=== PATIENT | male | born 1935 | race Caucasian/White ===

== ENCOUNTER 2018-12-02 11:38 | Inpatient (IN) | payer MEDICARE ==
--- NOTE | 2018-12-02 12:35 | ED ---
Lower Extremity - HPI Summary HPI Summary: The pt is a 83 yr old male presenting to [facility] c/o foot pain beginning several weeks [employer]. He states that his 2nd toe on right foot suddenly started hurting much more this week. Most of his pain is located in his toe and he rates its severity a 10/10. He reports some redness around the toe but denies hitting the toe, SOB, fever, chills, CP, or N/V/D. He has Hx of DM. - History of Current Complaint Chief Complaint: EDExtremityLower Stated Complaint: RIGHT FOOT PAIN PER PT Time Seen by Provider: 12/02/18 12:01 Hx Obtained From: Patient Mechanism Of Injury: Unknown Onset of Pain: Days, Prior to Arrival Onset/Duration: Still Present Severity Initially: Severe Severity Currently: Severe Pain Intensity: 10 Pain Scale Used: 0-10 Numeric Timing: Constant, Lasting Weeks Location: Is Discrete @ - 2nd toe on right foot Associated Signs And Symptoms: Positive: Redness. Negative: Fever - Allergies/Home Medications Allergies/Adverse Reactions: Allergies Allergy/AdvReac Type Severity Reaction Status Date / Time ciprofloxacin Allergy Swelling Verified 12/02/18 11:49 Of Face,Lips,& Throat Home Medications: Home Medications Levothyroxine TAB* [Synthroid TAB*] 50 mcg PO DAILY 12/02/18 [History Confirmed 12/02/18] Multivitamins/Minerals TAB* [Theragran/minerals TAB*] 1 tab PO DAILY 12/02/18 [ History Confirmed 12/02/18] PMH/Surg Hx/FS Hx/Imm Hx Endocrine/Hematology History: Reports: Hx Diabetes Denies: Hx Anticoagulant Therapy, Hx Thyroid Disease Cardiovascular History: Reports: Hx Hypertension Denies: Hx Pacemaker/ICD Respiratory History: Denies: Hx Asthma History: Reports: Hx Benign Prostatic Hyperplasia, Other Problems/ Disorders - hx of renal stones Denies: Hx Renal Disease Musculoskeletal History: Reports: Hx Gout Sensory History: Reports: Hx Contacts or Glasses Opthamlomology History: Reports: Hx Contacts or Glasses Neurological History: Denies: Hx Seizures Psychiatric History: Denies: Hx Substance Abuse - Surgical History Surgery Procedure, Year, and Place: prostate scraping x3 Infectious Disease History: No Infectious Disease History: Denies: Hx Hepatitis, Hx Human Immunodeficiency Virus (HIV), Traveled Outside the [place] in Last 30 Days - Family History Known Family History: Positive: Hypertension - Social History Alcohol Use: None Hx Substance Use: No Substance Use Type: Reports: None Hx Tobacco Use: Yes Smoking Status (MU): Former Smoker Review of Systems Negative: Fever, Chills Negative: Chest Pain Negative: Shortness Of Breath Negative: Vomiting, Diarrhea, Nausea Positive: Other - Positive - pain in right foot 2nd toe All Other Systems Reviewed And Are Negative: Yes Physical Exam - Summary Physical Exam Summary: Constitutional: Well-developed, Well-nourished, Alert. 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 Feet are warm HENT: Normocephalic; Atraumatic Eyes: Conjunctiva normal Neck: Musculoskeletal ROM normal neck. (-) JVD, (-) Stridor, (-) Tracheal deviation Cardio: Rhythm regular, rate normal, Heart sounds normal; Intact distal pulses; No pedal pulses bilaterally. Radial pulses are 2+ and symmetric. (-) Murmur Pulmonary/Chest wall: Effort normal. (-) Respiratory distress, (-) Wheezes, (-) Rales Abd: Soft, (-) tenderness, (-) Distension, (-) Guarding, (-) Rebound Musculoskeletal: (-) Edema, right foot distal portion of second toe is black and the proximal portion has erythema extending up into the leg. Lymph: (-) Cervical adenopathy Neuro: Alert, Oriented x3 Psych: Mood and affect Normal Triage Information Reviewed: Yes Vital Signs On Initial Exam: Initial Vitals Temp Pulse Resp BP Pulse Ox 97.8 F 75 16 153/81 96 12/02/18 11:43 12/02/18 11:43 12/02/18 11:43 12/02/18 11:43 12/02/18 11:43 Vital Signs Reviewed: Yes Diagnostics - Vital Signs Vital Signs Temp Pulse Resp BP Pulse Ox 12/02/18 11:43 97.8 F 75 16 153/81 96 - Laboratory Result Diagrams: 12/02/18 12:58 12/02/18 12:58 Lab Statement: Any lab studies that have been ordered have been reviewed, and results considered in the medical decision making process. - Radiology Foot XR Radiology Interpretation Completed By: Radiologist Summary of Radiographic Findings: NO APPRECIABLE EROSION OR PERIOSTEAL REACTION. PLAIN RADIOGRAPH FINDINGS OF OSTEOMYELITIS ARE RELATIVELY LATE FINDINGS. IF THERE IS PERSISTENT CLINICAL CONCERN FOR OSTEOMYELITIS, RECOMMEND CORRELATION WITH FOLLOWUP IMAGING, THREE-PHASE BONE SCANNING, WHITE BLOOD CELL SCAN, AND/OR MRI OF THE AFFECTED REGION. ED physician has reviewed this report. 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 Lower Extremity Course/Dx - Course Course Of Treatment: The pt is an 83 yr old male presenting to [facility] c/o foot pain beginning several weeks [employer]. He states that his 2nd toe on right foot suddenly started hurting much more this week. Most of his pain is located in his toe and he rates its severity a 10/10. He denies hitting the toe, SOB, fever , chills, CP, or N/V/D. He has Hx of DM. 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 Test results without significant abnormalities except for WBC @ 11.6, RBC @ 3.94, Hgb @ 12.5, Hct @ 36, MCH @ 32, Absolute Neuts @ 9.8, Absolute Lymphs @ 0.9, Sodium @ 131, Chloride @ 100, CO2 @ 21, BUN @ 33, Creatinine @ 1.30, BUN/Creatinine @ 25.4, Glucose @ 550, Lactic acid @ 2.7, AST @ 12, and CRP @ 82.8. 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 A foot xray reveals: NO APPRECIABLE EROSION OR PERIOSTEAL REACTION. PLAIN RADIOGRAPH FINDINGS OF OSTEOMYELITIS ARE RELATIVELY LATE FINDINGS. IF THERE IS PERSISTENT CLINICAL CONCERN FOR OSTEOMYELITIS, RECOMMEND CORRELATION WITH FOLLOWUP IMAGING, THREE-PHASE BONE SCANNING, WHITE BLOOD CELL SCAN, AND/OR MRI OF THE AFFECTED REGION. In the ED course, the pt was given normal saline, Vancomycin, and Zosyn. The pt was diagnosed with foot infection and admitted to [facility] - Diagnoses Provider Diagnoses: Foot infection - Physician Notifications Discussed Care Of Patient With: Raven Monet Time Discussed With Above Provider: 14:00 - Dr. Monet will admit the pt to [facility] Instructed by Provider To: Admit As Inpatient Discharge - Sign-Out/Discharge Documenting (check all that apply): Patient Departure - Admit - Discharge Plan Condition: Stable Disposition: ADMITTED TO [facility] - Billing Disposition and Condition Condition: STABLE Disposition: Admitted to [facility] - Attestation Statements Document Initiated by Scribe: Yes Documenting Scribe: Richard Ibanez Provider For Whom Akiraibe is Documenting (Include Credential): Sonya Keenan MD Scribe Attestation: Richard Chavez, scribed for Sonya Malin MD on 12/02/18 at 1854. Scribe Documentation Reviewed: Yes Provider Attestation: The documentation as recorded by the Richard gar accurately reflects the service I personally performed and the decisions made by Sonya jaimes MD Status of Scribe Document: Viewed
--- OUTSIDE RECORDS SUMMARY | 2018-12-02 13:05 | XMS REPORT | Continuity of Care Document ---
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 Onset: 03/21/2011 Benign essential hypertension Quincy Parker M.D. Onset: 03/21/2011 Gout Quincy Parker M.D. Onset: 06/09/2012 Pulmonary embolism Quincy Parker M.D. 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 Onset: 12/15/2012 Abdominal pain Quincy Parker M.D. Onset: 04/12/2014 Essential hypertension Quincy Parker M.D. Onset: 08/28/2017 Social History Type Date Description Comments Sex Unknown Marital Status Patient is Tobacco Use Start: Unknown End: Unknown Patient is a former smoker Smoking Status Reviewed: 04/22/17 Patient is a former smoker Allergies, Adverse Reactions, Alerts Active Allergies Reaction Severity Comments Date Cipro facial swelling 09/19/2012 Inactive Allergies NKDA 09/26/2011 Medications Active Medications SIG Qnty Indications Ordering Provider Date Glipizide ER Take 1 Tablet 180tabs Quincy Chakraborty 05/21/2018 10mg By Mouth Two Tara Parker Tablets ER 24HR Times Daily Levothyroxine Sodium Take 1 Tablet 90tabs Quincy Chakraborty 08/29/2017 By Mouth Every Tara Parker 50mcg Tablets Day Contour Blood Test as directed 1Boxes E11.9 Corinne Marion, 02/09/2010 Strips Afnp-C dx: niddm Lancets use as directed 100units E11.9 Corinne Marion, 02/09/2010 Misc Afnp-C dx. niddm Metformin HCL Take One Tablet 180tabs Quincy Chakraborty 10/19/2009 1000mg By Mouth Twice Tara Parker Tablets A Day Aspirin 1 PO qd Family [facility] 01/30/2008 81mg Che[facility] Allopurinol Take 1 Tablet 90tabs Quincy Chakraborty 01/30/2008 300mg By Mouth One Tara Parker Tablets Time Daily Fosinopril Sodium Take One Tablet 90tabs Quincy Chakraborty 01/30/2008 20mg By Mouth Every Tara Parker Tablets Day Metoprolol Succinate Take 1 Tablet 90tabs Lester Alicea, 01/30/2008 ER By Mouth Every Tara 50mg Tablets ER 24HR Day History Medications Azithromycin z lisa as 6tabs J20.9 Radha Colón 04/22/2017 - 250mg directed, 2 tabs 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, [employer]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 08/28/2017 Tablets day one, one tab day 2-5 Farxiga 1 by mouth once a 30tabs Quincy Chakraborty 04/24/2016 - 5mg Tablets day-Samples Tara Parker 08/28/2017 Tradjenta 1 tablet once a 30tabs Quincy Chakraborty 04/09/2016 - 5mg Tablets day orally 30 Tara Parker 04/24/2016 day(s) Januvia 1 by mouth every 90tabs Quincy Chakraborty 03/14/2016 - 100mg Tablets day Tara Parker 08/28/2017 Januvia 1 by mouth every 30tabs Quincy Chakraborty 03/07/2016 - 50mg Tablets day Tara Parker 03/14/2016 Tamiflu 1 by mouth Once A 10caps Quincy Chakraborty 06/16/2014 - 75mg Capsules Day Tara Parker 12/24/2014 Amoxicillin 1 po bid x 10 20tabs 466.0 Layla Patel NP 05/04/2013 - 875mg days 05/14/2013 Tablets Zyloprim Take One Tablet 90tabs Quincy Chakraborty 02/11/2013 - 300mg Tablets By Mouth Every Tara Parker 05/04/2013 Day Glucotrol XL 1 po qd Quincy Chakraborty 10/10/2012 - 2.5mg Tara Parker 04/27/2013 Tablets ER 24HR Warfarin Sodium Take One Tablet 90tabs Quincy Chakraborty 10/08/2012 - 5mg By Mouth Once Tara Parker 04/04/2015 Tablets Daily Or as Directed Levothyroxine Sodium Take One Tablet 90tabs Quincy Chakraborty 09/19/2012 - By Mouth Once Tara Parker 08/29/2017 25mcg Tablets Daily Metformin HCL 2 po qd Lizeth 10/05/2009 - 500mg Jun Pike 10/19/2009 Tablets ER 24HR Glucotrol XL Take 1 Tablet By 180tabs Quincy Chakraborty 10/05/2009 - 10mg Mouth Two Times Tara Parker 05/21/2018 Tablets ER 24HR Daily Glucotrol XL 2 po qd 30tabs Lizeth 09/15/2009 - 5mg Jun Pike 10/05/2009 Tablets ER 24HR Cipro 1 po bid 10tabs Quincy Cahkraborty 08/12/2009 - 250mg Tablets Tara Parker 09/15/2009 Glyburide 1qd - Take One 30tabs Quincy Chakraborty 07/13/2009 - 2.5mg Tabs Tablet By Mouth Tara Parker 08/12/2009 Every Day Glyburide 1 po qd 90tabs Quincy Chakraborty 01/30/2008 - 2.5mg Tablets Tara Parker 09/15/2009 Norvasc Take One Tablet 90tabs Quincy Chakraborty 01/30/2008 - 5mg Tablets By Mouth Every Tara Parker 09/19/2012 Day Cozaar Take One Tablet 90tabs Quincy Chakraborty 01/30/2008 - 25mg Tablets By Mouth Every Tara Parker 09/19/2012 Day Coumadin 1 qd or as Unknown - 7.5mg Tablets directed 12/24/2014 Immunizations CPT Code Status Date Vaccine Lot # [id number] Given 02/14/2018 High-Dose, Influenza Virus Vacccine-fluzone 65 and older [id number] Given 01/28/2017 High-Dose, Influenza Virus Vacccine-fluzone 65 and older [id number] Given 02/01/2015 Influenza Vac, Quadriv[place], [place] [id number] Given 01/30/2013 DO Not Use Split Influenza Virus Vaccine [id number] Given 06/09/2012 Pneumococcal Immunization [id number] Vital Signs Date Vital Result Comment 11/14/2018 11:04am BP Systolic 118 mmHg BP Diastolic 70 mmHg Heart Rate 72 /min Body Temperature 97.2 F Respiratory Rate 20 /min Height 55.25 inches 4'7.25" Weight 154.00 lb BMI (Body Mass Index) 35.5 kg/m2 08/28/2017 2:24pm BP Systolic 92 mmHg BP Diastolic 64 mmHg Heart Rate 68 /min Body Temperature 97.2 F Respiratory Rate 18 /min Height 55.25 inches 4'7.25" Weight 157.25 lb BMI (Body Mass Index) 36.2 kg/m2 04/22/2017 7:20pm BP Systolic 110 mmHg BP Diastolic 70 mmHg Heart Rate 72 /min Body Temperature 98.0 F Respiratory Rate 18 /min Height 55.25 inches 4'7.25" Weight 153.00 lb BMI (Body Mass Index) 35.2 kg/m2 03/19/2017 11:07am BP Systolic 120 mmHg BP Diastolic 68 mmHg Heart Rate 80 /min Body Temperature 97.3 F Height 55.25 inches 4'7.25" Weight 161.00 lb BMI (Body Mass Index) 37.1 kg/m2 02/04/2017 2:12pm BP Systolic 120 mmHg BP Diastolic 74 mmHg Heart Rate 63 /min Body Temperature 98.0 F Respiratory Rate 18 /min Height 55.25 inches 4'7.25" Weight 164.00 lb BMI (Body Mass Index) 37.8 kg/m2 10/03/2016 1:03pm BP Systolic 128 mmHg BP Diastolic 70 mmHg Heart Rate 60 /min Body Temperature 98.2 F Respiratory Rate 16 /min Height 55.25 inches 4'7.25" Weight 163.00 lb BMI (Body Mass Index) 37.5 kg/m2 07/06/2016 8:46am BP Systolic 120 mmHg BP Diastolic 70 mmHg Heart Rate 60 /min Respiratory Rate 18 /min Height 55.25 inches 4'7.25" Weight 157.00 lb BMI (Body Mass Index) 36.2 kg/m2 03/07/2016 2:07pm BP Systolic 130 mmHg BP Diastolic 70 mmHg Heart Rate 64 /min Body Temperature 97.2 F Respiratory Rate 20 /min Height 55.25 inches 4'7.25" Weight 170.50 lb BMI (Body Mass Index) 39.3 kg/m2 12/05/2015 2:14pm BP Systolic 118 mmHg BP Diastolic 74 mmHg Heart Rate 64 /min Body Temperature 98.2 F Respiratory Rate 20 /min Height 55.25 inches 4'7.25" Weight 161.00 lb BMI (Body Mass Index) 37.1 kg/m2 08/03/2015 1:53pm BP Systolic 136 mmHg BP Diastolic 80 mmHg Heart Rate 70 /min Body Temperature 97.4 F Respiratory Rate 20 /min Height 55.25 inches 4'7.25" Weight 166.00 lb BMI (Body Mass Index) 38.2 kg/m2 04/04/2015 1:57pm BP Systolic 136 mmHg BP Diastolic 70 mmHg Heart Rate 64 /min Body Temperature 97.5 F Respiratory Rate 20 /min Height 55.25 inches 4'7.25" Weight 167.00 lb BMI (Body Mass Index) 38.5 kg/m2 12/24/2014 10:25am BP Systolic 140 mmHg BP Diastolic 70 mmHg Heart Rate 60 /min Body Temperature 96.7 F Height 55.25 inches 4'7.25" Weight 158.00 lb BMI (Body Mass Index) 36.4 kg/m2 04/12/2014 11:01am BP Systolic 124 mmHg BP Diastolic 80 mmHg Heart Rate 74 /min Body Temperature 97.6 F Respiratory Rate 18 /min Height 55.25 inches 4'7.25" Weight 157.12 lb BMI (Body Mass Index) 36.2 kg/m2 03/26/2014 11:01am BP Systolic 118 mmHg BP Diastolic 72 mmHg Heart Rate 74 /min Body Temperature 98.5 F Respiratory Rate 18 /min Height 55.25 inches 4'7.25" Weight 157.00 lb BMI (Body Mass Index) 36.2 kg/m2 11/11/2013 1:09pm BP Systolic 138 mmHg BP Diastolic 72 mmHg Heart Rate 68 /min Body Temperature 97.3 F Respiratory Rate 18 /min Height 55.25 inches 4'7.25" Weight 163.00 lb BMI (Body Mass Index) 37.5 kg/m2 08/12/2013 3:19pm BP Systolic 140 mmHg BP Diastolic 70 mmHg Heart Rate 76 /min Body Temperature 97.6 F Respiratory Rate 18 /min Height 55.25 inches 4'7.25" Weight 168.00 lb BMI (Body Mass Index) 38.7 kg/m2 05/04/2013 3:15pm BP Systolic 120 mmHg BP Diastolic 60 mmHg Heart Rate 66 /min Body Temperature 97.6 F Respiratory Rate 16 /min O2 % BldC Oximetry 98 % Height 55.25 inches 4'7.25" Weight 167.12 lb BMI (Body Mass Index) 38.5 kg/m2 04/27/2013 1:00pm BP Systolic 122 mmHg BP Diastolic 72 mmHg Heart Rate 74 /min Body Temperature 98.1 F Respiratory Rate 16 /min Height 55.25 inches 4'7.25" Weight 165.00 lb BMI (Body Mass Index) 38.0 kg/m2 12/15/2012 2:22pm BP Systolic 120 mmHg BP Diastolic 70 mmHg Heart Rate 72 /min Body Temperature 97.9 F Respiratory Rate 20 /min Height 55.25 inches 4'7.25" Weight 163.00 lb BMI (Body Mass Index) 37.5 kg/m2 10/10/2012 1:52pm BP Systolic 130 mmHg BP Diastolic 70 mmHg Heart Rate 70 /min Body Temperature 97.2 F Respiratory Rate 20 /min Height 55.25 inches 4'7.25" Weight 164.00 lb BMI (Body Mass Index) 37.8 kg/m2 09/19/2012 1:49pm BP Systolic 120 mmHg BP Diastolic 80 mmHg Heart Rate 72 /min Body Temperature 97.7 F O2 % BldC Oximetry 98 % Height 55.25 inches 4'7.25" Weight 165.00 lb BMI (Body Mass Index) 38.0 kg/m2 06/09/2012 10:15am BP Systolic 100 mmHg BP Diastolic 70 mmHg Heart Rate 68 /min Body Temperature 98.2 F Height 55.25 inches 4'7.25" Weight 162.00 lb BMI (Body Mass Index) 37.3 kg/m2 02/25/2012 1:03pm BP Systolic 146 mmHg BP Diastolic 80 mmHg Heart Rate 68 /min Body Temperature 98.0 F Height 64.75 inches 5'4.75" Weight 160.00 lb BMI (Body Mass Index) 26.8 kg/m2 09/26/2011 3:08pm BP Systolic 120 mmHg BP Diastolic 70 mmHg Heart Rate 72 /min Body Temperature 97.9 F Height 64.75 inches 5'4.75" Weight 164.00 lb BMI (Body Mass Index) 27.5 kg/m2 06/22/2011 2:40pm BP Systolic 130 mmHg BP Diastolic 70 mmHg Heart Rate 64 /min Height 64.75 inches 5'4.75" Weight 168.50 lb BMI (Body Mass Index) 28.3 kg/m2 03/21/2011 2:42pm BP Systolic 130 mmHg BP Diastolic 70 mmHg Heart Rate 66 /min Body Temperature 97.6 F Respiratory Rate 20 /min Height 64.75 inches 5'4.75" Weight 166.00 lb BMI (Body Mass Index) 27.8 kg/m2 11/13/2010 9:54am BP Systolic 122 mmHg BP Diastolic 74 mmHg Heart Rate 74 /min Body Temperature 96.7 F Height 64.75 inches 5'4.75" Weight 159.00 lb BMI (Body Mass Index) 26.7 kg/m2 08/02/2010 6:15pm BP Systolic 114 mmHg BP Diastolic 74 mmHg Heart Rate 80 /min Height 64.75 inches 5'4.75" Weight 160.00 lb BMI (Body Mass Index) 26.8 kg/m2 05/01/2010 2:00pm BP Systolic 110 mmHg BP Diastolic 66 mmHg Heart Rate 80 /min Height 64.75 inches 5'4.75" Weight 160.00 lb BMI (Body Mass Index) 26.8 kg/m2 02/09/2010 1:34pm BP Systolic 94 mmHg BP Diastolic 60 mmHg Heart Rate 90 /min Body Temperature 97.4 F Height 64.75 inches 5'4.75" Weight 154.00 lb BMI (Body Mass Index) 25.8 kg/m2 02/01/2010 1:27pm BP Systolic 118 mmHg BP Diastolic 70 mmHg Heart Rate 76 /min Height 64.75 inches 5'4.75" Weight 156.00 lb BMI (Body Mass Index) 26.2 kg/m2 12/01/2009 3:16pm BP Systolic 106 mmHg BP Diastolic 70 mmHg Heart Rate 72 /min Height 64.75 inches 5'4.75" Weight 153.00 lb BMI (Body Mass Index) 25.7 kg/m2 11/02/2009 11:02am BP Systolic 120 mmHg BP Diastolic 72 mmHg Heart Rate 78 /min Height 64.75 inches 5'4.75" Weight 154.00 lb BMI (Body Mass Index) 25.8 kg/m2 10/19/2009 9:57am BP Systolic 120 mmHg BP Diastolic 70 mmHg Heart Rate 72 /min Height 64.75 inches 5'4.75" Weight 153.00 lb BMI (Body Mass Index) 25.7 kg/m2 10/05/2009 10:54am BP Systolic 104 mmHg BP Diastolic 70 mmHg Heart Rate 80 /min Body Temperature 96.6 F Weight 148.00 lb 09/15/2009 2:54pm BP Systolic 126 mmHg BP Diastolic 70 mmHg Heart Rate 80 /min Height 64.75 inches 5'4.75" Weight 153.00 lb BMI (Body Mass Index) 25.7 kg/m2 08/12/2009 12:52pm BP Systolic 108 mmHg BP Diastolic 72 mmHg Heart Rate 88 /min Height 64.75 inches 5'4.75" Weight 155.00 lb BMI (Body Mass Index) 26.0 kg/m2 05/19/2008 4:01pm BP Systolic 118 mmHg BP Diastolic 70 mmHg Heart Rate 64 /min Body Temperature 97.6 F Height 64.75 inches 5'4.75" Weight 169.00 lb BMI (Body Mass Index) 28.3 kg/m2 01/30/2008 3:05pm BP Systolic 128 mmHg BP Diastolic 74 mmHg Heart Rate 66 /min Body Temperature 98.2 F Height 64.75 inches 5'4.75" Weight 163.00 lb BMI (Body Mass Index) 27.3 kg/m2 Results Test Date Facility Test Result H/L Range Note Laboratory test 11/14/2018 [facility] Hemoglobin A1c 7.6 % % High 4.1-5.7 finding (607)- - (F[facility]) CBC Electronic 11/14/2018 Carlos Alejandra(fma) WBC 10.2 High 4.0-10.0 [facility] x10^3/UL RBC 4.44 x10^6/UL 3.93-6.00 HGB 14.3 g/dL 12.0-17.0 HCT 39 % 35-50 MCV 88.5 fL 80.0-95.0 MCH 32.2 pg 25.6-32.2 MCHC 36.4 g/dL High 32.2-36.0 RDW-CV 13.7 % 11.6-14.4 PLT 254 x10^3/UL 163-400 MPV 10.2 fL 9.4-12.4 Jennifer# 7.15 x10^3/UL High 1.56-6.13 Lymph# 2.12 x10^3/UL 1.18-3.74 [place]# 0.65 x10^3/UL 0.24-0.82 Eos # 0.2 x10^3/UL 0.0-0.5 Baso # 0.06 x10^3/UL 0.01-0.08 Jennifer% 70.1 % High 34.0-70.0 Lymph % 20.8 % 20.0-52.0 [place]% 6.4 % 5.0-12.0 Eos% 1.8 % 0.7-7.0 Baso% 0.6 % 0.1-1.2 Comprehensive Metabolic 11/14/2018 Carlos Alejandra(fma) Sodium 135 mEq/L 134-149 Prof Potassium 4.7 mEq/L 3.6-5.5 Chloride 103 mEq/L 94-112 Carbon Dioxide 21 mEq/L 21-32 Glucose 134 mg/dL High 70-105 BUN 33 mg/dL High 6-26 Creatinine 1.3 mg/dL 0.6-1.4 BUN/Creat Ratio 25.4 CALC 8.0-36.0 Calcium 9.5 mg/dL 8.6-10.2 Total Protein 6.8 g/dL 6.4-8.3 Albumin 4.6 g/dL 3.8-5.5 Globulin 2.2 g/dL 2.0-4.8 A/G Ratio 2.1 CALC 0.6-2.3 Alk. Phosphatase 55 U/L 22-95 Alt (SGPT) 19 U/L 7-35 Ast (Sgot) 14 U/L 5-34 Total Bilirubin 1.9 mg/dL High 0.2-1.3 GFR Non- 56 ml/min/1.73m^ Low >=60 GFR >60 ml/min/1.73m^ >=60 Lipid Profile 11/14/2018 Carlos Aljeandra([facility]) Cholesterol 138 mg/dL 120- 200 Triglycerides 128 mg/dL 30-200 HDL Cholesterol 32 mg/dL 30-70 LDL (Calculated) 80 CALC 0-129 VLDL Cholesterol 26 mg/dL 0-50 HDL Risk Factor 4.3 CALC 0.0-4.4 Laboratory test 11/14/2018 Carlos Alejandra([facility]) TSH 6.79 mIU/L High 0.50- 6.00 1 finding Free T4 1.03 ng/dL 0.75-1.54 Comprehensive Metabolic 08/28/2017 Terrance Alejandra([facility]) Sodium 135 mEq/L 134-149 Prof Potassium 4.0 mEq/L 3.6-5.5 Chloride 98 mEq/L 94-112 Carbon Dioxide 23 mEq/L 21-32 Glucose 289 mg/dL High 70-105 2 BUN 25 mg/dL 6-26 Creatinine 1.1 mg/dL 0.6-1.4 BUN/Creat Ratio 22.7 CALC 8.0-36.0 Calcium 9.6 mg/dL 8.6-10.2 Total Protein 7.3 g/dL 6.4-8.3 Albumin 4.8 g/dL 3.8-5.5 Globulin 2.5 g/dL 2.0-4.8 A/G Ratio 1.9 CALC 0.6-2.3 Alk. Phosphatase 55 U/L 22-95 Alt (SGPT) 22 U/L 7-35 Ast (Sgot) 18 U/L 5-34 Total Bilirubin 1.7 mg/dL High 0.2-1.3 3 GFR Non- >60 ml/min/1.73m^ >=60 GFR >60 ml/min/1.73m^ >=60 Laboratory test 08/28/2017 Carlos Alejandra([facility]) TSH 34.67 mIU/L High 0.50- 6.00 finding Free T4 0.74 ng/dL Low 0.75-1.54 Laboratory test 08/28/2017 [facility] Hemoglobin A1c 7.0 % % High 4.1-5.7 finding (607)- - (a) Laboratory test 04/22/2017 [facility] Quickstrep negative Negative finding (607)- - Laboratory test 02/04/2017 [facility] Hemoglobin A1c 8.1 % High 4.1- 5.7 finding (607)- - ([facility]ma) Laboratory test 10/03/2016 [facility] Hemoglobin A1c 8.3 % High 4.1- 5.7 finding (607)- - ([facility]ma) Complete Blood 07/06/2016 Terrance Roberts(a) WBC 8.3 x10^3/UL 3.6-9.6 Count RBC 5.25 x10^6/UL 3.90-5.70 HGB 17.0 g/dL 12.1-17.2 HCT 50 % 36-50 MCV 96.0 fL 82.2-97.4 MCH 32.4 pg 27.6-33.3 MCHC 33.8 g/dL 33.0-35.5 RDW 13.3 % 11.6-13.7 PLT 270 x10^3/UL 150-400 MPV 7.7 fL 7.4-10.4 Gran # 5.4 x10^3/UL 1.5-7.2 Lymph# 2.4 x10^3/UL 0.7-4.9 [place]# 0.5 x10^3/UL 0.1-0.9 Gran % 63.7 % 42.2-75.2 Lymph % 29.3 % 20.5-51.1 [place]% 7.0 % 1.7-9.3 Laboratory test 07/06/2016 Terrance Roberts(a) TSH 15.89 mIU/L High 0.50- 6.00 finding Free T4 0.97 ng/dL 0.75-1.54 Uric Acid 5.0 mg/dL 2.5-9.2 Lipid Profile 07/06/2016 Terrance Alejandra([facility]ma) Cholesterol 146 mg/dL 120- 200 Triglycerides 118 mg/dL 30-200 HDL Cholesterol 34 mg/dL 30-70 LDL (Calculated) 88 CALC 0-129 VLDL Cholesterol 24 mg/dL 0-50 HDL Risk Factor 4.3 CALC 0.0-4.4 Comprehensive Metabolic 07/06/2016 Terrance Alejandra(a) Sodium 137 mEq/L 134-149 Prof Potassium 4.9 mEq/L 3.6-5.5 Chloride 104 mEq/L 94-112 Carbon Dioxide 25 mEq/L 21-32 Glucose 183 mg/dL High 70-105 BUN 53 mg/dL High 6-26 4 Creatinine 1.5 mg/dL High 0.6-1.4 BUN/Creat Ratio 35.3 CALC 8.0-36.0 Calcium 10.0 mg/dL 8.6-10.2 Total Protein 7.5 g/dL 6.4-8.3 Albumin 4.6 g/dL 3.8-5.5 Globulin 2.9 g/dL 2.0-4.8 A/G Ratio 1.6 CALC 0.6-2.3 Alk. Phosphatase 66 U/L 22-95 Alt (SGPT) 25 U/L 7-35 Ast (Sgot) 19 U/L 5-34 Total Bilirubin 1.7 mg/dL High 0.2-1.3 GFR Non- 48 ml/min/1.73m^ Low >=60 GFR 58 ml/min/1.73m^ Low >=60 Laboratory test 07/06/2016 [facility] Hemoglobin A1c 8.3 % High 4.1- 5.7 finding (607)- - ([facility]) Laboratory test 03/07/2016 [facility] Hemoglobin A1c 9.6 % % High 4.1-5.7 finding (607)- - ([facility]) Laboratory test 12/05/2015 [facility] Hemoglobin A1c 8.8 % % High 4.1-5.7 finding (607)- - ([facility]) Laboratory test 08/03/2015 [facility] Hemoglobin A1c 8.7 % High 4.1- 5.7 finding (607)- - ([facility]) Laboratory test 04/04/2015 [facility] Hemoglobin A1c 7.8 % High 4.1- 5.7 finding (607)- - (a/CMC,CX) Comprehensive 12/24/2014 Carlos Alejandra(a) Sodium 137 mEq/L 134-149 Metabolic Prof Potassium 4.0 mEq/L 3.6-5.5 Chloride 103 mEq/L 94-112 Carbon Dioxide 23 mEq/L 21-32 Glucose 149 mg/dL High 70-105 5 BUN 28 mg/dL High 6-26 6 Creatinine 1.1 mg/dL 0.6-1.4 BUN/Creat Ratio 25.5 CALC 8.0-36.0 Calcium 9.1 mg/dL 8.6-10.2 Total Protein 6.9 g/dL 6.4-8.3 Albumin 4.2 g/dL 3.8-5.5 Globulin 2.7 g/dL 2.0-4.8 A/G Ratio 1.6 CALC 0.6-2.3 Alk. Phosphatase 53 U/L 22-95 Alt (SGPT) 25 U/L 7-35 Ast (Sgot) 22 U/L 5-34 Total Bilirubin 1.9 mg/dL High 0.2-1.3 7 GFR Non- >60 ml/min/1.73m^ >=60 GFR >60 ml/min/1.73m^ >=60 Lipid Profile 12/24/2014 Terrance Roberts([facility]) Cholesterol 149 mg/dL 120- 200 Triglycerides 75 mg/dL 30-200 HDL Cholesterol 45 mg/dL 30-70 LDL (Calculated) 89 CALC 0-129 VLDL Cholesterol 15 mg/dL 0-50 HDL Risk Factor 3.3 CALC 0.0-4.4 Laboratory test finding 12/24/2014 Terrance Roberts([facility]) TSH 5.58 mIU/L 0.50-6.00 Free T4 1.20 ng/dL 0.75-1.54 Complete Blood Count 12/24/2014 Terrance Roberts([facility]) WBC 7.3 x10^3/UL 3.6 -9.6 RBC 4.61 x10^6/UL 3.90-5.70 HGB 15.2 g/dL 12.1-17.2 HCT 44 % 36-50 MCV 96.0 fL 82.2-97.4 MCH 32.9 pg 27.6-33.3 MCHC 34.4 g/dL 33.0-35.5 RDW 12.3 % 11.6-13.7 PLT 255 x10^3/UL 150-400 MPV 7.2 fL Low 7.4-10.4 Gran # 4.7 x10^3/UL 1.5-7.2 Lymph# 2.2 x10^3/UL 0.7-4.9 [place]# 0.4 x10^3/UL 0.1-0.9 Gran % 63.0 % 42.2-75.2 Lymph % 30.7 % 20.5-51.1 [place]% 6.3 % 1.7-9.3 Laboratory test 12/24/2014 [facility] Hemoglobin A1c 6.6 % High 4.1- 5.7 finding (607)- - (a/CMC,CX) Laboratory test 04/12/2014 [facility] Hemoglobin A1c 7.9 % High 4.1- 5.7 finding (607)- - (a/CMC,CX) Sed Rate (a/[facility]) 61 mm ## Complete Blood Count 04/12/2014 Carlos Alejandra([facility]) WBC 10.9 x10^3/UL High 3.6-9.6 8 RBC 4.38 x10^6/UL 3.90-5.70 HGB 14.1 g/dL 12.1-17.2 HCT 41 % 36-50 MCV 93.0 fL 82.2-97.4 MCH 32.2 pg 27.6-33.3 MCHC 34.6 g/dL 33.0-35.5 RDW 11.8 % 11.6-13.7 PLT 277 x10^3/UL 150-400 MPV 8.0 fL 7.4-10.4 Gran # 8.9 x10^3/UL High 1.5-7.2 Lymph# 1.6 x10^3/UL 0.7-4.9 [place]# 0.4 x10^3/UL 0.1-0.9 Gran % 80.6 % High 42.2-75.2 9 Lymph % 14.9 % Low 20.5-51.1 10 [place]% 4.5 % 1.7-9.3 Complete Blood Count 03/26/2014 Terrance Alejandra([facility]) WBC 19.6 x10^3/UL High 3.6-9.6 11 RBC 4.99 x10^6/UL 3.90-5.70 HGB 16.2 g/dL 12.1-17.2 HCT 47 % 36-50 MCV 95.0 fL 82.2-97.4 MCH 32.5 pg 27.6-33.3 MCHC 34.2 g/dL 33.0-35.5 RDW 11.9 % 11.6-13.7 PLT 240 x10^3/UL 150-400 MPV 8.1 fL 7.4-10.4 Gran # 17.9 x10^3/UL High 1.5-7.2 Lymph# 1.3 x10^3/UL 0.7-4.9 [place]# 0.4 x10^3/UL 0.1-0.9 Gran % 90.6 % High 42.2-75.2 12 Lymph % 6.9 % Low 20.5-51.1 13 [place]% 2.5 % 1.7-9.3 Laboratory test finding 03/26/2014 Terrance Alejandra(fma) CK 170 U/L 38- 174 BUN 30 mg/dL High 6-26 14 Creatinine 1.3 mg/dL 0.6-1.4 Laboratory test 03/26/2014 [facility] LDH 162 U/L 20-190 15 finding 28 [place] [id number] [phone] Laboratory test 12/15/2013 [facility] Inr (a) 2.2 2.0-3.0 finding (607)- - Comprehensive 12/15/2013 Terrance Alejandra(fma) Sodium 135 mEq/L 134-149 Metabolic Prof Potassium 4.2 mEq/L 3.6-5.5 Chloride 102 mEq/L 94-112 Carbon Dioxide 23 mEq/L 21-32 Glucose 135 mg/dL High 70-105 BUN 34 mg/dL High 6-26 16 Creatinine 1.0 mg/dL 0.6-1.4 BUN/Creat Ratio 34.0 CALC 8.0-36.0 Calcium 9.4 mg/dL 8.6-10.2 Total Protein 7.2 g/dL 6.3-8.1 Albumin 4.5 g/dL 3.8-5.5 Globulin 2.7 g/dL 2.0-4.8 A/G Ratio 1.7 CALC 0.6-2.3 Alk. Phosphatase 54 U/L 22-95 Alt (SGPT) 30 U/L 7-35 Ast (Sgot) 27 U/L 5-34 Total Bilirubin 1.7 mg/dL High 0.2-1.3 17 Lipid Profile 12/15/2013 Terrance Alejandra(fma) Cholesterol 157 mg/dL 120- 200 Triglycerides 83 mg/dL 30-200 HDL Cholesterol 37 mg/dL 30-70 LDL (Calculated) 103 CALC 0-129 VLDL Cholesterol 17 mg/dL 0-50 HDL Risk Factor 4.2 CALC 0.0-4.4 Laboratory test 12/15/2013 Carlos Alejandra([facility]ma) TSH 7.80 mIU/L High 0.50- 6.00 18 finding Free T4 1.01 ng/dL 0.75-1.54 Uric Acid 5.8 mg/dL 2.5-9.2 Laboratory test 11/11/2013 [facility] Hemoglobin A1c 7.1% % High 4.1 -5.7 finding (607)- - (Fma/CMC,CX) Inr (Fma) 2.3 2-3 Laboratory test finding 09/15/2013 [facility] Inr (Fma) 2.4 2.0- 3.0 (607)- - Laboratory test finding 08/12/2013 [facility] Inr (Fma) 3.0 2-3 (607)- - Hemoglobin A1c (Fma/CMC,CX) 8.0 % High 4.1-5.7 Laboratory test 06/15/2013 [facility] Inr (Fma) 3.0 2.0-3.0 finding (607)- - Laboratory test 05/25/2013 [facility] Inr (Fma) 2.4 2-3 finding (607)- - Laboratory test 05/11/2013 [facility] Inr (Fma) 1.8 Low 2-3 finding (607)- - Laboratory test 04/27/2013 [facility] Hemoglobin A1c 7.7 % High 4.1- 5.7 finding (607)- - (Fma/CMC,CX) Inr (Fma) 3.2 High 2.0-3.0 Laboratory test 12/15/2012 Carlos Alejandra(fma) TSH 6.26 mIU/L High 0.50- 6.00 19 finding Free T4 1.07 ng/dL 0.75-1.54 Laboratory test 12/15/2012 [facility] Hemoglobin A1c 6.5 % High 4.1- 5.7 finding (607)- - (Fma/CMC,CX) Laboratory test 12/05/2012 [facility] Inr (Fma) 3.0 2.0-3.0 finding (607)- - Glucose, Serum (Fma/CMC/CTX) 256 mg/dL High 70-105 20 Laboratory test finding 11/14/2012 [facility] Inr (Fma) 2.3 2.0- 3.0 (607)- - Glucose, Serum (Fma/CMC/CTX) 196 mg/dL High 70-105 Laboratory test finding 10/31/2012 [facility] Inr (Fma) 1.7 Low 2.0- 3.0 (607)- - Glucose, Serum (Fma/CMC/CTX) 103 mg/dL 70-105 Laboratory test 10/10/2012 [facility] Glucose, Serum 107 mg/dL High 70-105 finding (607)- - (Fma/CMC/CTX) Inr (Fma) 2.2 2-3 Laboratory test finding 10/03/2012 [facility] Inr (Fma) 1.8 Low 2.0- 3.0 (607)- - Glucose, Serum (Fma/CMC/CTX) 133 mg/dL High 70-105 Laboratory test finding 09/26/2012 [facility] Inr (Fma) 3.6 High 2.0 -3.0 (607)- - Glucose, Serum (Fma/CMC/CTX) 111 mg/dL High 70-105 Laboratory test finding 09/19/2012 [facility] Inr (Fma) 2.3 2.0- 3.0 (607)- - Glucose, Serum (Fma/CMC/CTX) 260 mg/dL High 70-105 Laboratory test 09/15/2012 [facility] Inr (Fma) 1.9 Low 2-3 finding (607)- - CBC Auto Diff 09/04/2012 [facility] [place] White Blood 15.6 High 4.8-10.8 Count 10^3/uL Red Blood Count 5.22 10^6/uL 4.0-5.4 Hemoglobin 16.6 g/dL 14.0-18.0 Hematocrit 48 % 42-52 Mean Corpuscular Volume 93 fL 80-94 Mean Corpuscular Hemoglobin 32 pg High 27-31 Mean Corpuscular HGB Conc 34 g/dL 31-36 Red Cell Distribution Width 14 % 10.5-15 Platelet Count 202 10^3/uL 150-450 Mean Platelet Volume 9 um3 7.4-10.4 Abs Neutrophils 13.3 10^3/uL High 1.5-7.7 Abs Lymphocytes 1.3 10^3/uL 1.0-4.8 Abs Monocytes 0.9 10^3/uL High 0-0.8 Abs Eosinophils 0.1 10^3/uL 0-0.6 Abs Basophils 0.1 10^3/uL 0-0.2 Abs Nucleated RBC 0.01 10^3/uL Granulocyte % 85.4 % High 38-83 Lymphocyte % 8.3 % Low 25-47 Monocyte % 5.5 % 1-9 Eosinophil % 0.5 % 0-6 Basophil % 0.3 % 0-2 Nucleated Red Blood Cells % 0 Laboratory test finding 09/04/2012 [facility] Lactic Acid 4.6 mmol/L High 0.5- 1.6 Troponin I 0.12 ng/mL High 0-0.06 21 C Reactive Protein 1.5 mg/dL High Less than 0.5 Inr/Protime 09/04/2012 [facility] Inr 0.96 0.87-0.97 Laboratory test 09/04/2012 [facility] Activated Partial 21.6 seconds Low 22.18- 37.18 finding Thrombo Time D Dimer Quantitative > 1050 ng/mL High Less Than 230 22 B Type Natriuretic Peptide 175.0 pg/mL High 0-100 Arterial Blood Gas 09/04/2012 [facility] PH Arterial 7.37 7.35-7.45 Pco2 Arterial 26 mmHg Low 35-45 Po2 Arterial 104 mmHg High 80-100 O2 Saturation Arterial 99.1 % High 95-98 Base Excess Arterial -8.3 Low -2.0-2.0 23 Hco3 Arterial 18.4 mmol/L Low 19-31 Laboratory test finding 09/04/2012 [facility] Glucose 385 mg/dL High 70-100 Laboratory test finding 09/04/2012 [facility] Glucose 79 mg/dL 70-100 Comp Metabolic Panel 09/04/2012 [facility] Sodium 129 mmol/L Low 133-145 Potassium 6.0 mmol/L High 3.5-5.0 Chloride 97 mmol/L Low 101-111 Co2 Carbon Dioxide 18.0 mmol/L Low 22-32 Anion Gap 14.0 mmol/L High 2-11 Glucose 697 mg/dL High 70-100 24 Blood Urea Nitrogen 38 mg/dL High 6-24 Creatinine 1.60 mg/dL High 0.50-1.40 BUN/Creatinine Ratio 23.8 High 8-20 Calcium 9.8 mg/dL 8.1-9.9 Total Protein 7.0 g/dL 6.2-8.1 Albumin 4.4 g/dL 3.2-5.2 Globulin 2.6 g/dL 2-4 Albumin/Globulin Ratio 1.7 1-3 Total Bilirubin 2.4 mg/dL High 0.4-1.5 Alkaline Phosphatase 83 U/L 30-110 Alt 45 U/L 14-54 Ast 43 U/L High 12-42 Egfr Non- 42.0 >60 Egfr 54.0 >60 25 Lipid Profile 06/09/2012 Carlos Alejandra(a) Cholesterol 169 mg/dL 120- 200 HDL 42 mg/dL 30-70 Triglycerides 133 mg/dL 30-200 HDL Risk Factor 4.0 CALC 0.0-4.4 LDL (Calculated) 101 CALC 0-129 VLDL (Calculated) 27 mg/dL 0-50 Comprehensive Metabolic 06/09/2012 Carlos Alejandra(a) Albumin 4.9 g/dL 3.8-5.5 Prof Alk. Phos. 65 U/L 22-95 Alt (SGPT) 34 U/L 10-40 Ast (Sgot) 22 U/L 5-34 BUN 35 mg/dL High 6-26 26 Calcium 9.4 mg/dL 8.6-10.2 Chloride 100 mEq/L 94-112 Creatinine 1.4 mg/dL 0.6-1.4 Carbon Dioxide 26 mEq/L 21-32 Glucose 183 mg/dL High 70-105 Sodium 136 mEq/L 134-149 Total Bilirubin 2.0 mg/dL High 0.2-1.3 27 Total Protein 7.0 g/dL 6.3-8.1 Potassium 4.1 mEq/L 3.6-5.5 Globulin 2.1 g/dL 2.0-4.8 A/G Ratio 2.3 Calc 0.6-2.3 BUN/Creat Ratio 25.5 Calc 8.0-36.0 Total And Direct 06/09/2012 Carlos Alejandra(a) Direct Bilirubin 0.6 mg/dL 0.0-0.6 Bili Indirect Bilirubin 1.40 High 0.10-1.00 Laboratory test 06/09/2012 Carlos Alejandra(a) Uric Acid 5.8 mg/dL 2.5- 9.2 28 finding Laboratory test 06/09/2012 [facility] Hemoglobin A1c 7.1 % High 4.1- 5.7 finding (607)- - (Fma/CMC,CX) CBC Electronic 06/09/2012 [facility] WBC 8.7 3.6-9.6 ([facility]) (607)- - RBC 4.82 3.90-5.70 Hemoglobin (Fma/CMC/CTX) 15.2 g/dL 12.1 - 17.2 Hematocrit (Fma/CMC/CTX) 44.6 % 36.1 - 50.3 Platelets 197 10^3/ul 150-400 Lymph% 22.7 20.5-51.1 Mixed% 6.2 Neutrophils % 71.1 Mean Corpuscular Vol 93 82.2-97.4 Mean Corpuscular Hemoglobin 31.5 27.6-33.3 Mean Corpuscular Hemo Concen 34.0 32.0-36.0 RDW 11.1 Low 11.6-13.7 Mean Platelet Volume 7.7 6.5-11.0 Ua - Micro ([facility]) 06/09/2012 [facility] Appearance CLEAR (607)- - Color YELLOW Glucose NEG Bilirubin NEG Ketones NEG SP Grav 1.020 Blood SMALL # PH 5.0 Protein SSA:2+ # Urobil 0.2 Nitrite NEG Leukocytes (Fma/CMC/Centrex) NEG Hyaline 0-2 /Lpf # Granular 0-1 /Lpf # WBC (a,Centrex) 0-1 # RBC 1-3 # Mucus SMALL AMOUNT /Lpf # Epith RARE /Lpf # Bacteria - /Hpf Amorphous - /Lpf Crystals, Fluid (a/CMC/CTX) - Z#Comments - Laboratory test 02/25/2012 [facility] Hemoglobin A1c 6.4 % High 4.1- 5.7 finding (607)- - (Fma/CMC,CX) Laboratory test 09/26/2011 [facility] Hemoglobin A1c 6.1 % High 4.1- 5.7 finding (607)- - (Fma/CMC,CX) Laboratory test 06/22/2011 Carlos Alejandra([facility]) BUN 33 mg/dL High 6-26 29 finding Creatinine 1.4 mg/dL 0.6-1.4 Laboratory test 06/22/2011 [facility] Hemoglobin A1c 6.7 % High 4.1- 5.7 finding (607)- - (Fma/CMC,CX) Laboratory test 03/21/2011 [facility] Hemoglobin A1c 6.6 % High 4.1- 5.7 finding (607)- - ([facility],CX) Lipid Profile 11/13/2010 Terrance Roberts([facility]) Cholesterol 161 mg/dL 120- 200 HDL 39 mg/dL 30-70 Triglycerides 87 mg/dL 30-200 HDL Risk Factor 4.2 CALC High 0.0-4.0 LDL (Calculated) 105 CALC 0-129 VLDL (Calculated) 17 mg/dL 0-50 Comprehensive Metabolic 11/13/2010 Terrance Roberts([facility]) Albumin 4.6 g/dL 3.8-5.5 Prof Alk. Phos. 59 U/L 22-95 Alt (SGPT) 17 U/L 10-40 Ast (Sgot) 16 U/L 5-34 BUN 28 mg/dL High 6-26 30 Calcium 9.1 mg/dL 8.6-10.2 Chloride 104 mEq/L 94-112 Creatinine 1.3 mg/dL 0.6-1.4 Carbon Dioxide 23 mEq/L 21-32 Glucose 143 mg/dL High 70-105 31 Sodium 136 mEq/L 134-149 Total Bilirubin 1.4 mg/dL High 0.2-1.3 32 Total Protein 6.8 g/dL 6.3-8.1 Potassium 4.3 mEq/L 3.6-5.5 Globulin 2.2 g/dL 2.0-4.8 A/G Ratio 2.1 Calc 0.6-2.2 BUN/Creat Ratio 21.7 Calc 8.0-36.0 Laboratory test 11/13/2010 [facility] Hemoglobin A1c 6.3 % High 4.1- 5.7 finding (607)- - ([facility],CX) Laboratory test 08/02/2010 [facility] Hemoglobin A1c 6.3 % High 4.1- 5.7 finding (607)- - ([facility],CX) CBC With 05/30/2010 [facility] White Blood Count 10.1 CUMM 4.8-10.8 Electronic Diff Red Cell Count 4.46 CUMM Low 4.6-6.2 Hemoglobin 14.4 g/dL 14.0-18.0 Hematocrit 42 % 42-52 Mean Corpuscular Volume 93 um3 80-94 Mean Corpuscular Hemoglob 32 pg High 27-31 Mean Corpuscular HGB Cone 35 g/dL 32-36 Redcell Distribution WDTH 14 % 10.5-15 Platelet Count 326 CUMM 150-450 Mean Platelet Volume 7.0 um3 Low 7.4-10.4 Gran % 75.2 % 38-83 Lymph % 18.2 % Low 25-47 Mononuclear % 4.5 % 1-9 Eosinophil % 1.8 % 0-6 Basophil % 0.3 % 0-2 Abs Lymphs 1.8 1.0-4.8 Abs Mononuclear 0.5 0-0.8 Absolute Neutrophil Count 7.6 1.5-7.7 Abs Eosinophils 0.2 0-0.6 Abs Basophils 0 0-0.2 33 Basic Metabolic Panel 05/30/2010 [facility] Sodium 127 mmol/L Low 135-145 Potassium 5.4 mmol/L High 3.5-5.0 Chloride 97 mmol/L Low 101-111 Co2 (Carbon Dioxide) 21.0 mmol/L Low 22-32 Anion Gap 9.0 mmol/L 2-11 34 Glucose 324 mg/dL High 70-100 BUN 47 mg/dL High 6-24 Creatinine 1.60 mg/dL High 0.50-1.40 One Over Creatinine 0.60 BUN/Creatinine Ratio 29.4 High 8-20 Calcium 9.7 mg/dL 8.1-9.9 eGFR Non- 44.9 > 60 eGFR 54.3 > 60 35 Laboratory test 05/01/2010 [facility] Hemoglobin A1c 6.3 % High 4.1- 5.7 finding (607)- - (Fma/CMC,CX) Microalb, Random (Fma/CMC/CTX) 292.7 mg/L High 0.5-37 Laboratory test 04/13/2010 [facility] PSA,Diagnostic 2.14 NG/ML 0-4 36 finding Laboratory test 02/01/2010 [facility] Glucose, Serum 249 mg/dL High 70-105 finding (607)- - (Fma/CMC/CTX) Basic Metabolic 12/29/2009 [facility] Sodium 139 mmol/L 135-145 37 Panel Potassium 4.1 mmol/L 3.5-5.0 Chloride 104 mmol/L 101-111 Co2 (Carbon Dioxide) 27.0 mmol/L 22-32 Anion Gap 8.0 mmol/L 2-11 38 Glucose 166 mg/dL High 70-100 39 BUN 14 mg/dL 6-24 Creatinine 1.10 mg/dL 0.50-1.40 One Over Creatinine 0.90 BUN/Creatinine Ratio 12.7 8-20 Calcium 9.0 mg/dL 8.1-9.9 40 eGFR Non- 69.4 > 60 eGFR 83.9 > 60 41 Basic Metabolic Panel 12/28/2009 [facility] Sodium 138 mmol/L 135-145 Potassium 4.2 mmol/L 3.5-5.0 Chloride 109 mmol/L 101-111 Co2 (Carbon Dioxide) 23.0 mmol/L 22-32 Anion Gap 6.0 mmol/L 2-11 42 Glucose 122 mg/dL High 70-100 43 BUN 26 mg/dL High 6-24 Creatinine 1.10 mg/dL 0.50-1.40 One Over Creatinine 0.90 BUN/Creatinine Ratio 23.6 High 8-20 Calcium 9.7 mg/dL 8.1-9.9 44 eGFR Non- 69.4 > 60 eGFR 83.9 > 60 45 Laboratory test 12/01/2009 [facility] Glucose Whole 120 finding (607)- - Blood Laboratory test 11/02/2009 [facility] Glucose, Serum 150 mg/dL High 70-105 finding (607)- - (Fma/CMC/CTX) Laboratory test 10/19/2009 [facility] Glucose, Serum 226 mg/dL High 70-105 finding (607)- - (Fma/CMC/CTX) Laboratory test 10/05/2009 [facility] Glucose, Serum 340 mg/dL High 70-105 finding (607)- - (Fma/CMC/CTX) Laboratory test 09/20/2009 [facility] Glucose Whole 393 High 70-105 finding (607)- - Blood Laboratory test 09/15/2009 [facility] Hemoglobin A1c 13.5 % High 4.1 -5.7 finding (607)- - (Fma/CMC,CX) Basic Metabolic 09/14/2009 [facility] Sodium 130 mmol/L Low 135-145 46 Panel Potassium 4.5 mmol/L 3.5-5.0 Chloride 99 mmol/L Low 101-111 Co2 (Carbon Dioxide) 23.0 mmol/L 22-32 Anion Gap 8.0 mmol/L 2-11 47 Glucose 516 mg/dL High 70-100 48 BUN 31 mg/dL High 6-24 Creatinine 1.10 mg/dL 0.50-1.40 One Over Creatinine 0.90 BUN/Creatinine Ratio 28.2 High 8-20 Calcium 9.4 mg/dL 8.1-9.9 49 eGFR Non- 69.4 > 60 eGFR 83.9 > 60 50 CBC With Manual Diff 09/14/2009 [facility] White Blood Count 10.6 CUMM 4.8- 10.8 Red Cell Count 4.65 CUMM 4.6-6.2 Hemoglobin 14.6 g/dL 14.0-18.0 Hematocrit 41 % Low 42-52 Mean Corpuscular Volume 89 um3 80-94 Mean Corpuscular Hemoglob 32 pg High 27-31 Mean Corpuscular HGB Cone 36 g/dL 32-36 Redcell Distribution WDTH 14 % 10.5-15 Platelet Count 337 CUMM 150-450 Mean Platelet Volume 7.6 um3 7.4-10.4 Polysegmented Neutrophil 74 % 38-83 Band Neutrophil 1 % 0-8 Lymphocyte 14 % Low 25-47 Monocyte 10 % 0-13 Eosenophil 1 % 0-6 Absolute Neutrophil Count 7.9 RBC Morphology NORMAL Surgical Pathology 08/23/2009 [facility] Surgical 51 Pathology <SEE NOTE> Comprehensive 08/12/2009 Terrance Roberts(fma) Albumin 4.3 g/dL 3.8- Metabolic Prof 5.5 Alk. Phos. 111 U/L High 22-95 52 Alt (SGPT) 31 U/L 10-40 Ast (Sgot) 21 U/L 5-34 BUN 25 mg/dL 6-26 Calcium 9.7 mg/dL 8.6-10.2 Chloride 94 mEq/L 94-112 Creatinine 1.2 mg/dL 0.6-1.4 Carbon Dioxide 27 mEq/L 21-32 Glucose 444 mg/dL High 70-105 53 Sodium 134 mEq/L 134-149 Total Bilirubin 1.4 mg/dL High 0.2-1.3 54 Total Protein 7.5 g/dL 6.3-8.1 Potassium 4.3 mEq/L 3.6-5.5 Globulin 3.3 g/dL 2.0-4.8 A/G Ratio 1.3 Calc 0.6-2.2 BUN/Creat Ratio 20.2 Calc 8.0-36.0 Laboratory test 08/12/2009 Carlos Alejandra([facility]) PSA 7.00 ng/mL High 0.00- 4.00 55 finding CBC ([facility]) 08/12/2009 [facility] WBC 16.0 High 3.6-9.6 (607)- - RBC 5.77 High 3.90-5.70 Hemoglobin (Fma/CMC/CTX) 18.0 g/dL High 12.1 - 17.2 Hematocrit (Fma/CMC/CTX) 50.9 % High 36.1 - 50.3 Mean Corpuscular Vol 88.2 82.2-97.4 Mean Corpuscular Hemaglobin 31.2 27.6-33.3 Mean Corpuscular Hemo Concen 35.4 33.0-36.0 Platelets 274 10^3/ul 150-400 Lymph% 10.2 Low 20.5-51.1 Mixed% 5.9 Neutrophils % 83.9 RDW 12.5 11.6-13.7 Mean Platelet Volume 10.0 7.4-10.4 Ua - Micro ([facility]) 08/12/2009 [facility] Appearance CLOUDY (607)- - Color BROWN Glucose NEG Bilirubin NEG Ketones 40MG/DL # SP Grav 1.015 Blood LARGE # PH 5.5 Protein 1+ # Urobil 0.2 Nitrite POS # Leukocytes (a/CMC/Centrex) SMALL # Hyaline - /Lpf Granular - /Lpf WBC ([facility]) >100 RBC >100 Mucus - /Lpf Epith RARE /Lpf Bacteria 3+ /Hpf Amorphous SLT /Lpf Crystals, Fluid (a/CMC/CTX) - Z#Comments - Comprehensive Metabolic 05/22/2008 Carlos Alejandra([facility]) Albumin 4.4 g/dL 3.8-5.5 56 Prof Alk. Phos. 65 U/L 22-95 Alt (SGPT) 38 U/L 10-40 Ast (Sgot) 26 U/L 5-34 BUN 21 mg/dL 6-26 Calcium 10.1 mg/dL 8.6-10.2 Chloride 104 mEq/L 94-112 Creatinine 1.3 mg/dL 0.6-1.4 Carbon Dioxide 25 mEq/L 21-32 Glucose 170 mg/dL High 70-105 Sodium 143 mEq/L 134-149 Total Bilirubin 1.5 mg/dL High 0.2-1.3 57 Total Protein 7.2 g/dL 6.3-8.1 Potassium 4.4 mEq/L 3.6-5.5 Globulin 2.8 g/dL 2.0-4.8 A/G Ratio 1.6 Calc 0.6-2.2 BUN/Creat Ratio 16.7 Calc 8.0-36.0 Lipid Profile 05/22/2008 Carlos Alejandra([facility]) Cholesterol 175 mg/dL 120- 200 HDL 39 mg/dL 30-70 Triglycerides 107 mg/dL 30-200 HDL Risk Factor 4.5 CALC 4.2-7.0 LDL (Calculated) 115 CALC 0-129 VLDL (Calculated) 21 mg/dL 0-50 Laboratory test 05/22/2008 [facility] Microalb, Random >300 mg/L High 0.5-37 finding (607)- - (Fma/CMC/CTX) Hemoglobin A1c (a/CMC,CX) 6.6 % High 4.1-5.7 Ua - Non Micro ([facility]) 05/22/2008 [facility] Appearance clear (607)- - Color yellow Glucose, Urine (Fma/CMC/CTX) - Bilirubin - Ketones - SP Grav 1.025 Blood - PH 5.5 Protein ssa neg Urobil 0.2eu/dl Nitrite - Leukocytes (a/CMC/Centrex) - CBC ([facility]) 05/22/2008 [facility] WBC 7.2 3.6-9.6 (607)- - RBC 5.3 3.90-5.70 Hemoglobin (Fma/CMC/CTX) 17.5 g/dL High 12.1 - 17.2 Hematocrit (Fma/CMC/CTX) 45.9 % 36.1 - 50.3 Mean Corpuscular Vol 86.6 82.2-97.4 Mean Corpuscular Hemaglobin 33.0 27.6-33.3 Mean Corpuscular Hemo Concen 38.1 High 33.0-36.0 Platelets 202 10^3/ul 150-400 Lymph% 32.0 20.5-51.1 Mixed% 8.4 Neutrophils % 59.6 RDW 13.7 11.6-13.7 Mean Platelet Volume 10.2 7.4-10.4 1 RESULTS VERIFIED BY REPEAT ANALYSIS 2 consistent w/ previous results 3 consistent w/ previous results 4 RESULTS VERIFIED BY REPEAT ANALYSIS 5 consistent w/ previous results 6 consistent w/ previous results 7 RESULTS VERIFIED BY REPEAT ANALYSIS 8 RESULTS VERIFIED BY REPEAT ANALYSIS 9 RESULTS VERIFIED BY REPEAT ANALYSIS 10 RESULTS VERIFIED BY REPEAT ANALYSIS 11 RESULTS VERIFIED BY REPEAT ANALYSIS 12 RESULTS VERIFIED BY REPEAT ANALYSIS 13 RESULTS VERIFIED BY REPEAT ANALYSIS 14 consistent w/ previous results 15 FASTING; 1 SST 16 consistent w/ previous results 17 consistent w/ previous results 18 RESULTS VERIFIED BY REPEAT ANALYSIS 19 RESULT SANTO'D 20 3 hours pp 21 Reference Range and Interpretation: TnI (ng/ml) Interpretation Less Than 0.06 ng/mL Not supportive of diagnosis of NV 0.06 - 0.50 ng/ml Indeterminate: suggest serial studies if clinically indicated. Greater than 0.5 ng/mL Consistent with diagnosis of NV 22 Verbal to [id number] by [id number] at 1805 on 09/04/12. Results read back accurately. Please note: The following may produce a false positive D Dimer test: - Rheumatoid factor greater than 60 IU/ml - Plasma hemoglobin greater than 0.05 gm/dl - Bilirubin greater than 50 mg/dl - Lipids greater than 1000 mg/dl - FDP greater than 20 ug/ml 23 Reference ranges based on room air. 24 Verbal to [id number] by [id number] at 1801 on 09/04/12. Results read back accurately. 25 Because ethnic data is not always readily available, this report includes an eGFR for both -Americans and non- Americans. The National Kidney Disease Education Program (NKDEP) does not endorse the use of the MDRD equation for patients that are not between the ages of 18 and 70, are , have extremes of body size, muscle mass, or nutritional status, or are non- or non-. According to the National Kidney Foundation, irrespective of diagnosis, the stage of the disease is based on the level of kidney function: Stage Description GFR(mL/min/1.73 m(2)) 1 Kidney damage with normal or decreased GFR 90 2 Kidney damage with mild decrease in GFR 60-89 3 Moderate decrease in GFR 30-59 4 Severe decrease in GFR 15-29 5 Kidney failure <15 (or dialysis) 26 result santo'd 27 result santo'd 28 FASTING 29 RESULT SANTO'D 30 RESULT SANTO'D 31 RESULT SANTO'D 32 RESULT SANTO'D 33 Lymphopenia % 34 Anion gap measurement may be of limited value in the presence of any alkalosis, especially in a combined acid base disorder. . 35 Because ethnic data is not always readily available, this report includes an eGFR for both -Americans and non- Americans. The National Kidney Disease Education Program (NKDEP) does not endorse the use of the MDRD equation for patients that are not between the ages of 18 and 70, are , have extremes of body size, muscle mass, or nutritional status, or are non- or non-. According to the National Kidney Foundation, irrespective of diagnosis, the stage of the disease is based on the level of kidney function: Stage Description GFR(mL/min/1.73 m(2)) 1 Kidney damage with normal or decreased GFR 90 2 Kidney damage with mild decrease in GFR 60-89 3 Moderate decrease in GFR 30-59 4 Severe decrease in GFR 15-29 5 Kidney failure <15 (or dialysis) 36 * SERUM LEVELS OF PSA MEASURED USING THE [employer] ACCESS HYBRITECH IMMUNOASSAY SHOULD NOT BE INTERPRETED ABSOLUTE EVIDENCE OF THE PRESENCE OR ABSENCE OF DISEASE. THE PSA VALUE SHOULD BE USED IN CONJUNCTION WITH OTHER PERTINENT CLINICAL DIAGNOSTIC PROCEDURES. 37 COMMENTS: N 38 Anion gap measurement may be of limited value in the presence of any alkalosis, especially in a combined acid base disorder. . 39 Note change in reference range as of 12/25/07. The change was based on recommendations from the [place] [employer]. 40 Please note change in reference range effective 07 . 41 Because ethnic data is not always readily available, this report includes an eGFR for both -Americans and non- Americans. The National Kidney Disease Education Program (NKDEP) does not endorse the use of the MDRD equation for patients that are not between the ages of 18 and 70, are , have extremes of body size, muscle mass, or nutritional status, or are non- or non-. According to the National Kidney Foundation, irrespective of diagnosis, the stage of the disease is based on the level of kidney function: Stage Description GFR(mL/min/1.73 m(2)) 1 Kidney damage with normal or decreased GFR 90 2 Kidney damage with mild decrease in GFR 60-89 3 Moderate decrease in GFR 30-59 4 Severe decrease in GFR 15-29 5 Kidney failure <15 (or dialysis) 42 Anion gap measurement may be of limited value in the presence of any alkalosis, especially in a combined acid base disorder. . 43 Note change in reference range as of 12/25/07. The change was based on recommendations from the [place] [employer]. 44 Please note change in reference range effective 07 . 45 Because ethnic data is not always readily available, this report includes an eGFR for both -Americans and non- Americans. The National Kidney Disease Education Program (NKDEP) does not endorse the use of the MDRD equation for patients that are not between the ages of 18 and 70, are , have extremes of body size, muscle mass, or nutritional status, or are non- or non-. According to the National Kidney Foundation, irrespective of diagnosis, the stage of the disease is based on the level of kidney function: Stage Description GFR(mL/min/1.73 m(2)) 1 Kidney damage with normal or decreased GFR 90 2 Kidney damage with mild decrease in GFR 60-89 3 Moderate decrease in GFR 30-59 4 Severe decrease in GFR 15-29 5 Kidney failure <15 (or dialysis) 46 SDS 09/21 47 Anion gap measurement may be of limited value in the presence of any alkalosis, especially in a combined acid base disorder. . 48 RESULTS VERIFIED BY REPEAT ANALYSIS ON THE SAME SAMPLE. REPEATED RESULT IS:511 Note change in reference range as of 12/25/07. The change was based on recommendations from the [place] [employer]. 49 Please note change in reference range effective 07 . 50 Because ethnic data is not always readily available, this report includes an eGFR for both -Americans and non- Americans. The National Kidney Disease Education Program (NKDEP) does not endorse the use of the MDRD equation for patients that are not between the ages of 18 and 70, are , have extremes of body size, muscle mass, or nutritional status, or are non- or non-. According to the National Kidney Foundation, irrespective of diagnosis, the stage of the disease is based on the level of kidney function: Stage Description GFR(mL/min/1.73 m(2)) 1 Kidney damage with normal or decreased GFR 90 2 Kidney damage with mild decrease in GFR 60-89 3 Moderate decrease in GFR 30-59 4 Severe decrease in GFR 15-29 5 Kidney failure <15 (or dialysis) 51 ---- RUN DATE: 08/25/09 [facility] NMI LIVE PAGE 1 RUN TIME: 1312 Specimen Inquiry RUN USER: INTERFACE -- Name: JONATHAN PERDOMO Acclokesh#: [id number] Status: REG REF Re08/23/09 Age/Sex: 74/M Unit#: [id number] Location: [facility] : 34 -- Specimen: [id number] SOUT Spec Date: 08/23/[address]: Bradley beltran MD Spec Type: SURGICAL P Received: 08/24/09-804 Copies to: Quincy Parker MD SPECIMEN 1) LEFT LOBE PROSTATE BIOPSY APEX (APEX 2) 2) LEFT LOBE PROSTATE BIOPSY BASE (BASE 3) 3) RIGHT LOBE PROSTATE BIOPSY APEX (APEX 2) 4) RIGHT LOBE PROSTATE BIOPSY BASE (BASE 3) HISTORY PRE-OP DIAGNOSIS: Elevated PSA 7.0, markedly enlarged prostate, firm, nod ular GROSS DESCRIPTION 1) The specimen is received in formalin labelled Jonathan Perdomo, Left Prostate Lobe [place] and consists of three, linton, soft tissue cores measuring 0.7 cm., 1.6 cm., and 1.5 x 0.1 cm. Submitted entirely, one cassette. 2) The specimen is received in formalin labelled Jonathan Perdomo, Left Prostate Lobe Base and consists of four, linton, soft tissue cores measuring 1.7 cm., 0.6 cm., 1.7 and 1.5 x 0.1 cm. Submitted entirely, one cassette. 3) The specimen is received in formalin labelled Jonathan Perdomo, Right Prostate Lobe [place] and consists of three, linton, soft tissue cores measuring 1.9 cm., 1.9 cm., and 1.8 x 0.1 cm. Submitted entirely, one cassette. 4) The specimen is received in formalin labelled Jonathan Perdomo, Right Prostate Lobe Base and consists of three, l[place], soft tissue cores measuring 2.2 cm., 1.8 cm., and 1.9 x 0.1 cm. Submitted entirely, one cassette. DIAGNOSIS 1) Prostate, left apex, core biopsies: Prostate tissue with severe acute and chronic inflammation with marked reactive glandular and stromal changes. 2) Prostate, left base, core biopsies: Prostate tissue with severe acute and chronic inflammation with marked reactive glandular and stromal changes. 3) Prostate, right apex, core biopsies: -- DEPARTMENT OF PATHOLOGY, [address] [place] [address] [facility] Permit #[id number] Corbin Long M.D. Director Isabella Underwood M.D. Mailing Jogger Dir nedia -- -- RUN DATE: 08/25/09 [facility] NMI LIVE PAGE 2 RUN TIME: 1313 Specimen Inquiry RUN USER: INTERFACE -- Name: JONATHAN PERDOMO Status: REG REF Re08/23/09 Age/Sex: 74/M Unit#: [id number] Location: [facility] : 34 -- -- CONTINUED -- DIAGNOSIS (Continued) Benign prostate tissue with partial atrophy and acute and chronic inflammation. 4) Prostate, right base, core biopsies: Benign prostate tissue with partial atrophy and acute and chronic inflammation. COMMENT The biopsies in parts 1 and 2 (left side) demonstrate a severe diffuse mixed inflammatory infiltrate composed of acute and chronic inflammatory elements including numerous plasma cells. The involved glands and stromal areas demonstrate marked reactive cellular changes. There is no evidence of a neoplastic process. Signed Electronically by: CORBIN LONG MD 08/25/09 1313 -- -- DEPARTMENT OF PATHOLOGY, [address] [place] [address] [facility] Permit #[id number] Corbin Long M.D. Director Isabella Underwood M.D. Mailing Jogger Dir neida -- 52 RESULT SANTO'D 53 RESULT SANTO'D 54 RESULT SANTO'D 55 RESULT SANTO'D 56 FASTING 57 RESULT SANTO'D Procedures Date Code Description Status 02/04/2017 82874 Finger Or Heel Stick Completed 10/03/2016 48268 Finger Or Heel Stick Completed 07/04/2016 [id number] Colonoscopy Completed 03/07/2016 98025 Finger Or Heel Stick Completed 12/05/2015 02377 Finger Or Heel Stick Completed 08/03/2015 32122 Finger Or Heel Stick Completed 05/06/2015 [id number] Diabetic Retinal Eye Exam Completed 04/04/2015 91252 Finger Or Heel Stick Completed 11/11/2013 79757 Finger Or Heel Stick Completed 09/15/2013 73837 Finger Or Heel Stick Completed 08/12/2013 05880 Finger Or Heel Stick Completed 06/15/2013 35906 Finger Or Heel Stick Completed 05/25/2013 19069 Finger Or Heel Stick Completed 05/11/2013 90355 Finger Or Heel Stick Completed 05/04/2013 48793 Pulse Oximetry Completed 04/27/2013 80086 Finger Or Heel Stick Completed 04/27/2013 65723 Pure Tone Hearing Test, Air Completed 12/05/2012 07371 Finger Or Heel Stick Completed 11/14/2012 15604 Finger Or Heel Stick Completed 10/31/2012 08242 Finger Or Heel Stick Completed 10/10/2012 18267 Finger Or Heel Stick Completed 10/03/2012 87662 Finger Or Heel Stick Completed 09/26/2012 80935 Finger Or Heel Stick Completed 09/19/2012 12994 Pulse Oximetry Completed 09/19/2012 73222 Finger Or Heel Stick Completed 09/15/2012 47706 Finger Or Heel Stick Completed 02/25/2012 66542 Finger Or Heel Stick Completed 09/26/2011 82926 Finger Or Heel Stick Completed 03/21/2011 86820 Finger Or Heel Stick Completed 08/02/2010 87812 Finger Or Heel Stick Completed 05/19/2008 70382 Electrocardiogram Complete Completed Encounters Type Date Location Provider Dx Diagnosis Office Visit 11/14/2018 Main Office MARQUES Lindsey E03.9 Hypothyroidism, 11:00a unspecified E11.9 Type 2 diabetes mellitus without complications I10 Essential (primary) hypertension Office Visit 08/28/2017 2:10p Main Office Quincy Chakraborty E11.9 Type 2 diabetes Tara Parker mellitus without complications E03.9 Hypothyroidism, unspecified I10 Essential (primary) hypertension Office Visit 04/22/2017 7:30p Main Office Radha Kruse NP R05 Cough J02.9 Acute pharyngitis, unspecified J20.9 Acute bronchitis, unspecified Office Visit 03/19/2017 [facility] Quincy Chakraborty K80.80 Other cholelithiasis 11:00a Office Tara Parker without obstruction Office Visit 02/04/2017 Main Office Quincy Suazo.9 Type 2 diabetes 2:00p Tara Parker mellitus without complications E03.9 Hypothyroidism, unspecified Office Visit 10/03/2016 1:00p Main Office Quincy Suazo.9 Type 2 diabetes Tara Parker mellitus without complications E03.9 Hypothyroidism, unspecified M10.9 Gout, unspecified Office Visit 07/06/2016 9:00a Main Office Quincy Chakraborty E11.9 Type 2 diabetes Tara Parker mellitus without complications E03.9 Hypothyroidism, unspecified M10.9 Gout, unspecified Office Visit 03/07/2016 2:10p Main Office Quincy Suazo.9 Type 2 diabetes Tara Parker mellitus without complications Office Visit 12/05/2015 2:00p Main Office Quincy Haely9 Type 2 diabetes Tara Parker mellitus without complications Office Visit 08/03/2015 2:10p Main Office Quincy Suazo.9 Type 2 diabetes Tara Parker mellitus without complications Office Visit 04/04/2015 2:00p Main Office Quincy Suazo.9 Type 2 diabetes Tara Parker mellitus without complications Office Visit 12/24/2014 10:00a Main Office Quincy Chakraborty 250.00 Diabetes Candy Parker M.D. W/O Compl Type II Or Unspec Controlled 244.9 Hypothyroidism Other Unspec Office Visit 04/12/2014 11:00a Main Office Quincy Chakraborty 789.00 Pain Abdominal Tara Parker Unspec Site 250.00 Diabetes Mellitus W/O Compl Type II Or Unspec Controlled Office Visit 03/26/2014 11:00a Main Office Quincy Chakraborty 789.00 Pain Abdominal Unspec Tara Parker Site Office Visit 11/11/2013 1:20p Main Office Quincy Gracia8.61 Anticoagulants Angel Parker M.D. Term (Current) Use Encounter 250.00 Diabetes Mellitus W/O Compl Type II Or Unspec Controlled 453.40 DVT/Embolism Lower Extremity NOS 244.9 Hypothyroidism Other Unspec 274.9 Gout Unspec Office Visit 08/12/2013 3:00p Main Office Quincy Chakraborty V58.61 Anticoagulants Long Breiman, M.D. Term (Current) Use Encounter 415.19 Pulmonary Embolism And Infarction Other 250.00 Diabetes Mellitus W/O Compl Type II Or Unspec Controlled Office Visit 05/04/2013 3:00p Main Office Layla Patel NP 466.0 Bronchitis Acute Office Visit 04/27/2013 1:00p Main Office Quincy Parker, V41.2 Hearing Problem Tara 250.00 Diabetes Mellitus W/O Compl Type II Or Unspec Controlled V58.61 Anticoagulants Heat Treatment Technician (Current) Use Encounter v58.61 Anticoagulants Heat Treatment Technician (Current) Use Encounter 415.19 Pulmonary Embolism And Infarction Other 453.40 DVT/Embolism Lower Extremity NOS Office Visit 12/15/2012 2:00p Main Office Quincy Chakraborty 250.00 Diabetes Candy Parker M.D. W/O Compl Type II Or Unspec Controlled 244.9 Hypothyroidism Other Unspec Office Visit 10/10/2012 1:40p Main Office Quincy Chakraborty V58.61 Anticoagulants Angel Parker M.D. Term (Current) Use Encounter 415.19 Pulmonary Embolism And Infarction Other 250.00 Diabetes Mellitus W/O Compl Type II Or Unspec Controlled Office Visit 09/19/2012 1:30p Main Office Quincy Chakraborty 415.19 Pulmonary Embolism Tara Parker And Infarction Other 453.40 DVT/Embolism Lower Extremity NOS Office Visit 09/19/2012 1:40p Main Office Quincy Chakraborty 415.19 Pulmonary Embolism Tara Parker And Infarction Other 453.40 DVT/Embolism Lower Extremity NOS V58.61 Anticoagulants Fdc (Current) Use Encounter 250.00 Diabetes Mellitus W/O Compl Type II Or Unspec Controlled Office Visit 02/25/2012 1:00p Main Office Quincy Chakraborty 250.00 Patricio Parker M.D. W/O Compl Type II Or Unspec Controlled 401.1 Hypertension Benign Office Visit 09/26/2011 3:10p Main Office Quincy Chakraborty 250.00 Patricio Parker M.D. W/O Compl Type II Or Unspec Controlled 401.1 Hypertension Benign Office Visit 06/22/2011 2:40p Main Office Quincy Chakraborty 250.00 Patricio Parker M.D. 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 W/O Compl Type II Or Unspec Controlled 401.1 Hypertension Benign Office Visit 11/13/2010 9:40a Main Office Quincy Chakraborty 250.00 Diabetes Candy Parker M.D. W/O Compl Type II Or Unspec Controlled 401.1 Hypertension Benign Office Visit 08/02/2010 6:00p Main Office Quincy Chakraborty 250.00 Diabetes Mellitus Tara Parker W/O Compl Type II Or Unspec Controlled 401.1 Hypertension Benign Office Visit 05/01/2010 2:10p Main Office Quincy Mendoza.00 Diabetes Candy Parker M.D. W/O Compl Type II Or Unspec Controlled Office Visit 02/09/2010 1:30p Main Office Corinne Marion 250.00 Diabetes Mellitus Afnp-C W/O Compl Type II Or Unspec Controlled Office Visit 02/01/2010 1:10p Main Office Quincy Chakraborty 250.00 Diabetes Candy Parker M.D. W/O Compl Type II Or Unspec Controlled Office Visit 12/01/2009 3:10p Main Office Quincy Chakraborty 250.00 Diabetes Candy Parker M.D. W/O Compl Type II Or Unspec Controlled Office Visit 11/02/2009 11:00a Main Office Quincy Chakraborty 250.00 Diabetes Candy Parker M.D. W/O Compl Type II Or Unspec Controlled 401.1 Hypertension Benign Office Visit 10/19/2009 10:00a Main Office Quincy Chakraborty 250.00 Diabetes Candy Parker M.D. W/O Compl Type II Or Unspec Controlled Office Visit 09/15/2009 3:00p Main Office Quincy Chakraborty 250.00 Diabetes Candy Parker M.D. 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 at Main Cdyodq0402/19/2019 5:00 pm - MARQUES Lindsey at Main Fbhuou9111/14/2018 - Medina Varela, PAE03.9 Hypothyroidism, unspecifiedComments:Check your TSH [id number] Type 2 diabetes mellitus without complicationsComments:Check [id number] Essential (primary) hypertensionComments:Continue medications as directed.AllComments:PCMHMedication Management Patient Understands medications he's taking? Yes Are there Barriers to Adherence? No Has the patient been asked about herbal supplements and therapies, and OTC meds? Yes Care Plan1. Patient has been queried about patient's goals/preferences and functional/lifestyle goals at relevant visits. Yes If relevant, describe: N/A2. Treatment goals as explained to the patient: above3. Are there barriers to meeting treatment goals? No If Yes, please describe:4. Self-Management goals as described to the patient: Yes As always, we strongly encourage a healthy diet and making physical activity a part of your every day life. If you have questions about how or where to start, please contact the office.
[2018-12-02 13:11] LABS: ABS Basophils 0.1 10^3/ul (0-0.2); ABS Eosinophils 0.1 10^3/ul (0-0.6); ABS Lymphocytes 0.9 10^3/ul (1.0-4.8); ABS Monocytes 0.7 10^3/ul (0-0.8); ABS Neutrophils 9.8 10^3/ul (1.5-7.7); Eosinophil % 0.5 %; Hematocrit 36 % (42-52); Hemoglobin 12.5 g/dL (14.0-18.0); Lymphocyte % 7.5 %; Mean Corpuscular HGB Conc 35 g/dL (31-36); Mean Corpuscular Hemoglobin 32 pg (27-31); Mean Corpuscular Volume 91 fL (80-94); Mean Platelet Volume 8.5 fL (7.4-10.4); Platelet Count 217 10^3/uL (150-450); Red Blood Count 3.94 10^6 /uL (4.18-5.48); Red Cell Distribution Width 15 % (10-15); White Blood Count 11.6 10^3/uL (3.5-10.8)
[2018-12-02 13:37] LABS: Albumin 3.7 g/dL (3.2-5.2); Albumin/Globulin Ratio 1.3 (1-3); BUN/Creatinine Ratio 25.4 (8-20); EGFR African American 63.6 (>60); EGFR Non-African American 52.6 (>60); Globulin 2.8 g/dL (2-4); Potassium 4.2 mmol/L (3.5-5.0); Total Protein 6.5 g/dL (6.4-8.9)
[2018-12-02] MEDS ORDERED: NS 0.9% IV ONE (13:45)
[2018-12-02] MEDS ORDERED: ED Vancomycin 1 GM/250 ML 1 GM/250 ML PREMIX.SET IVPB ONE (13:58)
[2018-12-02] MEDS ORDERED: Piperacillin/Tazobac ADVAN(*) 3.375 GM in NS 0.9% 100 ML* 100 ML IVPB ONE (14:00)
[2018-12-02] MEDS ORDERED: Insulin LISPRO* 1 UNITS UNIT SUBCUT ONE (14:10)
[2018-12-02] MEDS ORDERED: Dextrose 50% VIAL 50 ml IV PUSH PRN ×2 (14:10→14:39)
[2018-12-02] MEDS ORDERED: Al Hydrox/Mg Hydrox/Simet LIQ* 30 ML UDC PO PRN (14:34)
[2018-12-02] MEDS ORDERED: Vancomycin(*) 1,000 MG in NS 0.9% 250 ML* 250 ML IVPB ONE (15:24)
[2018-12-02] MEDS: Insulin GLARGINE(*) 1 UNITS UNIT SUBCUT SCH (15:45)
[2018-12-02] MEDS ORDERED: Vancomycin(*) 1,000 MG in NS 0.9% 250 ML* 250 ML IVPB SCH (16:00)
--- NOTE | 2018-12-02 16:27 | ECHO ---
*[facility]* [place] [address] Fax #: [phone] Transthoracic Echocardiogram Patient: Macario Perdomo : 1935 Study Date: 12/02/2018 Age: 83 Gender: M HR: 83 bpm Height: 66 in /167.6 cm BSA: 1.84 m^2 Weight: 164.7 lb /74.8 kg BMI: 26.6 kg/m^2 *Transaction Processor: * Romy Rogel [facility] *Referring Physician: * Raven Monet *Reading Physician: * Mario Stephens MD Indications: Abnormal EKG. History: Risk factors: Former tobacco use. Hypertension. Diabetes mellitus. Conclusions Summary: - Left ventricle: Systolic function is normal. The estimated ejection fraction is 55-60%. Wall motion is normal; there are no regional wall motion abnormalities. - Right ventricle: Systolic function is normal. - Mitral valve: There is mild regurgitation. - Aortic valve: Thickening, consistent with sclerosis. There is no evidence of stenosis. There is mild regurgitation. - Tricuspid valve: There is mild-moderate regurgitation. - Ascending aorta: The ascending aorta is appears normal. - Pulmonary arteries: Systolic pressure is at the upper limits of normal. Pulmonary artery pressure may be underestimated - Compared to study of 09/05/12, the left ventricle function and valves are the same. The previously note pulm hypertension is not seen today. Study data: Transthoracic echocardiogram. Procedure: Transthoracic echocardiography was performed. Image quality was fair. Complete 2D, spectral Doppler, and color flow Doppler. Location: Emergency department. Patient status: Inpatient. Patient room number: ED-9. Rhythm: Normal sinus rhythm with PVC's. Findings Left ventricle: The cavity size is normal. There is mild concentric hypertrophy. Systolic function is normal. The estimated ejection fraction is 55-60%. Wall motion is normal; there are no regional wall motion abnormalities. Doppler parameters are consistent with abnormal left ventricular relaxation (grade 1 diastolic dysfunction). Right ventricle: The cavity size is at the upper limits of normal. Systolic function is normal. Left atrium: The atrium is mildly dilated. Right atrium: The atrium is mildly dilated. Mitral valve: Is mildly calcified. The leaflets are mildly thickened. There is no evidence of stenosis. There is mild regurgitation. Aortic valve: The valve is trileaflet. The leaflets are mildly thickened. Thickening, consistent with sclerosis. Cusp separation is reduced. There is no evidence of stenosis. There is mild regurgitation. Tricuspid valve: The leaflets are normal thickness. There is no evidence of stenosis. There is mild-moderate regurgitation. Pulmonic valve: The leaflets are normal thickness. There is no evidence of stenosis. There is trace regurgitation. Aorta: Ascending aorta: The ascending aorta is appears normal. The aortic root appears normal. The aortic arch appears normal. Pericardium: A prominent pericardial fat pad is present. There is no significant pericardial effusion. Pulmonary arteries: The main pulmonary artery is normal-sized. Systolic pressure is at the upper limits of normal. Pulmonary artery pressure may be underestimated Systemic veins: Poorly visualized. Inferior vena cava: The vessel is normal in size. There is (>= 50%) respiratory change in the IVC dimension. Measurements Left ventricle Value Ref Aortic valve Value Ref STEVE, LAX (L) 4.0 cm 4.2 - 5.8 Daniel diam, ED 2.2 cm ----- ESD, LAX (L) 2.4 cm 2.5 - 4.0 Peak v, S 1.58 m/sec ----- FS, LAX 40 % 25 - 43 VTI, S 33.7 cm ----- PW, ED, LAX (H) 1.1 cm 0.6 - 1.0 Mean grad, S 5.0 mm Hg ----- FS 40 % 25 - 43 Peak grad, S 10.0 mm Hg ----- PW, ED (H) 1.1 cm 0.6 - 1.0 LVOT/AV, VTI ratio 0.59 ----- E', lat daniel, TDI (L) 7.3 cm/sec >=10.0 VENKATA, VTI 1.86 cm^2 --- -- E/e', lat daniel, 10 VENKATA, Vmax 1.89 cm^2 ----- TDI E', med daniel, TDI 7.3 cm/sec >=7.0 Mitral valve Value Ref E/e', med daniel, 10 Peak E 0.74 m/sec ----- TDI Peak A 0.88 m/sec ----- E', avg, TDI 7.3 cm/sec Decel time 303 ms ----- E/e', avg, TDI 10 <=14 Peak grad, D 2.2 mm Hg --- -- Peak E/A ratio 0.8 ----- LVOT Value Ref Diam, S 2.00 cm Pulmonic valve Value Ref Area 3.1 cm^2 Peak v, S 1.07 m/sec ----- Peak kam, S 0.95 m/sec Peak grad, S 5.0 mm Hg ----- VTI, S 20.0 cm Mean grad, S 2 mm Hg Tricuspid valve Value Ref SV 63 ml TR peak v 2.8 m/sec <=2.8 SV/bsa 34 ml/m^2 Peak RV-RA grad, S 31 mm Hg ----- Ventricular septum Value Ref Aortic root Value Ref IVS, ED (H) 1.2 cm 0.6 - 1.0 Root diam 3.2 cm <4.0 Right ventricle Value Ref Ascending aorta Value Ref STEVE, LAX 3.2 cm AAo AP diam, S 3.3 cm ----- STEVE minor ax, A4C (H) 4.2 cm 1.9 - 3.5 mid Aortic arch Value Ref Pressure, S 34 mm Hg Arch diam 1.9 cm ----- Left atrium Value Ref Decending aorta Value Ref AP dim, ES 3.50 cm 3.00 - Cain peak kam 0.64 m/sec ----- 4.00 ML dim, A4C 4.4 cm Pulmonary artery Value Ref SI dim, A4C 5.8 cm Pressure, S 29.0 mm Hg ----- Vol/bsa, ES, 1-p 27 ml/m^2 12 - 37 A4C Inferior vena cava Value Ref Vol/bsa, ES, A/L (H) 37 ml/m^2 16 - 34 Diam 1.9 cm ----- Right atrium Value Ref SI dim, ES (H) 5.8 cm 3.4 - 5.3 ML dim, ES, A4C 4.2 cm 2.6 - 4.4 SI dim, ES, A4C (H) 5.8 cm 3.4 - 5.3 Estimated RAP 3 mm Hg Legend: (L) and (H) lety values outside specified reference range. Prepared and electronically signed by Mario Stephens MD 12/02/2018 16:27
--- NOTE | 2018-12-02 16:27 | HP ---
CC: Dr. Parker; Dr. Mitchell * HISTORY AND PHYSICAL: DATE OF ADMISSION: 12/02/18 PRIMARY CARE PROVIDER: Dr. Parker. CHIEF COMPLAINT: Right foot infection. HISTORY OF PRESENT ILLNESS: Macario Perdomo is an 83-year-old male with history of diabetes and PE that was diagnosed in 2012, who presented to the hospital complaining of right foot redness and infection that has been ongoing for approximately 1 week as per the patient. The patient's right second toe was necrotic. He is going to be admitted with a diagnosis of dry gangrene. Also, the patient's blood glucose levels are in the 500 range. The patient is a rather poor historian and not willing to elaborate when questioned. PAST MEDICAL HISTORY: 1. Diabetes type 2. 2. History of right-sided leg DVT/PE, status post IVC filter placement in 2012. 3. History of hypertension. 4. History of gout. PAST SURGICAL HISTORY: 1. Status post hernia repair. 2. 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 3. History of TURP in 2009. 4. 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 MEDICATIONS AT HOME: Include: 1. Glipizide 10 mg b.i.d. 2. Levothyroxine 50 mcg daily. 3. Toprol-XL 50 mg daily. 4. Fosinopril 20 mg daily. 5. Allopurinol 300 mg daily. 6. Multivitamin 1 tablet daily. ALLERGIES: CIPROFLOXACIN. FAMILY HISTORY: Reviewed and noncontributory. 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 He lives at home with his . He quit smoking over 25 years ago. He denies any alcohol or drug use. He is originally from [place], but he immigrated over 50 years ago. As his surrogates, he names his and his son, Brian, whose phone number is [phone]. REVIEW OF SYSTEMS: Please see history of present illness. All the remaining 12 systems were reviewed with the patient who is a rather poor historian and were otherwise negative. PHYSICAL EXAMINATION GENERAL: The patient is a pleasant 83-year-old male, who is in no acute distress. Alert, awake, and oriented x3. VITAL SIGNS: Blood pressure of 153/81, heart rate of 75 and regular, respiratory rate 16, oxygen saturation 96% on room air, temperature of 97.8. HEENT: Head: Atraumatic, normocephalic. Eyes: Pupils are equal, reactive to light and accommodation. Oropharynx is clear. Mucosa moist. NECK: Supple. No JVD. No bruits bilaterally. RESPIRATORY: Clear to auscultation bilaterally. CARDIOVASCULAR: Regular rate and rhythm. No murmur. ABDOMEN: Soft, nontender. Bowel sounds are present in all 4 quadrants. EXTREMITIES: There is no edema. Pulses are poorly palpable bilaterally with delayed capillary refill on the right and good capillary refill on the left. There is no clubbing, no cyanosis. On evaluation of the right lower extremity, the patient's toes #2 and #3, the tips of them were amputated remotely with stumps healed. The patient has dry gangrene with necrotic distal half of his right second toe. There is mild erythema streaking from the level of this toe to the mid metatarsal region of the right foot. The patient also is status post traumatic amputation of the left hand fingers #3 and #4 with stumps healed well. NEUROLOGIC: Speech is clear. Cranial nerves II through XII are grossly intact. Motor strength is 5/5 bilaterally. Please note that the patient's face is rather asymmetrical and appears to have maybe mild left-sided nasolabial flattening, but there is no weakness noted on cranial nerve evaluation. PSYCHIATRIC: The patient is a rather poor historian, but oriented x3 with no evidence of anxiety or depression. DIAGNOSTIC STUDIES/LAB DATA: White blood cell count 11.6, hemoglobin 12.5, hematocrit 36, and platelets 217. Sodium 133, potassium 4.2, chloride 100, carbon dioxide 21, BUN 33, creatinine 1.3. Liver function tests unremarkable. Glucose 150 and lactic acid 2.7. Foot x-ray shows no osteomyelitis noted. ASSESSMENT AND PLAN: 1. An 83-year-old male with history of pulmonary embolism, deep venous thrombosis, and diabetes, who presents with dry right second toe gangrene. The patient has poor pulses in bilateral lower extremities. His ABIs are going to be obtained. I will also ask Dr. Mitchell from orthopedic service to see the patient in evaluation. For the time being, the patient is going to be treated with broad-spectrum antibiotics including vancomycin and Zosyn. 2. For his uncontrolled diabetes, the patient is going to be placed on insulin sliding scale. His oral hypoglycemics are going to be held and he is going to be placed on insulin Lantus for the duration of his hospital stay. I will also obtain the patient's hemoglobin A1c. The patient appears also slightly prerenal and he is going to be treated with IV fluids. Of note, he already received intravenous fluid boluses in the ED. 3. The patient's elevation of lactic acid is likely due to treatment with metformin and prerenal state. The patient is not toxic appearing. I will not follow up on that since the patient has already been adequately hydrated in the ED with boluses. 4. For his gout, his allopurinol is going to be continued. 5. For hypertension, metoprolol is going to be continued. 6. For hypothyroidism, Synthroid is going to be continued. 7. For DVT prophylaxis, in this patient who has history of pulmonary embolism and deep venous thrombosis, the patient is going to be placed on heparin subcutaneously. 8. The patient's code status is full. His surrogates are his and his son , Brian. TIME SPENT: Approximately 65 minutes was spent on admission of this patient, more than half that time was spent [id number] with the patient during the interview and physical exam. [id number]/[facility] #: [id number] GARO
[2018-12-02 16:59] LABS: Activated Partial Thrombo Time 28.8 seconds (26.0-38.0); INR 1.09 (0.82-1.09)
[2018-12-02 17:13] LABS: C Reactive Protein 82.8 mg/L (<8.01)
--- NOTE | 2018-12-02 17:41 | CONS ---
CONSULTATION REPORT: DATE OF CONSULT: 12/02/18 ATTENDING ORTHOPEDIC PROVIDER: Dr. Santo Mitchell. CHIEF COMPLAINT: Black second toe on right foot. HISTORY OF PRESENT ILLNESS: The patient is an 83-year-old male with past medical history of diabetes who presented to the emergency room today on with a right foot infection. The patient is unsure for how long he has had this infection, though reports over the past week, he has had increasing pain in the right foot which has led to inability to walk without a cane. He reports that the black discoloration of his second toe could have been present for as long as a year and he would not know. Today, sharp pain is localized to right the second toe and forefoot, it is aggravated when touched and improves with rest. He denies any feeling of fever, chills, recent illness, nausea or vomiting. He has not sought any medical care for this toe infection prior to admission today. Distal tips of toes left 2, 3, 4 suffered traumatic amputation with lawnmower 35 years ago which required no surgical intervention at the time. His last meal was breakfast. He has been drinking water since. He does have a history of PE in the past, denies history of KS or stroke. He has no history of adverse effects with anesthesia. PAST SURGICAL HISTORY: Left orchiectomy, TURP. ALLERGIES: CIPRO. SOCIAL HISTORY: The patient lives with and [id number]. He is a nonsmoker. Rare alcohol consumption. No drug use. Baseline community ambulator without an assistive device aside from when walking long distances. Over the past week, he has had to use a cane for pain of his right foot. Cares for himself at home without in home help. FAMILY HISTORY: Noncontributory. REVIEW OF SYSTEMS: General: Denies any fever or chills. HEENT: No headache or head trauma. Cardio: No chest pain. No history of KS. Respiratory: No shortness of breath. Abdomen: No abdominal pain. No nausea, vomiting, or diarrhea. : No dysuria. Musculoskeletal: Positive for right foot and toe pain. Neuro: Denies any paresthesias or neuropathy of extremities. Hematology : Positive for history of PE. Skin: Positive for black tip of right second toe and redness of the forefoot. PHYSICAL EXAM: Vital Signs: Temperature 97.8, pulse rate 75, respiratory rate 16, oxygen saturation 96% on room air, blood pressure 153/81. General: No acute distress, nontoxic appearing. Carries on appropriate conversation, but does not always provide a fully accurate depiction of events. HEENT: Normocephalic, atraumatic. Extraocular movements intact. Cardio: S1, S2. Respiratory: Clear to auscultation bilaterally. Abdomen: Nondistended, nontender. Musculoskeletal: Bilateral upper extremities and left lower extremity, skin envelope intact. No obvious deformity. Nontender to palpation. Active flexion and extension of all joints without pain. Right lower extremity: Distal tips of toes 2, 3 and possibly most distal tip of 4th absent due to lawnmower injury years ago. Right second toe with black eschar distally. There is some white discoloration spanning down to the DIP but there is no discharge or fluctuance associated. There is erythema of the 2nd toe extending back to the midfoot without proximally streaking. Entire erythematous area is tender with mild edema. He is able to flex and extend the MTPs and ankle without pain. Knee and hip are nontender and able to move them well without pain. Neuro: Reports normal sensation throughout all of his toes. Sensation is intact to light touch throughout bilateral upper and lower extremities. Vascular: DP and PT pulses are nonpalpable. Psych: Appropriate affect. DIAGNOSTIC STUDIES/LAB DATA: X-ray of right foot, no appreciable erosion or periosteal reaction. ASSESSMENT: Gangrenous right second toe with cellulitis spanning back to the midfoot. PLAN: ABIs, MRI, CRP and sed rate ordered. IV abx per medicine and ID, on vanco and zosyn now. Anticipate the patient will need a right second toe amputation. He is aware and agreeable to this, stating the sooner the better. The patient's son, Anil, would like to discuss procedure with surgeon prior to proceeding. Discussed case with Dr Mitchell,she will see the patient tonight as well. MARQUES ROMANO [id number]/[facility] #: [id number] [facility]'S MEDICAL CENTERLeandro
[2018-12-02] MEDS: Cefepime 1 GM in Dextrose(*) 1 GM/50 ML BAG IV SCH (18:26)
[2018-12-02] MEDS: Acetaminophen TAB* 325 MG PO PRN (18:27)
[2018-12-02] MEDS: Insulin LISPRO* 1 UNITS UNIT SUBCUT SCH ×2 (18:28→22:49)
[2018-12-02] MEDS ORDERED: Vancomycin per Pharmacy* NOTE FOLLOW UP PRN (22:10)
[2018-12-02] MEDS: Heparin VIAL(*) 5000 UNITS/ML VIAL (FIVE THOUSAND) SUBCUT SCH (22:44)
[2018-12-02] MEDS: Senna TAB 8.6 mg* TAB PO SCH (22:49)
[2018-12-02] MEDS: Docusate CAP* 100 MG PO SCH (22:49)
[2018-12-03] MEDS ORDERED: NS 0.9% 500 ML* 500 ML IV ONE (00:30)
[2018-12-03] MEDS ORDERED: Dextrose 50% VIAL 50 ml ONE (00:34)
[2018-12-03] MEDS: NS 0.9% 1000 ML** 1,000 ML IV SCH ×2 (01:17→13:08)
[2018-12-03] MEDS: Vancomycin(*) 750 MG in NS 0.9% 250 ML* 250 ML IVPB SCH ×2 (02:02→15:15)
[2018-12-03] MEDS: Levothyroxine TAB* 50 MCG TAB PO SCH (05:55)
[2018-12-03] MEDS: Cefepime 1 GM in Dextrose(*) 1 GM/50 ML BAG IV SCH ×2 (05:58→18:52)
[2018-12-03] MEDS: Heparin VIAL(*) 5000 UNITS/ML VIAL (FIVE THOUSAND) SUBCUT SCH ×3 (06:31→22:08)
[2018-12-03 06:46] LABS: ABS Basophils 0.1 10^3/ul (0-0.2); ABS Eosinophils 0.2 10^3/ul (0-0.6); ABS Lymphocytes 1.2 10^3/ul (1.0-4.8); ABS Monocytes 0.7 10^3/ul (0-0.8); ABS Neutrophils 7.6 10^3/ul (1.5-7.7); Eosinophil % 2.1 %; Hematocrit 34 % (42-52); Hemoglobin 12.2 g/dL (14.0-18.0); Lymphocyte % 12.5 %; Mean Corpuscular HGB Conc 36 g/dL (31-36); Mean Corpuscular Hemoglobin 32 pg (27-31); Mean Corpuscular Volume 90 fL (80-94); Mean Platelet Volume 8.2 fL (7.4-10.4); Nucleated Red Blood Cells % 0.1; Platelet Count 210 10^3/uL (150-450); Red Blood Count 3.77 10^6 /uL (4.18-5.48); Red Cell Distribution Width 14 % (10-15); White Blood Count 9.8 10^3/uL (3.5-10.8)
--- NOTE | 2018-12-03 06:51 | PN ---
Progress Note - Progress Note Date of Service: 12/03/18 Note: Pt seen and examined. Right second toe dry gangrene. Pt wants toe off today. H/ o previous injury to toes with lawnmower accident. This swelling, pain and redness began within the last 1-1.5 weeks. Temp Pulse Resp BP Pulse Ox 98.2 F 57 22 134/64 98 12/03/18 03:48 12/03/18 03:48 12/03/18 03:48 12/03/18 03:48 12/03/18 03:48 NAD. AAOx3. irritated. right foot with second toe black distal phalanx with surrounding erythema extending proximally. pulses not palpable. dense neuropathy. able to DF/PF foot/ankle. flex/ext toes. Laboratory Results - last 24 hr 12/02/18 12/02/18 12/02/18 12:58 12:58 12:58 WBC 11.6 H RBC 3.94 L Hgb 12.5 L Hct 36 L MCV 91 MCH 32 H MCHC 35 RDW 15 Plt Count 217 MPV 8.5 Neut % (Auto) 84.7 Lymph % (Auto) 7.5 Creek % (Auto) 6.2 Eos % (Auto) 0.5 Baso % (Auto) 1.1 Absolute Neuts (auto) 9.8 H Absolute Lymphs (auto) 0.9 L Absolute Monos (auto) 0.7 Absolute Eos (auto) 0.1 Absolute Basos (auto) 0.1 Absolute Nucleated RBC 0.0 Nucleated RBC % 0.0 ESR INR (Anticoag Therapy) APTT Sodium 131 L Potassium 4.2 Chloride 100 L Carbon Dioxide 21 L Anion Gap 10 BUN 33 H Creatinine 1.30 H Est GFR ( Amer) 63.6 Est GFR (Non-Af Amer) 52.6 BUN/Creatinine Ratio 25.4 H Glucose 550 H* POC Glucose (mg/dL) Lactic Acid 2.7 H* Calcium 9.0 Total Bilirubin 1.00 AST 12 L ALT 14 Alkaline Phosphatase 62 C-Reactive Protein 82.80 H Total Protein 6.5 Albumin 3.7 Globulin 2.8 Albumin/Globulin Ratio 1.3 12/02/18 12/02/18 12/02/18 16:34 16:34 16:35 WBC RBC Hgb Hct MCV MCH MCHC RDW Plt Count MPV Neut % (Auto) Lymph % (Auto) [place] % (Auto) Eos % (Auto) Baso % (Auto) Absolute Neuts (auto) Absolute Lymphs (auto) Absolute Monos (auto) Absolute Eos (auto) Absolute Basos (auto) Absolute Nucleated RBC Nucleated RBC % ESR 50 H INR (Anticoag Therapy) 1.09 APTT 28.8 Sodium Potassium Chloride Carbon Dioxide Anion Gap BUN Creatinine Est GFR ( Amer) Est GFR (Non-Af Amer) BUN/Creatinine Ratio Glucose POC Glucose (mg/dL) Lactic Acid 2.3 H* Calcium Total Bilirubin AST ALT Alkaline Phosphatase C-Reactive Protein Total Protein Albumin Globulin Albumin/Globulin Ratio 12/02/18 12/02/18 12/03/18 17:11 22:13 01:50 WBC RBC Hgb Hct MCV MCH MCHC RDW Plt Count MPV Neut % (Auto) Lymph % (Auto) Creek % (Auto) Eos % (Auto) Baso % (Auto) Absolute Neuts (auto) Absolute Lymphs (auto) Absolute Monos (auto) Absolute Eos (auto) Absolute Basos (auto) Absolute Nucleated RBC Nucleated RBC % ESR INR (Anticoag Therapy) APTT Sodium Potassium Chloride Carbon Dioxide Anion Gap BUN Creatinine Est GFR ( Amer) Est GFR (Non-Af Amer) BUN/Creatinine Ratio Glucose POC Glucose (mg/dL) 213 H 67 L 108 H Lactic Acid Calcium Total Bilirubin AST ALT Alkaline Phosphatase C-Reactive Protein Total Protein Albumin Globulin Albumin/Globulin Ratio 12/03/18 06:27 WBC 9.8 RBC 3.77 L Hgb 12.2 L Hct 34 L MCV 90 MCH 32 H MCHC 36 RDW 14 Plt Count 210 MPV 8.2 Neut % (Auto) 77.0 Lymph % (Auto) 12.5 Creek % (Auto) 7.3 Eos % (Auto) 2.1 Baso % (Auto) 1.1 Absolute Neuts (auto) 7.6 Absolute Lymphs (auto) 1.2 Absolute Monos (auto) 0.7 Absolute Eos (auto) 0.2 Absolute Basos (auto) 0.1 Absolute Nucleated RBC 0.0 Nucleated RBC % 0.1 ESR INR (Anticoag Therapy) APTT Sodium Potassium Chloride Carbon Dioxide Anion Gap BUN Creatinine Est GFR ( Amer) Est GFR (Non-Af Amer) BUN/Creatinine Ratio Glucose POC Glucose (mg/dL) Lactic Acid Calcium Total Bilirubin AST ALT Alkaline Phosphatase C-Reactive Protein Total Protein Albumin Globulin Albumin/Globulin Ratio Xray without obvious bony changes. MRI done that demonstrates swelling and myositis. changes noted in the 3rd toe per report as well. DELROY 0.44 A/P 83 yo M with DM and vascular insufficiency with 2nd toe necrosis plan for right second toe amputation with Dr Dunbar . wbat through heel. cont iv abx. npo after midnight.
[2018-12-03 07:04] LABS: BUN/Creatinine Ratio 20.7 (8-20); Calcium 8.3 mg/dL (8.6-10.3); EGFR African American 76.4 (>60); EGFR Non-African American 63.1 (>60); Potassium 3.8 mmol/L (3.5-5.0)
[2018-12-03] MEDS: Insulin LISPRO* 1 UNITS UNIT SUBCUT SCH ×4 (08:33→22:05)
[2018-12-03] MEDS ORDERED: oxyCODONE/Acetamin 5/325 MG* TAB ONE (09:58)
[2018-12-03] MEDS: Multivitamins/Minerals TAB PO SCH (10:08)
[2018-12-03] MEDS: Docusate CAP* 100 MG PO SCH ×2 (10:08→22:00)
[2018-12-03] MEDS: Allopurinol TAB* 300 MG PO SCH (10:08)
[2018-12-03] MEDS: Metoprolol Succinate XL TAB* 50 MG PO SCH (10:08)
[2018-12-03] MEDS: oxyCODONE/Acetamin 5/325 MG* TAB PO PRN ×4 (10:10→23:45)
[2018-12-03] MEDS: Senna TAB 8.6 mg* TAB PO SCH ×2 (10:21→21:59)
--- NOTE | 2018-12-03 11:35 | PN ---
Subjective Date of Service: 12/03/18 Interval History: Patient resting in bed on assessment. Reports mild pain in right foot. Denies fever, chills, cp, palpitations, nausea, vomiting. Patient reports he is looking forward to surgery and states "the sooner the better". Objective Active Medications: Acetaminophen (Tylenol Tab*) 650 mg PO Q4H PRN PRN Reason: Fever-temp >100.9/Pain-mild Last Admin: 12/02/18 18:27 Dose: 650 mg Al Hydrox/Mg Hydrox/Simethicone (Maalox Plus*) 30 ml PO Q6H PRN PRN Reason: INDIGESTION Allopurinol (Zyloprim Tab*) 300 mg PO DAILY [facility] Last Admin: 12/03/18 10:08 Dose: 300 mg Dextrose (Dextrose 50% Vial 50 Ml*) 25 ml IV PUSH .FOR FS < 60 - SS PRN PRN Reason: FS < 60 Last Admin: 12/03/18 00:41 Dose: 25 ml Docusate Sodium (Colace Cap*) 100 mg PO BID [facility] Last Admin: 12/03/18 10:08 Dose: Not Given Heparin Sodium (Porcine) (Heparin Vial(*)) 5,000 units SUBCUT Q8HR [facility] Last Admin: 12/03/18 06:31 Dose: Not Given Sodium Chloride (Ns 0.9% 1000 Ml) 1,000 mls @ 125 mls/hr IV PER RATE [facility] Last Admin: 12/03/18 01:17 Dose: 125 mls/hr Cefepime HCl (Maxipime 1 Gm In Dextrose Duplex (*)) 1 gm in 50 mls @ 100 mls/ hr IV Q12H [facility] Last Admin: 12/03/18 05:58 Dose: 100 mls/hr Vancomycin HCl 750 mg/ Sodium (Chloride) 250 mls @ 166.667 mls/hr IVPB Q12H [facility] Last Admin: 12/03/18 02:02 Dose: 166.667 mls/hr Insulin Glargine (Lantus(*)) 10 units SUBCUT Q24H [facility] Last Admin: 12/02/18 15:45 Dose: 10 units Insulin Human Lispro (Humalog*) 0 units SUBCUT ACHS [facility]; Protocol Last Admin: 12/03/18 08:33 Dose: Not Given Levothyroxine Sodium (Synthroid Tab*) 50 mcg PO DAILY@0600 [facility] Last Admin: 12/03/18 05:55 Dose: 50 mcg Magnesium Hydroxide (Milk Of Magnesia Liq*) 30 ml PO Q4H PRN PRN Reason: CONSTIPATION Metoprolol Succinate (Toprol Xl Tab*) 50 mg PO DAILY [facility] Last Admin: 12/03/18 10:08 Dose: 50 mg Multivitamins/Minerals (Theragran/Minerals Tab*) 1 tab PO DAILY [facility] Last Admin: 12/03/18 10:08 Dose: 1 tab Oxycodone/Acetaminophen (Percocet 5/325 Tab*) 1 tab PO Q4H PRN PRN Reason: PAIN - MODERATE Last Admin: 12/03/18 10:10 Dose: 1 tab Oxycodone/Acetaminophen (Percocet 5/325 Tab*) 2 tab PO Q4H PRN PRN Reason: PAIN - SEVERE Pharmacy Consult (Vancomycin Per Pharmacy*) 1 note FOLLOW UP . PRN PRN Reason: PER PROTOCOL Pharmacy Profile Note (Vancomycin Trough Check) 1 note FOLLOW UP 1400 ONE Stop: 12/04/18 14:01 Senna (Senokot Tab*) 1 tab PO BID [facility] Last Admin: 12/03/18 10:21 Dose: Not Given Vital Signs - 8 hr 12/03/18 12/03/18 12/03/18 03:48 07:24 10:10 Temperature 98.2 F 98.2 F Pulse Rate 57 60 Respiratory 22 24 16 Rate Blood Pressure 134/64 133/60 (mmHg) O2 Sat by Pulse 98 94 Oximetry 12/03/18 11:26 Temperature 98.4 F Pulse Rate 52 Respiratory 18 Rate Blood Pressure 133/58 (mmHg) O2 Sat by Pulse 97 Oximetry Oxygen Devices in Use Now: None Appearance: Comfortable, NAD Eyes: No Scleral Icterus Ears/Nose/Mouth/Throat: Clear Oropharnyx, Mucous Membranes Moist Neck: NL Appearance and Movements; NL JVP Respiratory: Symmetrical Chest Expansion and Respiratory Effort, Clear to Auscultation Cardiovascular: NL Sounds; No Murmurs; No JVD, RRR, No Edema Abdominal: NL Sounds; No Tenderness; No Distention Lymphatic: No Cervical Adenopathy Extremities: No Edema, No Clubbing, Cyanosis Skin: - - Right second toe black at tip and discolored thoughout to base. Mild redness on top of right foot. Neurological: Alert and Oriented x 3, NL Muscle Strength and Tone Nutrition: Taking PO's, - - Will be NPO after midnight Result Diagrams: 12/03/18 06:27 12/03/18 06:27 Additional Lab and Data: Laboratory Results - last 24 hr 12/02/18 12/02/18 12/02/18 12:58 16:34 16:34 WBC RBC Hgb Hct MCV MCH MCHC RDW Plt Count MPV Neut % (Auto) Lymph % (Auto) [place] % (Auto) Eos % (Auto) Baso % (Auto) Absolute Neuts (auto) Absolute Lymphs (auto) Absolute Monos (auto) Absolute Eos (auto) Absolute Basos (auto) Absolute Nucleated RBC Nucleated RBC % ESR INR (Anticoag Therapy) 1.09 APTT 28.8 Sodium 131 L Potassium 4.2 Chloride 100 L Carbon Dioxide 21 L Anion Gap 10 BUN 33 H Creatinine 1.30 H Est GFR ( Amer) 63.6 Est GFR (Non-Af Amer) 52.6 BUN/Creatinine Ratio 25.4 H Glucose 550 H* POC Glucose (mg/dL) Hemoglobin A1c Lactic Acid 2.3 H* Calcium 9.0 Total Bilirubin 1.00 AST 12 L ALT 14 Alkaline Phosphatase 62 C-Reactive Protein 82.80 H Total Protein 6.5 Albumin 3.7 Globulin 2.8 Albumin/Globulin Ratio 1.3 Vancomycin Trough 12/02/18 12/02/18 12/02/18 16:35 17:11 22:13 WBC RBC Hgb Hct MCV MCH MCHC RDW Plt Count MPV Neut % (Auto) Lymph % (Auto) [place] % (Auto) Eos % (Auto) Baso % (Auto) Absolute Neuts (auto) Absolute Lymphs (auto) Absolute Monos (auto) Absolute Eos (auto) Absolute Basos (auto) Absolute Nucleated RBC Nucleated RBC % ESR 50 H INR (Anticoag Therapy) APTT Sodium Potassium Chloride Carbon Dioxide Anion Gap BUN Creatinine Est GFR ( Amer) Est GFR (Non-Af Amer) BUN/Creatinine Ratio Glucose POC Glucose (mg/dL) 213 H 67 L Hemoglobin A1c Lactic Acid Calcium Total Bilirubin AST ALT Alkaline Phosphatase C-Reactive Protein Total Protein Albumin Globulin Albumin/Globulin Ratio Vancomycin Trough 12/03/18 12/03/18 12/03/18 01:50 06:27 06:27 WBC 9.8 RBC 3.77 L Hgb 12.2 L Hct 34 L MCV 90 MCH 32 H MCHC 36 RDW 14 Plt Count 210 MPV 8.2 Neut % (Auto) 77.0 Lymph % (Auto) 12.5 [place] % (Auto) 7.3 Eos % (Auto) 2.1 Baso % (Auto) 1.1 Absolute Neuts (auto) 7.6 Absolute Lymphs (auto) 1.2 Absolute Monos (auto) 0.7 Absolute Eos (auto) 0.2 Absolute Basos (auto) 0.1 Absolute Nucleated RBC 0.0 Nucleated RBC % 0.1 ESR INR (Anticoag Therapy) APTT Sodium Potassium Chloride Carbon Dioxide Anion Gap BUN Creatinine Est GFR ( Amer) Est GFR (Non-Af Amer) BUN/Creatinine Ratio Glucose POC Glucose (mg/dL) 108 H Hemoglobin A1c 7.2 H Lactic Acid Calcium Total Bilirubin AST ALT Alkaline Phosphatase C-Reactive Protein Total Protein Albumin Globulin Albumin/Globulin Ratio Vancomycin Trough 12/03/18 12/03/18 12/03/18 06:27 07:59 11:47 WBC RBC Hgb Hct MCV MCH MCHC RDW Plt Count MPV Neut % (Auto) Lymph % (Auto) [place] % (Auto) Eos % (Auto) Baso % (Auto) Absolute Neuts (auto) Absolute Lymphs (auto) Absolute Monos (auto) Absolute Eos (auto) Absolute Basos (auto) Absolute Nucleated RBC Nucleated RBC % ESR INR (Anticoag Therapy) APTT Sodium 140 D Potassium 3.8 Chloride 112 H Carbon Dioxide 22 Anion Gap 6 BUN 23 Creatinine 1.11 Est GFR ( Amer) 76.4 Est GFR (Non-Af Amer) 63.1 BUN/Creatinine Ratio 20.7 H Glucose 106 H POC Glucose (mg/dL) 98 241 H Hemoglobin A1c Lactic Acid Calcium 8.3 L Total Bilirubin AST ALT Alkaline Phosphatase C-Reactive Protein Total Protein Albumin Globulin Albumin/Globulin Ratio Vancomycin Trough 12/03/18 13:34 WBC RBC Hgb Hct MCV MCH MCHC RDW Plt Count MPV Neut % (Auto) Lymph % (Auto) [place] % (Auto) Eos % (Auto) Baso % (Auto) Absolute Neuts (auto) Absolute Lymphs (auto) Absolute Monos (auto) Absolute Eos (auto) Absolute Basos (auto) Absolute Nucleated RBC Nucleated RBC % ESR INR (Anticoag Therapy) APTT Sodium Potassium Chloride Carbon Dioxide Anion Gap BUN Creatinine Est GFR ( Amer) Est GFR (Non-Af Amer) BUN/Creatinine Ratio Glucose POC Glucose (mg/dL) Hemoglobin A1c Lactic Acid Calcium Total Bilirubin AST ALT Alkaline Phosphatase C-Reactive Protein Total Protein Albumin Globulin Albumin/Globulin Ratio Vancomycin Trough 9.3 Microbiology and Other Data: Microbiology 12/02/18 12:58 Aerobic Blood Culture - Preliminary Blood Venous No Growth Day 1 Anaerobic Blood Culture - Preliminary No Growth Day 1 12/02/18 12:58 Aerobic Blood Culture - Preliminary Blood Venous No Growth Day 1 Anaerobic Blood Culture - Preliminary No Growth Day 1 Assess/Plan/Problems-Billing Assessment: 83 yr old male with pmh of right sided dvt/pe s/p IVC filter, htn, gout; who presented to the ED with right foot infection. - Patient Problems (1) Gangrene of toe of right foot Comment: - Ortho consulting - Plan for right second toe amputation with Dr Dunbar on - MRI reveals swelling and myositis - Cont Vanco and Cefepime per ID - ABIs concerning therefore Dr Giraldo contact by ortho PA (2) Pre-op evaluation Comment: - RCRI 1 point, therefore, 6.0% 30 day risk - Echo obtained and EF 55% to 60%. No other significant findings - Patient reports he can walk up a flight of stairs without difficulty. In addition he does yard work and lifts his elderly mother in law to and from wheelchair without difficulty or concerning symptoms. (3) Diabetes Comment: - Hold home oral medications - Continue lantus and ss insulin (4) HTN (hypertension) Comment: - Normotensive - Cont Metoprolol (5) Gout Comment: - Cont Allopurinol (6) History of DVT (deep vein thrombosis) Comment: - Has IVC filter - Cont sub Q heparin for DVT proph (7) DVT prophylaxis Comment: - Cont sub Q heparin for DVT proph Attending: Aleksandar Mcelroy
[2018-12-03] MEDS: Insulin GLARGINE(*) 1 UNITS UNIT SUBCUT SCH (15:14)
--- NOTE | 2018-12-03 20:36 | CONSULT ---
Consult Consult: Date of Service: Reason for consultation: Gangrenous right 2nd toe in the presence of vasculopathy. Consulting Provider: Sonya MOHAN Relevant Imaging: EXAM: US Bilateral Noninvasive Physiologic Study of the Upper or Lower Extremity Arteries, Limited EXAM DATE/TIME: 12/02/2018 9:51 PM CLINICAL HISTORY: 83 years old, male; Other: Weak pulses, necrotic toes; Additional info: Necrotic toe, weak pules on R TECHNIQUE: Imaging protocol: Bilateral Bilateral noninvasive physiologic studies of upper or lower extremity arteries. Ankle/brachial indices at distal posterior tibial and anterior tibial/dorsalis pedis arteries plus bidirectional, doppler waveform recording and analysis at 1-2 levels, or ankle/brachial indices at distal posterior tibial and anterior tibial/dorsalis pedis arteries plus volume plethysmography at 1-2 levels, or ankle/brachial indices at distal posterior tibial and anterior tibial/dorsalis pedis arteries with, transcutaneous oxygen tension measurement at 1-2 levels. Images were documented and archived. Limited. COMPARISON: [facility] R WO MRI LOWER EXTREMITY RIGHT W/O 12/02/2018 7:34 PM FINDINGS: Right DELROY is 0.44. This indicates moderate/borderline severe peripheral atherosclerotic vascular disease. Left DELROY is 1.17. IMPRESSION: Abnormal right ankle-brachial index, indicating moderate/borderline severe peripheral atherosclerotic vascular disease.
--- NOTE | 2018-12-03 20:44 | CONS ---
CONSULTATION REPORT: DATE OF CONSULT: 12/03/18 PRIMARY CARE PROVIDER: Dr. Quincy Parker. PROVIDER REQUESTING CONSULTATION: Kimberly Saldivar NP CONSULTING SERVICE: Infectious Disease. PROVIDER: Dionne Campoverde NP ATTENDING PROVIDER: Dr. Ascencion Diaz.* (DICTATED BY DIONNE CAMPOVERDE NP) REASON FOR CONSULT: Right second toe infection. IMPRESSION: 1. Right foot infection with right second toe gangrene. There are no signs of osteomyelitis on the MRI performed yesterday. He is noted to have some muscle edema suggestive of myositis or diabetic myopathy and mild tenosynovitis of the peroneus longus tendon. He underwent ABIs showing abnormal ABIs of the right lower extremity and he has a consult pending with Dr. Mookie Giraldo. Orthopedics is tentatively planning to take the patient to the operating room on , 12/04/18, for a right second toe amputation. 2. Diabetes mellitus type 2. Uncontrolled, and he has been placed on insulin while in the hospital. RECOMMENDATIONS/PLAN: Recommend continuing cefepime and vancomycin for now. Further recommendations will be based on the clinical course and findings in the operating room. We will continue to follow along. HISTORY OF PRESENT ILLNESS: Mr. Perdomo is an 83-year-old male with past medical history significant for diabetes mellitus type 2, history of right lower extremity DVT, PE, hypertension and gout who presented to the emergency room with complaints of right foot redness and right second toe redness. The patient states that the redness has been present on the right second toe for approximately 2 days. He is unsure if it has been present for longer. Due to his symptoms, he presented to the emergency room for further evaluation. While in the emergency room, he had labs remarkable for white blood cell count of 11.6, hemoglobin 12.5, hematocrit 36, platelet count 217,000. Liver function testing unremarkable. Creatinine 1.3, BUN 33. Right foot plain film x -ray with no signs of osteomyelitis. He was referred to the hospitalist service for admission. While in the hospital, he had an MRI of the right lower extremity showing mild right foot soft tissue swelling, mild edematous changes to the middle third phalanx as well as the proximal and middle second phalanges, early osteomyelitis could not be excluded, cystic changes identified within the bone marrow of the navicular bone and intermediate cuneiform bone suggestive of arthropathy or neuropathic changes, amputation of the distal second and third phalanges is visualized. There is bone loss or erosion of the distal fourth phalanx without significant acute edematous changes. Patchy muscular edema visualized suggestive of myositis or diabetic myopathy, mild tenosynovitis of the peroneus longus tendon, small effusion at the first MTP joint, minimal effusion at the remaining MTP joint. Additionally, he under-went a transthoracic echocardiogram showing mild mitral valve regurgitation, mild aortic regurgitation, [id number] tricuspid regurgitation. He was seen in consultation by MARQUES Pryor, with Orthopedics, who recommended ABIs and IV antibiotics in anticipation that the patient would require a right second toe amputation. The patient was also seen by Dr. Mitchell. Plans were made for right second toe amputation with Dr. Dunbar on . The patient underwent DELROY, showing an abnormal right DELROY of 0.44 and a left DELROY of 1.17. Dr. Mookie Giraldo with Vascular Surgery will be consulting on the patient regarding his vascular status. He has been afebrile during his stay. Initial leukocytosis has resolved. He has been on cefepime and vancomycin. He denies any fevers, chills, shortness of breath, nausea, vomiting, diarrhea. He denies pain in his right foot. No abdominal pain. No urinary symptoms. Denies any rash. Denies any recent travel. PAST MEDICAL HISTORY: 1. Diabetes mellitus type 2. 2. History of right lower extremity DVT. 3. Hypertension. 4. Gout. PAST SURGICAL HISTORY: 1. Status post IVC filter placement in 2012. 2. Status post hernia repair. 3. 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 4. Status post TURP in 2009. 5. 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 6. Status post traumatic amputations of the right second, third and fourth tips of his distal phalanges. MEDICATIONS: Home medications: 1. Glipizide 10 mg by mouth twice daily. 2. Levothyroxine 50 mcg by mouth daily. 3. Metformin 1000 mg by mouth daily. 4. Metoprolol succinate 50 mg by mouth daily. 5. Fosinopril 20 mg by mouth daily. 6. Allopurinol 300 mg by mouth daily. 7. Multivitamin 1 tablet by mouth daily. Hospital medications: 1. Acetaminophen 650 mg by mouth every 4 hours as needed for fever or pain. 2. Maalox Plus 30 mL by mouth every 6 hours as needed for indigestion. 3. Allopurinol 300 mg by mouth daily. 4. Cefepime 1 g IV every 12 hours. 5. Dextrose 25 mL IV push for fingerstick less than 60 as needed. 6. Colace 100 mg by mouth twice daily. 7. Heparin sodium 5000 units subcu every 8 hours. 8. Lantus insulin 10 units subcutaneous every 24 hours as needed. 9. Humalog insulin sliding scale subcutaneous with meals and at bedtime. 10. Levothyroxine 50 mcg by mouth daily. 11. Milk of magnesia 30 mL by mouth every 4 hours as needed for constipation. 12. Metoprolol succinate 50 mg by mouth daily. 13. Multivitamin 1 tablet by mouth daily. 14. Percocet 5/325 one to two tablets by mouth every 4 hours as needed for pain. 15. Senokot 1 tablet by mouth daily. 16. Sodium chloride 125 mL an hour. 17. Vancomycin 750 mg IV every 12 hours. ALLERGIES: CIPRO caused face, lip and throat swelling. FAMILY HISTORY: Denies any family history of coronary artery disease, diabetes , cancer, recurrent or resistant infections. SOCIAL HISTORY: The patient is a former smoker. He quit smoking 50 years ago. He denies alcohol or recreational drug use. REVIEW OF SYSTEMS: I performed a 10-point review of systems. All the pertinent positives and negatives are mentioned in the history of present illness. The remaining review of systems are negative. PHYSICAL EXAM: Vital Signs: Temperature 98.2, heart rate 60, respiratory rate 24, O2 sat 94% on room air, blood pressure 133/60. General Appearance: The patient is alert, appears to be in no acute distress, was sitting up in bed. Head: Normocephalic, atraumatic. EENT: Pupils are equal and reactive to light. Extraocular movements are intact. No subconjunctival hemorrhage. Mucous membranes are moist. Neck: Supple. No lymphadenopathy. Neurological: Cranial nerves II through XII are grossly intact. He moves all extremities. He is alert and oriented x3. Cardiovascular: Regular rate and rhythm. S1, S2 present. No murmurs, rubs, or gallops heard. Respiratory: No accessory muscle use. The lungs are clear to auscultation bilaterally. Abdomen: Bowel sounds present. Abdomen is soft, nontender, nondistended. Extremities: No lower extremity edema. Unable to palpate dorsalis pedis on the right foot. Musculoskeletal: No clubbing or cyanosis noted. Psychological: Calm and cooperative. Skin: The patient has erythema on the dorsal aspect of his right foot in the forefoot region. Additionally, his right second toe, the distal portion of the toe has dry gangrene present. He is noted to have posttraumatic healed amputation sites on his left hand of fingers 2, 3 and 4 with the stumps well healed in addition to healed remote amputation sites on toes 2, 3 and 4. DIAGNOSTIC STUDIES/LAB DATA: Sodium 140, potassium 3.8, chloride 112, CO2 of 22 , BUN 23, creatinine 1.11, glucose of 106. Hemoglobin A1c of 7.2. CRP at the time of admission was 82.80. White blood cell count 9.8, hemoglobin 12.2, hematocrit 34, platelet count 212,000, ESR 50. Thank you for asking us to see Mr. Perdomo in consultation. Recommendations have been discussed with Kimberly Saldivar NP and MARQUES Pryor. The case has been reviewed with my attending, Dr. Ascencion Diaz, who agrees with the plan of care. Reviewed by RICARDO YOUNG 12/07/18 1228 [id number]/[facility] #: [id number] GARO
[2018-12-04] MEDS: NS 0.9% 1000 ML** 1,000 ML IV SCH ×3 (00:23→21:48)
[2018-12-04] MEDS: Vancomycin(*) 750 MG in NS 0.9% 250 ML* 250 ML IVPB SCH ×2 (02:28→15:21)
[2018-12-04] MEDS: Levothyroxine TAB* 50 MCG TAB PO SCH (06:05)
[2018-12-04] MEDS: Cefepime 1 GM in Dextrose(*) 1 GM/50 ML BAG IV SCH ×2 (06:05→17:48)
[2018-12-04 06:08] LABS: ABS Eosinophils 0.1 10^3/ul (0-0.6); ABS Lymphocytes 1.2 10^3/ul (1.0-4.8); ABS Monocytes 0.8 10^3/ul (0-0.8); ABS Neutrophils 8.9 10^3/ul (1.5-7.7); Eosinophil % 1.2 %; Hematocrit 33 % (42-52); Hemoglobin 11.7 g/dL (14.0-18.0); Lymphocyte % 11.2 %; Mean Corpuscular HGB Conc 36 g/dL (31-36); Mean Corpuscular Hemoglobin 32 pg (27-31); Mean Corpuscular Volume 89 fL (80-94); Mean Platelet Volume 8.5 fL (7.4-10.4); Platelet Count 217 10^3/uL (150-450); Red Blood Count 3.63 10^6 /uL (4.18-5.48); Red Cell Distribution Width 14 % (10-15); White Blood Count 11.1 10^3/uL (3.5-10.8)
[2018-12-04 06:13] LABS: INR 1.27 (0.82-1.09)
[2018-12-04 06:27] LABS: BUN/Creatinine Ratio 15.4 (8-20); Calcium 7.7 mg/dL (8.6-10.3); EGFR African American 82.3 (>60); Potassium 3.7 mmol/L (3.5-5.0)
[2018-12-04] MEDS: Allopurinol TAB* 300 MG PO SCH ×2 (08:26→09:48)
[2018-12-04] MEDS: Docusate CAP* 100 MG PO SCH ×3 (08:27→21:34)
[2018-12-04] MEDS: Senna TAB 8.6 mg* TAB PO SCH ×3 (08:27→21:34)
[2018-12-04] MEDS: Multivitamins/Minerals TAB PO SCH ×2 (08:27→09:47)
[2018-12-04] MEDS: Insulin LISPRO* 1 UNITS UNIT SUBCUT SCH ×4 (08:35→21:49)
[2018-12-04] MEDS: Metoprolol Succinate XL TAB* 50 MG PO SCH (08:39)
--- NOTE | 2018-12-04 09:05 | CONSULT ---
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 Perdomo is an 83 YOM from [facility] that presented to ER with foot pain beginning several weeks earlier. He states that his 2nd toe on right foot suddenly started hurting much more this week. He denies trauma to the area. Most of his pain is located in his toe and he rates its severity a 10/10. Prior to the necrotic toe Macario denies any symptoms characteristic of claudication. He admits pain in his lower legs at night, but denies pacing relieves the pain. He takes PO pain meds for his night time leg pain. Allergies: Ciprofloxacin PMH: Endocrine/Hematology History: Diabetes Cardiovascular History: Hypertension Respiratory History: Neg History: Benign Prostatic Hyperplasia, hx of renal stones Musculoskeletal History: Gout Surgical History: Surgery Procedure, Year, and Place: prostate x3 Family History: Known Family History: Hypertension Social History: Alcohol Use: None Hx Substance Use: No Substance Use Type: Reports: None Hx Tobacco Use: Yes, quit smoking "50 years ago" Smoking Status (MU): Former Smoker Review of Systems Negative: Fever, Chills Negative: Chest Pain Negative: Shortness Of Breath Negative: Vomiting, Diarrhea, Nausea Positive: Other - Positive - pain in right foot 2nd toe All Other Systems Reviewed And Are Negative: Yes Physical Exam: Selected Entries 12/04/18 07:53 Temperature 99.0 F Pulse Rate 67 Respiratory 18 Rate Blood Pressure 151/67 (mmHg) Blood Pressure 95 Mean O2 Sat by Pulse 96 Oximetry Patient on Room Yes Air NAD, AAO x 3 RRR, S1/S2 CTAB Abd is soft, NT 2+ pulses palpated at B/L radial and brachial arteries 1+ pulses palpated at B/L DIRECT CARE SPECIALIST Cannot palpate popliteal or pedal pulses Right second toe is black and necrotic appearing Erythema at the right forefoot Relevant Labs: Laboratory Tests 12/02/18 12/03/18 12/03/18 16:34 11:47 17:36 WBC RBC Hgb Hct INR (Anticoag Therapy) APTT 28.8 BUN Creatinine Est GFR (Non-Af Amer) POC Glucose (mg/dL) 241 H 160 H 12/03/18 12/04/18 12/04/18 21:48 05:38 05:38 WBC 11.1 H RBC 3.63 L Hgb 11.7 L Hct 33 L INR (Anticoag Therapy) 1.27 H APTT BUN Creatinine Est GFR (Non-Af Amer) POC Glucose (mg/dL) 183 H 12/04/18 12/04/18 05:38 07:20 WBC RBC Hgb Hct INR (Anticoag Therapy) APTT BUN 16 Creatinine 1.04 Est GFR (Non-Af Amer) 68.0 POC Glucose (mg/dL) 173 H Relevant Imaging: EXAM: US Bilateral Noninvasive Physiologic Study of the Upper or Lower Extremity Arteries, Limited EXAM DATE/TIME: 12/02/2018 9:51 PM CLINICAL HISTORY: 83 years old, male; Other: Weak pulses, necrotic toes; Additional info: Necrotic toe, weak pules on R TECHNIQUE: Imaging protocol: Bilateral Bilateral noninvasive physiologic studies of upper or lower extremity arteries. Ankle/brachial indices at distal posterior tibial and anterior tibial/dorsalis pedis arteries plus bidirectional, doppler waveform recording and analysis at 1-2 levels, or ankle/brachial indices at distal posterior tibial and anterior tibial/dorsalis pedis arteries plus volume plethysmography at 1-2 levels, or ankle/brachial indices at distal posterior tibial and anterior tibial/dorsalis pedis arteries with, transcutaneous oxygen tension measurement at 1-2 levels. Images were documented and archived. Limited. COMPARISON: LOEX R WO MRI LOWER EXTREMITY RIGHT W/O 12/02/2018 7:34 PM FINDINGS: Right DELROY is 0.44. This indicates moderate/borderline severe peripheral atherosclerotic vascular disease. Left DELROY is 1.17. IMPRESSION: Abnormal right ankle-brachial index, indicating moderate/borderline severe peripheral atherosclerotic vascular disease. Summary: Mr. Perdomo is an 83 year old man with a necrotic left 2nd toe of unclear duration with evidence of right leg arterial occlusion, likely the femoropopliteal arteries. Recommendation: 1. CTA Aorta with runoff. 2. After CTA I can determine if endovascular revascularization if feasible.
[2018-12-04] MEDS ORDERED: Iodixanol 320 (CONTRAST) 500 ML MDV IV SCH (10:11)
[2018-12-04] MEDS: oxyCODONE/Acetamin 5/325 MG* TAB PO PRN ×2 (13:55→19:58)
--- NOTE | 2018-12-04 13:58 | PN ---
Progress Note - Progress Note Date of Service: 12/04/18 SOAP: Subjective: []Pt seen at bedside with Dr Dunbar. He feels well without fever or chills. R 2nd toe is painful to touch. Objective: []Gen: NAD, appears comfortable in bed RLE: Right 2nd toe black distally, rest of the toe erythematous with erythema involving the dorsum of the forefoot as well, no proximal streaking. No fluctuance and no discharge. No palpable pulses in the foot. Assessment: []A/P 83 yo M with DM and vascular insufficiency with right 2nd toe necrosis, cellulitis Plan: []Heel WB Appreciate vasc consult. Angio tomorrow with Dr Giraldo Cont IV abx - on vanc Amputation on hold (possibly saturday) until vasc workup/intervention complete as long as toe infection stable/ not systemically ill Vital Signs Temp 97.9 F 12/04/18 11:29 Pulse 69 12/04/18 11:29 Resp 18 12/04/18 13:55 BP 151/76 12/04/18 11:29 Pulse Ox 98 12/04/18 11:29 Intake & Output 12/03/18 12/04/18 12/04/18 18:59 06:59 18:59 Intake Total 7121 211 4607 Output Total 0 450 900 Balance 1395 -330 680 Weight 165 lb Intake: IV Fluids 980 980 NS (0.9%) 980 980 IVPB 55 ABX - CEFEPIME 55 Oral 360 120 600 Output: Urine 0 450 900 Other: Estimated Void Medium Medium Date of Last Bowel 12/03/18 Movement # Bowel Movements 1 0 Estimated Stool Amount Medium # Voids 1 1 Laboratory Last Values WBC 11.1 10^3/uL (3.5-10.8) H 12/04/18 05:38 RBC 3.63 10^6 /uL (4.18-5.48) L 12/04/18 05:38 Hgb 11.7 g/dL (14.0-18.0) L 12/04/18 05:38 Hct 33 % (42-52) L 12/04/18 05:38 MCV 89 fL (80-94) 12/04/18 05:38 MCH 32 pg (27-31) H 12/04/18 05:38 MCHC 36 g/dL (31-36) 12/04/18 05:38 RDW 14 % (10-15) 12/04/18 05:38 Plt Count 217 10^3/uL (150-450) 12/04/18 05:38 MPV 8.5 fL (7.4-10.4) 12/04/18 05:38 Neut % (Auto) 79.6 % 12/04/18 05:38 Lymph % (Auto) 11.2 % 12/04/18 05:38 [place] % (Auto) 7.6 % 12/04/18 05:38 Eos % (Auto) 1.2 % 12/04/18 05:38 Baso % (Auto) 0.4 % 12/04/18 05:38 Absolute Neuts (auto) 8.9 10^3/ul (1.5-7.7) H 12/04/18 05:38 Absolute Lymphs (auto) 1.2 10^3/ul (1.0-4.8) 12/04/18 05:38 Absolute Monos (auto) 0.8 10^3/ul (0-0.8) 12/04/18 05:38 Absolute Eos (auto) 0.1 10^3/ul (0-0.6) 12/04/18 05:38 Absolute Basos (auto) 0.0 10^3/ul (0-0.2) 12/04/18 05:38 Absolute Nucleated RBC 0.0 10^3/ul 12/04/18 05:38 Nucleated RBC % 0.0 12/04/18 05:38 ESR 50 mm/Hr (0-19) H 12/02/18 16:35 INR (Anticoag Therapy) 1.27 (0.82-1.09) H 12/04/18 05:38 APTT 28.8 seconds (26.0-38.0) 12/02/18 16:34 Sodium 138 mmol/L (135-145) 12/04/18 05:38 Potassium 3.7 mmol/L (3.5-5.0) 12/04/18 05:38 Chloride 111 mmol/L (101-111) 12/04/18 05:38 Carbon Dioxide 19 mmol/L (22-32) L 12/04/18 05:38 Anion Gap 8 mmol/L (2-11) 12/04/18 05:38 BUN 16 mg/dL (6-24) 12/04/18 05:38 Creatinine 1.04 mg/dL (0.67-1.17) 12/04/18 05:38 Est GFR ( Amer) 82.3 (>60) 12/04/18 05:38 Est GFR (Non-Af Amer) 68.0 (>60) 12/04/18 05:38 BUN/Creatinine Ratio 15.4 (8-20) 12/04/18 05:38 Glucose 168 mg/dL (70-100) H 12/04/18 05:38 POC Glucose (mg/dL) 173 mg/dL (70-100) H 12/04/18 07:20 Hemoglobin A1c 7.2 % (4.0-5.6) H 12/03/18 06:27 Lactic Acid 2.3 mmol/L (0.5-2.0) H* 12/02/18 16:34 Calcium 7.7 mg/dL (8.6-10.3) L 12/04/18 05:38 Total Bilirubin 1.00 mg/dL (0.2-1.0) 12/02/18 12:58 AST 12 U/L (13-39) L 12/02/18 12:58 ALT 14 U/L (7-52) 12/02/18 12:58 Alkaline Phosphatase 62 U/L (34-104) 12/02/18 12:58 C-Reactive Protein 82.80 mg/L (<8.01) H 12/02/18 12:58 Total Protein 6.5 g/dL (6.4-8.9) 12/02/18 12:58 Albumin 3.7 g/dL (3.2-5.2) 12/02/18 12:58 Globulin 2.8 g/dL (2-4) 12/02/18 12:58 Albumin/Globulin Ratio 1.3 (1-3) 12/02/18 12:58 Vancomycin Trough 9.3 mcg/mL 12/03/18 13:34
[2018-12-04] MEDS ORDERED: Vancomycin Trough Check NOTE FOLLOW UP ONE (14:00)
[2018-12-04] MEDS: Insulin GLARGINE(*) 1 UNITS UNIT SUBCUT SCH (15:14)
[2018-12-04 16:47] LABS: ABS Basophils 0.2 10^3/ul (0-0.2); ABS Eosinophils 0.2 10^3/ul (0-0.6); ABS Lymphocytes 1.4 10^3/ul (1.0-4.8); ABS Monocytes 0.8 10^3/ul (0-0.8); Eosinophil % 1.5 %; Hematocrit 30 % (42-52); Hemoglobin 10.8 g/dL (14.0-18.0); Lymphocyte % 12.4 %; Mean Corpuscular HGB Conc 36 g/dL (31-36); Mean Corpuscular Hemoglobin 32 pg (27-31); Mean Corpuscular Volume 90 fL (80-94); Mean Platelet Volume 8.2 fL (7.4-10.4); Platelet Count 212 10^3/uL (150-450); Red Blood Count 3.37 10^6 /uL (4.18-5.48); Red Cell Distribution Width 14 % (10-15); White Blood Count 11.6 10^3/uL (3.5-10.8)
[2018-12-04] MEDS: Heparin VIAL(*) 5000 UNITS/ML VIAL (FIVE THOUSAND) SUBCUT SCH ×2 (16:51→21:48)
[2018-12-04 16:53] LABS: Activated Partial Thrombo Time 26.9 seconds (26.0-38.0); INR 1.39 (0.82-1.09)
[2018-12-04 16:59] LABS: EGFR African American 94.8 (>60); EGFR Non-African American 78.4 (>60)
--- NOTE | 2018-12-04 18:34 | PN ---
Subjective Date of Service: 12/04/18 Interval History: Discussed case with Dr Giraldo and Sonya MOHAN. Plan for patient to have go to vascular lab with Kristal tomorrow and then to OR with Manjinder on Saturday. Patient is agreeable to plan. Patient reports pain in right foot is well controlled with current PO pain medications regime. Denies cp and sob. He reports "I have never had those problems". Denies fever, chills, nausea, vomiting, diarrhea. Objective Active Medications: Acetaminophen (Tylenol Tab*) 650 mg PO Q4H PRN PRN Reason: Fever-temp >100.9/Pain-mild Last Admin: 12/02/18 18:27 Dose: 650 mg Al Hydrox/Mg Hydrox/Simethicone (Maalox Plus*) 30 ml PO Q6H PRN PRN Reason: INDIGESTION Allopurinol (Zyloprim Tab*) 300 mg PO DAILY [facility] Last Admin: 12/04/18 09:48 Dose: 300 mg Dextrose (Dextrose 50% Vial 50 Ml*) 25 ml IV PUSH .FOR FS < 60 - SS PRN PRN Reason: FS < 60 Last Admin: 12/03/18 00:41 Dose: 25 ml Docusate Sodium (Colace Cap*) 100 mg PO BID [facility] Last Admin: 12/04/18 09:47 Dose: 100 mg Heparin Sodium (Porcine) (Heparin Vial(*)) 5,000 units SUBCUT Q8HR [facility] Stop: 12/04/18 23:59 Last Admin: 12/04/18 16:51 Dose: 5,000 units Sodium Chloride (Ns 0.9% 1000 Ml) 1,000 mls @ 125 mls/hr IV PER RATE [facility] Last Admin: 12/04/18 11:31 Dose: 125 mls/hr Cefepime HCl (Maxipime 1 Gm In Dextrose Duplex (*)) 1 gm in 50 mls @ 100 mls/ hr IV Q12H [facility] Last Admin: 12/04/18 17:48 Dose: 100 mls/hr Vancomycin HCl 1,000 mg/ (Sodium Chloride) 250 mls @ 166.667 mls/hr IVPB Q12H [facility] Insulin Glargine (Lantus(*)) 10 units SUBCUT Q24H [facility] Last Admin: 12/04/18 15:14 Dose: 10 units Insulin Human Lispro (Humalog*) 0 units SUBCUT ACHS [facility]; Protocol Last Admin: 12/04/18 17:47 Dose: 8 units Iodixanol (Visipaque 320 (Contrast)) 125 ml IV ONCE [facility] Stop: 12/06/18 10:10 Levothyroxine Sodium (Synthroid Tab*) 50 mcg PO DAILY@0600 [facility] Last Admin: 12/04/18 06:05 Dose: 50 mcg Magnesium Hydroxide (Milk Of Magnesia Liq*) 30 ml PO Q4H PRN PRN Reason: CONSTIPATION Metoprolol Succinate (Toprol Xl Tab*) 50 mg PO DAILY [facility] Last Admin: 12/04/18 08:39 Dose: 50 mg Multivitamins/Minerals (Theragran/Minerals Tab*) 1 tab PO DAILY [facility] Last Admin: 12/04/18 09:47 Dose: 1 tab Oxycodone/Acetaminophen (Percocet 5/325 Tab*) 1 tab PO Q4H PRN PRN Reason: PAIN - MODERATE Last Admin: 12/04/18 13:55 Dose: 1 tab Oxycodone/Acetaminophen (Percocet 5/325 Tab*) 2 tab PO Q4H PRN PRN Reason: PAIN - SEVERE Last Admin: 12/03/18 16:38 Dose: 2 tab Pharmacy Consult (Vancomycin Per Pharmacy*) 1 note FOLLOW UP . PRN PRN Reason: PER PROTOCOL Pharmacy Profile Note (Vancomycin Trough Check) 1 note FOLLOW UP ONCE ONE Stop: 12/06/18 13:31 Senna (Senokot Tab*) 1 tab PO BID [facility] Last Admin: 12/04/18 09:47 Dose: 1 tab Vital Signs - 8 hr 12/04/18 12/04/18 12/04/18 11:29 13:55 15:08 Temperature 97.9 F 98.5 F Pulse Rate 69 68 Respiratory 18 18 20 Rate Blood Pressure 151/76 145/67 (mmHg) O2 Sat by Pulse 98 93 Oximetry 12/04/18 15:26 Temperature Pulse Rate Respiratory 16 Rate Blood Pressure (mmHg) O2 Sat by Pulse Oximetry Oxygen Devices in Use Now: None Appearance: Comfortable, NAD Eyes: No Scleral Icterus Ears/Nose/Mouth/Throat: Clear Oropharnyx, Mucous Membranes Moist Neck: NL Appearance and Movements; NL JVP Respiratory: Symmetrical Chest Expansion and Respiratory Effort, Clear to Auscultation Cardiovascular: NL Sounds; No Murmurs; No JVD, RRR, No Edema Abdominal: NL Sounds; No Tenderness; No Distention Lymphatic: No Cervical Adenopathy Extremities: No Clubbing, Cyanosis Skin: - - Right second toe blackened at tip. Redness from mid right second toe to mid foot on dorsal Neurological: Alert and Oriented x 3, NL Muscle Strength and Tone Nutrition: Taking PO's Result Diagrams: 12/04/18 16:36 12/04/18 16:36 Additional Lab and Data: Laboratory Results - last 24 hr 12/03/18 12/04/18 12/04/18 21:48 05:38 05:38 WBC 11.1 H RBC 3.63 L Hgb 11.7 L Hct 33 L MCV 89 MCH 32 H MCHC 36 RDW 14 Plt Count 217 MPV 8.5 Neut % (Auto) 79.6 Lymph % (Auto) 11.2 [place] % (Auto) 7.6 Eos % (Auto) 1.2 Baso % (Auto) 0.4 Absolute Neuts (auto) 8.9 H Absolute Lymphs (auto) 1.2 Absolute Monos (auto) 0.8 Absolute Eos (auto) 0.1 Absolute Basos (auto) 0.0 Absolute Nucleated RBC 0.0 Nucleated RBC % 0.0 INR (Anticoag Therapy) 1.27 H APTT Sodium Potassium Chloride Carbon Dioxide Anion Gap BUN Creatinine Est GFR ( Amer) Est GFR (Non-Af Amer) BUN/Creatinine Ratio Glucose POC Glucose (mg/dL) 183 H Calcium Vancomycin Trough 12/04/18 12/04/18 12/04/18 05:38 07:20 09:35 WBC RBC Hgb Hct MCV MCH MCHC RDW Plt Count MPV Neut % (Auto) Lymph % (Auto) [place] % (Auto) Eos % (Auto) Baso % (Auto) Absolute Neuts (auto) Absolute Lymphs (auto) Absolute Monos (auto) Absolute Eos (auto) Absolute Basos (auto) Absolute Nucleated RBC Nucleated RBC % INR (Anticoag Therapy) APTT Sodium 138 Potassium 3.7 Chloride 111 Carbon Dioxide 19 L Anion Gap 8 BUN 16 Creatinine 1.04 Est GFR ( Amer) 82.3 Est GFR (Non-Af Amer) 68.0 BUN/Creatinine Ratio 15.4 Glucose 168 H POC Glucose (mg/dL) 173 H 173 H Calcium 7.7 L Vancomycin Trough 12/04/18 12/04/18 12/04/18 14:27 16:36 16:36 WBC 11.6 H RBC 3.37 L Hgb 10.8 L Hct 30 L MCV 90 MCH 32 H MCHC 36 RDW 14 Plt Count 212 MPV 8.2 Neut % (Auto) 78.0 Lymph % (Auto) 12.4 [place] % (Auto) 6.7 Eos % (Auto) 1.5 Baso % (Auto) 1.4 Absolute Neuts (auto) 9.0 H Absolute Lymphs (auto) 1.4 Absolute Monos (auto) 0.8 Absolute Eos (auto) 0.2 Absolute Basos (auto) 0.2 Absolute Nucleated RBC 0.0 Nucleated RBC % 0.0 INR (Anticoag Therapy) APTT Sodium Potassium Chloride Carbon Dioxide Anion Gap BUN 17 Creatinine 0.92 Est GFR ( Amer) 94.8 Est GFR (Non-Af Amer) 78.4 BUN/Creatinine Ratio Glucose POC Glucose (mg/dL) Calcium Vancomycin Trough 13.5 12/04/18 12/04/18 16:36 16:54 WBC RBC Hgb Hct MCV MCH MCHC RDW Plt Count MPV Neut % (Auto) Lymph % (Auto) [place] % (Auto) Eos % (Auto) Baso % (Auto) Absolute Neuts (auto) Absolute Lymphs (auto) Absolute Monos (auto) Absolute Eos (auto) Absolute Basos (auto) Absolute Nucleated RBC Nucleated RBC % INR (Anticoag Therapy) 1.39 H APTT 26.9 Sodium Potassium Chloride Carbon Dioxide Anion Gap BUN Creatinine Est GFR ( Amer) Est GFR (Non-Af Amer) BUN/Creatinine Ratio Glucose POC Glucose (mg/dL) 317 H Calcium Vancomycin Trough Microbiology and Other Data: Microbiology 12/02/18 12:58 Aerobic Blood Culture - Preliminary Blood Venous No Growth Day 1 Anaerobic Blood Culture - Preliminary No Growth Day 1 12/02/18 12:58 Aerobic Blood Culture - Preliminary Blood Venous No Growth Day 1 Anaerobic Blood Culture - Preliminary No Growth Day 1 Assess/Plan/Problems-Billing Assessment: 83 yr old male with pmh of right sided dvt/pe s/p IVC filter, htn, gout; who presented to the ED with right foot infection. - Patient Problems (1) Gangrene of toe of right foot Comment: - ABIs concerning therefore plan for vascular lab with Politi tomorrow than OR with Manjinder Saturday - Ortho consulting - MRI reveals swelling and myositis - Cont Vanco and Cefepime per ID (2) Pre-op evaluation Comment: - RCRI 1 point, therefore, 6.0% 30 day risk - Echo obtained and EF 55% to 60%. No other significant findings - Patient reports he can walk up a flight of stairs without difficulty. In addition he does yard work and lifts his elderly mother in law to and from wheelchair without difficulty or concerning symptoms. (3) Diabetes Comment: - Hold home oral medications - Continue lantus and ss insulin (4) HTN (hypertension) Comment: - Normotensive - Cont Metoprolol (5) Gout Comment: - Cont Allopurinol (6) History of DVT (deep vein thrombosis) Comment: - Has IVC filter - Cont sub Q heparin for DVT proph (7) DVT prophylaxis Comment: - Cont sub Q heparin for DVT proph Attending: Aleksandar Mcelroy
[2018-12-05] MEDS: Vancomycin(*) 1,000 MG in NS 0.9% 250 ML* 250 ML IVPB SCH ×2 (01:57→17:06)
[2018-12-05] MEDS: Cefepime 1 GM in Dextrose(*) 1 GM/50 ML BAG IV SCH ×2 (05:52→19:10)
[2018-12-05] MEDS: Levothyroxine TAB* 50 MCG TAB PO SCH (05:54)
[2018-12-05 07:51] LABS: ABS Basophils 0.1 10^3/ul (0-0.2); ABS Eosinophils 0.2 10^3/ul (0-0.6); ABS Lymphocytes 1.4 10^3/ul (1.0-4.8); ABS Monocytes 0.8 10^3/ul (0-0.8); ABS Neutrophils 9.8 10^3/ul (1.5-7.7); Eosinophil % 1.9 %; Hematocrit 31 % (42-52); Hemoglobin 11.1 g/dL (14.0-18.0); Lymphocyte % 11.5 %; Mean Corpuscular HGB Conc 36 g/dL (31-36); Mean Corpuscular Hemoglobin 32 pg (27-31); Mean Corpuscular Volume 89 fL (80-94); Mean Platelet Volume 7.8 fL (7.4-10.4); Platelet Count 229 10^3/uL (150-450); Red Blood Count 3.49 10^6 /uL (4.18-5.48); Red Cell Distribution Width 14 % (10-15); White Blood Count 12.4 10^3/uL (3.5-10.8)
[2018-12-05 07:55] LABS: INR 1.22 (0.82-1.09)
[2018-12-05] MEDS: NS 0.9% 1000 ML** 1,000 ML IV SCH (07:57)
[2018-12-05 08:06] LABS: BUN/Creatinine Ratio 15.2 (8-20); Calcium 7.6 mg/dL (8.6-10.3); EGFR African American 75.6 (>60); EGFR Non-African American 62.5 (>60); Potassium 3.6 mmol/L (3.5-5.0)
[2018-12-05] MEDS: Insulin LISPRO* 1 UNITS UNIT SUBCUT SCH ×4 (08:53→21:54)
[2018-12-05] MEDS: Allopurinol TAB* 300 MG PO SCH (08:53)
[2018-12-05] MEDS: Docusate CAP* 100 MG PO SCH ×2 (08:54→21:54)
[2018-12-05] MEDS: Multivitamins/Minerals TAB PO SCH (08:54)
[2018-12-05] MEDS: Senna TAB 8.6 mg* TAB PO SCH ×2 (08:54→21:54)
[2018-12-05] MEDS: Metoprolol Succinate XL TAB* 50 MG PO SCH (09:31)
[2018-12-05] MEDS ORDERED: Heparin 2 UNITS/ML IVPREMIX* 3,000 UNIT/1,500 ML BAG IV ONE (12:58)
[2018-12-05] MEDS ORDERED: Iohexol 350 (CONTRAST) 200 ML MDV IV ONE (12:58)
[2018-12-05] MEDS ORDERED: Iodixanol 320 (CONTRAST) 100 ML SDV ONE (12:58)
[2018-12-05] MEDS ORDERED: Lidocaine 1% INJ* 10 MG/ML 30 ML SDV ONE (12:58)
[2018-12-05] MEDS ORDERED: fentaNYL* 50 MCG/ML 2 ML VIAL (100 MCG VIAL) ONE (13:19)
[2018-12-05] MEDS ORDERED: Midazolam* 1 MG/ML 5 ML VIAL (5 MG) ONE (13:20)
[2018-12-05] MEDS ORDERED: Metoprolol Tartrate IV* 1 MG/ML 5 ML VIAL ONE (13:42)
[2018-12-05] MEDS ORDERED: hydrALAZINE IV* 20 MG/ML VIAL IV SLOW PU PRN (14:07)
[2018-12-05] MEDS ORDERED: Heparin(*) 1000 UNIT/ML 10 ML VIAL CATH LAB IV ONE ×2 (14:29→15:26)
[2018-12-05] MEDS ORDERED: nitroGLYCERIN DRIP* 25,000 MCG/250 ML BTL ONE (14:49)
--- NOTE | 2018-12-05 14:59 | PN ---
Subjective Date of Service: 12/05/18 Interval History: Returned from procedure with Dr Giraldo. Resting in bed. Reports pain is well controlled. Denies fever, chills, sob, cp, palpitations. Reports he is hungry. Objective Active Medications: Acetaminophen (Tylenol Tab*) 650 mg PO Q4H PRN PRN Reason: Fever-temp >100.9/Pain-mild Last Admin: 12/02/18 18:27 Dose: 650 mg Al Hydrox/Mg Hydrox/Simethicone (Maalox Plus*) 30 ml PO Q6H PRN PRN Reason: INDIGESTION Allopurinol (Zyloprim Tab*) 300 mg PO DAILY [facility] Last Admin: 12/05/18 08:53 Dose: Not Given Dextrose (Dextrose 50% Vial 50 Ml*) 25 ml IV PUSH .FOR FS < 60 - SS PRN PRN Reason: FS < 60 Last Admin: 12/03/18 00:41 Dose: 25 ml Docusate Sodium (Colace Cap*) 100 mg PO BID [facility] Last Admin: 12/05/18 08:54 Dose: Not Given Hydralazine HCl (Apresoline Iv*) 0 mg IV SLOW PU ONCALL PRN PRN Reason: . Sodium Chloride (Ns 0.9% 1000 Ml) 1,000 mls @ 125 mls/hr IV PER RATE [facility] Last Admin: 12/05/18 07:57 Dose: 125 mls/hr Cefepime HCl (Maxipime 1 Gm In Dextrose Duplex (*)) 1 gm in 50 mls @ 100 mls/ hr IV Q12H [facility] Last Admin: 12/05/18 05:52 Dose: 100 mls/hr Vancomycin HCl 1,000 mg/ (Sodium Chloride) 250 mls @ 166.667 mls/hr IVPB Q12H [facility] Last Admin: 12/05/18 01:57 Dose: 166.667 mls/hr Insulin Glargine (Lantus(*)) 10 units SUBCUT Q24H [facility] Last Admin: 12/04/18 15:14 Dose: 10 units Insulin Human Lispro (Humalog*) 0 units SUBCUT ACHS [facility]; Protocol Last Admin: 12/05/18 12:14 Dose: Not Given Iodixanol (Visipaque 320 (Contrast)) 125 ml IV ONCE [facility] Stop: 12/06/18 10:10 Levothyroxine Sodium (Synthroid Tab*) 50 mcg PO DAILY@0600 [facility] Last Admin: 12/05/18 05:54 Dose: Not Given Magnesium Hydroxide (Milk Of Magnesia Liq*) 30 ml PO Q4H PRN PRN Reason: CONSTIPATION Metoprolol Succinate (Toprol Xl Tab*) 50 mg PO DAILY [facility] Last Admin: 12/05/18 09:31 Dose: Not Given Multivitamins/Minerals (Theragran/Minerals Tab*) 1 tab PO DAILY [facility] Last Admin: 12/05/18 08:54 Dose: Not Given Oxycodone/Acetaminophen (Percocet 5/325 Tab*) 1 tab PO Q4H PRN PRN Reason: PAIN - MODERATE Last Admin: 12/04/18 13:55 Dose: 1 tab Oxycodone/Acetaminophen (Percocet 5/325 Tab*) 2 tab PO Q4H PRN PRN Reason: PAIN - SEVERE Last Admin: 12/04/18 19:58 Dose: 2 tab Pharmacy Consult (Vancomycin Per Pharmacy*) 1 note FOLLOW UP . PRN PRN Reason: PER PROTOCOL Pharmacy Profile Note (Vancomycin Trough Check) 1 note FOLLOW UP ONCE ONE Stop: 12/06/18 13:31 Senna (Senokot Tab*) 1 tab PO BID [facility] Last Admin: 12/05/18 08:54 Dose: Not Given Vital Signs - 8 hr 12/05/18 12/05/18 12/05/18 07:18 08:00 11:34 Temperature 98.9 F 98.3 F Pulse Rate 67 71 Respiratory 18 18 16 Rate Blood Pressure 161/72 166/71 (mmHg) O2 Sat by Pulse 95 96 Oximetry Oxygen Devices in Use Now: None Appearance: Comfortable, NAD Eyes: No Scleral Icterus Ears/Nose/Mouth/Throat: Clear Oropharnyx, Mucous Membranes Moist Neck: NL Appearance and Movements; NL JVP Respiratory: Symmetrical Chest Expansion and Respiratory Effort, Clear to Auscultation Cardiovascular: NL Sounds; No Murmurs; No JVD, RRR, No Edema Abdominal: NL Sounds; No Tenderness; No Distention Lymphatic: No Cervical Adenopathy Extremities: No Edema Skin: - - Blackened tip of right second toe. Redness from mid right second toe to mid dorsal aspect of foot. Neurological: Alert and Oriented x 3, NL Muscle Strength and Tone Nutrition: Taking PO's Result Diagrams: 12/05/18 07:37 12/05/18 07:37 Additional Lab and Data: Laboratory Results - last 24 hr 12/04/18 12/05/18 12/05/18 21:34 07:37 07:37 WBC 12.4 H RBC 3.49 L Hgb 11.1 L Hct 31 L MCV 89 MCH 32 H MCHC 36 RDW 14 Plt Count 229 MPV 7.8 Neut % (Auto) 79.5 Lymph % (Auto) 11.5 [place] % (Auto) 6.7 Eos % (Auto) 1.9 Baso % (Auto) 0.4 Absolute Neuts (auto) 9.8 H Absolute Lymphs (auto) 1.4 Absolute Monos (auto) 0.8 Absolute Eos (auto) 0.2 Absolute Basos (auto) 0.1 Absolute Nucleated RBC 0.0 Nucleated RBC % 0.0 INR (Anticoag Therapy) 1.22 H POC Activ Clotting Time Sodium Potassium Chloride Carbon Dioxide Anion Gap BUN Creatinine Est GFR ( Amer) Est GFR (Non-Af Amer) BUN/Creatinine Ratio Glucose POC Glucose (mg/dL) 276 H Calcium 12/05/18 12/05/18 12/05/18 07:37 07:44 14:55 WBC RBC Hgb Hct MCV MCH MCHC RDW Plt Count MPV Neut % (Auto) Lymph % (Auto) [place] % (Auto) Eos % (Auto) Baso % (Auto) Absolute Neuts (auto) Absolute Lymphs (auto) Absolute Monos (auto) Absolute Eos (auto) Absolute Basos (auto) Absolute Nucleated RBC Nucleated RBC % INR (Anticoag Therapy) POC Activ Clotting Time 159 Sodium 138 Potassium 3.6 Chloride 110 Carbon Dioxide 21 L Anion Gap 7 BUN 17 Creatinine 1.12 Est GFR ( Amer) 75.6 Est GFR (Non-Af Amer) 62.5 BUN/Creatinine Ratio 15.2 Glucose 138 H POC Glucose (mg/dL) 143 H Calcium 7.6 L 12/05/18 12/05/18 12/05/18 15:15 15:22 16:54 WBC RBC Hgb Hct MCV MCH MCHC RDW Plt Count MPV Neut % (Auto) Lymph % (Auto) [place] % (Auto) Eos % (Auto) Baso % (Auto) Absolute Neuts (auto) Absolute Lymphs (auto) Absolute Monos (auto) Absolute Eos (auto) Absolute Basos (auto) Absolute Nucleated RBC Nucleated RBC % INR (Anticoag Therapy) POC Activ Clotting Time 187 166 Sodium Potassium Chloride Carbon Dioxide Anion Gap BUN Creatinine Est GFR ( Amer) Est GFR (Non-Af Amer) BUN/Creatinine Ratio Glucose POC Glucose (mg/dL) 147 H Calcium Microbiology and Other Data: Microbiology 12/02/18 12:58 Aerobic Blood Culture - Preliminary Blood Venous No Growth Day 3 Anaerobic Blood Culture - Preliminary No Growth Day 3 12/02/18 12:58 Aerobic Blood Culture - Preliminary Blood Venous No Growth Day 3 Anaerobic Blood Culture - Preliminary No Growth Day 3 Assess/Plan/Problems-Billing Assessment: 83 yr old male with pmh of right sided dvt/pe s/p IVC filter, htn, gout; who presented to the ED with right foot infection. - Patient Problems (1) Gangrene of toe of right foot Comment: - S/P revascularization today with Dr Giraldo - OR with Manjinder Saturday - Ortho consulting - MRI reveals swelling and myositis - Cont Vanco and Cefepime per ID (2) Pre-op evaluation Comment: - RCRI 1 point, therefore, 6.0% 30 day risk - Echo obtained and EF 55% to 60%. No other significant findings - Patient reports he can walk up a flight of stairs without difficulty. In addition he does yard work and lifts his elderly mother in law to and from wheelchair without difficulty or concerning symptoms. (3) Diabetes Comment: - Hold home oral medications - Continue lantus and ss insulin (4) HTN (hypertension) Comment: - Mildly hypertensive. May need additional BP medications, but will hold on this given acute illness and upcoming surgery - Cont Metoprolol (5) Gout Comment: - Cont Allopurinol (6) History of DVT (deep vein thrombosis) Comment: - Has IVC filter - Cont sub Q heparin for DVT proph (7) DVT prophylaxis Comment: - Cont sub Q heparin for DVT proph - Hold Saturday evening for OR Saturday Attending: Aleksandar Mcelroy
[2018-12-05] MEDS ORDERED: Clopidogrel TAB* 300 MG PO ONE (17:14)
[2018-12-05] MEDS: oxyCODONE/Acetamin 5/325 MG* TAB PO PRN ×2 (18:35→23:10)
--- NOTE | 2018-12-05 19:24 | PN ---
Progress Note - Progress Note Date of Service: 12/05/18 SOAP: Date of Service: 12/05/18 Subjective: Persistent pain at gangrenous right 2nd toe, but patient denies pain elsewhere. Specifically denies pain at left groin and right thigh. No SOB. No CP. Objective: Selected Entries 12/05/18 17:38 Heart Rate 79 Respiratory 23 Rate Blood Pressure 140/75 (mmHg) Blood Pressure 101 Mean O2 Sat by Pulse 96 Oximetry NAD, AAO x 3 Left groin is soft, nontender Dressing is CDI Right foot is warm to touch + Doppler pulse at right DPA Assessment: 83 YOM status post right leg arteriography, revascularization and stenting of occluded RIGHT mid-SFA, balloon angioplasty of RIGHT SENIOR SOFTWARE QUALITY ENGINEER-SFA, TPT and peroneal arteries followed by percutaneous closure of left common femoral arteriotomy with AngioSeal closure device. Plan: 1. Loading dose of Plavix 300 mg PO now, followed by 75 mg PO daily x 6 months. 2. ASA 81 mg PO daily. 3. Conversation had with patient's sons, John and Pardeep, explaining what was done and the goals of revascularization. 4. If patient does not appear to be imminently septic hopefully amputation can be postponed to monitor for signs of healing. 5. Continue antibiotic therapy.
[2018-12-05] MEDS: Insulin GLARGINE(*) 1 UNITS UNIT SUBCUT SCH (19:31)
[2018-12-05] MEDS ORDERED: NS 0.9% 500 ML* 500 ML IV SCH (20:00)
[2018-12-06] MEDS: Vancomycin(*) 1,000 MG in NS 0.9% 250 ML* 250 ML IVPB SCH ×2 (02:08→14:23)
[2018-12-06] MEDS: oxyCODONE/Acetamin 5/325 MG* TAB PO PRN ×2 (06:15→21:59)
[2018-12-06] MEDS: Levothyroxine TAB* 50 MCG TAB PO SCH (06:15)
[2018-12-06] MEDS: Cefepime 1 GM in Dextrose(*) 1 GM/50 ML BAG IV SCH ×2 (06:18→18:25)
[2018-12-06] MEDS: Insulin LISPRO* 1 UNITS UNIT SUBCUT SCH ×4 (08:18→21:45)
[2018-12-06] MEDS: Allopurinol TAB* 300 MG PO SCH (09:05)
[2018-12-06] MEDS: Clopidogrel TAB* 75 MG PO SCH (09:05)
[2018-12-06] MEDS: Metoprolol Succinate XL TAB* 50 MG PO SCH (09:05)
[2018-12-06] MEDS: Senna TAB 8.6 mg* TAB PO SCH ×2 (09:05→21:44)
[2018-12-06] MEDS: Aspirin 81 mg CHEW TAB* 81 MG TAB.CHEW PO SCH (09:05)
[2018-12-06] MEDS: Multivitamins/Minerals TAB PO SCH (09:05)
[2018-12-06] MEDS: Docusate CAP* 100 MG PO SCH ×2 (09:05→21:44)
--- NOTE | 2018-12-06 10:19 | PN ---
Subjective Date of Service: 12/06/18 Interval History: Pt states he is doing well today. He c/o occasional pain in R foot with current pain at 3/10. He feels pain is well controlled with pain medication. He denies CP, SOB, abd pain, n/v/d. He is up with walker to bathroom. He had BM yesterday. Nursing report intermittent mild tachypnea. Pt denies cough; is in room, and states that patient has occasional cough for months. Pt denies fever, chills, SOB. Objective Active Medications: Acetaminophen (Tylenol Tab*) 650 mg PO Q4H PRN Al Hydrox/Mg Hydrox/Simethicone (Maalox Plus*) 30 ml PO Q6H PRN Allopurinol (Zyloprim Tab*) 300 mg PO DAILY [facility] Aspirin (Aspirin 81 Mg Chew Tab*) 81 mg PO DAILY [facility] Clopidogrel Bisulfate (Plavix Tab*) 75 mg PO DAILY [facility] Dextrose (Dextrose 50% Vial 50 Ml*) 25 ml IV PUSH .FOR FS < 60 - SS PRN Docusate Sodium (Colace Cap*) 100 mg PO BID [facility] Cefepime HCl (Maxipime 1 Gm In Dextrose Duplex (*)) 1 gm in 50 mls @ 100 mls/ hr IV Q12H [facility] Vancomycin HCl 1,000 mg/ (Sodium Chloride) 250 mls @ 166.667 mls/hr IVPB Q12H [facility] Insulin Glargine (Lantus(*)) 10 units SUBCUT Q24H [facility] Insulin Human Lispro (Humalog*) 0 units SUBCUT ACHS [facility]; Protocol Levothyroxine Sodium (Synthroid Tab*) 50 mcg PO DAILY@0600 [facility] Magnesium Hydroxide (Milk Of Magnesia Liq*) 30 ml PO Q4H PRN Metoprolol Succinate (Toprol Xl Tab*) 50 mg PO DAILY [facility] Multivitamins/Minerals (Theragran/Minerals Tab*) 1 tab PO DAILY [facility] Oxycodone/Acetaminophen (Percocet 5/325 Tab*) 1 tab PO Q4H PRN Oxycodone/Acetaminophen (Percocet 5/325 Tab*) 2 tab PO Q4H PRN Pharmacy Consult (Vancomycin Per Pharmacy*) 1 note FOLLOW UP . PRN Pharmacy Profile Note (Vancomycin Trough Check) 1 note FOLLOW UP ONCE ONE Senna (Senokot Tab*) 1 tab PO BID [facility] Vital Signs: Temp Pulse Resp BP Pulse Ox 98.6 F 64 16 144/53 95 12/06/18 07:44 12/06/18 07:44 12/06/18 08:18 12/06/18 07:44 12/06/18 07:44 Oxygen Devices in Use Now: None Appearance: Pt is sitting up in bed resting. He is pleasant, cooperative. He answers questions appropriately, although there appears to be a very mild language barrier at times. Eyes: No Scleral Icterus, PERRLA Ears/Nose/Mouth/Throat: NL Teeth, Lips, Gums, Mucous Membranes Moist Neck: NL Appearance and Movements; NL JVP, Trachea Midline Respiratory: Symmetrical Chest Expansion and Respiratory Effort, - - Fine bibasilar rales Cardiovascular: NL Sounds; No Murmurs; No JVD, RRR Abdominal: NL Sounds; No Tenderness; No Distention, No Hepatosplenomegaly Extremities: No Clubbing, Cyanosis, - - RLE with erythema to distal 1/2 of foot. R 2nd digit with black, necrotic tissue to distal 1/2 of digit. Decreased ROM to R 2-4 digits. Pt reports sensation intact. Pedal pulses not palpable. Neurological: Alert and Oriented x 3 Result Diagrams: 12/05/18 07:37 12/06/18 17:09 Additional Lab and Data: Laboratory Results - last 24 hr 12/04/18 12/05/18 12/05/18 21:34 07:37 07:37 WBC 12.4 H RBC 3.49 L Hgb 11.1 L Hct 31 L MCV 89 MCH 32 H MCHC 36 RDW 14 Plt Count 229 MPV 7.8 Neut % (Auto) 79.5 Lymph % (Auto) 11.5 [place] % (Auto) 6.7 Eos % (Auto) 1.9 Baso % (Auto) 0.4 Absolute Neuts (auto) 9.8 H Absolute Lymphs (auto) 1.4 Absolute Monos (auto) 0.8 Absolute Eos (auto) 0.2 Absolute Basos (auto) 0.1 Absolute Nucleated RBC 0.0 Nucleated RBC % 0.0 INR (Anticoag Therapy) 1.22 H POC Activ Clotting Time Sodium Potassium Chloride Carbon Dioxide Anion Gap BUN Creatinine Est GFR ( Amer) Est GFR (Non-Af Amer) BUN/Creatinine Ratio Glucose POC Glucose (mg/dL) 276 H Calcium 12/05/18 12/05/18 12/05/18 07:37 07:44 14:55 WBC RBC Hgb Hct MCV MCH MCHC RDW Plt Count MPV Neut % (Auto) Lymph % (Auto) [place] % (Auto) Eos % (Auto) Baso % (Auto) Absolute Neuts (auto) Absolute Lymphs (auto) Absolute Monos (auto) Absolute Eos (auto) Absolute Basos (auto) Absolute Nucleated RBC Nucleated RBC % INR (Anticoag Therapy) POC Activ Clotting Time 159 Sodium 138 Potassium 3.6 Chloride 110 Carbon Dioxide 21 L Anion Gap 7 BUN 17 Creatinine 1.12 Est GFR ( Amer) 75.6 Est GFR (Non-Af Amer) 62.5 BUN/Creatinine Ratio 15.2 Glucose 138 H POC Glucose (mg/dL) 143 H Calcium 7.6 L 12/05/18 12/05/18 12/05/18 15:15 15:22 16:54 WBC RBC Hgb Hct MCV MCH MCHC RDW Plt Count MPV Neut % (Auto) Lymph % (Auto) [place] % (Auto) Eos % (Auto) Baso % (Auto) Absolute Neuts (auto) Absolute Lymphs (auto) Absolute Monos (auto) Absolute Eos (auto) Absolute Basos (auto) Absolute Nucleated RBC Nucleated RBC % INR (Anticoag Therapy) POC Activ Clotting Time 187 166 Sodium Potassium Chloride Carbon Dioxide Anion Gap BUN Creatinine Est GFR ( Amer) Est GFR (Non-Af Amer) BUN/Creatinine Ratio Glucose POC Glucose (mg/dL) 147 H Calcium Microbiology and Other Data: Microbiology 12/02/18 12:58 Aerobic Blood Culture - Preliminary Blood Venous No Growth Day 3 Anaerobic Blood Culture - Preliminary No Growth Day 3 12/02/18 12:58 Aerobic Blood Culture - Preliminary Blood Venous No Growth Day 3 Anaerobic Blood Culture - Preliminary No Growth Day 3 Assess/Plan/Problems-Billing Assessment: 83 yr old male with pmh of right sided dvt/pe s/p IVC filter, htn, gout; who presented to the ED with right 2nd digit gangrene; s/p revascularization, stenting RLE 12/05. - Patient Problems (1) Gangrene of toe of right foot Comment: - S/P revascularization with Dr Giraldo 12/05 - Plavix 75 mg PO qd [id number], ASA 81 mg PO qd - OR with Manjinder Saturday - Ortho consulting - MRI reveals swelling and myositis - Cont Vanco and Cefepime per ID (2) Tachypnea Comment: -Tachypnea without SOB, O2 requirements, new cough, fever -DDx: PE, pna, pulm edema, atelectasis -IVC filter in place -CXR shows small R pleural effusion with subsegmental atelectasis -Suspect atelectasis; will continue incentive spirometry (3) Diabetes Comment: - BG <200 last 24h - Continue lantus and ss insulin - Oral home medications on hold (4) HTN (hypertension) Comment: - Mildly hypertensive with SBP 130's-140's. May need additional BP medications, but will hold on this given acute illness and upcoming surgery - Cont Metoprolol (5) Pre-op evaluation Comment: - RCRI 1 point, therefore, 6.0% 30 day risk - Echo obtained and EF 55% to 60%. No other significant findings - Patient reports he can walk up a flight of stairs without difficulty. In addition he does yard work and lifts his elderly mother in law to and from wheelchair without difficulty or concerning symptoms. (6) History of DVT (deep vein thrombosis) Comment: - Has IVC filter - Cont sub Q heparin for DVT proph (7) Gout Comment: - Cont Allopurinol (8) DVT prophylaxis Comment: - Cont sub Q heparin for DVT proph - Hold Saturday evening for OR Saturday Status and Disposition: Inpatient. Revascularization and stenting RLE 12/05 with plan for surgical amputation RLE 2nd digit 12/08. Discharge when stable.
[2018-12-06] MEDS ORDERED: Vancomycin Trough Check NOTE FOLLOW UP ONE (13:30)
--- NOTE | 2018-12-06 13:30 | PN ---
Progress Note - Progress Note Date of Service: 12/06/18 SOAP: Subjective: Pt seen at bedside. Resting comfortably in bed. No complaint of pain. States feels good. Denies CP, SOB, F/C. Vital Signs: Temp Pulse Resp BP Pulse Ox 97.5 F 71 18 153/80 100 12/06/18 11:17 12/06/18 11:17 12/06/18 11:17 12/06/18 11:17 12/06/18 11:17 Laboratory Last Values WBC 12.4 10^3/uL (3.5-10.8) H 12/05/18 07:37 RBC 3.49 10^6 /uL (4.18-5.48) L 12/05/18 07:37 Hgb 11.1 g/dL (14.0-18.0) L 12/05/18 07:37 Hct 31 % (42-52) L 12/05/18 07:37 MCV 89 fL (80-94) 12/05/18 07:37 MCH 32 pg (27-31) H 12/05/18 07:37 MCHC 36 g/dL (31-36) 12/05/18 07:37 RDW 14 % (10-15) 12/05/18 07:37 Plt Count 229 10^3/uL (150-450) 12/05/18 07:37 MPV 7.8 fL (7.4-10.4) 12/05/18 07:37 Neut % (Auto) 79.5 % 12/05/18 07:37 Lymph % (Auto) 11.5 % 12/05/18 07:37 [place] % (Auto) 6.7 % 12/05/18 07:37 Eos % (Auto) 1.9 % 12/05/18 07:37 Baso % (Auto) 0.4 % 12/05/18 07:37 Absolute Neuts (auto) 9.8 10^3/ul (1.5-7.7) H 12/05/18 07:37 Absolute Lymphs (auto) 1.4 10^3/ul (1.0-4.8) 12/05/18 07:37 Absolute Monos (auto) 0.8 10^3/ul (0-0.8) 12/05/18 07:37 Absolute Eos (auto) 0.2 10^3/ul (0-0.6) 12/05/18 07:37 Absolute Basos (auto) 0.1 10^3/ul (0-0.2) 12/05/18 07:37 Absolute Nucleated RBC 0.0 10^3/ul 12/05/18 07:37 Nucleated RBC % 0.0 12/05/18 07:37 ESR 50 mm/Hr (0-19) H 12/02/18 16:35 INR (Anticoag Therapy) 1.22 (0.82-1.09) H 12/05/18 07:37 APTT 26.9 seconds (26.0-38.0) 12/04/18 16:36 POC Activ Clotting Time 166 seconds 12/05/18 15:22 Sodium 138 mmol/L (135-145) 12/05/18 07:37 Potassium 3.6 mmol/L (3.5-5.0) 12/05/18 07:37 Chloride 110 mmol/L (101-111) 12/05/18 07:37 Carbon Dioxide 21 mmol/L (22-32) L 12/05/18 07:37 Anion Gap 7 mmol/L (2-11) 12/05/18 07:37 BUN 17 mg/dL (6-24) 12/05/18 07:37 Creatinine 1.12 mg/dL (0.67-1.17) 12/05/18 07:37 Est GFR ( Amer) 75.6 (>60) 12/05/18 07:37 Est GFR (Non-Af Amer) 62.5 (>60) 12/05/18 07:37 BUN/Creatinine Ratio 15.2 (8-20) 12/05/18 07:37 Glucose 138 mg/dL (70-100) H 12/05/18 07:37 POC Glucose (mg/dL) 215 mg/dL (70-100) H 12/06/18 12:24 Hemoglobin A1c 7.2 % (4.0-5.6) H 12/03/18 06:27 Lactic Acid 2.3 mmol/L (0.5-2.0) H* 12/02/18 16:34 Calcium 7.6 mg/dL (8.6-10.3) L 12/05/18 07:37 Total Bilirubin 1.00 mg/dL (0.2-1.0) 12/02/18 12:58 AST 12 U/L (13-39) L 12/02/18 12:58 ALT 14 U/L (7-52) 12/02/18 12:58 Alkaline Phosphatase 62 U/L (34-104) 12/02/18 12:58 C-Reactive Protein 82.80 mg/L (<8.01) H 12/02/18 12:58 Total Protein 6.5 g/dL (6.4-8.9) 12/02/18 12:58 Albumin 3.7 g/dL (3.2-5.2) 12/02/18 12:58 Globulin 2.8 g/dL (2-4) 12/02/18 12:58 Albumin/Globulin Ratio 1.3 (1-3) 12/02/18 12:58 Vancomycin Trough 13.5 mcg/mL 12/04/18 14:27 Objective: A&O x3, NAD, right 2nd toe necrotic, the remainder of the foot is erythematous to the dorsum of the midfoot, no fluctuence or drainage, no palpable pulses in the foot. Assessment: 83 yo male with DM and vascular insufficiency with right 2nd toe necrosis and cellulitis Plan: Heel WB s/p Revascularization Continue abx - on Vanco Possible toe amp on Saturday if not systemically ill
[2018-12-06] MEDS: Insulin GLARGINE(*) 1 UNITS UNIT SUBCUT SCH (14:23)
[2018-12-06] MEDS: Heparin VIAL(*) 5000 UNITS/ML VIAL (FIVE THOUSAND) SUBCUT SCH (22:03)
[2018-12-07] MEDS: Vancomycin(*) 1,000 MG in NS 0.9% 250 ML* 250 ML IVPB SCH ×2 (01:46→13:59)
[2018-12-07] MEDS: Heparin VIAL(*) 5000 UNITS/ML VIAL (FIVE THOUSAND) SUBCUT SCH ×3 (06:21→22:20)
[2018-12-07] MEDS: Levothyroxine TAB* 50 MCG TAB PO SCH (06:22)
[2018-12-07] MEDS: oxyCODONE/Acetamin 5/325 MG* TAB PO PRN ×4 (06:25→21:11)
[2018-12-07] MEDS: Cefepime 1 GM in Dextrose(*) 1 GM/50 ML BAG IV SCH ×2 (06:33→17:42)
[2018-12-07 07:02] LABS: ABS Basophils 0.1 10^3/ul (0-0.2); ABS Eosinophils 0.3 10^3/ul (0-0.6); ABS Lymphocytes 1.4 10^3/ul (1.0-4.8); ABS Monocytes 0.8 10^3/ul (0-0.8); ABS Neutrophils 9.2 10^3/ul (1.5-7.7); Eosinophil % 2.9 %; Hematocrit 32 % (42-52); Hemoglobin 11.8 g/dL (14.0-18.0); Lymphocyte % 11.9 %; Mean Corpuscular HGB Conc 37 g/dL (31-36); Mean Corpuscular Hemoglobin 32 pg (27-31); Mean Corpuscular Volume 87 fL (80-94); Mean Platelet Volume 7.9 fL (7.4-10.4); Nucleated Red Blood Cells % 0.1; Platelet Count 270 10^3/uL (150-450); Red Blood Count 3.67 10^6 /uL (4.18-5.48); Red Cell Distribution Width 14 % (10-15); White Blood Count 11.9 10^3/uL (3.5-10.8)
[2018-12-07 07:14] LABS: BUN/Creatinine Ratio 11.8 (8-20); Calcium 7.9 mg/dL (8.6-10.3); EGFR African American 77.2 (>60); EGFR Non-African American 63.8 (>60); Potassium 3.2 mmol/L (3.5-5.0)
[2018-12-07] MEDS: Insulin LISPRO* 1 UNITS UNIT SUBCUT SCH ×4 (09:22→22:20)
[2018-12-07] MEDS: Allopurinol TAB* 300 MG PO SCH (09:35)
[2018-12-07] MEDS: Senna TAB 8.6 mg* TAB PO SCH ×2 (09:35→22:20)
[2018-12-07] MEDS: Clopidogrel TAB* 75 MG PO SCH (09:35)
[2018-12-07] MEDS: Metoprolol Succinate XL TAB* 50 MG PO SCH (09:35)
[2018-12-07] MEDS: Multivitamins/Minerals TAB PO SCH (09:35)
[2018-12-07] MEDS: Aspirin 81 mg CHEW TAB* 81 MG TAB.CHEW PO SCH (09:35)
[2018-12-07] MEDS: Docusate CAP* 100 MG PO SCH ×2 (09:35→22:20)
[2018-12-07] MEDS: Potassium Chlor TAB* 20 MEQ TAB.ER PO SCH ×2 (10:46→12:09)
[2018-12-07] MEDS: Insulin GLARGINE(*) 1 UNITS UNIT SUBCUT SCH ×2 (16:01→17:42)
--- NOTE | 2018-12-07 16:17 | PN ---
Subjective Date of Service: 12/07/18 Interval History: Pt denies SOB, cough. He states that he has no pain in the foot currently. He states that he infrequently uses inc spirometry, despite encouragement, but will continue to try to use. He denies abd pain, n/v/d. Objective Active Medications: Acetaminophen (Tylenol Tab*) 650 mg PO Q4H PRN Al Hydrox/Mg Hydrox/Simethicone (Maalox Plus*) 30 ml PO Q6H PRN Allopurinol (Zyloprim Tab*) 300 mg PO DAILY [facility] Aspirin (Aspirin 81 Mg Chew Tab*) 81 mg PO DAILY [facility] Clopidogrel Bisulfate (Plavix Tab*) 75 mg PO DAILY [facility] Dextrose (Dextrose 50% Vial 50 Ml*) 25 ml IV PUSH .FOR FS < 60 - SS PRN Docusate Sodium (Colace Cap*) 100 mg PO BID [facility] Heparin Sodium (Porcine) (Heparin Vial(*)) 5,000 units SUBCUT Q8HR [facility] Cefepime HCl (Maxipime 1 Gm In Dextrose Duplex (*)) 1 gm in 50 mls @ 100 mls/ hr IV Q12H [facility] Vancomycin HCl 1,000 mg/ (Sodium Chloride) 250 mls @ 166.667 mls/hr IVPB Q12H [facility] Insulin Glargine (Lantus(*)) 10 units SUBCUT 1630 [facility] Insulin Human Lispro (Humalog*) 0 units SUBCUT ACHS [facility]; Protocol Levothyroxine Sodium (Synthroid Tab*) 50 mcg PO DAILY@0600 [facility] Magnesium Hydroxide (Milk Of Magnesia Liq*) 30 ml PO Q4H PRN Metoprolol Succinate (Toprol Xl Tab*) 50 mg PO DAILY [facility] Multivitamins/Minerals (Theragran/Minerals Tab*) 1 tab PO DAILY [facility] Oxycodone/Acetaminophen (Percocet 5/325 Tab*) 1 tab PO Q4H PRN Oxycodone/Acetaminophen (Percocet 5/325 Tab*) 2 tab PO Q4H PRN Pharmacy Consult (Vancomycin Per Pharmacy*) 1 note FOLLOW UP . PRN Senna (Senokot Tab*) 1 tab PO BID [facility] Vital Signs: Temp Pulse Resp BP Pulse Ox 98.2 F 57 20 154/56 96 12/07/18 15:35 12/07/18 15:35 12/07/18 15:35 12/07/18 15:35 12/07/18 15:35 Oxygen Devices in Use Now: None Appearance: Pt is in chair with LE elevated. He appears comfortable and in no acute distress. Eyes: PERRLA Ears/Nose/Mouth/Throat: NL Teeth, Lips, Gums, Clear Oropharnyx, Mucous Membranes Moist Neck: NL Appearance and Movements; NL JVP, Trachea Midline Respiratory: Symmetrical Chest Expansion and Respiratory Effort, Clear to Auscultation Cardiovascular: NL Sounds; No Murmurs; No JVD, RRR, No Edema Abdominal: NL Sounds; No Tenderness; No Distention, No Hepatosplenomegaly Extremities: No Edema, No Clubbing, Cyanosis, - - R 2nd digit blackened distal half; erythema dorsally from 2nd digit to mid foot. Pedal pulses not palpable. Neurological: Alert and Oriented x 3 Result Diagrams: 12/07/18 06:23 12/07/18 06:23 Additional Lab and Data: . Microbiology and Other Data: Microbiology 12/02/18 12:58 Aerobic Blood Culture - Preliminary Blood Venous No Growth Day 3 Anaerobic Blood Culture - Preliminary No Growth Day 3 12/02/18 12:58 Aerobic Blood Culture - Preliminary Blood Venous No Growth Day 3 Anaerobic Blood Culture - Preliminary No Growth Day 3 Assess/Plan/Problems-Billing Assessment: 83 yr old male with pmh of right sided dvt/pe s/p IVC filter, htn, gout; who presented to the ED with right 2nd digit gangrene; s/p revascularization, stenting RLE 12/05. - Patient Problems (1) Gangrene of toe of right foot Comment: - S/P revascularization with Dr Giraldo 12/05 - Plavix 75 mg PO qd [id number], ASA 81 mg PO qd - OR with Manjinder Saturday - Ortho consulting - MRI reveals swelling and myositis - NGTD - Cont Vanco and Cefepime per ID (2) Tachypnea Comment: -Tachypnea without SOB, O2 requirements, new cough, fever -DDx: PE, pna, pulm edema, atelectasis -IVC filter in place -CXR shows small R pleural effusion with subsegmental atelectasis -Suspect atelectasis; will continue incentive spirometry (3) Diabetes Comment: - BG elevated 200-270 last 24h; if this continues overnight, will evaluate need for increase in LA insulin - Continue lantus and ss insulin - Oral home medications on hold (4) HTN (hypertension) Comment: - Mildly hypertensive with SBP 140's-150's - May need additional BP medications, but will hold on this given acute illness , upcoming surgery - Cont Metoprolol (5) Pre-op evaluation Comment: - RCRI 1 point, therefore, 6.0% 30 day risk - Echo obtained and EF 55% to 60%. No other significant findings - Patient reports he can walk up a flight of stairs without difficulty. In addition he does yard work and lifts his elderly mother in law to and from wheelchair without difficulty or concerning symptoms. (6) History of DVT (deep vein thrombosis) Comment: - Has IVC filter - Cont sub Q heparin for DVT proph (7) Gout Comment: - Cont Allopurinol (8) DVT prophylaxis Comment: - Cont sub Q heparin for DVT proph - Hold Saturday evening for OR Saturday Status and Disposition: Inpatient. Revascularization and stenting RLE 12/05 with plan for surgical amputation RLE 2nd digit 12/08. Discharge when stable.
[2018-12-08] MEDS: Acetaminophen TAB* 325 MG PO PRN ×3 (00:17→17:37)
[2018-12-08] MEDS: Vancomycin(*) 1,000 MG in NS 0.9% 250 ML* 250 ML IVPB SCH ×2 (02:04→16:39)
[2018-12-08] MEDS: Cefepime 1 GM in Dextrose(*) 1 GM/50 ML BAG IV SCH ×2 (06:24→17:37)
[2018-12-08] MEDS: Levothyroxine TAB* 50 MCG TAB PO SCH (06:32)
[2018-12-08] MEDS: Metoprolol Succinate XL TAB* 50 MG PO SCH (08:20)
[2018-12-08] MEDS ORDERED: Lidocaine 2% PF* 10 ML AMP ONE (08:36)
[2018-12-08] MEDS ORDERED: fentaNYL* 50 MCG/ML 2 ML VIAL (100 MCG VIAL) ONE (08:58)
[2018-12-08] MEDS ORDERED: Midazolam* 1 MG/ML 2 ML VIAL (2 MG) ONE (09:02)
[2018-12-08] MEDS ORDERED: Bacitracin OINTMENT* 0.5% 0.5 oz TUBE ONE (09:22)
[2018-12-08] MEDS ORDERED: oxyCODONE TAB* 5 MG TAB PO PRN (09:24)
[2018-12-08] MEDS ORDERED: fentaNYL* 50 MCG/ML 2 ML VIAL (100 MCG VIAL) IV PRN (09:24)
[2018-12-08] MEDS ORDERED: Ondansetron INJ* 2 MG/ML VIAL IV PRN (09:24)
[2018-12-08] MEDS ORDERED: Naloxone* 0.4 MG/ML 1 ML VIAL IV PRN (09:24)
[2018-12-08] MEDS: Insulin LISPRO* 1 UNITS UNIT SUBCUT SCH ×4 (10:46→21:28)
[2018-12-08] MEDS: Aspirin 81 mg CHEW TAB* 81 MG TAB.CHEW PO SCH ×2 (11:40→11:50)
[2018-12-08] MEDS: Senna TAB 8.6 mg* TAB PO SCH ×2 (11:40→21:21)
[2018-12-08] MEDS: Allopurinol TAB* 300 MG PO SCH (11:41)
[2018-12-08] MEDS: Multivitamins/Minerals TAB PO SCH (11:41)
[2018-12-08] MEDS: Docusate CAP* 100 MG PO SCH ×2 (11:41→21:21)
[2018-12-08] MEDS: Clopidogrel TAB* 75 MG PO SCH (11:41)
[2018-12-08] MEDS: hydrALAZINE IV* 20 MG/ML VIAL IV SLOW PU PRN ×2 (11:42→19:54)
--- NOTE | 2018-12-08 12:22 | PN ---
Subjective Date of Service: 12/08/18 Interval History: Pt continues to have deny symptoms, stating he has no CP, SOB, abd pain, n/v/d. He appears to be tachypneic still, but notes that he is "always this way." He denies cough, fever, chills. He has been working with his incentive spirometry. He has been consistently hypertensive since arrival back to floor from surgery; denies headache, vision changes. Objective Active Medications: Acetaminophen (Tylenol Tab*) 650 mg PO Q4H PRN Al Hydrox/Mg Hydrox/Simethicone (Maalox Plus*) 30 ml PO Q6H PRN Allopurinol (Zyloprim Tab*) 300 mg PO DAILY [facility] Aspirin (Aspirin 81 Mg Chew Tab*) 81 mg PO DAILY [facility] Clopidogrel Bisulfate (Plavix Tab*) 75 mg PO DAILY [facility] Dextrose (Dextrose 50% Vial 50 Ml*) 25 ml IV PUSH .FOR FS < 60 - SS PRN Docusate Sodium (Colace Cap*) 100 mg PO BID [facility] Hydralazine HCl (Apresoline Iv*) 5 mg IV SLOW PU Q6H PRN Cefepime HCl (Maxipime 1 Gm In Dextrose Duplex (*)) 1 gm in 50 mls @ 100 mls/ hr IV Q12H [facility] Vancomycin HCl 1,000 mg/ (Sodium Chloride) 250 mls @ 166.667 mls/hr IVPB Q12H [facility] Insulin Glargine (Lantus(*)) 10 units SUBCUT 1630 [facility] Insulin Human Lispro (Humalog*) 0 units SUBCUT ACHS [facility]; Protocol Levothyroxine Sodium (Synthroid Tab*) 50 mcg PO DAILY@0600 [facility] Magnesium Hydroxide (Milk Of Magnesia Liq*) 30 ml PO Q4H PRN Metoprolol Succinate (Toprol Xl Tab*) 50 mg PO DAILY [facility] Multivitamins/Minerals (Theragran/Minerals Tab*) 1 tab PO DAILY [facility] Oxycodone HCl (Roxycodone Tab*) 5 mg PO Q4H PRN Oxycodone/Acetaminophen (Percocet 5/325 Tab*) 1 tab PO Q4H PRN Oxycodone/Acetaminophen (Percocet 5/325 Tab*) 2 tab PO Q4H PRN Pharmacy Consult (Vancomycin Per Pharmacy*) 1 note FOLLOW UP . PRN Pharmacy Profile Note (Vancomycin Trough Check) 1 note FOLLOW UP ONCE ONE Senna (Senokot Tab*) 1 tab PO BID [facility] Tramadol HCl (Ultram*) 50 mg PO Q6H PRN Vital Signs: Temp Pulse Resp BP Pulse Ox 100.3 F 77 24 180/90 93 12/08/18 16:44 12/08/18 16:44 12/08/18 16:44 12/08/18 17:00 12/08/18 16:44 Oxygen Devices in Use Now: None Appearance: Pt appears comfortable, laying in bed with HOB and b/l extremities elevated. He is mildly tachypneic, but breathing comfortable. He is in no acute distress. Eyes: No Scleral Icterus, PERRLA Ears/Nose/Mouth/Throat: NL Teeth, Lips, Gums, Clear Oropharnyx, Mucous Membranes Moist Neck: NL Appearance and Movements; NL JVP, Trachea Midline Respiratory: Symmetrical Chest Expansion and Respiratory Effort, Clear to Auscultation Cardiovascular: NL Sounds; No Murmurs; No JVD, RRR, No Edema Abdominal: NL Sounds; No Tenderness; No Distention, No Hepatosplenomegaly Extremities: No Edema, No Clubbing, Cyanosis, - - CDI dressing to RLE; cap refill < 2sec; sensation intact; SCDs in place Result Diagrams: 12/07/18 06:23 12/07/18 06:23 Additional Lab and Data: . Microbiology and Other Data: Microbiology 12/02/18 12:58 Aerobic Blood Culture - Preliminary Blood Venous No Growth Day 3 Anaerobic Blood Culture - Preliminary No Growth Day 3 12/02/18 12:58 Aerobic Blood Culture - Preliminary Blood Venous No Growth Day 3 Anaerobic Blood Culture - Preliminary No Growth Day 3 Assess/Plan/Problems-Billing Assessment: 83 yr old male with pmh of right sided dvt/pe s/p IVC filter, htn, gout; who presented to the ED with right 2nd digit gangrene; s/p revascularization, stenting RLE 12/05. - Patient Problems (1) Gangrene of toe of right foot Comment: - S/P revascularization with Dr Giraldo 12/05 - Plavix 75 mg PO qd [id number], ASA 81 mg PO qd - OR with Manjinder today; s/p L 2nd digit amputation - Ortho consulting - MRI reveals swelling and myositis - BC NGTD - Wound culture sent for micro - Cont Vanco and Cefepime per ID (2) Tachypnea Comment: -Tachypnea without SOB, O2 requirements, new cough, fever -DDx: PE, pna, pulm edema, atelectasis -IVC filter in place -CXR shows small R pleural effusion with subsegmental atelectasis -Suspect atelectasis; will continue incentive spirometry -CTA chest ordered today (3) Diabetes Comment: - BG elevated 103-143 last 24h; 309 BS noted this evening - Continue lantus and ss insulin - Oral home medications on hold (4) HTN (hypertension) Comment: - Hypertensive with SBP 170-180's; has been SBP 140's-150's throughout stay - Likely that this acute elevation is partially a pain response - Hydralazine IV q6h prn ordered - Add amlodipine 5mg PO daily, starting today (12/08) - Continue Metoprolol - Continue to monitor need for additional anti-hypertensives (5) Pre-op evaluation Comment: - RCRI 1 point, therefore, 6.0% 30 day risk - Echo obtained and EF 55% to 60%. No other significant findings - Patient reports he can walk up a flight of stairs without difficulty. In addition he does yard work and lifts his elderly mother in law to and from wheelchair without difficulty or concerning symptoms. (6) History of DVT (deep vein thrombosis) Comment: - Has IVC filter - Cont sub Q heparin for DVT proph (7) Gout Comment: - Cont Allopurinol (8) DVT prophylaxis Comment: - Cont sub Q heparin for DVT proph Status and Disposition: Inpatient. Revascularization and stenting RLE 12/05 with plan for surgical amputation RLE 2nd digit 12/08. Discharge when stable.
--- NOTE | 2018-12-08 12:23 | OP ---
DATE OF OPERATION: 12/08/18 - ROOM #[id number] DATE OF : 33 SURGEON: Frederick Dunbar MD. ORGAN GRINDER: Luciano Brar PA-C. PRE-OP DIAGNOSIS: Necrotic right second toe, status post revascularization. POSTOP DIAGNOSIS: Necrotic right second toe, status post revascularization. OPERATIVE PROCEDURE: Metatarsophalangeal joint disarticulation right second toe. DESCRIPTION OF PROCEDURE: The patient was taken to the operating room where we made a transverse elliptical incision over the base of the proximal phalanx right second toe. We were able to undermine and dislocate the MTP joint, just delivering the toe to Pathology. The edges were somewhat macerated and frankly a little bit ragged. We trimmed these up with a 15-blade and irrigated thoroughly. We dropped the tourniquet and there was no need for any discrete hemostasis. There was some oozing from the wound generally. We closed with loose 3-0 nylon sutures dorsal and plantar with a sterile dressing applied under compression. [id number]/[facility] #: [id number] [facility]
[2018-12-08] MEDS ORDERED: Vancomycin Trough Check NOTE FOLLOW UP ONE (13:30)
[2018-12-08] MEDS ORDERED: amLODIPine TAB* 5 MG PO SCH (15:00)
[2018-12-08] MEDS: amLODIPine TAB* 5 MG PO SCH (15:16)
[2018-12-08] MEDS: traMADol TAB* 50 MG PO PRN (15:58)
[2018-12-08] MEDS: Insulin GLARGINE(*) 1 UNITS UNIT SUBCUT SCH (17:41)
[2018-12-08] MEDS ORDERED: Iodixanol* (CONTRAST) 320 MG/ML 100 ML SDV IV ONE (18:29)
[2018-12-08] MEDS: oxyCODONE TAB* 5 MG TAB PO PRN (21:25)
[2018-12-08] MEDS: Vancomycin(*) 750 MG in NS 0.9% 250 ML* 250 ML IVPB SCH (21:48)
[2018-12-09] MEDS: Levothyroxine TAB* 50 MCG TAB PO SCH (06:03)
[2018-12-09] MEDS: Cefepime 1 GM in Dextrose(*) 1 GM/50 ML BAG IV SCH ×2 (06:08→18:25)
[2018-12-09 07:00] LABS: ABS Basophils 0.1 10^3/ul (0-0.2); ABS Eosinophils 0.2 10^3/ul (0-0.6); ABS Lymphocytes 1.4 10^3/ul (1.0-4.8); ABS Monocytes 1.2 10^3/ul (0-0.8); ABS Neutrophils 10.2 10^3/ul (1.5-7.7); Eosinophil % 1.6 %; Hematocrit 32 % (42-52); Hemoglobin 11.6 g/dL (14.0-18.0); Lymphocyte % 10.8 %; Mean Corpuscular HGB Conc 36 g/dL (31-36); Mean Corpuscular Hemoglobin 32 pg (27-31); Mean Corpuscular Volume 88 fL (80-94); Mean Platelet Volume 7.6 fL (7.4-10.4); Nucleated Red Blood Cells % 0.1; Platelet Count 312 10^3/uL (150-450); Red Blood Count 3.65 10^6 /uL (4.18-5.48); Red Cell Distribution Width 14 % (10-15); White Blood Count 13.1 10^3/uL (3.5-10.8)
[2018-12-09 07:20] LABS: BUN/Creatinine Ratio 9.8 (8-20); Calcium 8.2 mg/dL (8.6-10.3); EGFR African American 75.6 (>60); EGFR Non-African American 62.5 (>60); Potassium 3.4 mmol/L (3.5-5.0)
[2018-12-09] MEDS: Clopidogrel TAB* 75 MG PO SCH (08:06)
[2018-12-09] MEDS: amLODIPine TAB* 5 MG PO SCH (08:06)
[2018-12-09] MEDS: Metoprolol Succinate XL TAB* 50 MG PO SCH (08:06)
[2018-12-09] MEDS: Aspirin 81 mg CHEW TAB* 81 MG TAB.CHEW PO SCH (08:06)
[2018-12-09] MEDS: oxyCODONE TAB* 5 MG TAB PO PRN ×4 (08:07→22:25)
[2018-12-09] MEDS: Allopurinol TAB* 300 MG PO SCH (08:07)
[2018-12-09] MEDS: Docusate CAP* 100 MG PO SCH ×2 (08:09→21:14)
[2018-12-09] MEDS: Multivitamins/Minerals TAB PO SCH (08:09)
[2018-12-09] MEDS: Senna TAB 8.6 mg* TAB PO SCH ×2 (08:09→21:14)
--- NOTE | 2018-12-09 09:55 | PN ---
Progress Note - Progress Note Date of Service: 12/09/18 SOAP: Subjective: CC: Right foot infection with gangrene. HPI: Mr. Perdomo is a 83 yo male with PMH significant for DM2, hx right LE DVT HX VA, HTN, and gout who presented to the hospital with complaints of right foot redness. Denies fever, chills, shortness of breath, nausea, vomiting, or diarrhea. Reports that his appetite is good. Reports pain in the right foot and is requesting pain medication. Objective: Vital Signs - 8 hr 12/09/18 12/09/18 12/09/18 03:46 07:32 07:35 Temperature 98.8 F 97.7 F Pulse Rate 70 74 Respiratory 16 22 16 Rate Blood Pressure 148/65 161/77 (mmHg) O2 Sat by Pulse 93 96 Oximetry Physical Exam: General: NAD, sitting up in bed Neurological: Alert and Oriented x4 HEENT: Moist MM, no thrush Cardiovascular: Heart rate regular Respiratory: Lung sounds clear Abdominal: Bowel sounds present; ABD soft, non tender and non distended Skin: Dressing to the right foot. The distal aspect of the exposed right 3rd toe with blanchable erythema. Laboratory Results - last 24 hr 12/08/18 12/08/18 12/09/18 16:48 21:05 06:19 WBC 13.1 H RBC 3.65 L Hgb 11.6 L Hct 32 L MCV 88 MCH 32 H MCHC 36 RDW 14 Plt Count 312 MPV 7.6 Neut % (Auto) 77.9 Lymph % (Auto) 10.8 [place] % (Auto) 9.1 Eos % (Auto) 1.6 Baso % (Auto) 0.6 Absolute Neuts (auto) 10.2 H Absolute Lymphs (auto) 1.4 Absolute Monos (auto) 1.2 H Absolute Eos (auto) 0.2 Absolute Basos (auto) 0.1 Absolute Nucleated RBC 0.0 Nucleated RBC % 0.1 POC Glucose (mg/dL) 309 H 282 H 12/09/18 12/09/18 06:19 07:55 Sodium 137 Potassium 3.4 L Chloride 101 Carbon Dioxide 26 Anion Gap 10 BUN 11 Creatinine 1.12 Est GFR ( Amer) 75.6 Est GFR (Non-Af Amer) 62.5 BUN/Creatinine Ratio 9.8 Glucose 145 H POC Glucose (mg/dL) 164 H Calcium 8.2 L Microbiology 12/08/18 09:20 Gram Stain - Final Foot Right 12/02/18 12:58 Aerobic Blood Culture - Final Blood Venous No Growth Day 5 Anaerobic Blood Culture - Final No Growth Day 5 12/02/18 12:58 Aerobic Blood Culture - Final Blood Venous No Growth Day 5 Anaerobic Blood Culture - Final No Growth Day 5 Assessment: 1. Right 2nd toe gangrene with myositis. MRI with no signs of osteomyelitis. Abnormal ABIs, see in consult by Dr. Giraldo . S/P right 2nd toe amputation, POD #1. Blood cultures negative on day 5. No organisims seen in the preliminary wound cultures from the OR. Afebrile. Persistent mild leukocytosis. 2. DM2. 3. Occluded right mid SFA. 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 Plan: Continue Cefepime and Vanco for now while we await final culture results from the OR.
[2018-12-09] MEDS: Insulin LISPRO* 1 UNITS UNIT SUBCUT SCH ×4 (10:05→21:14)
[2018-12-09] MEDS: Vancomycin(*) 750 MG in NS 0.9% 250 ML* 250 ML IVPB SCH ×2 (10:05→22:23)
[2018-12-09] MEDS: traMADol TAB* 50 MG PO PRN (10:14)
[2018-12-09 10:33] LABS: C Reactive Protein 137.75 mg/L (<8.01)
--- NOTE | 2018-12-09 12:09 | PN ---
Progress Note - Progress Note Date of Service: 12/09/18 SOAP: Subjective: []Pt seen at bedside. He feels well without fever, chills, CP, SOB, dizziness or nausea. No foot pain. Objective: []Gen: NAD RLE: Right foot dressing CDI, exposed toes cap refill less than two seconds distally, able to wiggle toes. Calves supple and nontender Assessment: []Necrotic right second toe, status post revascularization. POD 1 sp Metatarsophalangeal joint disarticulation right second toe. Plan: []Heel WB Restarted heparin for DVT prophy, may continue antiplt agents as well Per ID Cefepime and Vanco while we await final culture results from the OR. Will eval wound in another 1-2 days IS encouraged Vital Signs Temp 98.8 F 12/09/18 11:36 Pulse 70 12/09/18 11:36 Resp 18 12/09/18 11:36 BP 145/67 12/09/18 11:36 Pulse Ox 92 12/09/18 11:36 Intake & Output 12/08/18 12/09/18 12/09/18 18:59 06:59 18:59 Intake Total 1200 300 660 Output Total 1645 1100 Balance -445 -800 660 Intake: IV Fluids 700 LR 700 Oral 500 300 660 Output: Urine 1645 900 Gold 200 Other: # Bowel Movements 0 # Voids 1 Laboratory Last Values WBC 13.1 10^3/uL (3.5-10.8) H 12/09/18 06:19 RBC 3.65 10^6 /uL (4.18-5.48) L 12/09/18 06:19 Hgb 11.6 g/dL (14.0-18.0) L 12/09/18 06:19 Hct 32 % (42-52) L 12/09/18 06:19 MCV 88 fL (80-94) 12/09/18 06:19 MCH 32 pg (27-31) H 12/09/18 06:19 MCHC 36 g/dL (31-36) 12/09/18 06:19 RDW 14 % (10-15) 12/09/18 06:19 Plt Count 312 10^3/uL (150-450) 12/09/18 06:19 MPV 7.6 fL (7.4-10.4) 12/09/18 06:19 Neut % (Auto) 77.9 % 12/09/18 06:19 Lymph % (Auto) 10.8 % 12/09/18 06:19 [place] % (Auto) 9.1 % 12/09/18 06:19 Eos % (Auto) 1.6 % 12/09/18 06:19 Baso % (Auto) 0.6 % 12/09/18 06:19 Absolute Neuts (auto) 10.2 10^3/ul (1.5-7.7) H 12/09/18 06:19 Absolute Lymphs (auto) 1.4 10^3/ul (1.0-4.8) 12/09/18 06:19 Absolute Monos (auto) 1.2 10^3/ul (0-0.8) H 12/09/18 06:19 Absolute Eos (auto) 0.2 10^3/ul (0-0.6) 12/09/18 06:19 Absolute Basos (auto) 0.1 10^3/ul (0-0.2) 12/09/18 06:19 Absolute Nucleated RBC 0.0 10^3/ul 12/09/18 06:19 Nucleated RBC % 0.1 12/09/18 06:19 ESR 50 mm/Hr (0-19) H 12/02/18 16:35 INR (Anticoag Therapy) 1.22 (0.82-1.09) H 12/05/18 07:37 APTT 26.9 seconds (26.0-38.0) 12/04/18 16:36 POC Activ Clotting Time 166 seconds 12/05/18 15:22 Sodium 137 mmol/L (135-145) 12/09/18 06:19 Potassium 3.4 mmol/L (3.5-5.0) L 12/09/18 06:19 Chloride 101 mmol/L (101-111) 12/09/18 06:19 Carbon Dioxide 26 mmol/L (22-32) 12/09/18 06:19 Anion Gap 10 mmol/L (2-11) 12/09/18 06:19 BUN 11 mg/dL (6-24) 12/09/18 06:19 Creatinine 1.12 mg/dL (0.67-1.17) 12/09/18 06:19 Est GFR ( Amer) 75.6 (>60) 12/09/18 06:19 Est GFR (Non-Af Amer) 62.5 (>60) 12/09/18 06:19 BUN/Creatinine Ratio 9.8 (8-20) 12/09/18 06:19 Glucose 145 mg/dL (70-100) H 12/09/18 06:19 POC Glucose (mg/dL) 164 mg/dL (70-100) H 12/09/18 07:55 Hemoglobin A1c 7.2 % (4.0-5.6) H 12/03/18 06:27 Lactic Acid 2.3 mmol/L (0.5-2.0) H* 12/02/18 16:34 Calcium 8.2 mg/dL (8.6-10.3) L 12/09/18 06:19 Total Bilirubin 1.00 mg/dL (0.2-1.0) 12/02/18 12:58 AST 12 U/L (13-39) L 12/02/18 12:58 ALT 14 U/L (7-52) 12/02/18 12:58 Alkaline Phosphatase 62 U/L (34-104) 12/02/18 12:58 C-Reactive Protein 137.75 mg/L (<8.01) H 12/09/18 06:19 Total Protein 6.5 g/dL (6.4-8.9) 12/02/18 12:58 Albumin 3.7 g/dL (3.2-5.2) 12/02/18 12:58 Globulin 2.8 g/dL (2-4) 12/02/18 12:58 Albumin/Globulin Ratio 1.3 (1-3) 12/02/18 12:58 Vancomycin Trough 23.1 mcg/mL 12/08/18 11:40
[2018-12-09 14:00] LABS: ABS Basophils 0.2 10^3/ul (0-0.2); ABS Eosinophils 0.3 10^3/ul (0-0.6); ABS Lymphocytes 1.6 10^3/ul (1.0-4.8); ABS Monocytes 1.1 10^3/ul (0-0.8); ABS Neutrophils 11.1 10^3/ul (1.5-7.7); Eosinophil % 2.1 %; Hematocrit 36 % (42-52); Hemoglobin 12.6 g/dL (14.0-18.0); Lymphocyte % 11.4 %; Mean Corpuscular HGB Conc 35 g/dL (31-36); Mean Corpuscular Hemoglobin 31 pg (27-31); Mean Corpuscular Volume 89 fL (80-94); Mean Platelet Volume 7.5 fL (7.4-10.4); Nucleated Red Blood Cells % 0.1; Platelet Count 342 10^3/uL (150-450); Red Blood Count 4.02 10^6 /uL (4.18-5.48); Red Cell Distribution Width 14 % (10-15); White Blood Count 14.3 10^3/uL (3.5-10.8)
[2018-12-09 14:10] LABS: EGFR African American 71.2 (>60); EGFR Non-African American 58.8 (>60)
[2018-12-09] MEDS: Heparin VIAL(*) 5000 UNITS/ML VIAL (FIVE THOUSAND) SUBCUT SCH ×2 (14:11→21:16)
[2018-12-09 14:28] LABS: Activated Partial Thrombo Time 30.6 seconds (26.0-38.0); INR 1.23 (0.82-1.09)
[2018-12-09] MEDS: Insulin GLARGINE(*) 1 UNITS UNIT SUBCUT SCH (18:33)
--- NOTE | 2018-12-09 19:20 | PN ---
Subjective Date of Service: 12/09/18 Interval History: Per nursing patient initially refused PT, but did participate after encouragement. In addition patient preferred crutches which is not safe for patient. Patient resting in bed on assessment. Son and at bedside. Reports pain in LLE is well controlled. Denies fever, chills, cp, sob, palpitations; reports "I never have problems with those things". Objective Active Medications: Acetaminophen (Tylenol Tab*) 650 mg PO Q4H PRN PRN Reason: Fever-temp >100.9/Pain-mild Last Admin: 12/08/18 17:37 Dose: 650 mg Al Hydrox/Mg Hydrox/Simethicone (Maalox Plus*) 30 ml PO Q6H PRN PRN Reason: INDIGESTION Allopurinol (Zyloprim Tab*) 300 mg PO DAILY [facility] Last Admin: 12/09/18 08:07 Dose: 300 mg Amlodipine Besylate (Norvasc Tab*) 5 mg PO DAILY [facility] Last Admin: 12/09/18 08:06 Dose: 5 mg Aspirin (Aspirin 81 Mg Chew Tab*) 81 mg PO DAILY [facility] Stop: 12/01/19 08:59 Last Admin: 12/09/18 08:06 Dose: 81 mg Clopidogrel Bisulfate (Plavix Tab*) 75 mg PO DAILY [facility] Stop: 06/04/19 08:59 Last Admin: 12/09/18 08:06 Dose: 75 mg Dextrose (Dextrose 50% Vial 50 Ml*) 25 ml IV PUSH .FOR FS < 60 - SS PRN PRN Reason: FS < 60 Last Admin: 12/03/18 00:41 Dose: 25 ml Docusate Sodium (Colace Cap*) 100 mg PO BID [facility] Last Admin: 12/09/18 08:09 Dose: Not Given Heparin Sodium (Porcine) (Heparin Vial(*)) 5,000 units SUBCUT Q8HR [facility] Last Admin: 12/09/18 14:11 Dose: 5,000 units Hydralazine HCl (Apresoline Iv*) 5 mg IV SLOW PU Q6H PRN PRN Reason: Systolic Bp Greater Than: 160 Last Admin: 12/08/18 19:54 Dose: 5 mg Cefepime HCl (Maxipime 1 Gm In Dextrose Duplex (*)) 1 gm in 50 mls @ 100 mls/ hr IV Q12H [facility] Last Admin: 12/09/18 18:25 Dose: 100 mls/hr Vancomycin HCl 750 mg/ Sodium (Chloride) 250 mls @ 166.667 mls/hr IVPB Q12H [facility] Last Admin: 12/09/18 10:05 Dose: 166.667 mls/hr Insulin Glargine (Lantus(*)) 10 units SUBCUT 1630 [facility] Last Admin: 12/09/18 18:33 Dose: 10 units Insulin Human Lispro (Humalog*) 0 units SUBCUT ACHS [facility]; Protocol Last Admin: 12/09/18 18:36 Dose: 6 units Levothyroxine Sodium (Synthroid Tab*) 50 mcg PO DAILY@0600 [facility] Last Admin: 12/09/18 06:03 Dose: 50 mcg Magnesium Hydroxide (Milk Of Magnesia Liq*) 30 ml PO Q4H PRN PRN Reason: CONSTIPATION Metoprolol Succinate (Toprol Xl Tab*) 50 mg PO DAILY [facility] Last Admin: 12/09/18 08:06 Dose: 50 mg Multivitamins/Minerals (Theragran/Minerals Tab*) 1 tab PO DAILY [facility] Last Admin: 12/09/18 08:09 Dose: 1 tab Oxycodone HCl (Roxycodone Tab*) 5 mg PO Q4H PRN PRN Reason: PAIN - SEVERE Last Admin: 12/09/18 18:25 Dose: 5 mg Oxycodone/Acetaminophen (Percocet 5/325 Tab*) 1 tab PO Q4H PRN PRN Reason: PAIN - MODERATE Last Admin: 12/07/18 18:36 Dose: 1 tab Oxycodone/Acetaminophen (Percocet 5/325 Tab*) 2 tab PO Q4H PRN PRN Reason: PAIN - SEVERE Last Admin: 12/07/18 21:11 Dose: 2 tab Pharmacy Consult (Vancomycin Per Pharmacy*) 1 note FOLLOW UP . PRN PRN Reason: PER PROTOCOL Pharmacy Profile Note (Vancomycin Trough Check) 1 note FOLLOW UP ONCE ONE Stop: 12/10/18 09:31 Senna (Senokot Tab*) 1 tab PO BID [facility] Last Admin: 12/09/18 08:09 Dose: Not Given Tramadol HCl (Ultram*) 50 mg PO Q6H PRN PRN Reason: PAIN - MODERATE Last Admin: 08/06/19 10:14 Dose: 50 mg Vital Signs - 8 hr 12/09/18 12/09/18 12/09/18 11:36 12:15 14:10 Temperature 98.8 F Pulse Rate 70 Respiratory 18 18 16 Rate Blood Pressure 145/67 (mmHg) O2 Sat by Pulse 92 Oximetry 12/09/18 12/09/18 15:33 18:25 Temperature 97.7 F Pulse Rate 54 Respiratory 22 16 Rate Blood Pressure 141/46 (mmHg) O2 Sat by Pulse 94 Oximetry Oxygen Devices in Use Now: None Appearance: Comfortable, NAD Eyes: No Scleral Icterus Ears/Nose/Mouth/Throat: Clear Oropharnyx, Mucous Membranes Moist Neck: NL Appearance and Movements; NL JVP Respiratory: Symmetrical Chest Expansion and Respiratory Effort, Clear to Auscultation Cardiovascular: NL Sounds; No Murmurs; No JVD, RRR, No Edema Abdominal: NL Sounds; No Tenderness; No Distention Lymphatic: No Cervical Adenopathy Extremities: No Edema, No Clubbing, Cyanosis Skin: No Rash or Ulcers, - - Dressing to LLE CDI Neurological: Alert and Oriented x 3 Nutrition: Taking PO's Result Diagrams: 12/09/18 13:45 12/09/18 13:45 Additional Lab and Data: Laboratory Results - last 24 hr 12/08/18 12/09/18 12/09/18 21:05 06:19 06:19 WBC 13.1 H RBC 3.65 L Hgb 11.6 L Hct 32 L MCV 88 MCH 32 H MCHC 36 RDW 14 Plt Count 312 MPV 7.6 Neut % (Auto) 77.9 Lymph % (Auto) 10.8 [place] % (Auto) 9.1 Eos % (Auto) 1.6 Baso % (Auto) 0.6 Absolute Neuts (auto) 10.2 H Absolute Lymphs (auto) 1.4 Absolute Monos (auto) 1.2 H Absolute Eos (auto) 0.2 Absolute Basos (auto) 0.1 Absolute Nucleated RBC 0.0 Nucleated RBC % 0.1 INR (Anticoag Therapy) APTT Sodium 137 Potassium 3.4 L Chloride 101 Carbon Dioxide 26 Anion Gap 10 BUN 11 Creatinine 1.12 Est GFR ( Amer) 75.6 Est GFR (Non-Af Amer) 62.5 BUN/Creatinine Ratio 9.8 Glucose 145 H POC Glucose (mg/dL) 282 H Calcium 8.2 L C-Reactive Protein 137.75 H 12/09/18 12/09/18 12/09/18 07:55 11:44 13:45 WBC RBC Hgb Hct MCV MCH MCHC RDW Plt Count MPV Neut % (Auto) Lymph % (Auto) [place] % (Auto) Eos % (Auto) Baso % (Auto) Absolute Neuts (auto) Absolute Lymphs (auto) Absolute Monos (auto) Absolute Eos (auto) Absolute Basos (auto) Absolute Nucleated RBC Nucleated RBC % INR (Anticoag Therapy) APTT Sodium Potassium Chloride Carbon Dioxide Anion Gap BUN 12 Creatinine 1.18 H Est GFR ( Amer) 71.2 Est GFR (Non-Af Amer) 58.8 BUN/Creatinine Ratio Glucose POC Glucose (mg/dL) 164 H 219 H Calcium C-Reactive Protein 12/09/18 12/09/18 12/09/18 13:45 13:45 17:08 WBC 14.3 H RBC 4.02 L Hgb 12.6 L Hct 36 L MCV 89 MCH 31 MCHC 35 RDW 14 Plt Count 342 MPV 7.5 Neut % (Auto) 77.4 Lymph % (Auto) 11.4 [place] % (Auto) 7.8 Eos % (Auto) 2.1 Baso % (Auto) 1.3 Absolute Neuts (auto) 11.1 H Absolute Lymphs (auto) 1.6 Absolute Monos (auto) 1.1 H Absolute Eos (auto) 0.3 Absolute Basos (auto) 0.2 Absolute Nucleated RBC 0.0 Nucleated RBC % 0.1 INR (Anticoag Therapy) 1.23 H APTT 30.6 Sodium Potassium Chloride Carbon Dioxide Anion Gap BUN Creatinine Est GFR ( Amer) Est GFR (Non-Af Amer) BUN/Creatinine Ratio Glucose POC Glucose (mg/dL) 254 H Calcium C-Reactive Protein Microbiology and Other Data: Microbiology 12/08/18 09:20 Gram Stain - Final Foot Right Wound Culture - Preliminary Staphylococcus Aureus 12/08/18 09:20 Anaerobic Culture - Preliminary Wound - Right 12/02/18 12:58 Aerobic Blood Culture - Final Blood Venous No Growth Day 5 Anaerobic Blood Culture - Final No Growth Day 5 12/02/18 12:58 Aerobic Blood Culture - Final Blood Venous No Growth Day 5 Anaerobic Blood Culture - Final No Growth Day 5 Assess/Plan/Problems-Billing Assessment: 83 yr old male with pmh of right sided dvt/pe s/p IVC filter, htn, gout; who presented to the ED with right 2nd digit gangrene; s/p revascularization, stenting RLE 12/05. - Patient Problems (1) Gangrene of toe of right foot Comment: - POD 1 L 2nd digit amputation - S/P revascularization with Dr Giraldo 12/05 - Plavix 75 mg PO qd [id number], ASA 81 mg PO qd per Kristal - BC NGTD - Wound culture prelim reveal Staphylococcus Aureus. Patient currently on Vanco and Cefepime. Will defer abx to ID consulting - Cont Vanco and Cefepime per ID (2) Diabetes Comment: - Continue lantus and ss insulin - Oral home medications on hold (3) HTN (hypertension) Comment: - Hypertensive throughout stay - Hydralazine IV q6h prn ordered - Amlodipine 5mg PO daily added on 12/08 - Continue Metoprolol - Continue to monitor (4) Gout Comment: - Cont Allopurinol (5) History of DVT (deep vein thrombosis) Comment: - Has IVC filter - Cont sub Q heparin for DVT proph (6) DVT prophylaxis Comment: - Cont sub Q heparin for DVT proph Status and Disposition: Inpatient. Revascularization and stenting RLE 12/05 and surgical amputation RLE 2nd digit 12/08. Discharge when stable. Attending: Yasmeen Mora
[2018-12-10] MEDS: traMADol TAB* 50 MG PO PRN ×2 (00:31→17:20)
[2018-12-10] MEDS: oxyCODONE TAB* 5 MG TAB PO PRN (03:36)
[2018-12-10] MEDS: Levothyroxine TAB* 50 MCG TAB PO SCH (05:41)
[2018-12-10] MEDS: Heparin VIAL(*) 5000 UNITS/ML VIAL (FIVE THOUSAND) SUBCUT SCH ×3 (05:42→21:31)
[2018-12-10] MEDS: Cefepime 1 GM in Dextrose(*) 1 GM/50 ML BAG IV SCH ×2 (05:42→17:50)
[2018-12-10 06:53] LABS: ABS Basophils 0.1 10^3/ul (0-0.2); ABS Eosinophils 0.3 10^3/ul (0-0.6); ABS Lymphocytes 1.5 10^3/ul (1.0-4.8); ABS Monocytes 1.1 10^3/ul (0-0.8); Eosinophil % 2.9 %; Hematocrit 32 % (42-52); Hemoglobin 11.5 g/dL (14.0-18.0); Lymphocyte % 12.9 %; Mean Corpuscular HGB Conc 36 g/dL (31-36); Mean Corpuscular Hemoglobin 32 pg (27-31); Mean Corpuscular Volume 88 fL (80-94); Mean Platelet Volume 7.5 fL (7.4-10.4); Nucleated Red Blood Cells % 0.2; Platelet Count 323 10^3/uL (150-450); Red Blood Count 3.65 10^6 /uL (4.18-5.48); Red Cell Distribution Width 15 % (10-15)
[2018-12-10 07:28] LABS: Calcium 8.3 mg/dL (8.6-10.3); Potassium 3.6 mmol/L (3.5-5.0)
[2018-12-10 07:34] LABS: BUN/Creatinine Ratio 11.7 (8-20); EGFR African American 69.8 (>60); EGFR Non-African American 57.7 (>60)
[2018-12-10] MEDS: Insulin LISPRO* 1 UNITS UNIT SUBCUT SCH ×4 (07:50→21:29)
[2018-12-10] MEDS: oxyCODONE/Acetamin 5/325 MG* TAB PO PRN (08:40)
[2018-12-10] MEDS: Clopidogrel TAB* 75 MG PO SCH (08:41)
[2018-12-10] MEDS: Allopurinol TAB* 300 MG PO SCH (08:41)
[2018-12-10] MEDS: Aspirin 81 mg CHEW TAB* 81 MG TAB.CHEW PO SCH (08:41)
[2018-12-10] MEDS: Multivitamins/Minerals TAB PO SCH (08:41)
[2018-12-10] MEDS: Docusate CAP* 100 MG PO SCH ×2 (08:41→21:30)
[2018-12-10] MEDS: Metoprolol Succinate XL TAB* 50 MG PO SCH (08:41)
[2018-12-10] MEDS: amLODIPine TAB* 5 MG PO SCH (08:44)
[2018-12-10] MEDS: hydrALAZINE IV* 20 MG/ML VIAL IV SLOW PU PRN (08:46)
[2018-12-10] MEDS: Senna TAB 8.6 mg* TAB PO SCH ×2 (08:50→21:29)
[2018-12-10] MEDS ORDERED: Vancomycin Trough Check NOTE FOLLOW UP ONE (09:30)
[2018-12-10 11:07] LABS: EGFR African American 64.2 (>60); EGFR Non-African American 53.1 (>60)
[2018-12-10 11:14] LABS: Vancomycin Trough 15.9 mcg/mL
[2018-12-10] MEDS: Vancomycin(*) 750 MG in NS 0.9% 250 ML* 250 ML IVPB SCH ×2 (11:38→21:31)
--- NOTE | 2018-12-10 14:02 | PN ---
Progress Note - Progress Note Date of Service: 12/10/18 SOAP: Subjective: []Pt seen at bedside. He is very sleepy today though awakes to spoken voice. Denies fever, chills or foot pain. Afebrile, WBC improving. Objective: []Gen: NAD RLE: Surgical incision CDI, erythema of the forefoot remains, it is less severe than previous. Toes are nonerythematous. Nontender to palpation. Foot is warm, capillary refill less than two seconds distally. DP nonpalpable, present by dopplar. Redressed with xeroform, 4x4s, kerlix Calves supple and nontender Assessment: []Necrotic right second toe, status post revascularization. POD 2 sp Metatarsophalangeal joint disarticulation right second toe. Plan: []Heel WB Cultures show MSSA. On vanco and cefepime, abx per ID Decrease narcotic use to help with sedation, around the clock tylenol Vital Signs Temp 98.4 F 12/10/18 11:19 Pulse 62 12/10/18 11:19 Resp 20 12/10/18 11:19 BP 139/70 12/10/18 11:19 Pulse Ox 92 12/10/18 11:19 Intake & Output 12/09/18 12/10/18 12/10/18 18:59 06:59 18:59 Intake Total 1020 1074 1363 Output Total 650 650 450 Balance 370 424 913 Intake: IV Fluids 339 ABX - CEFEPIME 54 ABX - VANCOMYCIN 270 NS (0.9%) 15 IVPB 55 263 ABX - CEFEPIME 55 ABX - VANCOMYCIN 263 Oral 0257 882 3647 Output: Urine 650 650 450 Laboratory Last Values WBC 12.0 10^3/uL (3.5-10.8) H 12/10/18 06:34 RBC 3.65 10^6 /uL (4.18-5.48) L 12/10/18 06:34 Hgb 11.5 g/dL (14.0-18.0) L 12/10/18 06:34 Hct 32 % (42-52) L 12/10/18 06:34 MCV 88 fL (80-94) 12/10/18 06:34 MCH 32 pg (27-31) H 12/10/18 06:34 MCHC 36 g/dL (31-36) 12/10/18 06:34 RDW 15 % (10-15) 12/10/18 06:34 Plt Count 323 10^3/uL (150-450) 12/10/18 06:34 MPV 7.5 fL (7.4-10.4) 12/10/18 06:34 Neut % (Auto) 74.5 % 12/10/18 06:34 Lymph % (Auto) 12.9 % 12/10/18 06:34 [place] % (Auto) 9.0 % 12/10/18 06:34 Eos % (Auto) 2.9 % 12/10/18 06:34 Baso % (Auto) 0.7 % 12/10/18 06:34 Absolute Neuts (auto) 9.0 10^3/ul (1.5-7.7) H 12/10/18 06:34 Absolute Lymphs (auto) 1.5 10^3/ul (1.0-4.8) 12/10/18 06:34 Absolute Monos (auto) 1.1 10^3/ul (0-0.8) H 12/10/18 06:34 Absolute Eos (auto) 0.3 10^3/ul (0-0.6) 12/10/18 06:34 Absolute Basos (auto) 0.1 10^3/ul (0-0.2) 12/10/18 06:34 Absolute Nucleated RBC 0.0 10^3/ul 12/10/18 06:34 Nucleated RBC % 0.2 12/10/18 06:34 ESR 50 mm/Hr (0-19) H 12/02/18 16:35 INR (Anticoag Therapy) 1.23 (0.82-1.09) H 12/09/18 13:45 APTT 30.6 seconds (26.0-38.0) 12/09/18 13:45 POC Activ Clotting Time 166 seconds 12/05/18 15:22 Sodium 136 mmol/L (135-145) 12/10/18 06:34 Potassium 3.6 mmol/L (3.5-5.0) 12/10/18 06:34 Chloride 100 mmol/L (101-111) L 12/10/18 06:34 Carbon Dioxide 26 mmol/L (22-32) 12/10/18 06:34 Anion Gap 10 mmol/L (2-11) 12/10/18 06:34 BUN 15 mg/dL (6-24) 12/10/18 10:27 Creatinine 1.29 mg/dL (0.67-1.17) H 12/10/18 10:27 Est GFR ( Amer) 64.2 (>60) 12/10/18 10:27 Est GFR (Non-Af Amer) 53.1 (>60) 12/10/18 10:27 BUN/Creatinine Ratio 11.7 (8-20) 12/10/18 06:34 Glucose 146 mg/dL (70-100) H 12/10/18 06:34 POC Glucose (mg/dL) 252 mg/dL (70-100) H 12/10/18 11:45 Hemoglobin A1c 7.2 % (4.0-5.6) H 12/03/18 06:27 Lactic Acid 2.3 mmol/L (0.5-2.0) H* 12/02/18 16:34 Calcium 8.3 mg/dL (8.6-10.3) L 12/10/18 06:34 Total Bilirubin 1.00 mg/dL (0.2-1.0) 12/02/18 12:58 AST 12 U/L (13-39) L 12/02/18 12:58 ALT 14 U/L (7-52) 12/02/18 12:58 Alkaline Phosphatase 62 U/L (34-104) 12/02/18 12:58 C-Reactive Protein 137.75 mg/L (<8.01) H 12/09/18 06:19 Total Protein 6.5 g/dL (6.4-8.9) 12/02/18 12:58 Albumin 3.7 g/dL (3.2-5.2) 12/02/18 12:58 Globulin 2.8 g/dL (2-4) 12/02/18 12:58 Albumin/Globulin Ratio 1.3 (1-3) 12/02/18 12:58 Vancomycin Trough 15.9 mcg/mL 12/10/18 10:27
[2018-12-10] MEDS: Insulin GLARGINE(*) 1 UNITS UNIT SUBCUT SCH (17:06)
--- NOTE | 2018-12-10 17:17 | PN ---
Subjective Date of Service: 12/10/18 Interval History: Resting in bed on assessment. Reports pain is well controlled. RN reports patient has only been up with PT today, but has not gotten oob with nursing. Discussed pain mediations plan with family yesterday and they would prefer less narcotics. Also discussed with Sonya MOHAN who is agreeable. Patient denies fever, chills, calf pain, numbness/tingling, cp, sob. Objective Active Medications: Al Hydrox/Mg Hydrox/Simethicone (Maalox Plus*) 30 ml PO Q6H PRN PRN Reason: INDIGESTION Allopurinol (Zyloprim Tab*) 300 mg PO DAILY [facility] Last Admin: 12/10/18 08:41 Dose: 300 mg Amlodipine Besylate (Norvasc Tab*) 5 mg PO DAILY [facility] Last Admin: 12/10/18 08:44 Dose: 5 mg Aspirin (Aspirin 81 Mg Chew Tab*) 81 mg PO DAILY [facility] Stop: 12/01/19 08:59 Last Admin: 12/10/18 08:41 Dose: 81 mg Clopidogrel Bisulfate (Plavix Tab*) 75 mg PO DAILY [facility] Stop: 06/04/19 08:59 Last Admin: 12/10/18 08:41 Dose: 75 mg Dextrose (Dextrose 50% Vial 50 Ml*) 25 ml IV PUSH .FOR FS < 60 - SS PRN PRN Reason: FS < 60 Last Admin: 12/03/18 00:41 Dose: 25 ml Docusate Sodium (Colace Cap*) 100 mg PO BID [facility] Last Admin: 12/10/18 08:41 Dose: 100 mg Heparin Sodium (Porcine) (Heparin Vial(*)) 5,000 units SUBCUT Q8HR [facility] Last Admin: 12/10/18 14:15 Dose: 5,000 units Hydralazine HCl (Apresoline Iv*) 5 mg IV SLOW PU Q6H PRN PRN Reason: Systolic Bp Greater Than: 160 Last Admin: 12/10/18 08:46 Dose: 5 mg Cefepime HCl (Maxipime 1 Gm In Dextrose Duplex (*)) 1 gm in 50 mls @ 100 mls/ hr IV Q12H [facility] Last Admin: 12/10/18 05:42 Dose: 100 mls/hr Vancomycin HCl 750 mg/ Sodium (Chloride) 250 mls @ 166.667 mls/hr IVPB Q12H [facility] Last Admin: 12/10/18 11:38 Dose: 166.667 mls/hr Insulin Glargine (Lantus(*)) 10 units SUBCUT 1630 [facility] Last Admin: 12/10/18 17:06 Dose: 10 units Insulin Human Lispro (Humalog*) 0 units SUBCUT ACHS [facility]; Protocol Last Admin: 12/10/18 17:04 Dose: 6 units Levothyroxine Sodium (Synthroid Tab*) 50 mcg PO DAILY@0600 [facility] Last Admin: 12/10/18 05:41 Dose: 50 mcg Magnesium Hydroxide (Milk Of Magnesia Liq*) 30 ml PO Q4H PRN PRN Reason: CONSTIPATION Metoprolol Succinate (Toprol Xl Tab*) 50 mg PO DAILY [facility] Last Admin: 12/10/18 08:41 Dose: 50 mg Multivitamins/Minerals (Theragran/Minerals Tab*) 1 tab PO DAILY [facility] Last Admin: 12/10/18 08:41 Dose: 1 tab Oxycodone HCl (Roxycodone Tab*) 5 mg PO Q4H PRN PRN Reason: PAIN - SEVERE Last Admin: 12/10/18 03:36 Dose: 5 mg Pharmacy Consult (Vancomycin Per Pharmacy*) 1 note FOLLOW UP . PRN PRN Reason: PER PROTOCOL Senna (Senokot Tab*) 1 tab PO BID [facility] Last Admin: 12/10/18 08:50 Dose: 1 tab Tramadol HCl (Ultram*) 50 mg PO Q6H PRN PRN Reason: PAIN - MODERATE Last Admin: 12/10/18 00:31 Dose: 50 mg Vital Signs - 8 hr 12/10/18 12/10/18 12/10/18 10:40 11:19 16:18 Temperature 98.4 F 99.1 F Pulse Rate 62 70 Respiratory 20 20 18 Rate Blood Pressure 139/70 136/64 (mmHg) O2 Sat by Pulse 92 92 Oximetry Oxygen Devices in Use Now: None Appearance: Comfortable, NAD Eyes: No Scleral Icterus Ears/Nose/Mouth/Throat: Clear Oropharnyx, Mucous Membranes Moist Neck: NL Appearance and Movements; NL JVP Respiratory: Symmetrical Chest Expansion and Respiratory Effort, Clear to Auscultation Cardiovascular: NL Sounds; No Murmurs; No JVD, RRR, No Edema Abdominal: NL Sounds; No Tenderness; No Distention Lymphatic: No Cervical Adenopathy Extremities: No Clubbing, Cyanosis Skin: No Rash or Ulcers, - - Dressing to RLE CDI Neurological: Alert and Oriented x 3, NL Muscle Strength and Tone Nutrition: Taking PO's Result Diagrams: 12/10/18 06:34 12/10/18 10:27 Additional Lab and Data: Laboratory Results - last 24 hr 12/09/18 12/09/18 12/10/18 17:08 20:55 06:34 WBC 12.0 H RBC 3.65 L Hgb 11.5 L Hct 32 L MCV 88 MCH 32 H MCHC 36 RDW 15 Plt Count 323 MPV 7.5 Neut % (Auto) 74.5 Lymph % (Auto) 12.9 [place] % (Auto) 9.0 Eos % (Auto) 2.9 Baso % (Auto) 0.7 Absolute Neuts (auto) 9.0 H Absolute Lymphs (auto) 1.5 Absolute Monos (auto) 1.1 H Absolute Eos (auto) 0.3 Absolute Basos (auto) 0.1 Absolute Nucleated RBC 0.0 Nucleated RBC % 0.2 Sodium Potassium Chloride Carbon Dioxide Anion Gap BUN Creatinine Est GFR ( Amer) Est GFR (Non-Af Amer) BUN/Creatinine Ratio Glucose POC Glucose (mg/dL) 254 H 296 H Calcium Vancomycin Trough 12/10/18 12/10/18 12/10/18 06:34 07:32 10:27 WBC RBC Hgb Hct MCV MCH MCHC RDW Plt Count MPV Neut % (Auto) Lymph % (Auto) [place] % (Auto) Eos % (Auto) Baso % (Auto) Absolute Neuts (auto) Absolute Lymphs (auto) Absolute Monos (auto) Absolute Eos (auto) Absolute Basos (auto) Absolute Nucleated RBC Nucleated RBC % Sodium 136 Potassium 3.6 Chloride 100 L Carbon Dioxide 26 Anion Gap 10 BUN 14 15 Creatinine 1.20 H 1.29 H Est GFR ( Amer) 69.8 64.2 Est GFR (Non-Af Amer) 57.7 53.1 BUN/Creatinine Ratio 11.7 Glucose 146 H POC Glucose (mg/dL) 87 Calcium 8.3 L Vancomycin Trough 15.9 12/10/18 12/10/18 11:45 16:45 WBC RBC Hgb Hct MCV MCH MCHC RDW Plt Count MPV Neut % (Auto) Lymph % (Auto) [place] % (Auto) Eos % (Auto) Baso % (Auto) Absolute Neuts (auto) Absolute Lymphs (auto) Absolute Monos (auto) Absolute Eos (auto) Absolute Basos (auto) Absolute Nucleated RBC Nucleated RBC % Sodium Potassium Chloride Carbon Dioxide Anion Gap BUN Creatinine Est GFR ( Amer) Est GFR (Non-Af Amer) BUN/Creatinine Ratio Glucose POC Glucose (mg/dL) 252 H 300 H Calcium Vancomycin Trough Microbiology and Other Data: Microbiology 12/08/18 09:20 Gram Stain - Final Foot Right Wound Culture - Preliminary Staphylococcus Aureus 12/08/18 09:20 Anaerobic Culture - Preliminary Wound - Right 12/02/18 12:58 Aerobic Blood Culture - Final Blood Venous No Growth Day 5 Anaerobic Blood Culture - Final No Growth Day 5 12/02/18 12:58 Aerobic Blood Culture - Final Blood Venous No Growth Day 5 Anaerobic Blood Culture - Final No Growth Day 5 Assess/Plan/Problems-Billing Assessment: 83 yr old male with pmh of right sided dvt/pe s/p IVC filter, htn, gout; who presented to the ED with right 2nd digit gangrene; s/p revascularization, stenting RLE 12/05. - Patient Problems (1) Pain Comment: - To reduce narcotic use and risks associated, I have ordered scheduled Tylenol. - Cont oxycodone PRN (2) Gangrene of toe of right foot Comment: - POD 2 L 2nd digit amputation - Dressing change by Sonya MOHAN today. - S/P revascularization with Dr Giraldo 12/05 - Plavix 75 mg PO qd [id number], ASA 81 mg PO qd per Kristal - BC NGTD - Wound culture prelim reveal Staphylococcus Aureus. Patient currently on Vanco and Cefepime. Will defer abx to ID consulting - Cont Vanco and Cefepime per ID (3) Diabetes Comment: - Continue lantus and ss insulin - Oral home medications on hold (4) HTN (hypertension) Comment: - More normotensive today than previously - Hypertensive throughout stay - Hydralazine IV q6h prn ordered - Amlodipine 5mg PO daily added on 12/08 - Continue Metoprolol - Continue to monitor (5) Gout Comment: - Cont Allopurinol (6) History of DVT (deep vein thrombosis) Comment: - Has IVC filter - Cont sub Q heparin for DVT proph (7) DVT prophylaxis Comment: - Cont sub Q heparin for DVT proph Status and Disposition: Inpatient. Revascularization and stenting RLE / and surgical amputation RLE 2nd digit 12/08. Discharge when stable. Attending: Yasmeen Mora
[2018-12-10] MEDS: Acetaminophen TAB* 325 MG PO SCH (21:30)
[2018-12-11] MEDS: Heparin VIAL(*) 5000 UNITS/ML VIAL (FIVE THOUSAND) SUBCUT SCH ×3 (05:49→21:14)
[2018-12-11] MEDS: Levothyroxine TAB* 50 MCG TAB PO SCH (05:49)
[2018-12-11] MEDS: Cefepime 1 GM in Dextrose(*) 1 GM/50 ML BAG IV SCH ×2 (05:49→18:01)
[2018-12-11] MEDS: traMADol TAB* 50 MG PO PRN ×2 (06:45→13:56)
[2018-12-11] MEDS: Insulin LISPRO* 1 UNITS UNIT SUBCUT SCH ×4 (07:28→21:14)
[2018-12-11 08:25] LABS: ABS Basophils 0.2 10^3/ul (0-0.2); ABS Eosinophils 0.4 10^3/ul (0-0.6); ABS Lymphocytes 1.2 10^3/ul (1.0-4.8); ABS Monocytes 0.9 10^3/ul (0-0.8); ABS Neutrophils 7.6 10^3/ul (1.5-7.7); Eosinophil % 3.5 %; Hematocrit 37 % (42-52); Hemoglobin 12.7 g/dL (14.0-18.0); Lymphocyte % 11.6 %; Mean Corpuscular HGB Conc 35 g/dL (31-36); Mean Corpuscular Hemoglobin 31 pg (27-31); Mean Corpuscular Volume 90 fL (80-94); Mean Platelet Volume 8.3 fL (7.4-10.4); Nucleated Red Blood Cells % 0.1; Platelet Count 346 10^3/uL (150-450); Red Blood Count 4.06 10^6 /uL (4.18-5.48); Red Cell Distribution Width 14 % (10-15); White Blood Count 10.1 10^3/uL (3.5-10.8)
[2018-12-11 08:52] LABS: BUN/Creatinine Ratio 12.9 (8-20); Blood Urea Nitrogen 15 mg/dL (6-24); CO2 Carbon Dioxide 26 mmol/L (22-32); Calcium 8.6 mg/dL (8.6-10.3); Chloride 98 mmol/L (101-111); EGFR African American 72.6 (>60); Glucose 189 mg/dL (70-100); Sodium 131 mmol/L (135-145)
[2018-12-11] MEDS: Acetaminophen TAB* 325 MG PO SCH ×3 (08:57→21:15)
[2018-12-11] MEDS: Multivitamins/Minerals TAB PO SCH (08:57)
[2018-12-11] MEDS: Senna TAB 8.6 mg* TAB PO SCH ×2 (08:57→21:14)
[2018-12-11] MEDS: Magnesium Hydroxide LIQ* 30 ML UDC PO PRN ×2 (08:58→13:55)
[2018-12-11] MEDS: Metoprolol Succinate XL TAB* 50 MG PO SCH (08:58)
[2018-12-11] MEDS: Allopurinol TAB* 300 MG PO SCH (08:58)
[2018-12-11] MEDS: Docusate CAP* 100 MG PO SCH ×2 (08:58→21:15)
[2018-12-11] MEDS: Aspirin 81 mg CHEW TAB* 81 MG TAB.CHEW PO SCH (08:58)
[2018-12-11] MEDS: Clopidogrel TAB* 75 MG PO SCH (08:58)
[2018-12-11] MEDS: amLODIPine TAB* 5 MG PO SCH (08:58)
[2018-12-11] MEDS: hydrALAZINE IV* 20 MG/ML VIAL IV SLOW PU PRN (08:58)
[2018-12-11 09:10] LABS: Anion Gap 7 mmol/L (2-11)
--- NOTE | 2018-12-11 12:19 | PN ---
Progress Note - Progress Note Date of Service: 12/11/18 SOAP: Subjective: []Pt is doing well. Pain controlled. Denies N/T, F/C or CP/SOB. Objective: PE- 83 y/o WDWN M NAD RLE- dressing changed, well healing surgical incision, minimal surrounding erythema, calf soft N/T, +DF/PF ankle, NVI Vital Signs Temp Pulse Resp BP Pulse Ox 98.1 F 66 18 146/59 95 12/11/18 12:17 12/11/18 12:17 12/11/18 12:17 12/11/18 12:17 12/11/18 12:17 Laboratory Results - last 24 hr 12/10/18 12/10/18 12/11/18 16:45 21:20 07:21 WBC RBC Hgb Hct MCV MCH MCHC RDW Plt Count MPV Neut % (Auto) Lymph % (Auto) [place] % (Auto) Eos % (Auto) Baso % (Auto) Absolute Neuts (auto) Absolute Lymphs (auto) Absolute Monos (auto) Absolute Eos (auto) Absolute Basos (auto) Absolute Nucleated RBC Nucleated RBC % Sodium Potassium Chloride Carbon Dioxide Anion Gap BUN Creatinine Est GFR ( Amer) Est GFR (Non-Af Amer) BUN/Creatinine Ratio Glucose POC Glucose (mg/dL) 300 H 250 H 99 Calcium 12/11/18 12/11/18 12/11/18 08:00 08:00 09:35 WBC 10.1 RBC 4.06 L Hgb 12.7 L Hct 37 L MCV 90 MCH 31 MCHC 35 RDW 14 Plt Count 346 MPV 8.3 Neut % (Auto) 74.8 Lymph % (Auto) 11.6 [place] % (Auto) 8.5 Eos % (Auto) 3.5 Baso % (Auto) 1.6 Absolute Neuts (auto) 7.6 Absolute Lymphs (auto) 1.2 Absolute Monos (auto) 0.9 H Absolute Eos (auto) 0.4 Absolute Basos (auto) 0.2 Absolute Nucleated RBC 0.0 Nucleated RBC % 0.1 Sodium 131 L Potassium TNP 3.7 Chloride 98 L Carbon Dioxide 26 Anion Gap 7 BUN 15 Creatinine 1.16 Est GFR ( Amer) 72.6 Est GFR (Non-Af Amer) 60.0 BUN/Creatinine Ratio 12.9 Glucose 189 H POC Glucose (mg/dL) Calcium 8.6 12/11/18 11:40 WBC RBC Hgb Hct MCV MCH MCHC RDW Plt Count MPV Neut % (Auto) Lymph % (Auto) [place] % (Auto) Eos % (Auto) Baso % (Auto) Absolute Neuts (auto) Absolute Lymphs (auto) Absolute Monos (auto) Absolute Eos (auto) Absolute Basos (auto) Absolute Nucleated RBC Nucleated RBC % Sodium Potassium Chloride Carbon Dioxide Anion Gap BUN Creatinine Est GFR ( Amer) Est GFR (Non-Af Amer) BUN/Creatinine Ratio Glucose POC Glucose (mg/dL) 135 H Calcium Assessment: []Necrotic right second toe, status post revascularization. POD 3 sp Metatarsophalangeal joint disarticulation right second toe. Plan: []Heel WB Cultures show MSSA. On vanco and cefepime, cont abx per ID Tylenol for pain Orthopedically stable for DC Dry sterile dressing changes
[2018-12-11] MEDS: Vancomycin(*) 750 MG in NS 0.9% 250 ML* 250 ML IVPB SCH ×2 (12:24→21:13)
[2018-12-11] MEDS: Insulin GLARGINE(*) 1 UNITS UNIT SUBCUT SCH (17:59)
--- NOTE | 2018-12-11 18:51 | PN ---
Subjective Date of Service: 12/11/18 Interval History: Resting in bed. Reports pain in RLE is well controlled. Reports he participated in PT today and felt he did well. Son at bedside and we discussed plan of care and status. Patient denies fever, chill, sob, cp, nausea, vomiting. Objective Active Medications: Acetaminophen (Tylenol Tab*) 975 mg PO TID [facility] Last Admin: 12/11/18 13:55 Dose: 975 mg Al Hydrox/Mg Hydrox/Simethicone (Maalox Plus*) 30 ml PO Q6H PRN PRN Reason: INDIGESTION Allopurinol (Zyloprim Tab*) 300 mg PO DAILY [facility] Last Admin: 12/11/18 08:58 Dose: 300 mg Amlodipine Besylate (Norvasc Tab*) 5 mg PO DAILY [facility] Last Admin: 12/11/18 08:58 Dose: 5 mg Aspirin (Aspirin 81 Mg Chew Tab*) 81 mg PO DAILY [facility] Stop: 12/01/19 08:59 Last Admin: 12/11/18 08:58 Dose: 81 mg Clopidogrel Bisulfate (Plavix Tab*) 75 mg PO DAILY [facility] Stop: 06/04/19 08:59 Last Admin: 12/11/18 08:58 Dose: 75 mg Dextrose (Dextrose 50% Vial 50 Ml*) 25 ml IV PUSH .FOR FS < 60 - SS PRN PRN Reason: FS < 60 Last Admin: 12/03/18 00:41 Dose: 25 ml Docusate Sodium (Colace Cap*) 100 mg PO BID [facility] Last Admin: 12/11/18 08:58 Dose: 100 mg Heparin Sodium (Porcine) (Heparin Vial(*)) 5,000 units SUBCUT Q8HR [facility] Last Admin: 12/11/18 13:56 Dose: 5,000 units Hydralazine HCl (Apresoline Iv*) 5 mg IV SLOW PU Q6H PRN PRN Reason: Systolic Bp Greater Than: 160 Last Admin: 12/11/18 08:58 Dose: 5 mg Cefepime HCl (Maxipime 1 Gm In Dextrose Duplex (*)) 1 gm in 50 mls @ 100 mls/ hr IV Q12H [facility] Last Admin: 12/11/18 18:01 Dose: 100 mls/hr Vancomycin HCl 750 mg/ Sodium (Chloride) 250 mls @ 166.667 mls/hr IVPB Q12H [facility] Last Admin: 12/11/18 12:24 Dose: 166.667 mls/hr Insulin Glargine (Lantus(*)) 10 units SUBCUT 1630 [facility] Last Admin: 12/11/18 17:59 Dose: 10 units Insulin Human Lispro (Humalog*) 0 units SUBCUT ACHS [facility]; Protocol Last Admin: 12/11/18 17:59 Dose: 1 units Levothyroxine Sodium (Synthroid Tab*) 50 mcg PO DAILY@0600 [facility] Last Admin: 12/11/18 05:49 Dose: 50 mcg Magnesium Hydroxide (Milk Of Magnesia Liq*) 30 ml PO Q4H PRN PRN Reason: CONSTIPATION Last Admin: 12/11/18 08:58 Dose: 30 ml Metoprolol Succinate (Toprol Xl Tab*) 50 mg PO DAILY [facility] Last Admin: 12/11/18 08:58 Dose: 50 mg Multivitamins/Minerals (Theragran/Minerals Tab*) 1 tab PO DAILY [facility] Last Admin: 12/11/18 08:57 Dose: 1 tab Oxycodone HCl (Roxycodone Tab*) 5 mg PO Q4H PRN PRN Reason: PAIN - SEVERE Last Admin: 12/10/18 03:36 Dose: 5 mg Pharmacy Consult (Vancomycin Per Pharmacy*) 1 note FOLLOW UP . PRN PRN Reason: PER PROTOCOL Senna (Senokot Tab*) 1 tab PO BID [facility] Last Admin: 12/11/18 08:57 Dose: 1 tab Tramadol HCl (Ultram*) 50 mg PO Q6H PRN PRN Reason: PAIN - MODERATE Last Admin: 12/11/18 13:56 Dose: 50 mg Vital Signs - 8 hr 12/11/18 12/11/18 12/11/18 12:17 13:56 15:47 Temperature 98.1 F 98.5 F Pulse Rate 66 70 Respiratory 18 20 16 Rate Blood Pressure 146/59 131/65 (mmHg) O2 Sat by Pulse 95 93 Oximetry 12/11/18 16:25 Temperature Pulse Rate Respiratory 14 Rate Blood Pressure (mmHg) O2 Sat by Pulse Oximetry Oxygen Devices in Use Now: None Appearance: Comfortable, NAD Eyes: No Scleral Icterus Ears/Nose/Mouth/Throat: Clear Oropharnyx, Mucous Membranes Moist Neck: NL Appearance and Movements; NL JVP Respiratory: Symmetrical Chest Expansion and Respiratory Effort, Clear to Auscultation Cardiovascular: NL Sounds; No Murmurs; No JVD, RRR, No Edema Abdominal: NL Sounds; No Tenderness; No Distention Lymphatic: No Cervical Adenopathy Extremities: No Edema, No Clubbing, Cyanosis Skin: No Rash or Ulcers, - - Dressing to RLE CDI Neurological: Alert and Oriented x 3, NL Muscle Strength and Tone Nutrition: Taking PO's Result Diagrams: 12/11/18 08:00 12/11/18 09:35 Additional Lab and Data: Laboratory Results - last 24 hr 12/10/18 12/11/18 12/11/18 21:20 07:21 08:00 WBC 10.1 RBC 4.06 L Hgb 12.7 L Hct 37 L MCV 90 MCH 31 MCHC 35 RDW 14 Plt Count 346 MPV 8.3 Neut % (Auto) 74.8 Lymph % (Auto) 11.6 [place] % (Auto) 8.5 Eos % (Auto) 3.5 Baso % (Auto) 1.6 Absolute Neuts (auto) 7.6 Absolute Lymphs (auto) 1.2 Absolute Monos (auto) 0.9 H Absolute Eos (auto) 0.4 Absolute Basos (auto) 0.2 Absolute Nucleated RBC 0.0 Nucleated RBC % 0.1 Sodium Potassium Chloride Carbon Dioxide Anion Gap BUN Creatinine Est GFR ( Amer) Est GFR (Non-Af Amer) BUN/Creatinine Ratio Glucose POC Glucose (mg/dL) 250 H 99 Calcium 12/11/18 12/11/18 12/11/18 08:00 09:35 11:40 WBC RBC Hgb Hct MCV MCH MCHC RDW Plt Count MPV Neut % (Auto) Lymph % (Auto) [place] % (Auto) Eos % (Auto) Baso % (Auto) Absolute Neuts (auto) Absolute Lymphs (auto) Absolute Monos (auto) Absolute Eos (auto) Absolute Basos (auto) Absolute Nucleated RBC Nucleated RBC % Sodium 131 L Potassium TNP 3.7 Chloride 98 L Carbon Dioxide 26 Anion Gap 7 BUN 15 Creatinine 1.16 Est GFR ( Amer) 72.6 Est GFR (Non-Af Amer) 60.0 BUN/Creatinine Ratio 12.9 Glucose 189 H POC Glucose (mg/dL) 135 H Calcium 8.6 12/11/18 16:43 WBC RBC Hgb Hct MCV MCH MCHC RDW Plt Count MPV Neut % (Auto) Lymph % (Auto) [place] % (Auto) Eos % (Auto) Baso % (Auto) Absolute Neuts (auto) Absolute Lymphs (auto) Absolute Monos (auto) Absolute Eos (auto) Absolute Basos (auto) Absolute Nucleated RBC Nucleated RBC % Sodium Potassium Chloride Carbon Dioxide Anion Gap BUN Creatinine Est GFR ( Amer) Est GFR (Non-Af Amer) BUN/Creatinine Ratio Glucose POC Glucose (mg/dL) 134 H Calcium Microbiology and Other Data: Microbiology 12/08/18 09:20 Anaerobic Culture - Preliminary Wound - Right 12/08/18 09:20 Gram Stain - Final Foot Right Wound Culture - Preliminary Staphylococcus Aureus 12/02/18 12:58 Aerobic Blood Culture - Final Blood Venous No Growth Day 5 Anaerobic Blood Culture - Final No Growth Day 5 12/02/18 12:58 Aerobic Blood Culture - Final Blood Venous No Growth Day 5 Anaerobic Blood Culture - Final No Growth Day 5 Assess/Plan/Problems-Billing Assessment: 83 yr old male with pmh of right sided dvt/pe s/p IVC filter, htn, gout; who presented to the ED with right 2nd digit gangrene; s/p revascularization, stenting RLE 12/05. - Patient Problems (1) Pain Comment: - Pain well controlled per patient. Decrease use of PRN pain medications with scheduled Tylenol - To reduce narcotic use and risks associated, I have ordered scheduled Tylenol. - Cont oxycodone PRN (2) Gangrene of toe of right foot Comment: - POD 3 L 2nd digit amputation - S/P revascularization with Dr Giraldo 12/05 - Plavix 75 mg PO qd [id number], ASA 81 mg PO qd per Kristal - BC NGTD - Wound culture revealed Staphylococcus Aureus. Patient currently on Vanco and Cefepime. Will defer abx to ID consulting - Cont Vanco and Cefepime per ID (3) Diabetes Comment: - Continue lantus and ss insulin - Oral home medications on hold (4) HTN (hypertension) Comment: - Closer to BP goal - Cont Hydralazine IV q6h prn. Last dose this morning. Continue to monitor. May need increase in scheduled HTN med - Amlodipine 5mg PO daily added on 12/08 - Continue Metoprolol (5) Gout Comment: - Cont Allopurinol (6) History of DVT (deep vein thrombosis) Comment: - Has IVC filter - Cont sub Q heparin for DVT proph (7) DVT prophylaxis Comment: - Cont sub Q heparin for DVT proph Status and Disposition: Inpatient. Revascularization and stenting RLE 12/05 and surgical amputation RLE 2nd digit 12/08. Discharge when stable. PT recommending YOSELIN Attending: Raven Monet
[2018-12-12] MEDS: Levothyroxine TAB* 50 MCG TAB PO SCH (05:57)
[2018-12-12] MEDS: Heparin VIAL(*) 5000 UNITS/ML VIAL (FIVE THOUSAND) SUBCUT SCH ×3 (05:58→21:23)
[2018-12-12] MEDS: Cefepime 1 GM in Dextrose(*) 1 GM/50 ML BAG IV SCH (05:58)
[2018-12-12 07:15] LABS: ABS Basophils 0.1 10^3/ul (0-0.2); ABS Eosinophils 0.4 10^3/ul (0-0.6); ABS Lymphocytes 1.3 10^3/ul (1.0-4.8); ABS Monocytes 0.9 10^3/ul (0-0.8); ABS Neutrophils 7.3 10^3/ul (1.5-7.7); Eosinophil % 3.8 %; Hematocrit 35 % (42-52); Hemoglobin 12.5 g/dL (14.0-18.0); Lymphocyte % 13.1 %; Mean Corpuscular HGB Conc 36 g/dL (31-36); Mean Corpuscular Hemoglobin 32 pg (27-31); Mean Corpuscular Volume 89 fL (80-94); Mean Platelet Volume 7.2 fL (7.4-10.4); Nucleated Red Blood Cells % 0.4; Platelet Count 431 10^3/uL (150-450); Red Blood Count 3.95 10^6 /uL (4.18-5.48); Red Cell Distribution Width 14 % (10-15); White Blood Count 10.1 10^3/uL (3.5-10.8)
[2018-12-12 07:31] LABS: EGFR African American 74.8 (>60); EGFR Non-African American 61.8 (>60); Potassium 3.7 mmol/L (3.5-5.0)
[2018-12-12] MEDS: Multivitamins/Minerals TAB PO SCH (08:35)
[2018-12-12] MEDS: Acetaminophen TAB* 325 MG PO SCH ×3 (08:35→21:22)
[2018-12-12] MEDS: Aspirin 81 mg CHEW TAB* 81 MG TAB.CHEW PO SCH (08:35)
[2018-12-12] MEDS: Clopidogrel TAB* 75 MG PO SCH (08:35)
[2018-12-12] MEDS: Allopurinol TAB* 300 MG PO SCH (08:35)
[2018-12-12] MEDS: Insulin LISPRO* 1 UNITS UNIT SUBCUT SCH ×4 (08:35→21:23)
[2018-12-12] MEDS: Metoprolol Succinate XL TAB* 50 MG PO SCH (08:35)
[2018-12-12] MEDS: Docusate CAP* 100 MG PO SCH ×2 (08:35→21:22)
[2018-12-12] MEDS: amLODIPine TAB* 5 MG PO SCH (08:35)
[2018-12-12] MEDS: Senna TAB 8.6 mg* TAB PO SCH ×2 (08:35→21:22)
[2018-12-12] MEDS: Vancomycin(*) 750 MG in NS 0.9% 250 ML* 250 ML IVPB SCH (10:17)
--- NOTE | 2018-12-12 13:33 | PN ---
Subjective Date of Service: 12/12/18 Interval History: Sitting in chair on assessment. Reports he has no pain today in RLE. Denies numbness/tingling, calf pain, fever, chills, sob, cp. Reports he is voiding well and had a BM yesterday. Discussed [facility] with patient and benefits of a short stay there and he is agreeable. At the end of my assessment patient attempted to get up out of the chair with no assistance to transfer himself to bed. In PT notes it is documented that his is unsteady, therefore, called for RN and personal alarm to be placed. Objective Active Medications: Acetaminophen (Tylenol Tab*) 975 mg PO TID [facility] Last Admin: 12/12/18 08:35 Dose: 975 mg Al Hydrox/Mg Hydrox/Simethicone (Maalox Plus*) 30 ml PO Q6H PRN PRN Reason: INDIGESTION Allopurinol (Zyloprim Tab*) 300 mg PO DAILY [facility] Last Admin: 12/12/18 08:35 Dose: 300 mg Amlodipine Besylate (Norvasc Tab*) 5 mg PO DAILY [facility] Last Admin: 12/12/18 08:35 Dose: 5 mg Aspirin (Aspirin 81 Mg Chew Tab*) 81 mg PO DAILY [facility] Stop: 12/01/19 08:59 Last Admin: 12/12/18 08:35 Dose: 81 mg Clopidogrel Bisulfate (Plavix Tab*) 75 mg PO DAILY [facility] Stop: 06/04/19 08:59 Last Admin: 12/12/18 08:35 Dose: 75 mg Dextrose (Dextrose 50% Vial 50 Ml*) 25 ml IV PUSH .FOR FS < 60 - SS PRN PRN Reason: FS < 60 Last Admin: 12/03/18 00:41 Dose: 25 ml Docusate Sodium (Colace Cap*) 100 mg PO BID [facility] Last Admin: 12/12/18 08:35 Dose: Not Given Heparin Sodium (Porcine) (Heparin Vial(*)) 5,000 units SUBCUT Q8HR [facility] Last Admin: 12/12/18 05:58 Dose: 5,000 units Hydralazine HCl (Apresoline Iv*) 5 mg IV SLOW PU Q6H PRN PRN Reason: Systolic Bp Greater Than: 160 Last Admin: 12/11/18 08:58 Dose: 5 mg Cefepime HCl (Maxipime 1 Gm In Dextrose Duplex (*)) 1 gm in 50 mls @ 100 mls/ hr IV Q12H [facility] Last Admin: 12/12/18 05:58 Dose: 100 mls/hr Vancomycin HCl 750 mg/ Sodium (Chloride) 250 mls @ 166.667 mls/hr IVPB Q12H [facility] Last Admin: 12/12/18 10:17 Dose: 166.667 mls/hr Insulin Glargine (Lantus(*)) 10 units SUBCUT 1630 [facility] Last Admin: 12/11/18 17:59 Dose: 10 units Insulin Human Lispro (Humalog*) 0 units SUBCUT ACHS [facility]; Protocol Last Admin: 12/12/18 08:35 Dose: 2 units Levothyroxine Sodium (Synthroid Tab*) 50 mcg PO DAILY@0600 [facility] Last Admin: 12/12/18 05:57 Dose: 50 mcg Magnesium Hydroxide (Milk Of Magnesia Liq*) 30 ml PO Q4H PRN PRN Reason: CONSTIPATION Last Admin: 12/11/18 08:58 Dose: 30 ml Metoprolol Succinate (Toprol Xl Tab*) 50 mg PO DAILY [facility] Last Admin: 12/12/18 08:35 Dose: 50 mg Multivitamins/Minerals (Theragran/Minerals Tab*) 1 tab PO DAILY [facility] Last Admin: 12/12/18 08:35 Dose: 1 tab Oxycodone HCl (Roxycodone Tab*) 5 mg PO Q4H PRN PRN Reason: PAIN - SEVERE Last Admin: 12/10/18 03:36 Dose: 5 mg Pharmacy Consult (Vancomycin Per Pharmacy*) 1 note FOLLOW UP . PRN PRN Reason: PER PROTOCOL Senna (Senokot Tab*) 1 tab PO BID [facility] Last Admin: 12/12/18 08:35 Dose: Not Given Tramadol HCl (Ultram*) 50 mg PO Q6H PRN PRN Reason: PAIN - MODERATE Last Admin: 12/11/18 13:56 Dose: 50 mg Vital Signs - 8 hr 12/12/18 12/12/18 07:42 12:04 Temperature 98.6 F 98.3 F Pulse Rate 76 62 Respiratory 19 17 Rate Blood Pressure 163/78 168/68 (mmHg) O2 Sat by Pulse 96 92 Oximetry Oxygen Devices in Use Now: None Appearance: Comfortable, NAD Eyes: No Scleral Icterus Ears/Nose/Mouth/Throat: Clear Oropharnyx, Mucous Membranes Moist Neck: NL Appearance and Movements; NL JVP, Trachea Midline Respiratory: Symmetrical Chest Expansion and Respiratory Effort, Clear to Auscultation Cardiovascular: NL Sounds; No Murmurs; No JVD, RRR, No Edema Abdominal: NL Sounds; No Tenderness; No Distention Lymphatic: No Cervical Adenopathy Extremities: No Edema, No Clubbing, Cyanosis Skin: - - Dressing to RLE CDI Neurological: Alert and Oriented x 3, NL Muscle Strength and Tone Nutrition: Taking PO's Result Diagrams: 12/12/18 06:55 12/12/18 06:55 Additional Lab and Data: Laboratory Results - last 24 hr 12/11/18 12/11/18 12/12/18 16:43 20:58 06:55 WBC 10.1 RBC 3.95 L Hgb 12.5 L Hct 35 L MCV 89 MCH 32 H MCHC 36 RDW 14 Plt Count 431 MPV 7.2 L Neut % (Auto) 72.7 Lymph % (Auto) 13.1 [place] % (Auto) 9.3 Eos % (Auto) 3.8 Baso % (Auto) 1.1 Absolute Neuts (auto) 7.3 Absolute Lymphs (auto) 1.3 Absolute Monos (auto) 0.9 H Absolute Eos (auto) 0.4 Absolute Basos (auto) 0.1 Absolute Nucleated RBC 0.0 Nucleated RBC % 0.4 Sodium Potassium Chloride Carbon Dioxide Anion Gap BUN Creatinine Est GFR ( Amer) Est GFR (Non-Af Amer) BUN/Creatinine Ratio Glucose POC Glucose (mg/dL) 134 H 386 H Calcium 12/12/18 12/12/18 12/12/18 06:55 08:20 12:04 WBC RBC Hgb Hct MCV MCH MCHC RDW Plt Count MPV Neut % (Auto) Lymph % (Auto) [place] % (Auto) Eos % (Auto) Baso % (Auto) Absolute Neuts (auto) Absolute Lymphs (auto) Absolute Monos (auto) Absolute Eos (auto) Absolute Basos (auto) Absolute Nucleated RBC Nucleated RBC % Sodium 136 Potassium 3.7 Chloride 99 L Carbon Dioxide 25 Anion Gap 12 H BUN 17 Creatinine 1.13 Est GFR ( Amer) 74.8 Est GFR (Non-Af Amer) 61.8 BUN/Creatinine Ratio 15.0 Glucose 142 H POC Glucose (mg/dL) 165 H 283 H Calcium 9.0 Microbiology and Other Data: Microbiology 12/08/18 09:20 Anaerobic Culture - Preliminary Wound - Right 12/08/18 09:20 Gram Stain - Final Foot Right Wound Culture - Preliminary Staphylococcus Aureus 12/02/18 12:58 Aerobic Blood Culture - Final Blood Venous No Growth Day 5 Anaerobic Blood Culture - Final No Growth Day 5 12/02/18 12:58 Aerobic Blood Culture - Final Blood Venous No Growth Day 5 Anaerobic Blood Culture - Final No Growth Day 5 Assess/Plan/Problems-Billing Assessment: 83 yr old male with pmh of right sided dvt/pe s/p IVC filter, htn, gout; who presented to the ED with right 2nd digit gangrene; s/p revascularization, stenting RLE 12/05. - Patient Problems (1) Pain Comment: - Denies pain currently. - Pain well controlled per patient. Decreased use of PRN pain medications noted with scheduled Tylenol - Cont oxycodone PRN and scheduled Tylenol (2) Gangrene of toe of right foot Comment: - Per ortho patient is stable from their standpoint for discharge. Will need dry sterile dressing changes. Heel WB - POD 4 L 2nd digit amputation - S/P revascularization with Dr Giraldo 12/05 - Plavix 75 mg PO qd [id number], ASA 81 mg PO qd per Kristal - BC NGTD - Wound culture revealed Staphylococcus Aureus. Patient currently on Vanco and Cefepime. Will defer abx to ID consulting - Cont Vanco and Cefepime per ID (3) Diabetes Comment: - Continue lantus and ss insulin - Oral home medications on hold (4) HTN (hypertension) Comment: - Increasing Norvasc to 7.5 - Closer to BP goal, but still hypertensive - Cont Hydralazine IV q6h prn. - Amlodipine 5mg PO daily added on 12/08 - Continue Metoprolol (5) Gout Comment: - Cont Allopurinol (6) History of DVT (deep vein thrombosis) Comment: - Has IVC filter - Cont sub Q heparin for DVT proph (7) DVT prophylaxis Comment: - Cont sub Q heparin for DVT proph Status and Disposition: Inpatient. Revascularization and stenting RLE 12/05 and surgical amputation RLE 2nd digit 12/08. Discharge when stable. PT recommending [facility] Attending: Raven Monet
--- NOTE | 2018-12-12 16:38 | PN ---
Progress Note - Progress Note Date of Service: 12/12/18 SOAP: Subjective: []Patient seen at bedside. Eating lunch. Comfortable, offers no complaints of pain. Denies SOB, CP. Objective: [] Vital Signs Temp 98.6 F 12/12/18 15:21 Pulse 72 12/12/18 15:21 Resp 20 12/12/18 15:21 BP 146/64 12/12/18 15:21 Pulse Ox 92 12/12/18 15:21 Intake & Output 12/11/18 12/12/18 12/12/18 18:59 06:59 18:59 Intake Total 1194 700 720 Output Total 650 1350 725 Balance 544 -650 -5 Intake: IVPB 354 ABX - CEFEPIME 55 ABX - VANCOMYCIN 299 Oral 840 700 720 Output: Urine 650 1350 725 Other: Estimated Void Large # Bowel Movements 1 0 Estimated Stool Amount Large Large # Voids 1 Laboratory Results - last 24 hr 12/11/18 12/11/18 12/12/18 16:43 20:58 06:55 WBC 10.1 RBC 3.95 L Hgb 12.5 L Hct 35 L MCV 89 MCH 32 H MCHC 36 RDW 14 Plt Count 431 MPV 7.2 L Neut % (Auto) 72.7 Lymph % (Auto) 13.1 [place] % (Auto) 9.3 Eos % (Auto) 3.8 Baso % (Auto) 1.1 Absolute Neuts (auto) 7.3 Absolute Lymphs (auto) 1.3 Absolute Monos (auto) 0.9 H Absolute Eos (auto) 0.4 Absolute Basos (auto) 0.1 Absolute Nucleated RBC 0.0 Nucleated RBC % 0.4 Sodium Potassium Chloride Carbon Dioxide Anion Gap BUN Creatinine Est GFR ( Amer) Est GFR (Non-Af Amer) BUN/Creatinine Ratio Glucose POC Glucose (mg/dL) 134 H 386 H Calcium 12/12/18 12/12/18 12/12/18 06:55 08:20 12:04 WBC RBC Hgb Hct MCV MCH MCHC RDW Plt Count MPV Neut % (Auto) Lymph % (Auto) [place] % (Auto) Eos % (Auto) Baso % (Auto) Absolute Neuts (auto) Absolute Lymphs (auto) Absolute Monos (auto) Absolute Eos (auto) Absolute Basos (auto) Absolute Nucleated RBC Nucleated RBC % Sodium 136 Potassium 3.7 Chloride 99 L Carbon Dioxide 25 Anion Gap 12 H BUN 17 Creatinine 1.13 Est GFR ( Amer) 74.8 Est GFR (Non-Af Amer) 61.8 BUN/Creatinine Ratio 15.0 Glucose 142 H POC Glucose (mg/dL) 165 H 283 H Calcium 9.0 Right foot kerlex dry and intact, remainder of foot without erythema Assessment: [] Per ortho patient is stable from standpoint for discharge. Will need dry sterile dressing changes. Heel WB - POD 4 L 2nd digit amputation - S/P revascularization with Dr Giraldo 12/05 - Plavix 75 mg PO qd [id number], ASA 81 mg PO qd per Kristal - BC NGTD - Wound culture revealed Staphylococcus Aureus. Patient currently on Vanco and Cefepime. Will defer abx to ID consulting - Cont Vanco and Cefepime per ID Plan: []As above
[2018-12-12] MEDS: Insulin GLARGINE(*) 1 UNITS UNIT SUBCUT SCH (17:13)
[2018-12-12] MEDS: ceFAZolin 1 GM ADVAN(*) 1 GM in NS 0.9% 50 ML* 50 ML IVPB SCH (17:13)
[2018-12-13] MEDS: ceFAZolin 1 GM ADVAN(*) 1 GM in NS 0.9% 50 ML* 50 ML IVPB SCH ×4 (00:19→23:32)
[2018-12-13] MEDS: hydrALAZINE IV* 20 MG/ML VIAL IV SLOW PU PRN (03:41)
[2018-12-13] MEDS: Levothyroxine TAB* 50 MCG TAB PO SCH (05:19)
[2018-12-13] MEDS: traMADol TAB* 50 MG PO PRN (05:19)
[2018-12-13] MEDS: Heparin VIAL(*) 5000 UNITS/ML VIAL (FIVE THOUSAND) SUBCUT SCH ×3 (05:20→21:12)
[2018-12-13] MEDS: Acetaminophen TAB* 325 MG PO SCH ×3 (07:39→21:14)
[2018-12-13] MEDS: Metoprolol Succinate XL TAB* 50 MG PO SCH (07:40)
[2018-12-13] MEDS: Docusate CAP* 100 MG PO SCH ×2 (07:40→21:13)
[2018-12-13] MEDS: Clopidogrel TAB* 75 MG PO SCH (07:40)
[2018-12-13] MEDS: Aspirin 81 mg CHEW TAB* 81 MG TAB.CHEW PO SCH (07:41)
[2018-12-13] MEDS: Senna TAB 8.6 mg* TAB PO SCH ×2 (07:41→21:13)
[2018-12-13] MEDS: Multivitamins/Minerals TAB PO SCH (07:42)
[2018-12-13] MEDS: Allopurinol TAB* 300 MG PO SCH (07:42)
[2018-12-13] MEDS ORDERED: amLODIPine TAB* 5 MG PO SCH (09:00)
--- NOTE | 2018-12-13 09:05 | PN ---
Subjective Date of Service: 12/13/18 Interval History: Mr. Perdomo is feeling well this morning. He offers no complaints. Denies pain. His breakfast tray had just arrived and he was more interested in eating than speaking with me. Denies CP, SOB, N/V. He is hungry. No concerns from nursing. Family History: Unchanged from Admission Social History: Unchanged from Admission Past Medical History: Unchanged from Admission Objective Active Medications: Acetaminophen (Tylenol Tab*) 975 mg PO TID [facility] Al Hydrox/Mg Hydrox/Simethicone (Maalox Plus*) 30 ml PO Q6H PRN INDIGESTION Allopurinol (Zyloprim Tab*) 300 mg PO DAILY [facility] Amlodipine Besylate (Norvasc Tab*) 7.5 mg PO DAILY [facility] Aspirin (Aspirin 81 Mg Chew Tab*) 81 mg PO DAILY [facility] Clopidogrel Bisulfate (Plavix Tab*) 75 mg PO DAILY [facility] Dextrose (Dextrose 50% Vial 50 Ml*) 25 ml IV PUSH .FOR FS < 60 - SS PRN FS < 60 Docusate Sodium (Colace Cap*) 100 mg PO BID [facility] Heparin Sodium (Porcine) (Heparin Vial(*)) 5,000 units SUBCUT Q8HR [facility] Hydralazine HCl (Apresoline Iv*) 5 mg IV SLOW PU Q6H PRN Systolic Bp Greater Than: 160 Cefazolin Sodium 1 gm/ Sodium (Chloride) 50 mls @ 200 mls/hr IVPB Q8H [facility] Insulin Glargine (Lantus(*)) 10 units SUBCUT 1630 [facility] Insulin Human Lispro (Humalog*) 0 units SUBCUT ACHS [facility]; Protocol Levothyroxine Sodium (Synthroid Tab*) 50 mcg PO DAILY@0600 [facility] Magnesium Hydroxide (Milk Of Magnesia Liq*) 30 ml PO Q4H PRN CONSTIPATION Metoprolol Succinate (Toprol Xl Tab*) 50 mg PO DAILY [facility] Multivitamins/Minerals (Theragran/Minerals Tab*) 1 tab PO DAILY [facility] Oxycodone HCl (Roxycodone Tab*) 5 mg PO Q4H PRN PAIN - SEVERE Senna (Senokot Tab*) 1 tab PO BID [facility] Tramadol HCl (Ultram*) 50 mg PO Q6H PRN PAIN - MODERATE Vital Signs - 8 hr 12/13/18 12/13/18 12/13/18 03:32 05:19 07:34 Temperature 98.1 F 98 F Pulse Rate 72 77 Respiratory 18 16 18 Rate Blood Pressure 165/83 169/77 (mmHg) O2 Sat by Pulse 93 94 Oximetry Oxygen Devices in Use Now: None Appearance: Elderly male sitting in bed in NAD Eyes: No Scleral Icterus Ears/Nose/Mouth/Throat: Mucous Membranes Moist Neck: NL Appearance and Movements; NL JVP, Trachea Midline Respiratory: Symmetrical Chest Expansion and Respiratory Effort, Clear to Auscultation Cardiovascular: NL Sounds; No Murmurs; No JVD, RRR Extremities: No Edema Skin: - - Dressing intact to right foot Neurological: - - Oriented to self and place Lines/Tubes/Other Access: Clean, Dry and Intact Peripheral IV Nutrition: Taking PO's Result Diagrams: 12/12/18 06:55 12/13/18 08:42 Assess/Plan/Problems-Billing Assessment: Mr. Perdomo is an 83 yo M with PMH of right sided DVT/PE s/p IVC filter, HTN, and gout; who presented to the ED with right 2nd digit gangrene, s/p revascularization/stenting RLE and R second toe amputation. - Patient Problems (1) Gangrene of toe of right foot Code(s): I96 - GANGRENE, NOT ELSEWHERE CLASSIFIED Comment: - S/p revascularization with Dr. Giraldo 12/05 - S/p right 2nd digit amputation with Dr. Dunbar on 12/08 - Wound culture growing Staph aureus - Appreciate ID consult - Per Ortho patient is stable for discharge; heel WB and will need dry sterile dressing changes - Cont cefazolin, Plavix (x6 months), aspirin (2) Diabetes Code(s): E11.9 - TYPE 2 DIABETES MELLITUS WITHOUT COMPLICATIONS Comment: - A1c 7.2% - Continue Lispro SS; resume metformin, glipizide; decrease Lantus (3) HTN (hypertension) Code(s): I10 - ESSENTIAL (PRIMARY) HYPERTENSION Comment: - Hypertensive, SBP 140-160s - Continue metoprolol, hydralazine PRN; increase amlodipine (4) History of DVT (deep vein thrombosis) Code(s): Z86.718 - PERSONAL HISTORY OF OTHER VENOUS THROMBOSIS AND EMBOLISM Comment: - IVC filter in place (5) History of gout Code(s): Z87.39 - PERSONAL HISTORY OF DISEASES OF THE MS SYS AND CONN TISS Comment: - Continue allopurinol (6) DVT prophylaxis Code(s): Z29.9 - ENCOUNTER FOR PROPHYLACTIC MEASURES, UNSPECIFIED Comment: - Heparin SQ (7) Full code status Code(s): Z78.9 - OTHER SPECIFIED HEALTH STATUS Comment: Status and Disposition: Inpatient. Discharge when cleared by ID. PT recommending [facility]. Attending: Raven Monet
[2018-12-13 09:42] LABS: EGFR African American 69.8 (>60); EGFR Non-African American 57.7 (>60); Vancomycin Trough 13.2 mcg/mL
[2018-12-13] MEDS: Insulin LISPRO* 1 UNITS UNIT SUBCUT SCH ×4 (09:48→21:12)
--- NOTE | 2018-12-13 11:03 | PN ---
Progress Note - Progress Note Date of Service: 12/13/18 SOAP: Subjective: ]Patient seen in bed. Was sleeping. Comfortable, offers no complaints of pain. Denies SOB, CP. Objective: Vital Signs Temp 98 F 12/13/18 07:34 Pulse 77 12/13/18 07:34 Resp 18 12/13/18 08:00 BP 169/77 12/13/18 07:34 Pulse Ox 94 12/13/18 07:34 Intake & Output 12/12/18 12/13/18 12/13/18 18:59 06:59 18:59 Intake Total 1030 1575 Output Total 725 2225 350 Balance 305 -650 -350 Intake: IV Fluids 25 NS (0.9%) 25 IVPB 50 ABX - CEFAZOLIN 50 Oral 1030 1500 Output: Urine 725 2225 350 Other: Estimated Void Large # Bowel Movements 1 Estimated Stool Amount Large # Voids 1 Right foot kerlex dry and intact, remainder of foot without erythema. Dressing was changed today. No drainage or purulence. Assessment: POD 5 L 2nd digit amputation PLAN: Per ortho patient is stable from standpoint for discharge. Will need dry sterile dressing changes. Heel WB - - S/P revascularization with Dr Giraldo 12/05 - Plavix 75 mg PO qd [id number], ASA 81 mg PO qd per Kristal - BC NGTD - Wound culture revealed Staphylococcus Aureus. Patient currently on Vanco and Cefepime. Will defer abx to ID consulting - Cont Vanco and Cefepime per ID
[2018-12-13] MEDS: Insulin GLARGINE(*) 1 UNITS UNIT SUBCUT SCH (18:10)
[2018-12-13] MEDS: glipiZIDE TAB.XL* 5 MG PO SCH (21:13)
[2018-12-13] MEDS: metFORMIN* 500 MG TAB PO SCH (21:14)
[2018-12-14] MEDS: Heparin VIAL(*) 5000 UNITS/ML VIAL (FIVE THOUSAND) SUBCUT SCH ×3 (05:27→21:21)
[2018-12-14] MEDS: Levothyroxine TAB* 50 MCG TAB PO SCH (05:30)
[2018-12-14] MEDS: oxyCODONE TAB* 5 MG TAB PO PRN ×2 (05:30→19:05)
[2018-12-14 06:15] LABS: BUN/Creatinine Ratio 15.1 (8-20); Calcium 9.5 mg/dL (8.6-10.3); EGFR African American 70.5 (>60); EGFR Non-African American 58.2 (>60); Potassium 3.8 mmol/L (3.5-5.0)
[2018-12-14] MEDS: ceFAZolin 1 GM ADVAN(*) 1 GM in NS 0.9% 50 ML* 50 ML IVPB SCH ×4 (07:45→23:35)
[2018-12-14] MEDS: Acetaminophen TAB* 325 MG PO SCH ×3 (07:50→21:17)
[2018-12-14] MEDS: Docusate CAP* 100 MG PO SCH ×2 (07:51→21:18)
[2018-12-14] MEDS: glipiZIDE TAB.XL* 5 MG PO SCH ×2 (07:51→21:17)
[2018-12-14] MEDS: metFORMIN* 500 MG TAB PO SCH ×2 (07:51→21:18)
[2018-12-14] MEDS: Senna TAB 8.6 mg* TAB PO SCH ×2 (07:52→21:18)
[2018-12-14] MEDS: Allopurinol TAB* 300 MG PO SCH (07:52)
[2018-12-14] MEDS: Aspirin 81 mg CHEW TAB* 81 MG TAB.CHEW PO SCH (07:52)
[2018-12-14] MEDS: Multivitamins/Minerals TAB PO SCH (07:52)
[2018-12-14] MEDS: Metoprolol Succinate XL TAB* 50 MG PO SCH (07:52)
[2018-12-14] MEDS: amLODIPine TAB* 5 MG PO SCH (07:53)
[2018-12-14] MEDS: Insulin LISPRO* 1 UNITS UNIT SUBCUT SCH ×4 (07:53→21:20)
[2018-12-14] MEDS: Clopidogrel TAB* 75 MG PO SCH (07:53)
--- NOTE | 2018-12-14 09:16 | PN ---
Subjective Date of Service: 12/14/18 Interval History: Mr. Perdomo is feeling fine this morning. He offers no complaints. Denies pain. He is eating breakfast and not particularly interested in speaking with me. Denies CP, SOB, N/V. No concerns from nursing. Family History: Unchanged from Admission Social History: Unchanged from Admission Past Medical History: Unchanged from Admission Objective Active Medications: Acetaminophen (Tylenol Tab*) 975 mg PO TID [facility] Al Hydrox/Mg Hydrox/Simethicone (Maalox Plus*) 30 ml PO Q6H PRN INDIGESTION Allopurinol (Zyloprim Tab*) 300 mg PO DAILY [facility] Amlodipine Besylate (Norvasc Tab*) 10 mg PO DAILY [facility] Aspirin (Aspirin 81 Mg Chew Tab*) 81 mg PO DAILY [facility] Clopidogrel Bisulfate (Plavix Tab*) 75 mg PO DAILY [facility] Dextrose (Dextrose 50% Vial 50 Ml*) 25 ml IV PUSH .FOR FS < 60 - SS PRN FS < 60 Docusate Sodium (Colace Cap*) 100 mg PO BID [facility] Glipizide (Glucotrol Xl*) 10 mg PO BID [facility] Heparin Sodium (Porcine) (Heparin Vial(*)) 5,000 units SUBCUT Q8HR [facility] Hydralazine HCl (Apresoline Iv*) 5 mg IV SLOW PU Q6H PRN Systolic Bp Greater Than: 160 Cefazolin Sodium 1 gm/ Sodium (Chloride) 50 mls @ 200 mls/hr IVPB Q8H [facility] Insulin Glargine (Lantus(*)) 5 units SUBCUT 1630 [facility] Insulin Human Lispro (Humalog*) 0 units SUBCUT ACHS [facility]; Protocol Levothyroxine Sodium (Synthroid Tab*) 50 mcg PO DAILY@0600 [facility] Magnesium Hydroxide (Milk Of Magnesia Liq*) 30 ml PO Q4H PRN CONSTIPATION Metformin HCl (Glucophage*) 1,000 mg PO BID [facility] Metoprolol Succinate (Toprol Xl Tab*) 50 mg PO DAILY [facility] Multivitamins/Minerals (Theragran/Minerals Tab*) 1 tab PO DAILY [facility] Oxycodone HCl (Roxycodone Tab*) 5 mg PO Q4H PRN PAIN - SEVERE Senna (Senokot Tab*) 1 tab PO BID [facility] Tramadol HCl (Ultram*) 50 mg PO Q6H PRN PAIN - MODERATE Vital Signs - 8 hr 12/14/18 12/14/18 12/14/18 03:05 05:30 08:19 Temperature 98.4 F 99 F Pulse Rate 71 70 Respiratory 20 17 11 Rate Blood Pressure 166/82 145/81 (mmHg) O2 Sat by Pulse 94 96 Oximetry Oxygen Devices in Use Now: None Appearance: Elderly male sitting in bed in NAD Eyes: No Scleral Icterus Ears/Nose/Mouth/Throat: Mucous Membranes Moist Neck: NL Appearance and Movements; NL JVP, Trachea Midline Respiratory: Symmetrical Chest Expansion and Respiratory Effort, Clear to Auscultation Cardiovascular: NL Sounds; No Murmurs; No JVD, RRR Abdominal: NL Sounds; No Tenderness; No Distention Extremities: No Edema Neurological: - - Oriented to self and place Lines/Tubes/Other Access: Clean, Dry and Intact Peripheral IV Nutrition: Taking PO's Result Diagrams: 12/12/18 06:55 12/14/18 05:22 Assess/Plan/Problems-Billing Assessment: Mr. Perdomo is an 83 yo M with PMH of right sided DVT/PE s/p IVC filter, HTN, and gout; who presented to the ED with right 2nd digit gangrene, s/p revascularization/stenting RLE and R second toe amputation. - Patient Problems (1) Gangrene of toe of right foot Code(s): I96 - GANGRENE, NOT ELSEWHERE CLASSIFIED Comment: - S/p revascularization with Dr. Giraldo 12/05 - S/p right 2nd digit amputation with Dr. Dunbar on 12/08 - Wound culture growing Staph aureus - Appreciate ID consult - Per Ortho patient is stable for discharge; heel WB and will need dry sterile dressing changes - Continue cefazolin, Plavix (x6 months), aspirin (2) Diabetes Code(s): E11.9 - TYPE 2 DIABETES MELLITUS WITHOUT COMPLICATIONS Comment: - A1c 7.2% - Continue Lispro SS, metformin, glipizide, Lantus (3) HTN (hypertension) Code(s): I10 - ESSENTIAL (PRIMARY) HYPERTENSION Comment: - Hypertensive, SBP 140-170s - Continue metoprolol, hydralazine PRN, amlodipine (4) History of DVT (deep vein thrombosis) Code(s): Z86.718 - PERSONAL HISTORY OF OTHER VENOUS THROMBOSIS AND EMBOLISM Comment: - IVC filter in place (5) History of gout Code(s): Z87.39 - PERSONAL HISTORY OF DISEASES OF THE MS SYS AND CONN TISS Comment: - Continue allopurinol (6) DVT prophylaxis Code(s): Z29.9 - ENCOUNTER FOR PROPHYLACTIC MEASURES, UNSPECIFIED Comment: - Heparin SQ (7) Full code status Code(s): Z78.9 - OTHER SPECIFIED HEALTH STATUS Comment: Status and Disposition: Inpatient. Discharge when cleared by ID. PT recommending [facility]. Attending: Raven Monet
--- NOTE | 2018-12-14 10:05 | PN ---
Progress Note - Progress Note Date of Service: 12/14/18 SOAP: Subjective: Patient seen in bed. Was sleeping. Comfortable, offers no complaints of pain. Denies SOB, CP. Objective: Vital Signs Temp 99 F 12/14/18 08:19 Pulse 70 12/14/18 08:19 Resp 11 12/14/18 08:19 BP 145/81 12/14/18 08:19 Pulse Ox 96 12/14/18 08:19 Intake & Output 12/13/18 12/14/18 12/14/18 18:59 06:59 18:59 Intake Total 720 352 Output Total 900 750 175 Balance -180 -398 -175 Intake: IVPB 52 ABX - CEFAZOLIN 52 Oral 720 300 Output: Urine 900 750 175 Other: # Bowel Movements 0 Right foot kerlex dry and intact, remainder of foot without erythema. Assessment: POD 6 L 2nd digit amputation PLAN: Per ortho patient is stable from standpoint for discharge. Will need dry sterile dressing changes. Heel WB - S/P revascularization with Dr Giraldo 12/05 - Plavix 75 mg PO qd [id number], ASA 81 mg PO qd per Kristal - BC NGTD - Wound culture revealed Staphylococcus Aureus. Patient currently on Vanco and Cefepime. Will defer abx to ID consulting - Cont Vanco and Cefepime per ID
[2018-12-14] MEDS: Insulin GLARGINE(*) 1 UNITS UNIT SUBCUT SCH (18:16)
[2018-12-15] MEDS: Heparin VIAL(*) 5000 UNITS/ML VIAL (FIVE THOUSAND) SUBCUT SCH ×3 (05:54→21:35)
[2018-12-15] MEDS: Levothyroxine TAB* 50 MCG TAB PO SCH (05:55)
[2018-12-15] MEDS: oxyCODONE TAB* 5 MG TAB PO PRN ×2 (05:57→10:28)
[2018-12-15 06:26] LABS: BUN/Creatinine Ratio 16.4 (8-20); Calcium 9.8 mg/dL (8.6-10.3); EGFR African American 68.5 (>60); EGFR Non-African American 56.6 (>60)
[2018-12-15] MEDS: ceFAZolin 1 GM ADVAN(*) 1 GM in NS 0.9% 50 ML* 50 ML IVPB SCH ×3 (07:33→23:39)
[2018-12-15] MEDS: traMADol TAB* 50 MG PO PRN (07:46)
[2018-12-15] MEDS: Insulin LISPRO* 1 UNITS UNIT SUBCUT SCH ×4 (07:49→21:34)
[2018-12-15] MEDS: Aspirin 81 mg CHEW TAB* 81 MG TAB.CHEW PO SCH (08:54)
[2018-12-15] MEDS: Docusate CAP* 100 MG PO SCH ×2 (08:55→21:32)
[2018-12-15] MEDS: Acetaminophen TAB* 325 MG PO SCH ×3 (08:55→21:32)
[2018-12-15] MEDS: amLODIPine TAB* 5 MG PO SCH (08:55)
[2018-12-15] MEDS: metFORMIN* 500 MG TAB PO SCH ×2 (08:55→21:33)
[2018-12-15] MEDS: glipiZIDE TAB.XL* 5 MG PO SCH ×2 (08:55→21:33)
[2018-12-15] MEDS: Allopurinol TAB* 300 MG PO SCH (08:56)
[2018-12-15] MEDS: Senna TAB 8.6 mg* TAB PO SCH ×2 (08:56→21:32)
[2018-12-15] MEDS: Metoprolol Succinate XL TAB* 50 MG PO SCH (08:56)
[2018-12-15] MEDS: Multivitamins/Minerals TAB PO SCH (08:56)
[2018-12-15] MEDS: Clopidogrel TAB* 75 MG PO SCH (08:56)
--- NOTE | 2018-12-15 10:04 | PN ---
Progress Note - Progress Note Date of Service: 12/15/18 SOAP: Subjective: CC: Right foot infection with gangrene. HPI: Mr. Perdomo is a 83 yo male with PMH significant for DM2, hx right LE DVT HX MN, HTN, and gout who presented to the hospital with complaints of right foot redness. Denies fever, chills, shortness of breath, nausea, vomiting, constipation, or diarrhea. Reports that his appetite is good. Denies pain in the right foot at this time. Objective: Vital Signs - 8 hr 12/15/18 12/15/18 12/15/18 03:44 05:57 07:41 Temperature 97.6 F 98.0 F Pulse Rate 73 66 Respiratory 18 17 16 Rate Blood Pressure 165/75 167/69 (mmHg) O2 Sat by Pulse 93 95 Oximetry Physical Exam: General: NAD, sitting up in bed Neurological: Alert and Oriented to person and place HEENT: Moist MM, no thrush Cardiovascular: Heart rate regular, no murmur Respiratory: Lung sounds clear bilateral Abdominal: Bowel sounds present; ABD soft, non tender and non distended Skin: Dressing to right foot clean and intact Laboratory Results - last 24 hr 12/14/18 12/15/18 20:53 05:54 Sodium 138 Potassium 4.0 Chloride 103 Carbon Dioxide 25 Anion Gap 10 BUN 20 Creatinine 1.22 H Est GFR ( Amer) 68.5 Est GFR (Non-Af Amer) 56.6 BUN/Creatinine Ratio 16.4 Glucose 89 POC Glucose (mg/dL) 292 H Calcium 9.8 Microbiology 12/08/18 09:20 Anaerobic Culture - Final Wound - Right 12/08/18 09:20 Gram Stain - Final Foot Right Wound Culture - Final Staphylococcus Aureus 12/02/18 12:58 Aerobic Blood Culture - Final Blood Venous No Growth Day 5 Anaerobic Blood Culture - Final No Growth Day 5 12/02/18 12:58 Aerobic Blood Culture - Final Blood Venous No Growth Day 5 Anaerobic Blood Culture - Final No Growth Day 5 Assessment: 1. Right 2nd toe gangrene with myositis. MRI with no signs of osteomyelitis. Abnormal ABIs, see in consult by Dr. Giraldo . S/P right 2nd toe amputation, POD #7. Blood cultures negative on day 5. No organisms seen in the preliminary wound cultures from the OR. Afebrile and no leukocytosis. 2. DM2. 3. Occluded right mid SFA. S/Pright LE arteriography, revascularization and stenting of occluded right mid SFA, ballon angioplasty of the right [employer]-SFA, and TPT. Plan: Continue Ancef, day 12/24. Will need to have weekly labs while on IV ABX: CBC, CMP, and CRP. Followup with ID in 2 weeks outpatient.
--- NOTE | 2018-12-15 10:43 | PN ---
Progress Note - Progress Note Date of Service: 12/15/18 SOAP: Subjective: []Pt seen at bedside. Denies fever or chills. Right foot pain is tolerable. Objective: []Gen: Appears well, NAD RLE: Dressing changed, Incision healing well CDI without erythema surrounding. No discharge. Cap refill less than two seconds distally. Calves supple and nontender Assessment: []Sp R 2nd toe amp Plan: [] Patient is stable from ortho standpoint for discharge. Will need dry sterile dressing changes every other day. - Heel WB - S/P revascularization with Dr Giraldo 12/05 Plavix 75 mg PO qd [id number], ASA 81 mg PO qd per Kristal - Continue Ancef, day 12/24. Will need to have weekly labs while on IV ABX: CBC, CMP, and CRP. Followup with ID in 2 weeks outpatient. ' Vital Signs Temp 97.4 F 12/15/18 11:23 Pulse 62 12/15/18 11:23 Resp 16 12/15/18 12:10 BP 146/69 12/15/18 11:23 Pulse Ox 96 12/15/18 11:23 Intake & Output 12/14/18 12/15/18 12/15/18 18:59 06:59 18:59 Intake Total 660 532 75 Output Total 995 1000 225 Balance -335 -468 -150 Intake: IV Fluids 20 NS (0.9%) 20 IVPB 52 55 ABX - CEFAZOLIN 52 55 Oral 660 480 Output: Urine 995 1000 225 Other: # Bowel Movements 1 Estimated Stool Amount Large Laboratory Last Values WBC 10.1 10^3/uL (3.5-10.8) 12/12/18 06:55 RBC 3.95 10^6 /uL (4.18-5.48) L 12/12/18 06:55 Hgb 12.5 g/dL (14.0-18.0) L 12/12/18 06:55 Hct 35 % (42-52) L 12/12/18 06:55 MCV 89 fL (80-94) 12/12/18 06:55 MCH 32 pg (27-31) H 12/12/18 06:55 MCHC 36 g/dL (31-36) 12/12/18 06:55 RDW 14 % (10-15) 12/12/18 06:55 Plt Count 431 10^3/uL (150-450) 12/12/18 06:55 MPV 7.2 fL (7.4-10.4) L 12/12/18 06:55 Neut % (Auto) 72.7 % 12/12/18 06:55 Lymph % (Auto) 13.1 % 12/12/18 06:55 [place] % (Auto) 9.3 % 12/12/18 06:55 Eos % (Auto) 3.8 % 12/12/18 06:55 Baso % (Auto) 1.1 % 12/12/18 06:55 Absolute Neuts (auto) 7.3 10^3/ul (1.5-7.7) 12/12/18 06:55 Absolute Lymphs (auto) 1.3 10^3/ul (1.0-4.8) 12/12/18 06:55 Absolute Monos (auto) 0.9 10^3/ul (0-0.8) H 12/12/18 06:55 Absolute Eos (auto) 0.4 10^3/ul (0-0.6) 12/12/18 06:55 Absolute Basos (auto) 0.1 10^3/ul (0-0.2) 12/12/18 06:55 Absolute Nucleated RBC 0.0 10^3/ul 12/12/18 06:55 Nucleated RBC % 0.4 12/12/18 06:55 ESR 50 mm/Hr (0-19) H 12/02/18 16:35 INR (Anticoag Therapy) 1.23 (0.82-1.09) H 12/09/18 13:45 APTT 30.6 seconds (26.0-38.0) 12/09/18 13:45 POC Activ Clotting Time 166 seconds 12/05/18 15:22 Sodium 138 mmol/L (135-145) 12/15/18 05:54 Potassium 4.0 mmol/L (3.5-5.0) 12/15/18 05:54 Chloride 103 mmol/L (101-111) 12/15/18 05:54 Carbon Dioxide 25 mmol/L (22-32) 12/15/18 05:54 Anion Gap 10 mmol/L (2-11) 12/15/18 05:54 BUN 20 mg/dL (6-24) 12/15/18 05:54 Creatinine 1.22 mg/dL (0.67-1.17) H 12/15/18 05:54 Est GFR ( Amer) 68.5 (>60) 12/15/18 05:54 Est GFR (Non-Af Amer) 56.6 (>60) 12/15/18 05:54 BUN/Creatinine Ratio 16.4 (8-20) 12/15/18 05:54 Glucose 89 mg/dL (70-100) 12/15/18 05:54 POC Glucose (mg/dL) 314 mg/dL (70-100) H 12/15/18 12:07 Hemoglobin A1c 7.2 % (4.0-5.6) H 12/03/18 06:27 Lactic Acid 1.8 mmol/L (0.5-2.0) 12/15/18 12:01 Calcium 9.8 mg/dL (8.6-10.3) 12/15/18 05:54 Total Bilirubin 1.00 mg/dL (0.2-1.0) 12/02/18 12:58 AST 12 U/L (13-39) L 12/02/18 12:58 ALT 14 U/L (7-52) 12/02/18 12:58 Alkaline Phosphatase 62 U/L (34-104) 12/02/18 12:58 C-Reactive Protein 137.75 mg/L (<8.01) H 12/09/18 06:19 Total Protein 6.5 g/dL (6.4-8.9) 12/02/18 12:58 Albumin 3.7 g/dL (3.2-5.2) 12/02/18 12:58 Globulin 2.8 g/dL (2-4) 12/02/18 12:58 Albumin/Globulin Ratio 1.3 (1-3) 12/02/18 12:58 Vancomycin Trough 13.2 mcg/mL 12/13/18 08:42
--- NOTE | 2018-12-15 11:50 | PN ---
Subjective Date of Service: 12/15/18 Interval History: Mr. Perdomo is feeling fine this morning. He had an uneventful night. Initially denied pain, but then admitted to 12/13 right foot pain for which he was requesting pain medication (which he just had according to RN). Denies CP, SOB, N/V. No concerns from nursing. Family History: Unchanged from Admission Social History: Unchanged from Admission Past Medical History: Unchanged from Admission Objective Active Medications: Acetaminophen (Tylenol Tab*) 975 mg PO TID KENNETH Al Hydrox/Mg Hydrox/Simethicone (Maalox Plus*) 30 ml PO Q6H PRN INDIGESTION Allopurinol (Zyloprim Tab*) 300 mg PO DAILY KENNETH Amlodipine Besylate (Norvasc Tab*) 10 mg PO DAILY KENNETH Aspirin (Aspirin 81 Mg Chew Tab*) 81 mg PO DAILY KENNETH Clopidogrel Bisulfate (Plavix Tab*) 75 mg PO DAILY [facility] Dextrose (Dextrose 50% Vial 50 Ml*) 25 ml IV PUSH .FOR FS < 60 - SS PRN FS < 60 Docusate Sodium (Colace Cap*) 100 mg PO BID KENNETH Glipizide (Glucotrol Xl*) 10 mg PO BID [facility] Heparin Sodium (Porcine) (Heparin Vial(*)) 5,000 units SUBCUT Q8HR KENNETH Hydralazine HCl (Apresoline Iv*) 5 mg IV SLOW PU Q6H PRN Systolic Bp Greater Than: 160 Cefazolin Sodium 1 gm/ Sodium (Chloride) 50 mls @ 200 mls/hr IVPB Q8H [facility] Insulin Glargine (Lantus(*)) 5 units SUBCUT 1630 [facility] Insulin Human Lispro (Humalog*) 0 units SUBCUT ACHS KENNETH; Protocol Levothyroxine Sodium (Synthroid Tab*) 50 mcg PO DAILY@0600 KENNETH Magnesium Hydroxide (Milk Of Magnesia Liq*) 30 ml PO Q4H PRN CONSTIPATION Metformin HCl (Glucophage*) 1,000 mg PO BID [facility] Metoprolol Succinate (Toprol Xl Tab*) 50 mg PO DAILY [facility] Multivitamins/Minerals (Theragran/Minerals Tab*) 1 tab PO DAILY [facility] Senna (Senokot Tab*) 1 tab PO BID [facility] Vital Signs - 8 hr 12/15/18 12/15/18 12/15/18 05:57 07:41 07:46 Temperature 98.0 F Pulse Rate 66 Respiratory 17 16 18 Rate Blood Pressure 167/69 (mmHg) O2 Sat by Pulse 95 Oximetry 12/15/18 12/15/18 10:28 11:23 Temperature 97.4 F Pulse Rate 62 Respiratory 16 16 Rate Blood Pressure 146/69 (mmHg) O2 Sat by Pulse 96 Oximetry Oxygen Devices in Use Now: None Appearance: Elderly male sitting in bed in NAD Eyes: No Scleral Icterus Ears/Nose/Mouth/Throat: Mucous Membranes Moist Neck: NL Appearance and Movements; NL JVP, Trachea Midline Respiratory: Symmetrical Chest Expansion and Respiratory Effort, Clear to Auscultation Cardiovascular: NL Sounds; No Murmurs; No JVD Abdominal: NL Sounds; No Tenderness; No Distention Extremities: No Edema Skin: - - Surgical dressing to right foot Neurological: Alert and Oriented x 3 Lines/Tubes/Other Access: Clean, Dry and Intact Peripheral IV Nutrition: Taking PO's Result Diagrams: 12/12/18 06:55 12/15/18 05:54 Assess/Plan/Problems-Billing Assessment: Mr. Perdomo is an 83 yo M with PMH of right sided DVT/PE s/p IVC filter, HTN, and gout; who presented to the ED with right 2nd digit gangrene, s/p revascularization/stenting RLE and R second toe amputation. - Patient Problems (1) Gangrene of toe of right foot Code(s): I96 - GANGRENE, NOT ELSEWHERE CLASSIFIED Comment: - S/p revascularization with Dr. Giraldo 12/05 - S/p right 2nd digit amputation with Dr. Dunbar on 12/08 - Wound culture growing Staph aureus - Appreciate ID consult - Per Ortho patient is stable for discharge; heel WB and will need dry sterile dressing changes - PICC placement today - Continue cefazolin (day 12/24), Plavix (x6 months), aspirin (2) Severe sepsis Code(s): A41.9 - SEPSIS, UNSPECIFIED ORGANISM; R65.20 - SEVERE SEPSIS WITHOUT SEPTIC SHOCK Comment: - Resolved - Met criteria with leukocytosis, tachycardia, elevated lactic - Source is right foot infection (3) Diabetes Code(s): E11.9 - TYPE 2 DIABETES MELLITUS WITHOUT COMPLICATIONS Comment: - A1c 7.2% - Continue Lispro SS, metformin, glipizide, Lantus (4) HTN (hypertension) Code(s): I10 - ESSENTIAL (PRIMARY) HYPERTENSION Comment: - Hypertensive, SBP 140-160s - Continue metoprolol, hydralazine PRN, amlodipine; start lisinopril (5) History of DVT (deep vein thrombosis) Code(s): Z86.718 - PERSONAL HISTORY OF OTHER VENOUS THROMBOSIS AND EMBOLISM Comment: - IVC filter in place (6) History of gout Code(s): Z87.39 - PERSONAL HISTORY OF DISEASES OF THE MS SYS AND CONN TISS Comment: - Continue allopurinol (7) DVT prophylaxis Code(s): Z29.9 - ENCOUNTER FOR PROPHYLACTIC MEASURES, UNSPECIFIED Comment: - Heparin SQ (8) Full code status Code(s): Z78.9 - OTHER SPECIFIED HEALTH STATUS Comment: Status and Disposition: Inpatient. Anticipate d/c to [facility] when bed available and PICC line placed, hopefully tomorrow. Attending: Raven Monet
[2018-12-15] MEDS: Lisinopril TAB* 5 MG PO SCH (12:09)
[2018-12-15] MEDS: Insulin GLARGINE(*) 1 UNITS UNIT SUBCUT SCH (18:05)
[2018-12-16] MEDS: Heparin VIAL(*) 5000 UNITS/ML VIAL (FIVE THOUSAND) SUBCUT SCH (05:26)
[2018-12-16] MEDS: Levothyroxine TAB* 50 MCG TAB PO SCH (05:26)
[2018-12-16] MEDS: Insulin LISPRO* 1 UNITS UNIT SUBCUT SCH ×2 (07:28→13:41)
[2018-12-16] MEDS: ceFAZolin 1 GM ADVAN(*) 1 GM in NS 0.9% 50 ML* 50 ML IVPB SCH (08:12)
[2018-12-16] MEDS: Docusate CAP* 100 MG PO SCH (08:12)
[2018-12-16] MEDS: Metoprolol Succinate XL TAB* 50 MG PO SCH (08:13)
[2018-12-16] MEDS: Acetaminophen TAB* 325 MG PO SCH (08:14)
[2018-12-16] MEDS: Aspirin 81 mg CHEW TAB* 81 MG TAB.CHEW PO SCH (08:14)
[2018-12-16] MEDS: Multivitamins/Minerals TAB PO SCH (08:15)
[2018-12-16] MEDS: glipiZIDE TAB.XL* 5 MG PO SCH (08:15)
[2018-12-16] MEDS: Lisinopril TAB* 5 MG PO SCH (08:16)
[2018-12-16] MEDS: metFORMIN* 500 MG TAB PO SCH (08:16)
[2018-12-16] MEDS: amLODIPine TAB* 5 MG PO SCH (08:16)
[2018-12-16] MEDS: Clopidogrel TAB* 75 MG PO SCH (08:17)
[2018-12-16] MEDS: Senna TAB 8.6 mg* TAB PO SCH (08:17)
[2018-12-16] MEDS: Allopurinol TAB* 300 MG PO SCH (08:17)
[2018-12-16 10:00] LABS: ABS Basophils 0.1 10^3/ul (0-0.2); ABS Eosinophils 0.3 10^3/ul (0-0.6); ABS Lymphocytes 1.7 10^3/ul (1.0-4.8); ABS Monocytes 0.6 10^3/ul (0-0.8); Eosinophil % 3.1 %; Hematocrit 38 % (42-52); Hemoglobin 12.9 g/dL (14.0-18.0); Lymphocyte % 19.4 %; Mean Corpuscular HGB Conc 34 g/dL (31-36); Mean Corpuscular Hemoglobin 31 pg (27-31); Mean Corpuscular Volume 90 fL (80-94); Mean Platelet Volume 6.9 fL (7.4-10.4); Nucleated Red Blood Cells % 0.1; Platelet Count 525 10^3/uL (150-450); Red Blood Count 4.22 10^6 /uL (4.18-5.48); Red Cell Distribution Width 14 % (10-15); White Blood Count 8.7 10^3/uL (3.5-10.8)
[2018-12-16 10:23] LABS: Albumin 3.8 g/dL (3.2-5.2); Albumin/Globulin Ratio 1.2 (1-3); BUN/Creatinine Ratio 17.8 (8-20); C Reactive Protein 20.54 mg/L (<8.01); Calcium 9.5 mg/dL (8.6-10.3); EGFR African American 64.2 (>60); EGFR Non-African American 53.1 (>60); Globulin 3.3 g/dL (2-4); Potassium 4.4 mmol/L (3.5-5.0); Total Bilirubin 0.7 mg/dL (0.2-1.0); Total Protein 7.1 g/dL (6.4-8.9)
--- NOTE | 2018-12-16 11:51 | DS ---
CC: Dr. Quincy Parker; Dr. Frederick Dunbar; Dr. Ascencion Diaz; Romy Fuller NP; Dr. Mookie Giraldo; [facility] * DISCHARGE SUMMARY: DATE OF ADMISSION: 12/02/18 DATE OF DISCHARGE: 12/16/18 PRIMARY CARE PROVIDER: Dr. Quincy Parker. ORTHOPEDIC SURGEON: Dr. Frederick Dunbar. INFECTIOUS DISEASE: Dr. Ascencion Diaz. INTERVENTIONAL RADIOLOGIST: Dr. Mookie Giraldo. ATTENDING PHYSICIAN: Dr. Raven Monet * (dictated by Aleida Mckeon NP). PRIMARY DIAGNOSES: 1. Right second toe gangrene and myositis. 2. Severe sepsis. SECONDARY DIAGNOSES: 1. Diabetes mellitus, type 2. 2. Hypertension. 3. History of DVT. 4. History of gout. STUDIES WHILE IN THE HOSPITAL: 1. Right foot x-ray on 12/02/18 reads as no appreciable erosion or periosteal reaction. Plain radiographic findings of osteomyelitis are relatively late findings. There is persistent clinical concern for osteomyelitis. Recommend correlation with followup imaging, 3-phase bone scanning, white blood cell, and/ or MRI of the affected region. 2. Ankle brachial indices on 12/02/18 reads as abnormal right ankle brachial index indicating a moderate/borderline severe peripheral atherosclerotic vascular disease. 3. EKG on 12/02/18 shows normal sinus rhythm with a rate of 75, first-degree AV block, QTc 457, right bundle branch block. No ST changes. 4. Transthoracic echocardiogram on 12/02/18 reads as the left ventricular systolic function is normal. Estimated ejection fraction is 55% to 60%. Wall motion is normal and there were no regional wall motion abnormalities. Right ventricular systolic function is normal. There is mild mitral regurgitation. The aortic valve has thickening consistent with sclerosis. There is no evidence of stenosis. There is mild aortic regurgitation. There is mild-to- moderate tricuspid regurgitation. The ascending aorta appears normal. Pulmonary artery systolic pressure is at the upper limits of normal. Pulmonary artery pressure may under estimated. Compared study on 09/05/12, the left ventricular function and valves are the same. The previously noted pulmonary hypertension is not seen today. 5. Right lower extremity MRI on 12/02/18 reads as mild soft tissue swelling of the visualized foot. Mild edematous change is identified within the middle third phalanx as well as the proximal and middle second phalanges. Early osteomyelitis cannot be excluded. Cystic changes identified within the bone marrow of the navicular bone and intermediate cuneiform bone. This is suggestive of arthropathy or neuropathic changes. Amputation of the distal second and third phalanges is visualized. There is bone loss or erosion of the distal fourth phalanx without significant acute edematous change. Patchy muscle edema is visualized suggestive of myositis or diabetic myopathy. Mild tenosynovitis of the peroneus longus tendon. Small effusion at the first MTP joint. Normal effusions at the remaining MTP joints. Additional findings described in the body of the report. CTA order was run off reads as widespread mixed attenuation atherosclerosis as described in more detail in the body of the report. The more severe and/or clinically relevant arterial findings are as follows: There appears to be high-grade stenosis at the proximal right renal artery due to mixed attenuation atherosclerosis. There are mild stenosis of the proximal bilateral superficial femoral arteries measuring approximately 50%. At the right SFA as the artery courses through [place]'s canal, there are several foci of high-grade stenosis and/or focal occlusion. Evaluation of the infrapopliteal arteries is limited due to calcified atherosclerosis causing beam attenuation. There is expected proximal occlusion of the bilateral ETA and ELECTRICIAN SHOP with the peroneal artery providing dominant blood flow to the foot via collaterals. Arteriography is necessary to best determine infrapopliteal arterial patency as well as evaluating the pedal arteries and pedal loop. There is suspected focus of high-grade stenosis versus out right occlusion at the mid level left popliteal artery in the left SFA as it passes through [place]' s canal. An IVC filter is noted in place. Please correlate to persistent indication for this device. As indicated in the literature below, IVC filter no longer as an indication should be considered for removal. There are additional chronic and degenerative changes described in the body of the report. 6. Chest x-ray on 12/06/18 reads as no definite acute cardiopulmonary process by radiograph. A small right pleural effusion with adjacent subsegmental atelectasis is possible. 7. Chest thorax CTA on 12/08/18 reads as no pulmonary emboli, fusiform aneurysm , thoracic aorta. No dissection or rupture. Small pleural effusions and associated lung volume loss. Right lower lobe pulmonary nodule unchanged from prior. Based on current Fleischner guidelines, no followup is recommended. Bosniak type 1 renal cyst. No followup indicated. CONSULTATIONS WHILE IN THE HOSPITAL: 1. Sonya Wili, PA from Orthopedics on 12/02/18. 2. Dr. Diaz from Infectious Disease on 12/03/18. 3. Dr. Giraldo from Interventional Radiology on 12/03/18. PROCEDURES WHILE IN THE HOSPITAL: 1. Right lower extremity revascularization with Dr. Giraldo on 12/05/18. Procedures performed: Pelvic and right lower extremity arteriography. Intravascular ultrasound imaging of the right superficial femoral artery. Catheter and wire revascularization of the occluded mid level right superficial femoral artery. Stenting of the right superficial femoral artery. Balloon angioplasty of the right posterior tibial artery. Percutaneous closure of the left common femoral artery utilizing an AngioSeal closure device. 2. Metatarsal phalangeal joint disarticulation, right second toe with Dr. Dunbar on 12/08/18. HISTORY OF PRESENT ILLNESS AND HOSPITAL COURSE: Mr. Perdomo is an 83-year-old male with past medical history of diabetes, DVT and PE, status post IVC filter, hypertension, and gout, who presented to the emergency room on 12/02/18 with a right foot infection. Please see the history and physical by Dr. Monet for complete summary of the events leading up to this hospitalization. In short, the patient complained of right foot erythema and infection that had been going on for approximately 1 week. The patient's right second toe was noted to be necrotic. In the emergency room, he was noted to meet criteria for severe sepsis with leukocytosis, tachycardia and a lactic acid greater than 2. This was secondary to the right foot infection. The patient was otherwise stable and blood pressure remained normal to hypertensive. The patient had imaging as noted above and because of the concern for gangrene was admitted by the hospitalist service. The patient was placed on vanco and Zosyn for broad spectrum coverage. Additional imaging was completed and orthopedics was consulted. The patient was seen by Orthopedics initially on 12/02/18 and at that point, they anticipated the patient would need a right second toe amputation. Dr. Diaz was consulted and at that point he indicated that there were no signs of osteomyelitis and recommended continuing the patient on cefepime and vancomycin. Dr. Giraldo was consulted as well on 12/03/18. At that point, he recommended a CTA of the aorta with runoff and indicated that after that CTA he will determine if the patient was a candidate for revascularization. The patient did have CTA with results noted above. Dr. Giraldo did agree to proceed with revascularization, which was done on 12/05/18 as noted above. Post- procedure, Dr. Giraldo loaded the patient on Plavix and noted that the patient should be on daily Plavix for 6 months and baby aspirin daily indefinitely. After revascularization, the plan was made to go ahead with surgery on the right foot and the patient did go to the OR with Dr. Dunbar on 12/08/18 as noted above. The patient tolerated the procedure well and there was minimal blood loss. Surgical specimen revealed findings consistent with acute cellulitis and some bone fragment with focal acute osteomyelitis. The patient was followed by Infectious Disease, who determined that the patient would need to be on cefazolin for a total of 21 days. At this point, Orthopedics has cleared the patient for discharge with appropriate dressing changes and followup. Infectious Disease has also cleared the patient for discharge with a total of 21 days of oral antibiotics. It was determined that the patient would need to go to subacute rehab and would receive antibiotic therapy there. At this point, the patient was stable for discharge from a medical standpoint. Again, he has recovered well from all procedures. Sepsis resolved after initiation of antibiotics. Chronic medical conditions remained stable. A1c was noted to be 7.2% showing moderately good control. At this point, today is day 9 of 21 of cefazolin, the patient did receive a PICC line yesterday for anticipation of outpatient antibiotics. As of this morning, the patient reports feeling well. He reports that he has some pain this morning, though did receive pain medication and is now resting comfortably in bed. He offers no other complaints. PHYSICAL EXAMINATION: On exam, he has no focal neurological deficits. His heart has a regular rate and rhythm. His lungs are clear to auscultation without rhonchi, wheezes, or rubs. Abdomen is soft, nontender with palpation. There is no edema. There is a dry dressing in place to the right lower extremity. Physical assessment is otherwise benign. Mr. Perdomo was stable for discharge today. Vital signs are as follows: Temp 98.6, heart rate 68, respiratory rate 16, oxygen saturation 94% on room air, blood pressure 177/67. DISCHARGE MEDICATIONS: New Medications: 1. Cefazolin 1 g IV q.8 hours x12 days. 2. Acetaminophen 975 mg p.o. t.i.d. 3. Amlodipine 10 mg p.o. daily. 4. Aspirin 81 mg p.o. daily. 5. Plavix 75 mg p.o. daily for a total of 6 months. 6. Docusate 100 mg p.o. b.i.d. 7. Heparin flush via PICC per protocol. 8. Lisinopril 5 mg p.o. daily. 9. Milk of mag 30 mL p.o. q.4 hours p.r.n. constipation. Continued medications: 1. Allopurinol 300 mg p.o. daily. 2. Glipizide 10 mg p.o. b.i.d. 3. Levothyroxine 50 mcg p.o. daily. 4. Metformin 1000 mg p.o. b.i.d. 5. Metoprolol succinate 50 mg p.o. daily. 6. Multivitamin 1 tab p.o. daily. Discontinued medications: 1. Fosinopril. DISCHARGE PLAN: Mr. Perdomo will be discharged to Rehab at [facility]. Per Orthopedics, the patient will be heel weightbearing on the right lower extremity. Diet will be consistent carb/diabetic. Medications are noted above. Again, the patient needs to complete a total of 21 days of cefazolin, today is day 9 of 21. Additionally, the patient has been placed on aspirin and Plavix post revascularization of the right lower extremity. He will need to remain on aspirin indefinitely and will need to remain on Plavix for a total of 6 months after revascularization. The Plavix was started on 12/05/18. We have made adjustments in antihypertensive agents while here in the hospital and have added amlodipine and changed the patient from fosinopril to lisinopril though antihypertensives may need further adjustments going forward. The patient can continue his other usual medications as noted above. Again A1c shows good control and I do not think there is any need to adjust metformin or glipizide dosing at this point. Per Orthopedics, the patient will need dry sterile dressings with Xeroform, 4x4's, and Kerlix daily. The incision will need to be kept clean and dry. The patient will need appropriate PICC care per usual protocol. The patient will need weekly CBC, CMP, and CRPs while on antibiotics and we will check those labs here prior to the patient departure. The patient additionally will need a close outpatient followup. He will need to be seen by Infectious Disease in 2 weeks and needs to follow up with Orthopedics next week. After discharge from rehab, the patient should follow up with his primary care provider, though for the time being should follow up with a provider at [facility]. The patient should return to the hospital or nearest emergency room for any worsening of symptoms, shortness of breath, lightheadedness, dizziness, chest discomfort, high fevers, chills, night sweats, loss of consciousness, or any other worrisome signs or symptoms. DISCHARGE CONDITION: Stable. DISCHARGE DISPOSITION: [facility]. This is a summarized report of a complex medical history and hospital stay. For further details, please see the entire medical record. TIME SPENT: Approximately 60 minutes were spent on this discharge. ALEIDA MCKEON NP [id number]/CPS #: [id number] GARO
[2018-12-16 11:53] VITALS: BP 102/84
== END 2018-12-16 14:40 | DRG 854 ==
LOC: ED 11:38 → SSU 14:34
PROVIDERS: ADMIT Internal Medicine; ATTEND Internal Medicine
PROC: 047K3DZ Dilation of Right Femoral Artery with Intraluminal Device, Percutaneous Approach (ICD-10-PCS; 2018-12-05)
PROC: B41F1ZZ Fluoroscopy of Right Lower Extremity Arteries using Low Osmolar Contrast (ICD-10-PCS; 2018-12-05)
PROC: B41C1ZZ Fluoroscopy of Pelvic Arteries using Low Osmolar Contrast (ICD-10-PCS; 2018-12-05)
PROC: 0Y6M0ZB Detachment at Right Foot, Partial 2nd Ray, Open Approach (ICD-10-PCS; principal; 2018-12-08 10:45)
DX: A41.9 Sepsis, unspecified organism (principal); E11.52 Type 2 diabetes mellitus with diabetic peripheral angiopathy with gangrene; I96 Gangrene, not elsewhere classified; M60.073 Infective myositis, right foot; R65.20 Severe sepsis without septic shock; E11.621 Type 2 diabetes mellitus with foot ulcer; L97.519 Non-pressure chronic ulcer of other part of right foot with unspecified severity; Z88.1 Allergy status to other antibiotic agents; I10 Essential (primary) hypertension; N40.0 Benign prostatic hyperplasia without lower urinary tract symptoms; Z87.442 Personal history of urinary calculi; M10.9 Gout, unspecified; Z82.49 Family history of ischemic heart disease and other diseases of the circulatory system; Z87.891 Personal history of nicotine dependence; I45.10 Unspecified right bundle-branch block; I44.0 Atrioventricular block, first degree; Z90.79 Acquired absence of other genital organ(s); Z86.718 Personal history of other venous thrombosis and embolism; Z86.711 Personal history of pulmonary embolism; E03.9 Hypothyroidism, unspecified; E11.65 Type 2 diabetes mellitus with hyperglycemia; I70.291 Other atherosclerosis of native arteries of extremities, right leg
CPT/HCPCS: 36415; 37252; 37253; 71045; 71275; 75635; 76937; 80048; 80053; 80202; 82565; 83036; 83605; 84520; 85025; 85347; 85610; 85652; 85730; 86140; 87040; 87070; 87073; 87077; 87186; 87205; 88305; 88311; 93005; 93306; 93922; 99156; 99157; 99285; A9270-GY; C1751; C1753; C1760; C1769; C1876; C1887; C1894; G8978-GP-CJ; G8979-GP-CI; G8987-GO-CK; G8988-GO-CI; J0360; J0690; J0692; J1644; J2001; J2250; J2543; J3010; J3370; J3490; Q9967

== ENCOUNTER 2019-03-30 12:51 | Inpatient (IN) | payer MEDICARE ==
--- OUTSIDE RECORDS SUMMARY | 2019-03-30 13:04 | XMS REPORT | Continuity of Care Document ---
:1935 External Reference #:[id number] Author Name Quincy Bergman M.D. Address [address] [place] [address] Care Team Providers Name Role Phone Quincy Parker M.D. 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 Onset: 01/06/2015 Nuclear senile cataract Quincy Bergman M.D. 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 Onset: 08/10/2016 Combined form of senile cataract Quincy Bergman M.D. Onset: 08/10/2016 Social History Type Date Description Comments Sex Unknown ETOH Use Rarely consumes alcohol Tobacco Use Start: Unknown End: Unknown Patient is a former smoker Recreational Drug Use Denies Drug Use Smoking Status Reviewed: 02/10/19 Patient is a former smoker Allergies, Adverse Reactions, Alerts Active Allergies Reaction Severity Comments Date Cipro 01/04/2015 Medications Active Medications SIG Qnty Indications Ordering Provider Date Lisinopril Unknown 2.5mg Tablets Metformin HCL Unknown 500mg Tablets Aspirin Unknown 81mg Tablets Glipizide XL Unknown 10mg Tablets ER 24HR Metoprolol Succinate ER Unknown 25mg Tablets ER 24HR Allopurinol Unknown 300mg Tablets Multi Vitamin Daily Unknown Tablets Levothyroxine Sodium Take One Tablet Unknown 25mcg By Mouth Once Tablets Daily Fosinopril Sodium Take One Tablet Unknown 20mg By Mouth Every Tablets Day Immunizations Description No Information Available Vital Signs Description No Information Available Results Description No Information Available Procedures Description No Information Available Medical Devices Description No Information Available Encounters Description No Information Available Assessments Date Code Description Provider 02/10/2019 E11.3293 Type 2 diabetes mellitus with mild Quincy Bergman M.D. nonproliferative diabetic 02/10/2019 H25.813 Combined forms of age-related cataract, Quincy Bergman M.D. bilateral Plan of Treatment 02/10/2019 - Quincy Bergman M.D.E11.3293 Type 2 diabetes mellitus with mild nonproliferative diabeticComments:I can detect diabetic changes in your eyes. Proper control of your diabetes is important for the health of your eyes. It is important that you keep all of your follow up appointments. Dr. Bergman has sent a report to your primary care doctor, letting them know the current status of your retina.Follow up:6 Month Follow Up Diagnostic Refraction OCT MAC You can expect to have your eyes dilated at your next visit. If Dr. Bergman orders any additional testing, it may require extra time. We recommend that you bring sunglasses, as dilation drops often make you light sensitive until they wear off. We always recommend you bring someone to drive you home if you are uncomfortable driving with your eyes dilated.If you have any questions before your next visit, feel free to call our office at .H25.813 Combined forms of age-related cataract, bilateralComments:Smoking can increase the risk of developing or worsening any eye related disease, as well as affect your overall health. If you are a smoker, we strongly recommend that you quit.If you are not a smoker, we strongly recommend that you do not start. You have been diagnosed with cataracts. If you are happy with your vision as it is now, then we will see you at your next scheduled appointment. If you feel like your vision is getting worse before your scheduled appointment, please call Brandy at [phone]. Functional Status Description No Information Available Mental Status Description No Information Available Referrals Description No Information Available
--- OUTSIDE RECORDS SUMMARY | 2019-03-30 13:04 | XMS REPORT | Continuity of Care Document ---
:1935 External Reference #:[id number] Author Name Frederick Dunbar M.D. (transmitted by agent of provider Shannan Mazariegos) Address [address] [place] [address] Care Team Providers Name Role Phone Quincy Parker MD - Family Medicine Care Team Information Research Geneticist Problems Active Problems Provider Date Atherosclerosis of arteries of the Mookie Giraldo M.D. Onset: 01/21/2019 extremities Social History Type Date Description Comments Sex Unknown ETOH Use Denies alcohol use Tobacco Use Start: Unknown Patient has never smoked Recreational Drug Use Never Used Drugs Tobacco Use Start: Unknown End: Patient is a former smoker 45 years ago Unknown Smoking Status Reviewed: 03/03/19 Patient is a former smoker 45 years ago Exercise Type/Frequency Exercises sporadically Allergies, Adverse Reactions, Alerts Active Allergies Reaction Severity Comments Date Cipro 12/23/2018 Medications Active Medications SIG Qnty Indications Ordering Date Provider Clopidogrel Bisulfate 1 by mouth every 90tabs I70.261 Mookie Link 01/21/2019 chantelle Giraldo M.D. 75mg Tablets Metoprolol Succinate 1 by mouth every Unknown ER day 50mg Tablets ER 24HR Metformin HCL take one tablet by Unknown 1000mg mouth twice a day Tablets Allopurinol 1 by mouth every Unknown 300mg day Tablets Daily Multiple Unknown Vitamins/Minerals Tablets Amlodipine Besylate 5 mg Unknown Aspirin 81 Low Dose 1 by mouth every Unknown day 81mg Chewtabs Docusate Sodium 1 tab every 12 Unknown 100mg hours as needed for Capsules constipation Lisinopril 1 by mouth every Unknown 5mg Tablets day Acetaminophen 2 every 4 hours as Unknown 325mg needed for pain Tablets Levothyroxine Sodium 1 by mouth every Unknown day 50mcg Tablets Glipizide ER 10 mg Unknown Immunizations Description No Information Available Vital Signs Date Vital Result Comment 03/03/2019 10:56am Height 65 inches 5'5" Weight 152.00 lb BP Systolic 128 mmHg BP Diastolic 90 mmHg Respiratory Rate 18 /min Body Temperature 97.6 F Pain Level 0 BMI (Body Mass Index) 25.3 kg/m2 02/10/2019 11:02am Height 65 inches 5'5" Weight 153.00 lb Heart Rate 64 /min BP Systolic Sitting 118 mmHg BP Diastolic Sitting 60 mmHg Respiratory Rate 16 /min Pain Level 0 O2 % BldC Oximetry 96 % BMI (Body Mass Index) 25.5 kg/m2 Results Description No Information Available Procedures Date Code Description Status 12/08/2018 87745 Amputation Toe MP JT Completed 12/08/2018 59030 Amputation Toe MP JT Completed 12/05/2018 58197 Moderate Sedation Services; Same Phys Each Additional 15 Completed Mins 12/05/2018 78392 Moderate Sedation Services; Same Phys Intl 15 Mins; PT >= Completed 5 Years 12/05/2018 41988 Ultrasound Guidance For Vascular Access Completed 12/05/2018 30461 Intravascular Ultra Noncoronar Completed 12/05/2018 49106 Revascularization,Endovascular W/Transluminal Angioplasty Completed 12/05/2018 93215 Revascularization,Endovascular W/Transluminal Stent Completed Placement 12/02/2018 91788 ECHO Transthorasic Realtime 2D W Doppler & Color Flow Hosp Completed Medical Devices Description No Information Available Encounters Type Date Location Provider Dx Diagnosis Office Visit 01/22/2019 [facility] Merly Sears86.171 Other acute 2:00p Infectious Tara Perry osteomyelitis, Diseases right ankle and foot 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 arteries of extremities w gangrene, right leg Office Visit 01/01/2019 2:00p [facility] Merly Fitzpatrick M86.171 Other acute Infectious [place], osteomyelitis, Diseases M.D. 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 Z79.2 detention (current) use of antibiotics E10.69 Type 1 diabetes mellitus with other specified complication Office Visit 12/16/2018 10:45a [facility] Aleida Linda, E11.52 Type 2 diabetes Assoc,pc GEOMAGNETIST w diabetic Hospitalists peripheral angiopathy w gangrene I10 Essential (primary) hypertension Office Visit 12/15/2018 [facility] E11.52 Type 2 diabetes 9:00a For Infectious Nirali, GEOMAGNETIST w diabetic Diseases peripheral angiopathy w gangrene R94.39 Abnormal result of other cardiovascular function study Office Visit 12/15/2018 10:44a [facility] Aleida Linda, E11.52 Type 2 diabetes Assoc,pc GEOMAGNETIST w diabetic Hospitalists peripheral angiopathy w gangrene I10 Essential (primary) hypertension Office Visit 12/14/2018 10:44a [facility] Aleida Linda, E11.52 Type 2 diabetes Assoc,pc GEOMAGNETIST w diabetic Hospitalists peripheral angiopathy w gangrene I10 Essential (primary) hypertension Office Visit 12/13/2018 10:44a [facility] Aleida Linda, E11.52 Type 2 diabetes Assoc,pc GEOMAGNETIST w diabetic Hospitalists peripheral angiopathy w gangrene I10 Essential (primary) hypertension Office Visit 12/12/2018 10:43a [facility] E11.52 Type 2 diabetes Assoc,pc JUAN Saldivar w diabetic Hospitalists peripheral angiopathy w gangrene I10 Essential (primary) hypertension Office Visit 12/11/2018 10:43a [facility] E11.52 Type 2 diabetes Assoc,pc JUAN Saldivar w diabetic Hospitalists peripheral angiopathy w gangrene I10 Essential (primary) hypertension Office Visit 12/10/2018 10:42a [facility] E11.52 Type 2 diabetes Assoc,pc Janna, GEOMAGNETIST w diabetic Hospitalists peripheral angiopathy w gangrene I10 Essential (primary) hypertension Office Visit 12/09/2018 [facility] E11.52 Type 2 diabetes 10:50a For Infectious Nirali GEOMAGNETIST w diabetic Diseases peripheral angiopathy w gangrene R94.39 Abnormal result of other cardiovascular function study Office Visit 12/09/2018 10:42a [facility] E11.52 Type 2 diabetes ,tina Saldivar NP w diabetic Hospitalists peripheral angiopathy w gangrene I10 Essential (primary) hypertension Office Visit 12/08/2018 [facility] E11.52 Type 2 diabetes 10:42a Assget,tina Douglas, PA w diabetic Hospitalists peripheral angiopathy w gangrene I10 Essential (primary) hypertension J90 Pleural effusion, not elsewhere classified Office Visit 12/07/2018 [facility] E11.52 Type 2 diabetes 10:37a Assoc,tina Douglas, PA w diabetic Hospitalists peripheral angiopathy w gangrene 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 I10 Essential (primary) hypertension J90 Pleural effusion, not elsewhere classified Office Visit 12/06/2018 [facility] E11.52 Type 2 diabetes 10:36a Assget,tina Douglas, PA w diabetic Hospitalists peripheral angiopathy w gangrene 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 I10 Essential (primary) hypertension R06.82 Tachypnea, not elsewhere classified Office Visit 12/06/2018 2:25p [facility] Tashi Barnes, 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) L03.115 Cellulitis of right lower limb Office Visit 12/05/2018 2:36p [facility] E11.52 Type 2 diabetes tina Nguyen NP w diabetic Hospitalists peripheral angiopathy w gangrene 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 ankle and foot 01/22/2019 Z79.2 parts counterman (current) use of Ascencion Perry M.D. antibiotics 01/22/2019 M86.171 Other acute osteomyelitis, right Frederick Dunbar M.D. ankle and foot 01/22/2019 E10.69 Type 1 diabetes mellitus with other Ascencion Perry M.D. specified complication 01/21/2019 I70.261 Atherosclerosis of [place] arteries Mookie Giraldo M.D. of extremities with gangrene, right leg 01/15/2019 M86.171 Other acute osteomyelitis, right Frederick Dunbar M.D. ankle and foot 01/06/2019 M86.171 Other acute osteomyelitis, right Frederick Dunbar M.D. ankle and foot 01/01/2019 M86.171 Other acute osteomyelitis, right Ascencion Perry M.D. ankle and foot 01/01/2019 E10.51 Type 1 diabetes mellitus with Ascencion Perry M.D. diabetic peripheral angiopathy without gangrene 01/01/2019 Z79.2 parts counterman (current) use of Ascencion Perry M.D. antibiotics 01/01/2019 E10.69 Type 1 diabetes mellitus with other Ascencion Perry M.D. 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, RPA-C toe(s) 12/16/2018 E11.52 Type 2 diabetes mellitus with Aleidapauline Mckeon NP diabetic peripheral angiopathy with gangrene 12/16/2018 I10 Essential (primary) hypertension Aleidadevin Mckeon GEOMAGNETIST 12/15/2018 Z47.81 Encounter for orthopedic aftercare MARQUES Pryor following surgical amputation 12/15/2018 E11.52 Type 2 diabetes mellitus with Romy Campoverde NP diabetic peripheral angiopathy with gangrene 12/15/2018 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 MARQUES Pryor toe(s) 12/15/2018 R94.39 Abnormal result of other Romy Campoverde, JUAN cardiovascular function study 12/15/2018 E11.52 Type 2 diabetes mellitus with Aleida Linda, GEOMAGNETIST diabetic peripheral angiopathy with gangrene 12/15/2018 I10 Essential (primary) hypertension Aleida Linda, GEOMAGNETIST 12/14/2018 E11.52 Type 2 diabetes mellitus with Aleida Linda, GEOMAGNETIST diabetic peripheral angiopathy with gangrene 12/14/2018 Z98.890 Other specified postprocedural Avery Jeronimo PA-C states 12/14/2018 I10 Essential (primary) hypertension Aleida Linda, GEOMAGNETIST 12/13/2018 E11.52 Type 2 diabetes mellitus with Aleida Linda, GEOMAGNETIST diabetic peripheral angiopathy with gangrene 12/13/2018 Z98.890 Other specified postprocedural Avery Jeronimo PA-C states 12/13/2018 I10 Essential (primary) hypertension Aleida Linda, GEOMAGNETIST 12/12/2018 E11.52 Type 2 diabetes mellitus with Kimberly Shortle, GEOMAGNETIST diabetic peripheral angiopathy with gangrene 12/12/2018 Z98.890 Other specified postprocedural BERNARDINO Choi states 12/12/2018 I10 Essential (primary) hypertension Kimberly Shortle, GEOMAGNETIST 12/11/2018 E11.52 Type 2 diabetes mellitus with Kimberly Shortle, GEOMAGNETIST diabetic peripheral angiopathy with gangrene 12/11/2018 Z98.890 Other specified postprocedural Lina Swanson PA-C states 12/11/2018 I10 Essential (primary) hypertension Kimberly Shortle, GEOMAGNETIST 12/10/2018 E11.52 Type 2 diabetes mellitus with Kimberly Shortle, GEOMAGNETIST diabetic peripheral angiopathy with gangrene 12/10/2018 Z98.890 Other specified postprocedural MARQUES Pryor states 12/10/2018 I10 Essential (primary) hypertension Kimberly Shortle, GEOMAGNETIST 12/09/2018 E11.52 Type 2 diabetes mellitus with Romy Campoverde, GEOMAGNETIST diabetic peripheral angiopathy with gangrene 12/09/2018 E11.52 Type 2 diabetes mellitus with Kimberly Shortle, GEOMAGNETIST diabetic peripheral angiopathy with gangrene 12/09/2018 Z98.890 Other specified postprocedural MARQUES Pryor states 12/09/2018 R94.39 Abnormal result of other Romybrigid Campoverde NP cardiovascular function study 12/09/2018 I10 Essential (primary) hypertension Kimberly Saldivar NP 12/08/2018 E11.52 Type 2 diabetes mellitus with MARQUES Branahm diabetic peripheral angiopathy with gangrene 12/08/2018 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 of extremities with gangrene, right leg 12/05/2018 E11.52 Type 2 diabetes mellitus with Kimberly Shortle, GEOMAGNETIST diabetic peripheral angiopathy with gangrene 12/05/2018 L97.518 Non-pressure chronic ulcer of other [facility] Shortle, GEOMAGNETIST part of right foot with other specified severity 12/05/2018 I10 Essential (primary) hypertension [facility] Janna, GEOMAGNETIST 12/04/2018 I96 Gangrene, not elsewhere classified Mookie Giraldo M.D. 12/04/2018 I77.1 Stricture of artery Mookie Giraldo M.D. 12/04/2018 E11.52 Type 2 diabetes mellitus with Kimberly Saldivar, GEOMAGNETIST diabetic peripheral angiopathy with gangrene 12/04/2018 E11.52 Type 2 diabetes mellitus with Mookie Giraldo M.D. 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 Short, GEOMAGNETIST part of right foot with other specified severity 12/04/2018 L03.115 Cellulitis of right lower limb MARQUES Pryor 12/03/2018 E11.52 Type 2 diabetes mellitus with Kimberly Saldivar, GEOMAGNETIST diabetic peripheral angiopathy with gangrene 12/03/2018 E11.52 Type 2 diabetes mellitus with Romy Campoverde NP diabetic peripheral angiopathy with gangrene 12/03/2018 L97.518 Non-pressure chronic ulcer of other 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 diabetic peripheral angiopathy with gangrene 12/02/2018 L97.518 Non-pressure chronic ulcer of other Raven Monet M.D. part of right foot with other specified severity 12/02/2018 E11.65 Type 2 diabetes mellitus with Raven Monet M.D. hyperglycemia 12/02/2018 E87.2 Acidosis Raven Monet M.D. 12/02/2018 E11.52 Type 2 diabetes mellitus with MARQUES Pryor diabetic peripheral angiopathy with gangrene 12/02/2018 R94.31 Abnormal electrocardiogram [ECG] Mario Stephens M.D. [EKG] 12/02/2018 L03.115 Cellulitis of right lower limb MARQUSE Pryor Plan of Treatment Future Appointment(s):03/26/2019 11:30 am - Frederick Dunbar M.D. at [facility] at [id number]/22/2019 10:15 am - Mookie Giraldo M.D. at [facility]03/03/2019 - Frederick Dunbar M.D.M86.171 Other acute osteomyelitis, right ankle and footFollow up:2 [id number] Acquired absence of other right toe(s) Functional Status Description No Information Available Mental Status Description No Information Available Referrals Description No Information Available
--- OUTSIDE RECORDS SUMMARY | 2019-03-30 13:04 | XMS REPORT | Continuity of Care Document ---
:1935 External Reference #:[id number] Author Name Frederick Dunbar M.D. 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/21/2019 extremities Social History Type Date Description Comments Sex Unknown ETOH Use Denies alcohol use Tobacco Use Start: Unknown Patient has never smoked Recreational Drug Use Never Used Drugs Tobacco Use Start: Unknown End: Patient is a former smoker 45 years ago Unknown Smoking Status Reviewed: 02/10/19 Patient is a former smoker 45 years ago Exercise Type/Frequency Exercises sporadically Allergies, Adverse Reactions, Alerts Active Allergies Reaction Severity Comments Date Cipro 12/23/2018 Medications Active Medications SIG Qnty Indications Ordering Date Provider Clopidogrel Bisulfate 1 by mouth every 90tabs I70.261 Mookie Link 01/21/2019 day Tara Giraldo 75mg Tablets Metoprolol Succinate 1 by mouth [...] Available Vital Signs Date Vital Result Comment 02/10/2019 11:02am Height 65 inches 5'5" Weight 153.00 lb Heart Rate 64 /min BP Systolic Sitting 118 mmHg BP Diastolic Sitting 60 mmHg Respiratory Rate 16 /min Pain Level 0 O2 % BldC Oximetry 96 % BMI (Body Mass Index) 25.5 kg/m2 01/22/2019 2:15pm Height 65 inches 5'5" Weight 153.12 lb Heart Rate 72 /min BP Systolic Sitting 126 mmHg BP Diastolic Sitting 64 mmHg Respiratory Rate 14 /min Body Temperature 98.6 F BMI (Body Mass Index) 25.5 kg/m2 Results Description No Information Available Procedures Date Code Description Status 12/08/2018 36069 Amputation Toe MP JT Completed 12/08/2018 16234 Amputation Toe MP JT Completed 12/05/2018 40004 Moderate Sedation Services; Same Phys Each Additional 15 Completed Mins 12/05/2018 36360 Moderate Sedation Services; Same Phys Intl 15 Mins; PT >= Completed 5 Years 12/05/2018 38260 Ultrasound Guidance For Vascular Access Completed 12/05/2018 01393 Intravascular Ultra Noncoronar Completed 12/05/2018 11174 Revascularization,Endovascular W/Transluminal Angioplasty Completed 12/05/2018 36003 Revascularization,Endovascular W/Transluminal Stent Completed Placement 12/02/2018 69839 ECHO Transthorasic Realtime 2D W Doppler & Color Flow Hosp Completed Medical Devices Description No Information Available Encounters Type Date Location Provider Dx Diagnosis Office Visit 01/22/2019 [facility] Merly Sears86.171 Other acute 2:00p Infectious Tara Perry osteomyelitis, Diseases right ankle and foot Z79.2 [facility] (current) use of antibiotics E10.69 Type 1 diabetes mellitus with other specified complication Office Visit 01/21/2019 10:00a [facility] I70.261 [facility] Giraldo M.D. arteries of extremities w gangrene, right leg Office Visit 01/01/2019 2:00p [facility] Merly Fitzpatrick M86.171 Other acute Infectious [place], osteomyelitis, Diseases [place]. 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 Z79.2 intermediate card tender (current) use of antibiotics E10.69 Type 1 diabetes mellitus with other specified complication Office Visit 12/16/2018 10:45a [facility] Aleida Linda, E11.52 Type 2 diabetes Assoc,pc [employer] DRAW[employer] CURATOR w diabetic Hospitalists peripheral angiopathy w gangrene I10 Essential (primary) hypertension Office Visit 12/15/2018 [facility] E11.52 Type 2 diabetes 9:00a For Infectious Nirali, [employer]INTS AND DRAWINGS CURATOR w diabetic Diseases peripheral angiopathy w gangrene R94.39 Abnormal result of other cardiovascular function study Office Visit 12/15/2018 10:44a [facility] Aleida Linda, E11.52 Type 2 diabetes Assoc,pc [employer] DRAW[employer] CURATOR w diabetic Hospitalists peripheral angiopathy w gangrene I10 Essential (primary) hypertension Office Visit 12/14/2018 10:44a [facility] Aleida Linda, E11.52 Type 2 diabetes Assoc,pc [employer]RAW[employer] CURATOR w diabetic Hospitalists peripheral angiopathy w gangrene I10 Essential (primary) hypertension Office Visit 12/13/2018 10:44a [facility] Aleida Linda, E11.52 Type 2 diabetes Assoc,pc [employer] DRAW[employer] CURATOR w diabetic Hospitalists peripheral angiopathy w gangrene I10 Essential (primary) hypertension Office Visit 12/12/2018 10:43a [facility] E11.52 Type 2 diabetes Assoc,tina Saldivar NP w diabetic Hospitalists peripheral angiopathy w gangrene I10 Essential (primary) hypertension Office Visit 12/11/2018 10:43a [facility] E11.52 Type 2 diabetes Assoc,pc JUAN Saldivar w diabetic Hospitalists peripheral angiopathy w gangrene I10 Essential (primary) hypertension Office Visit 12/10/2018 10:42a [facility] E11.52 Type 2 diabetes Assoc,pc JUAN Saldivar w diabetic Hospitalists peripheral angiopathy w gangrene I10 Essential (primary) hypertension Office Visit 12/09/2018 [facility] E11.52 Type 2 diabetes 10:50a For Infectious Nirali [employer]IN[employer] DRAWINGS CURATOR w diabetic Diseases peripheral angiopathy w gangrene R94.39 Abnormal result of other cardiovascular function study Office Visit 12/09/2018 10:42a [facility] E11.52 Type 2 diabetes ,tina Saldivar NP w diabetic Hospitalists peripheral angiopathy w gangrene I10 Essential (primary) hypertension Office Visit 12/08/2018 [facility] E11.52 Type 2 diabetes 10:42a Assoc,tina Douglas, [place] w diabetic Hospitalists peripheral angiopathy w gangrene I10 Essential (primary) hypertension J90 Pleural effusion, not elsewhere classified Office Visit 12/07/2018 [facility] E11.52 Type 2 diabetes 10:37a Assoc,tina Douglas, [place] w diabetic Hospitalists peripheral angiopathy w gangrene 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 I10 Essential (primary) hypertension J90 Pleural effusion, not elsewhere classified Office Visit 12/06/2018 [facility] E11.52 Type 2 diabetes 10:36a Assget,tina [place], [place] w diabetic Hospitalists peripheral angiopathy w gangrene 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 I10 Essential (primary) hypertension R06.82 Tachypnea, not elsewhere classified Office Visit 12/06/2018 2:25p [facility] Tashi Barnes, 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) L03.115 Cellulitis of right lower limb Office Visit 12/05/2018 2:36p [facility] E11.52 Type 2 diabetes ,tina Saldivar NP w diabetic Hospitalists peripheral angiopathy w gangrene 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 ankle and foot 01/22/2019 M86.171 Other acute osteomyelitis, right Ascencion Perry M.D. ankle and foot 01/22/2019 Z79.2 intermediate card tender (current) use of Ascencion Perry M.D. antibiotics 01/22/2019 M86.171 Other acute osteomyelitis, right Frederick Dunbar M.D. ankle and foot 01/22/2019 E10.69 Type 1 diabetes mellitus with other Ascencion Perry M.D. specified complication 01/21/2019 I70.261 Atherosclerosis of [place] arteries Mookie Giraldo M.D. of extremities with gangrene, right leg 01/15/2019 M86.171 Other acute osteomyelitis, right Frederick Dunbar M.D. ankle and foot 01/06/2019 M86.171 Other acute osteomyelitis, right Frederick Dunbar M.D. ankle and foot 01/01/2019 M86.171 Other acute osteomyelitis, right Ascencion Perry M.D. ankle and foot 01/01/2019 E10.51 Type 1 diabetes mellitus with Ascencion Perry M.D. diabetic peripheral angiopathy without gangrene 01/01/2019 Z79.2 [facility] (current) use of Ascencion Perry M.D. antibiotics 01/01/2019 E10.69 Type 1 diabetes mellitus with other Ascencion Perry M.D. 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, RPA-C toe(s) 12/16/2018 E11.52 Type 2 diabetes mellitus with Aleida LindaJUAN diabetic peripheral angiopathy with gangrene 12/16/2018 I10 Essential (primary) hypertension Aleida Mckeon PRINTS AND DRAWINGS CURATOR 12/15/2018 Z47.81 Encounter for orthopedic aftercare MARQUES Pryor following surgical amputation 12/15/2018 E11.52 Type 2 diabetes mellitus with Romy Campoverde NP diabetic peripheral angiopathy with gangrene 12/15/2018 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 MARQUES Pryor toe(s) 12/15/2018 R94.39 Abnormal result of other Romy Campoverde NP cardiovascular function study 12/15/2018 E11.52 Type 2 diabetes mellitus with Aleida Linda [employer] DRAWINGS CURATOR diabetic peripheral angiopathy with gangrene 12/15/2018 I10 Essential (primary) hypertension Aleida Linda, [employer]IN[employer] DRAWINGS CURATOR 12/14/2018 E11.52 Type 2 diabetes mellitus with Aleida Linda, [employer] DRAWINGS CURATOR diabetic peripheral angiopathy with gangrene 12/14/2018 Z98.890 Other specified postprocedural Avery Jeronimo PA-C states 12/14/2018 I10 Essential (primary) hypertension Aleida Linda, [employer]IN[employer] DRAWINGS CURATOR 12/13/2018 E11.52 Type 2 diabetes mellitus with Aleida Linda, [employer]IN[employer] DRAWINGS CURATOR diabetic peripheral angiopathy with gangrene 12/13/2018 Z98.890 Other specified postprocedural Avery Jeronimo PA-C states 12/13/2018 I10 Essential (primary) hypertension Aleida Linda, [employer]IN[employer] DRAWINGS CURATOR 12/12/2018 E11.52 Type 2 diabetes mellitus with Kimberly Shortle, [employer]INTS AND DRAWINGS CURATOR diabetic peripheral angiopathy with gangrene 12/12/2018 Z98.890 Other specified postprocedural BERNARDINO Choi states 12/12/2018 I10 Essential (primary) hypertension Kimberly Shortle, [employer]INTS AND DRAWINGS CURATOR 12/11/2018 E11.52 Type 2 diabetes mellitus with Kimberly Shortle, [employer] DRAWINGS CURATOR diabetic peripheral angiopathy with gangrene 12/11/2018 Z98.890 Other specified postprocedural Lina Swanson PA-C states 12/11/2018 I10 Essential (primary) hypertension Kimberly Shortle, [employer]IN[employer] DRAWINGS CURATOR 12/10/2018 E11.52 Type 2 diabetes mellitus with Kimberly Shortle, [employer]IN[employer] DRAWINGS CURATOR diabetic peripheral angiopathy with gangrene 12/10/2018 Z98.890 Other specified postprocedural MARQUES Pryor states 12/10/2018 I10 Essential (primary) hypertension Kimberly Shortle, [employer]INTS AND DRAWINGS CURATOR 12/09/2018 E11.52 Type 2 diabetes mellitus with Romy Campoverde, [employer]INTS [employer] DRAWINGS CURATOR diabetic peripheral angiopathy with gangrene 12/09/2018 E11.52 Type 2 diabetes mellitus with Kimberly Shortle, [employer] DRAWINGS CURATOR diabetic peripheral angiopathy with gangrene 12/09/2018 Z98.890 Other specified postprocedural MARQUES Pryor states 12/09/2018 R94.39 Abnormal result of other Romy Campoverde NP cardiovascular function study 12/09/2018 I10 Essential (primary) hypertension Kimberly Shortle, [employer]IN[employer] DRAWINGS CURATOR 12/08/2018 E11.52 Type 2 diabetes mellitus with MARQUES Branham diabetic peripheral angiopathy with gangrene 12/08/2018 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 of extremities with gangrene, right leg 12/05/2018 E11.52 Type 2 diabetes mellitus with Kimberly Saldivar [employer]INTS [employer] DRAWINGS CURATOR diabetic peripheral angiopathy with gangrene 12/05/2018 L97.518 Non-pressure chronic ulcer of other Kimberly Janna [employer]IN[employer] DRAWINGS CURATOR part of right foot with other specified severity 12/05/2018 I10 Essential (primary) hypertension Kimberly Saldivar, [employer]INTS AND DRAWINGS CURATOR 12/04/2018 I96 Gangrene, not elsewhere classified Mookie Giraldo M.D. 12/04/2018 I77.1 Stricture of artery Mookie Giraldo M.D. 12/04/2018 E11.52 Type 2 diabetes mellitus with Kimberly Shortle, [employer] DRAWINGS CURATOR diabetic peripheral angiopathy with gangrene 12/04/2018 E11.52 Type 2 diabetes mellitus with Mookie Giraldo M.D. 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 MARQUES Pryor toe(s) 12/04/2018 L97.518 Non-pressure chronic ulcer of other [facility] Shortle, [employer]INTS AND DRAWINGS CURATOR part of right foot with other specified severity 12/04/2018 L03.115 Cellulitis of right lower limb MARQUES Pryor 12/03/2018 E11.52 Type 2 diabetes mellitus with Kimberly Shortle, [employer] DRAWINGS CURATOR diabetic peripheral angiopathy with gangrene 12/03/2018 E11.52 Type 2 diabetes mellitus with Romy Campoverde NP diabetic peripheral angiopathy with gangrene 12/03/2018 L97.518 Non-pressure chronic ulcer of other [facility] Shortle, [employer]IN[employer] DRAWINGS CURATOR part of right foot with other specified [...] 12/02/2018 L03.115 Cellulitis of right lower limb MARQUES Pryor Plan of Treatment Future Appointment(s):03/03/2019 10:30 am - Frederick Dunbar M.D. at [facility]02/10/2019 - Frederick Dunbar M.D.M86.171 Other acute osteomyelitis, right ankle and footFollow up:3 weeks Functional Status Description No Information Available Mental Status Description No Information Available Referrals Description No Information Available
--- OUTSIDE RECORDS SUMMARY | 2019-03-30 13:05 | XMS REPORT | Continuity of Care Document ---
:1935 External Reference #:[id number] Author Name Mookie Giraldo M.D. 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 Onset: 01/21/2019 extremities Social History Type Date Description Comments Sex Unknown ETOH Use Denies alcohol use Tobacco Use Start: Unknown Patient has never smoked Recreational Drug Use Never Used Drugs Tobacco Use Start: Unknown End: Patient is a former smoker 45 years ago Unknown Smoking Status Reviewed: 01/22/19 Patient is a former smoker 45 years [...] Available Vital Signs Date Vital Result Comment 01/22/2019 2:15pm Height 65 inches 5'5" Weight 153.12 lb Heart Rate 72 /min BP Systolic Sitting 126 mmHg BP Diastolic Sitting 64 mmHg Respiratory Rate 14 /min Body Temperature 98.6 F BMI (Body Mass Index) 25.5 kg/m2 01/22/2019 11:14am Height 65 inches 5'5" Weight 153.00 lb Heart Rate 70 /min BP Systolic Sitting 118 mmHg BP Diastolic Sitting 64 mmHg Respiratory Rate 14 /min Pain Level 0 BMI (Body Mass Index) 25.5 kg/m2 Results Description No Information Available Procedures Date Code Description Status 12/08/2018 79020 Amputation Toe MP JT Completed 12/08/2018 99458 Amputation Toe MP JT Completed 12/05/2018 76374 Moderate Sedation Services; Same Phys Each Additional 15 Completed Mins 12/05/2018 80205 Moderate Sedation Services; Same Phys Intl 15 Mins; PT >= Completed 5 Years 12/05/2018 39320 Ultrasound Guidance For Vascular Access Completed 12/05/2018 14723 Intravascular Ultra Noncoronar Completed 12/05/2018 36146 Revascularization,Endovascular W/Transluminal Angioplasty Completed 12/05/2018 26916 Revascularization,Endovascular W/Transluminal Stent Completed Placement 12/02/2018 41436 ECHO Transthorasic Realtime 2D W Doppler & Color Flow Hosp Completed Medical Devices Description No Information Available Encounters Type Date Location Provider Dx Diagnosis Office Visit 01/22/2019 [facility] Sears86.171 Other acute 2:00p Infectious Tara Perry osteomyelitis, Diseases right ankle and foot Z79.2 clinical biochemical geneticist (current) use of antibiotics E10.69 Type 1 diabetes mellitus with other specified complication Office Visit 01/21/2019 10:00a [facility] I70.261 [facility] [place] [facility]von Giraldo M.D. 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 Z79.2 clinical biochemical geneticist (current) use of antibiotics E10.69 Type 1 diabetes mellitus with other specified complication Office Visit 12/16/2018 10:45a [facility] Aleida Linda, E11.52 Type 2 diabetes Assoc,pc [employer] w diabetic Hospitalists peripheral angiopathy w gangrene I10 Essential (primary) hypertension Office Visit 12/15/2018 [facility] E11.52 Type 2 diabetes 9:00a For Infectious Nirali [employer] w diabetic Diseases peripheral angiopathy w gangrene R94.39 Abnormal result of other cardiovascular function study Office Visit 12/15/2018 10:44a [facility] Aleida Linda, E11.52 Type 2 diabetes Assoc,pc [employer] w diabetic Hospitalists peripheral angiopathy w gangrene I10 Essential (primary) hypertension Office Visit 12/14/2018 10:44a [facility] Aleida Linda, E11.52 Type 2 diabetes Assoc,pc [employer] w diabetic Hospitalists peripheral angiopathy w gangrene I10 Essential (primary) hypertension Office Visit 12/13/2018 10:44a [facility] Aleida Linda, E11.52 Type 2 diabetes Assoc,pc [employer] w diabetic Hospitalists peripheral angiopathy w gangrene I10 Essential (primary) hypertension Office Visit 12/12/2018 10:43a [facility] E11.52 Type 2 diabetes Assoc,pc Janna [employer] w diabetic Hospitalists peripheral angiopathy w gangrene I10 Essential (primary) hypertension Office Visit 12/11/2018 10:43a [facility] E11.52 Type 2 diabetes Assoc,pc Janna, [employer] w diabetic Hospitalists peripheral angiopathy w gangrene I10 Essential (primary) hypertension Office Visit 12/10/2018 10:42a [facility] E11.52 Type 2 diabetes Assoc,pc Janna, [employer] w diabetic Hospitalists peripheral angiopathy w gangrene I10 Essential (primary) hypertension Office Visit 12/09/2018 [facility] E11.52 Type 2 diabetes 10:50a For Infectious Nirali, [employer] w diabetic Diseases peripheral angiopathy w gangrene R94.39 Abnormal result of other cardiovascular function study Office Visit 12/09/2018 10:42a [facility] E11.52 Type 2 diabetes ,tina Saldivar NP w diabetic Hospitalists peripheral angiopathy w gangrene I10 Essential (primary) hypertension Office Visit 12/08/2018 [facility] E11.52 Type 2 diabetes 10:42a ,tina Douglas, PA w diabetic Hospitalists peripheral angiopathy w gangrene I10 Essential (primary) hypertension J90 Pleural effusion, not elsewhere classified Office Visit 12/07/2018 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) L03.115 Cellulitis of right lower limb Office Visit 12/05/2018 2:36p [facility] E11.52 Type 2 diabetes tina Nguyen NP w diabetic Hospitalists peripheral angiopathy w gangrene 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 ankle and foot 01/22/2019 Z79.2 clinical biochemical geneticist (current) use of Ascencion Perry M.D. antibiotics 01/22/2019 M86.171 Other acute osteomyelitis, right Frederick Dunbar M.D. ankle and foot 01/22/2019 E10.69 Type 1 diabetes mellitus with other Ascencion Perry M.D. specified complication 01/21/2019 I70.261 Atherosclerosis of [place] arteries Mookie Giraldo M.D. of extremities with gangrene, right leg 01/15/2019 M86.171 Other acute osteomyelitis, right Frederick Dunbar M.D. ankle and foot 01/06/2019 M86.171 Other acute osteomyelitis, right Frederick Dunbar M.D. ankle and foot 01/01/2019 M86.171 Other acute osteomyelitis, right Ascencion Perry M.D. ankle and foot 01/01/2019 E10.51 Type 1 diabetes mellitus with Ascencion Perry M.D. diabetic peripheral angiopathy without gangrene 01/01/2019 Z79.2 assisted (current) use of Ascencion Perry M.D. 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) 12/15/2018 R94.39 Abnormal result of other Romy Campoverde NP cardiovascular function study 12/15/2018 E11.52 Type 2 diabetes mellitus with Aleida Linda, [employer] diabetic peripheral angiopathy with gangrene 12/15/2018 I10 Essential (primary) hypertension Aleida Linda, [employer] 12/14/2018 E11.52 Type 2 diabetes mellitus with Aleida Linda, [employer] diabetic peripheral angiopathy with gangrene 12/14/2018 Z98.890 Other specified postprocedural Avery Jeronimo PA-C states 12/14/2018 I10 Essential (primary) hypertension Aleida Linda, [employer] 12/13/2018 E11.52 Type 2 diabetes mellitus with Aleida Linda, [employer] diabetic peripheral angiopathy with gangrene 12/13/2018 Z98.890 Other specified postprocedural Avery Jeronimo PA-C states 12/13/2018 I10 Essential (primary) hypertension Aleida Linda, [employer] 12/12/2018 E11.52 Type 2 diabetes mellitus with Kimberly Shortle, [employer] diabetic peripheral angiopathy with gangrene 12/12/2018 Z98.890 Other specified postprocedural BERNARDINO Choi states 12/12/2018 I10 Essential (primary) hypertension Kimberly Shortle, [employer] 12/11/2018 E11.52 Type 2 diabetes mellitus with Kimberly Shortle, [employer] diabetic peripheral angiopathy with gangrene 12/11/2018 Z98.890 Other specified postprocedural Lina Swanson PA-C states 12/11/2018 I10 Essential (primary) hypertension Kimberly Shortle, [employer] 12/10/2018 E11.52 Type 2 diabetes mellitus with Kimberly Shortle, [employer] diabetic peripheral angiopathy with gangrene 12/10/2018 Z98.890 Other specified postprocedural MARQUES Pryor states 12/10/2018 I10 Essential (primary) hypertension Kimberly Shortle, [employer] 12/09/2018 E11.52 Type 2 diabetes mellitus with Romy Campoverde, [employer] diabetic peripheral angiopathy with gangrene 12/09/2018 E11.52 Type 2 diabetes mellitus with Kimberly Shortle, [employer] diabetic peripheral angiopathy with gangrene 12/09/2018 Z98.890 Other specified postprocedural MARQUES Pryor states 12/09/2018 R94.39 Abnormal result of other Romy Campoverde NP cardiovascular function study 12/09/2018 I10 Essential (primary) hypertension Kimberly Shortle, [employer] 12/08/2018 E11.52 Type 2 diabetes mellitus with MARQUES Branham diabetic peripheral angiopathy with gangrene 12/08/2018 M87.077 Idiopathic aseptic necrosis of right Luciano AntoineVal Witt, LUANN-C toe(s) 12/08/2018 I10 Essential (primary) hypertension MARQUES [...] classified MARQUES Branham 12/05/2018 I70.261 Atherosclerosis of [place] arteries Mookie Giraldo M.D. of extremities with gangrene, right leg 12/05/2018 E11.52 Type 2 diabetes mellitus with Kimberly Shortle, [employer] diabetic peripheral angiopathy with gangrene 12/05/2018 L97.518 Non-pressure chronic ulcer of other Kimberly Shortle, [employer] part of right foot with other specified severity 12/05/2018 I10 Essential (primary) hypertension Kimberly Shortle, [employer] 12/04/2018 I96 Gangrene, not elsewhere classified Mookie Giraldo M.D. 12/04/2018 I77.1 Stricture of artery Mookie Giraldo M.D. 12/04/2018 E11.52 Type 2 diabetes mellitus with Kimberly Cruzday, [employer] diabetic peripheral angiopathy with gangrene 12/04/2018 E11.52 Type 2 diabetes mellitus with Mookie Giraldo M.D. 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 Shortle, [employer] part of right foot with other specified severity 12/04/2018 L03.115 Cellulitis of right lower limb MARQUES Pryor 12/03/2018 E11.52 Type 2 diabetes mellitus with Kimberly Crzuday, [employer] diabetic peripheral angiopathy with gangrene 12/03/2018 E11.52 Type 2 diabetes mellitus with Romy Campoverde NP diabetic peripheral angiopathy with gangrene 12/03/2018 L97.518 Non-pressure chronic ulcer of other [facility] Shortle, [employer] part of right foot with other specified [...] limb MARQUES Pryor Plan of Treatment Future Appointment(s):02/10/2019 10:45 am - Frederick Dunbar M.D. at [facility] at [facility]/15/2019 - Frederick Dunbar M.D.M86.171 Other acute osteomyelitis, right ankle and footFollow up:1 week Functional Status Description No Information Available Mental Status Description No Information Available Referrals Description No Information Available
[2019-03-30 16:15] LABS: Urine Appearance Clear; Urine Bilirubin Negative (Negative); Urine Blood Negative (Negative); Urine Color Yellow; Urine Glucose 3+(>=500 mg/dL) (Negative); Urine Ketones 1+ (Negative); Urine Nitrite Negative (Negative); Urine Protein Negative (Negative); Urine Specific Gravity 1.026 (1.010-1.030); Urine Urobilinogen Negative (Negative)
[2019-03-30 16:22] LABS: ABS Basophils 0.1 10^3/ul (0-0.2); ABS Eosinophils 0.1 10^3/ul (0-0.6); ABS Lymphocytes 1.8 10^3/ul (1.0-4.8); ABS Monocytes 0.6 10^3/ul (0-0.8); ABS Neutrophils 5.5 10^3/ul (1.5-7.7); Eosinophil % 1.8 %; Hematocrit 40 % (42-52); Hemoglobin 14.4 g/dL (14.0-18.0); Lymphocyte % 22.3 %; Mean Corpuscular HGB Conc 36 g/dL (31-36); Mean Corpuscular Hemoglobin 31 pg (27-31); Mean Corpuscular Volume 88 fL (80-94); Mean Platelet Volume 8.8 fL (7.4-10.4); Platelet Count 215 10^3/uL (150-450); Red Blood Count 4.62 10^6 /uL (4.18-5.48); Red Cell Distribution Width 14 % (10-15); White Blood Count 8.2 10^3/uL (3.5-10.8)
--- NOTE | 2019-03-30 16:28 | ED ---
Adult Trauma - HPI Summary HPI Summary: 84-year-old male presents with weakness and difficulties ambulating for the couple days. He fell 3 days ago and has had occasionally unsteady gait since. It was believed he struck his head. He states occasional has dizziness. Has had a headache but none currently. States he is not currently having the symptoms. He denies any pain. Does not normally use a walker but has had to recently since the fall. Denies any neck pain. No chest or shortness breath. No urinary symptoms. No fevers. No vomiting or diarrhea. per notes from primary he is poor compliant diabetic who is only on metoformin. has history of amputations. - History of Current Complaint Chief Complaint: EDFall Stated Complaint: FELL A FEW DAYS AGO PER PT Time Seen by Provider: 03/30/19 15:38 Pain Intensity: 3 - Additional Pertinent History Primary Care Physician: OLGA - Allergy/Home Medications Allergies/Adverse Reactions: Allergies Allergy/AdvReac Type Severity Reaction Status Date / Time ciprofloxacin Allergy Swelling Verified 03/30/19 12:56 Of Face,Lips,& Throat Home Medications: Home Medications Docusate CAP* [Colace Cap*] 100 mg PO BID 03/30/19 [History Confirmed 03/30/19] amLODIPine TAB* [Norvasc 5 mg TAB*] 5 mg PO DAILY 03/30/19 [History Confirmed ] PMH/Surg Hx/FS Hx/Imm Hx Endocrine/Hematology History: Reports: Hx Diabetes - DM II, Hx Thyroid Disease - hypothyroid Denies: Hx Anticoagulant Therapy Cardiovascular History: Reports: Hx Hypertension Denies: Hx Pacemaker/ICD Respiratory History: Denies: Hx Asthma History: Reports: Hx Benign Prostatic Hyperplasia, Hx Kidney Stones, Other Problems/Disorders - hx of renal stones Denies: Hx Renal Disease Musculoskeletal History: Reports: Hx Gout, Other Musculoskeletal History - Gout Sensory History: Reports: Hx Contacts or Glasses - glasses, Hx Hearing Problem Denies: Hx Hearing Aid Opthamlomology History: Reports: Hx Contacts or Glasses - glasses Neurological History: Denies: Hx Seizures Psychiatric History: Denies: Hx Panic Disorder, Hx Substance Abuse - Surgical History Surgery Procedure, Year, and Place: prostate scraping x3. hernia repair. michael filter placed (surgery completed here, info in operative report). left fingers amputations Hx Anesthesia Reactions: No Infectious Disease History: No Infectious Disease History: Denies: Hx Hepatitis, Hx Human Immunodeficiency Virus (HIV), Traveled Outside the [place] in Last 30 Days - Family History Known Family History: Positive: Hypertension - Social History Alcohol Use: None Hx Substance Use: No Substance Use Type: Reports: None Hx Tobacco Use: Yes Smoking Status (MU): Former Smoker Type: Cigarettes Amount Used/How Often: 2 packs/day Have You Smoked in the Last Year: No Review of Systems Negative: Fever Negative: Chest Pain Negative: Shortness Of Breath Neurological: Other - unsteady gait Negative: Headache All Other Systems Reviewed And Are Negative: Yes Physical Exam Triage Information Reviewed: Yes Vital Signs On Initial Exam: Initial Vitals Temp Pulse Resp BP Pulse Ox 97.1 F 78 18 114/72 92 03/30/19 12:53 03/30/19 12:53 03/30/19 12:53 03/30/19 12:53 03/30/19 12:53 Vital Signs Reviewed: Yes Appearance: Positive: Well-Appearing Skin: Positive: Warm, Dry Head/Face: Positive: Normal Head/Face Inspection Eyes: Positive: Normal, EOMI, JOEY, Conjunctiva Clear ENT: Positive: Pharynx normal Respiratory/Lung Sounds: Positive: Clear to Auscultation, Breath Sounds Present Cardiovascular: Positive: Normal, RRR Abdomen Description: Positive: Nontender, Soft Bowel Sounds: Positive: Present Musculoskeletal: Positive: Normal Neurological: Positive: Sensory/Motor Intact, Alert, Oriented to Person Place, Time, CN Intact II-III, Normal Gait, Finger to Nose Psychiatric: Positive: Normal - Melba Coma Scale Best Eye Response: 4 - Spontaneous Best Motor Response: 6 - Obeys Commands Best Verbal Response: 5 - Oriented Coma Scale Total: 15 Procedures - Sedation Patient Received Moderate/Deep Sedation with Procedure: No Diagnostics - Vital Signs Vital Signs Temp Pulse Resp BP Pulse Ox 03/30/19 14:48 98.7 F 70 16 123/74 97 03/30/19 12:53 97.1 F 78 18 114/72 92 - Laboratory Lab Results: Lab Results 03/30/19 03/30/19 Range/Units 15:55 16:11 WBC 8.2 (3.5-10.8) 10^3/uL RBC 4.62 (4.18-5.48) 10^6 /uL Hgb 14.4 (14.0-18.0) g/dL Hct 40 L (42-52) % MCV 88 (80-94) fL MCH 31 (27-31) pg MCHC 36 (31-36) g/dL RDW 14 (10-15) % Plt Count 215 (150-450) 10^3/uL MPV 8.8 (7.4-10.4) fL Neut % (Auto) 67.4 % Lymph % (Auto) 22.3 % Sebastian % (Auto) 7.6 % Eos % (Auto) 1.8 % Baso % (Auto) 0.9 % Absolute Neuts (auto) 5.5 (1.5-7.7) 10^3/ul Absolute Lymphs (auto) 1.8 (1.0-4.8) 10^3/ul Absolute Monos (auto) 0.6 (0-0.8) 10^3/ul Absolute Eos (auto) 0.1 (0-0.6) 10^3/ul Absolute Basos (auto) 0.1 (0-0.2) 10^3/ul Absolute Nucleated RBC 0.0 10^3/ul Nucleated RBC % 0.0 Urine Color Yellow Urine Appearance Clear Urine pH 5.0 (5-9) Ur Specific [place] 1.026 (1.010-1.030) Urine Protein Negative (Negative) Urine Ketones 1+ A (Negative) Urine Blood Negative (Negative) Urine Nitrate Negative (Negative) Urine Bilirubin Negative (Negative) Urine Urobilinogen Negative (Negative) Ur Leukocyte Esterase Negative (Negative) Urine Glucose 3+(>=500 mg/dl) A (Negative) Result Diagrams: 03/30/19 16:11 03/30/19 19:16 Lab Statement: Any lab studies that have been ordered have been reviewed, and results considered in the medical decision making process. - EKG No standard instances Cardiac Rate: NL EKG Rhythm: Sinus Rhythm EKG Comparison: No Significant Change Summary of EKG Findings: sinus rhythm, RBBB Re-Evaluation - Re-Evaluation First Eval Re-Evaluation Time: 17:31 Comment: ambulated with a steady gait with and without walker. Adult Trauma Course/Dx - Course Course Of Treatment: 84-year-old male presents with onset he past couple days. He fell 3 days ago and has had occasionally unsteady gait since. He states occasional has dizziness. Has had a headache but none currently. States he is not currently having the symptoms. He denies any pain. Does not normally use a walker but has had to recently since the fall. Denies any neck pain. No chest or shortness breath. No urinary symptoms. No fevers. No vomiting or diarrhea. On exam has normal neuro exam. was able to ambulate well with and without a walker. CT brain normal. wbc normal. glucose is 511. has anion gap of 14. ph normal. ketones in urine. is not in dka. gave fluids and insulin and sugar dropped to 389 after 7 units IV. gave 8 units subq and sugar 250. bun and cr are elevated. discussed with dr lin and as patient is not on insulin and only on metformin and needs better glucose control so will admit to get glucose on control. - Diagnoses Differential Diagnosis/HQI/PQRI: Positive: Other - dka, hyperglycemia, CVA Provider Diagnoses: Hyperglycemia, Weakness, Fall Discharge ED - Sign-Out/Discharge Documenting (check all that apply): Patient Departure - Discharge Plan Condition: Stable Disposition: ADMITTED TO [facility] - Billing Disposition and Condition Condition: STABLE Disposition: Admitted to [facility]
[2019-03-30 16:29] LABS: INR 1.02 (0.82-1.09)
[2019-03-30 16:35] LABS: Albumin 4.2 g/dL (3.2-5.2); Calcium 9.3 mg/dL (8.6-10.3); Potassium 4.8 mmol/L (3.5-5.0); Total Bilirubin 1.5 mg/dL (0.2-1.0)
[2019-03-30 16:41] LABS: Albumin/Globulin Ratio 1.5 (1-3); BUN/Creatinine Ratio 23.9 (8-20); EGFR African American 51.8 (>60); EGFR Non-African American 42.8 (>60); Globulin 2.8 g/dL (2-4)
[2019-03-30 16:42] LABS: Troponin I 0.03 ng/mL (<0.03)
[2019-03-30] MEDS ORDERED: NS 0.9% 1000 ML** 2,000 ML IV ONE (16:43)
[2019-03-30] MEDS ORDERED: Insulin REGULAR(*) 1 UNITS UNIT IV PUSH ONE (18:01)
[2019-03-30] MEDS ORDERED: NS 0.9% 1000 ML** 1,000 ML IV ONE (18:01)
[2019-03-30] MEDS ORDERED: Insulin REGULAR(*) 1 UNITS UNIT SUBCUT ONE (19:01)
[2019-03-30] MEDS ORDERED: Acetaminophen TAB* 325 MG PO PRN (19:36)
[2019-03-30 19:41] LABS: BUN/Creatinine Ratio 23.4 (8-20); Calcium 8.5 mg/dL (8.6-10.3); EGFR African American 59.8 (>60); EGFR Non-African American 49.4 (>60); Potassium 4.2 mmol/L (3.5-5.0)
[2019-03-30 19:48] LABS: Troponin I 0.04 ng/mL (<0.03)
[2019-03-30 20:55] LABS: TSH (Thyroid Stimulating Horm) 3.82 mcIU/mL (0.34-5.60)
[2019-03-30] MEDS ORDERED: Insulin GLARGINE(*) 1 UNITS UNIT SUBCUT SCH (21:00)
[2019-03-30] MEDS ORDERED: Enoxaparin(*) 40 MG/0.4 ML SYR SUBCUT SCH (21:00)
--- NOTE | 2019-03-30 22:22 | HP ---
CC: Dr. Parker * HISTORY AND PHYSICAL: DATE OF ADMISSION: 03/30/19 PRIMARY CARE PROVIDER: Dr. Parker. ATTENDING PHYSICIAN: Sarah Crandall DO * (dictated by MARQUES Branham) CHIEF COMPLAINT: 1. Fall. 2. Unsteady gait, dizziness. 3. Polydipsia. HISTORY OF PRESENT ILLNESS: Mr. 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 When asked why he is here, he says "because they are all crazy." The patient does not appear to remember falling recently, but his son Anil is at the bedside and states that the patient fell approximately 5 days ago. He has appeared to be dizzy with ambulation and has been unsteady. He has been using a walker since his fall 5 days ago, which is abnormal for him. He typically ambulates without assistance. He typically takes metformin 1000 units b.i.d. He states that he last took the medication last night and missed today's dose. He does not check his blood sugars at home. His son notes that his levels have been increasing over the last few months. I presume that this is related to his hemoglobin A1c as he does not check his blood sugars at home. He was on glipizide in the past , but appears to no longer be taking this medication. His son presumes that Dr. Parker discontinued this medication. His son reports upper extremity tremors, apparent unsteadiness of gait, and polydipsia over the last approximately 5 days since his fall. In the ER, the patient received a full workup. A CBC was relatively benign. Chem panel shows hyponatremia, elevated anion gap, creatinine of 1.55 which is elevated above his baseline, elevated BUN. His glucose was 511, but decreased to 389 with treatment with 3 liters IV fluid and 7 units of regular insulin suqQ. Another 8 additional units of regular insulin have been ordered. CT of the brain is negative for acute intracranial mass or hemorrhage. 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 The hospitalist team was asked to evaluate the patient for admission. PAST MEDICAL HISTORY: 1. Diabetes mellitus type 2, non-insulin dependent. 2. Hypertension. 3. Hypothyroidism. 4. BPH. 5. Gout. 6. 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 PAST SURGICAL HISTORY: TURP; left orchiectomy; hernia repair; [place] filter placement; left digits 2, 3, and 4 amputation; right second toe amputation. CURRENT MEDICATIONS: 1. Allopurinol 300 mg p.o. daily. 2. Amlodipine 5 mg p.o. daily. 3. Clopidogrel 75 mg p.o. daily. 4. Docusate 100 mg p.o. b.i.d. 5. Levothyroxine 50 mcg p.o. daily. 6. Lisinopril 5 mg p.o. daily. 7. Metformin 1000 mg p.o. b.i.d. 8. Metoprolol succinate 50 mg p.o. daily. DRUG ALLERGIES: CIPROFLOXACIN, angioedema. FAMILY HISTORY: Mother had a clot and subsequently developed abdominal gangrene and due to this. Father was healthy and of complications from CKD. No family history of heart disease, CVA, cancer, or diabetes mellitus. SOCIAL HISTORY: The patient smoked 2 packs per day for approximately 18 years. He quit approximately 50 years ago. He rarely drinks alcohol, less than weekly. 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 He lives home with his . In the event that he is unable to make his own medical decisions, he has appointed his son, Anil Perdomo or his Siri Perdomo to be his surrogate decision makers. REVIEW OF SYSTEMS: A 14-point review of systems has been performed and all the pertinent positives and negatives are in the HPI. All other systems are negative. PHYSICAL EXAMINATION GENERAL: Mr. Perdomo is an older, white [place] male, who is sitting up in bed. He appears comfortable and in no acute distress. He is cooperative and appropriate. VITAL SIGNS: Temperature 98.7 temporal, heart rate 70, respiratory rate 16, oxygen saturation 97% on room air, blood pressure 123/74. HEENT: PERRL. EOMI. Nonicteric sclerae. The patient is mildly hard of hearing. Oral mucous membranes are moist. The patient is edentulous. Pharynx is clear. Tongue is at midline. Palate elevates symmetrically. PULMONARY: Symmetrical chest expansion without use of accessory muscles. Clear to auscultation bilaterally without rhonchi, wheezes, or rales. CARDIOVASCULAR: Regular rate and rhythm with S1, S2 present without murmurs, rubs, clicks, or gallops. There is no JVD. There is no peripheral edema. ABDOMEN: Flat. Bowel sounds in all quadrants. Soft, nontender to palpation. MUSCULOSKELETAL: Full range of motion without pain or deformities. NEURO: The patient is awake. He is alert and oriented x3. Cranial nerves are grossly intact. He is able to move all of his extremities with a 5/5 muscle strength bilaterally in upper and lower extremities. Strength is equal. He has mildly wide gait base, but otherwise ambulates without difficulty. DIAGNOSTIC STUDIES/LAB DATA: CBC without gross abnormality. Sodium 127, anion gap 14, BUN 37, creatinine 1.55, glucose 511 to 389, total bilirubin 1.50 , troponin 0.03. Brain CT, impression: No intracranial mass or hemorrhage is noted. Age- appropriate atrophy. ASSESSMENT AND PLAN: Mr. Perdomo is an 84-year-old male with past medical history of diabetes mellitus, on metformin, hypertension, history of pulmonary embolism with an IVC filter in place, who presented to the ER today after having sustained a fall approximately 5 days ago with his family complaining of dizziness, unsteady gait, and polydipsia. The patient was found to have hyperglycemia that responded partially to regular insulin and IV fluids. The patient will be admitted for: 1. Hyperglycemia. The patient has a history of diabetes mellitus type 2. He is being treated with metformin 1000 mg b.i.d. He recently stopped glipizide. Upon arrival to the ER, the patient's blood glucose was approximately 511. He was given 3 L normal saline as well as 7 units regular insulin, then 8 units regular insulin. The patient will be started on long-acting glargine starting at 10 units tonight. We will monitor fingersticks closely for the first approximately 6 hours q.1 hour fingersticks, then change to q.2 hours fingersticks for 6 hours, then to a.c., h.s. The patient will need education for administration of insulin, as he will likely be sent home on insulin. Repeat HA1c has been ordered 2. Fall with unsteady gait, dizziness. CT of the brain was negative. This may be related to the patient's hyperglycemia. PT and OT have been ordered. 3. Hyponatremia. I suspect that this may be due to the patient's polydipsia and overall increase in water intake, although he does appear to be mildly dry. He has been given 3 L of IV fluids. BMP has been ordered to reassess sodium status and is pending currently. 4. Acute kidney injury. Again, the patient appears to be dry, so I suspect his acute kidney injury is due to hypovolemia. He has been given 3 L of IV fluids. A BMP is pending. 5. Hypertension. Continue home medications, amlodipine, lisinopril, metoprolol succinate. 6. Hypothyroidism. Continue levothyroxine. 7. Gout. Continue allopurinol. 8. Right lower extremity revascularization, performed on 12/23/18. For this, he is taking clopidogrel and aspirin daily. We will continue these medications while he is here. It appears that he is not on aspirin right now, so this will be added to his med list. 9. DVT prophylaxis. According to DVT Risk Assessment, the patient scores 4 placing him at high risk. He does have an IVC filter in place. We will start him on Lovenox. 10. Code status: Full code. TIME SPENT: Approximately 60 minutes was spent on this admission, greater than half that time was spent [id number] with the patient and his son obtaining history, performing physical and reviewing the plan of care. The case has been reviewed with my attending, Dr. Crandall, who is in agreement with the plan of care. MARQUES THOMPSON [id number]/CPS #: [id number] GARO
[2019-03-30 22:45] LABS: Troponin I 0.03 ng/mL (<0.03)
[2019-03-30] MEDS: Docusate CAP* 100 MG PO SCH ×2 (23:53→23:59)
[2019-03-30] MEDS: Insulin LISPRO* 1 UNITS UNIT SUBCUT SCH (23:54)
[2019-03-31] MEDS: NS 0.9% 1000 ML** 1,000 ML IV SCH ×2 (03:28→16:50)
[2019-03-31] MEDS: Levothyroxine TAB* 50 MCG TAB PO SCH (05:49)
[2019-03-31 08:51] LABS: BUN/Creatinine Ratio 21.6 (8-20); Calcium 8.3 mg/dL (8.6-10.3); EGFR African American 66.4 (>60); EGFR Non-African American 54.9 (>60); Potassium 4.1 mmol/L (3.5-5.0)
[2019-03-31] MEDS: Aspirin EC TAB* 81 MG TAB.EC PO SCH (09:21)
[2019-03-31] MEDS: amLODIPine TAB* 5 MG PO SCH (09:21)
[2019-03-31] MEDS: Docusate CAP* 100 MG PO SCH ×4 (09:22→22:01)
[2019-03-31] MEDS: Metoprolol Succinate XL TAB* 50 MG PO SCH (09:22)
[2019-03-31] MEDS: Insulin LISPRO* 1 UNITS UNIT SUBCUT SCH ×4 (09:22→17:53)
[2019-03-31] MEDS: Lisinopril TAB* 5 MG PO SCH (09:22)
[2019-03-31] MEDS: Clopidogrel TAB* 75 MG PO SCH (09:22)
[2019-03-31] MEDS: Allopurinol TAB* 300 MG PO SCH (09:22)
--- NOTE | 2019-03-31 13:34 | PN ---
Subjective Date of Service: 03/31/19 Interval History: HOSPITALIST PROGRESS NOTE Patient seen and examined at bedside. Care reviewed and d/w Ab Nur RN. He offers no complaints at this time. Know he's in the hospital, but doesn't know why. When I reminded him of his complaints, he states he's still a little dizzy. Family History: Unchanged from Admission Social History: Unchanged from Admission Past Medical History: Unchanged from Admission Objective Active Medications: Acetaminophen (Tylenol Tab*) 650 mg PO Q4H PRN PRN Reason: mild to moderate pain Allopurinol (Zyloprim Tab*) 300 mg PO DAILY [facility] Last Admin: 03/31/19 09:22 Dose: 300 mg Amlodipine Besylate (Norvasc Tab*) 5 mg PO DAILY [facility] Last Admin: 03/31/19 09:21 Dose: 5 mg Aspirin (Aspirin Ec Tab*) 81 mg PO DAILY [facility] Last Admin: 03/31/19 09:21 Dose: 81 mg Clopidogrel Bisulfate (Plavix Tab*) 75 mg PO DAILY [facility] Last Admin: 03/31/19 09:22 Dose: 75 mg Docusate Sodium (Colace Cap*) 100 mg PO BID [facility] Last Admin: 03/31/19 09:25 Dose: Not Given Enoxaparin Sodium (Lovenox(*)) 40 mg SUBCUT Q24H [facility] Last Admin: 03/30/19 23:53 Dose: 40 mg Glipizide (Glucotrol Tab*) 2.5 mg PO 0800,1700 [facility] Sodium Chloride (Ns 0.9% 1000 Ml) 1,000 mls @ 100 mls/hr IV PER RATE [facility] Stop: 04/01/19 06:14 Last Admin: 03/31/19 03:28 Dose: 100 mls/hr Insulin Human Lispro (Humalog*) 0 units SUBCUT ACHS [facility]; Protocol Last Admin: 03/31/19 12:31 Dose: Not Given Levothyroxine Sodium (Synthroid Tab*) 50 mcg PO DAILY@0600 [facility] Last Admin: 03/31/19 05:49 Dose: 50 mcg Lisinopril (Prinivil Tab*) 5 mg PO DAILY [facility] Last Admin: 03/31/19 09:22 Dose: 5 mg Metformin HCl (Glucophage*) 1,000 mg PO BID [facility] Metoprolol Succinate (Toprol Xl Tab*) 50 mg PO DAILY [facility] Last Admin: 03/31/19 09:22 Dose: 50 mg Vital Signs - 8 hr 03/31/19 03/31/19 08:00 13:28 Temperature 98.1 F 98.3 F Pulse Rate 67 79 Respiratory 18 18 Rate Blood Pressure 145/66 123/58 (mmHg) O2 Sat by Pulse 96 94 Oximetry Oxygen Devices in Use Now: None Appearance: Pleasantly confused elderly gentleman lying in bed in NAD Eyes: No Scleral Icterus Ears/Nose/Mouth/Throat: Mucous Membranes Moist Neck: Trachea Midline Respiratory: Symmetrical Chest Expansion and Respiratory Effort, Clear to Auscultation Cardiovascular: RRR - Normal S1 and S2 Abdominal: NL Sounds; No Tenderness; No Distention Neurological: - - AAOX2 (self and place), face is symmetric, speech is clear, strength 5/5 all 4 extremities Result Diagrams: 03/30/19 16:11 03/31/19 08:19 Assess/Plan/Problems-Billing Assessment: Mr Perdomo is an 84yo M with PMH of type 2 DM, HTN, hypothyroidism, BPH, Gout, PE /IVC filter, who presented to ED with c/o dizziness, found to have uncontrolled DM. - Patient Problems (1) Uncontrolled diabetes mellitus Comment: - Hb A1c 14.1. - Patient was on Metformin as outpatient. It is unclear when Glipizide was discontinued. Patient states he manages his medications, but doesn't remember taking Glipizide. - Talked to PCP - under the impression glipizide was discontinued due to hypoglycemia. - Will add lower dose Glipizide and monitor. - Endocrinology consult requested. - No family available at this time - I don't think he would be able to manage insulin at home. (2) Dizziness Comment: - Although this oc uld be metabolic, he is still symptomatic so will pursue further w/u. - Check MRI brain to r/o CVA. - Neurochecks. - PT/OT evaluation. (3) LOYDA (acute kidney injury) Comment: - Likely pre-renal - improving. (4) HTN (hypertension) Comment: - Controlled. - Continue metoprolol, amlodipine, lisinopril. (5) Hypothyroid Comment: - TSH 3.8. - Continue Levothyroxine. (6) Peripheral vascular disease Comment: - S/p right femoral artery stent December 2018 - recommendation for Plavix for 6 months and Aspirin for life. (7) DVT prophylaxis Comment: - SQ heparin. (8) Full code status Comment: Status and Disposition: OBV
--- NOTE | 2019-03-31 17:06 | CONSULT ---
Consult Consult: [facility] Inpatient Consult Note Date of Consult: 03/31/19 Reason for Consult: diabetes mellitus Reason for Admission: ketosis-prone diabetes mellitus ASSESSMENT: 84 yo M with history of ketosis-prone diabetes, now presenting with severe hyperglycemia, mild ketosis. Prior episodes of DKA in 2012 and 2018 occurred in setting of PE and osteomyelitis, respectively, and rapidly improved with supplemental insulin. Current episode has been preceded by chronic hyperglycemia (A1c >14%) likely indicating that his diabetes has worsened in the 3-4 months since his last admission. In addition to resuming low-dose glipizide, I recommend that he start once-daily insulin at the time of discharge. Sliding scale insulin coverage should be used while he remains an inpatient, but he will not need this at home. PLAN: - increase glargine to 12 units QHS (done) - change lispro sliding scale to 1:50 for BG>150 (done) - continue glipizide 2.5mg BID - call [phone] with questions SUBJECTIVE: History of Present Illness: 84 yo M with long-standing T2DM on oral agents only , but with history of acute ketosis-prone diabetes in setting of severe illnesses in 2012 and 2018, now presenting with severe hyperglycemia after a recent fall. He was in his usual state of health until recently, when he started to experience unsteady gait and dizziness with ambulation. He had a fall approximately 5 days before admission and has been using a walker since then. He has noticed increased urination recently and has increased his intake of juice and water to avoid dehydration. Until December 2018, he was taking both metformin 1000mg and glipizide 10mg twice daily. His most recently A1c was 7.2% and he had fasting BG=74 on 01/02/19, so glipizide was stopped in January 2019 , while metformin was continued. He does not check BG at home. Past Medical History: 1. Ketosis-prone diabetes mellitus type 2, non-insulin dependent 2. Hypertension 3. Hypothyroidism 4. BPH 5. VTE s/p IVC filter Medications Prior to Admission: Allopurinol TAB* [Zyloprim 300 MG TAB*] 300 mg PO DAILY 09/04/12 [History Confirmed 03/30/19] Metoprolol Succinate XL TAB* [Toprol XL TAB*] 50 mg PO DAILY 05/02/13 [History Confirmed 03/30/19] metFORMIN* [Glucophage 500 MG TAB *] 1,000 mg PO BID 09/04/12 [History Confirmed 03/30/19] Levothyroxine TAB* [Synthroid TAB*] 50 mcg PO DAILY 12/02/18 [History Confirmed 03/30/19] Clopidogrel TAB* [Plavix TAB*] 75 mg PO DAILY tab 12/16/18 [Rx Confirmed ] Lisinopril TAB* [Prinivil TAB 5 MG*] 5 mg PO DAILY tab 12/16/18 [Rx Confirmed 03/30/19] Docusate CAP* [Colace Cap*] 100 mg PO BID 03/30/19 [History Confirmed 03/30/19] amLODIPine TAB* [Norvasc 5 mg TAB*] 5 mg PO DAILY 03/30/19 [History Confirmed ] Inpatient Medications: Acetaminophen (Tylenol Tab*) 650 mg PO Q4H PRN PRN Reason: mild to moderate pain Allopurinol (Zyloprim Tab*) 300 mg PO DAILY [facility] Last Admin: 03/31/19 09:22 Dose: 300 mg Amlodipine Besylate (Norvasc Tab*) 5 mg PO DAILY [facility] Last Admin: 03/31/19 09:21 Dose: 5 mg Aspirin (Aspirin Ec Tab*) 81 mg PO DAILY [facility] Last Admin: 03/31/19 09:21 Dose: 81 mg Clopidogrel Bisulfate (Plavix Tab*) 75 mg PO DAILY [facility] Last Admin: 03/31/19 09:22 Dose: 75 mg Docusate Sodium (Colace Cap*) 100 mg PO BID [facility] Last Admin: 03/31/19 09:25 Dose: Not Given Heparin Sodium (Porcine) (Heparin Vial(*)) 5,000 units SUBCUT Q8HR [facility] Sodium Chloride (Ns 0.9% 1000 Ml) 1,000 mls @ 100 mls/hr IV PER RATE [facility] Stop: 04/01/19 06:14 Last Admin: 03/31/19 03:28 Dose: 100 mls/hr Insulin Glargine (Lantus(*)) 10 units SUBCUT Q24H [facility] Insulin Human Lispro (Humalog*) 0 units SUBCUT [facility]; Protocol Levothyroxine Sodium (Synthroid Tab*) 50 mcg PO DAILY@0600 [facility] Last Admin: 03/31/19 05:49 Dose: 50 mcg Lisinopril (Prinivil Tab*) 5 mg PO DAILY [facility] Last Admin: 03/31/19 09:22 Dose: 5 mg Metformin HCl (Glucophage*) 1,000 mg PO BID [facility] Metoprolol Succinate (Toprol Xl Tab*) 50 mg PO DAILY [facility] Last Admin: 03/31/19 09:22 Dose: 50 mg Allergies/Intolerances: Cipro Social History: Lives with . Son nearby. Retired. Distant smoking. Denies alcohol. Family History: VTE, otherwise non-contributory. Review of Systems: As above. 10 system review is otherwise negative. OBJECTIVE: Temp Pulse Resp BP Pulse Ox 97.7 F 70 18 113/59 96 03/31/19 15:23 03/31/19 15:23 03/31/19 15:23 03/31/19 15:23 03/31/19 15:23 General: alert, pleasant, oriented, no distress ENT: neck supple, no thyromegaly, no bruit is heard Chest: CTAB, no wheezing or crackles CV: RRR, no murmur Abdomen: soft, non-tender Extremities: no edema, distal pulses intact Skin: warm, dry, no rash Neuro: grossly intact motor/sensory in extremities Psych: restricted affect, pleasant Labs: WBC 8.2 10^3/uL (3.5-10.8) 03/30/19 16:11 RBC 4.62 10^6 /uL (4.18-5.48) 03/30/19 16:11 Hgb 14.4 g/dL (14.0-18.0) 03/30/19 16:11 Hct 40 % (42-52) L 03/30/19 16:11 MCV 88 fL (80-94) 03/30/19 16:11 MCH 31 pg (27-31) 03/30/19 16:11 MCHC 36 g/dL (31-36) 03/30/19 16:11 RDW 14 % (10-15) 03/30/19 16:11 Plt Count 215 10^3/uL (150-450) 03/30/19 16:11 MPV 8.8 fL (7.4-10.4) 03/30/19 16:11 Neut % (Auto) 67.4 % 03/30/19 16:11 Lymph % (Auto) 22.3 % 03/30/19 16:11 [place] % (Auto) 7.6 % 03/30/19 16:11 Eos % (Auto) 1.8 % 03/30/19 16:11 Baso % (Auto) 0.9 % 03/30/19 16:11 Absolute Neuts (auto) 5.5 10^3/ul (1.5-7.7) 03/30/19 16:11 Absolute Lymphs (auto) 1.8 10^3/ul (1.0-4.8) 03/30/19 16:11 Absolute Monos (auto) 0.6 10^3/ul (0-0.8) 03/30/19 16:11 Absolute Eos (auto) 0.1 10^3/ul (0-0.6) 03/30/19 16:11 Absolute Basos (auto) 0.1 10^3/ul (0-0.2) 03/30/19 16:11 Absolute Nucleated RBC 0.0 10^3/ul 03/30/19 16:11 Nucleated RBC % 0.0 03/30/19 16:11 INR (Anticoag Therapy) 1.02 (0.82-1.09) 03/30/19 16:11 APTT 26.0 seconds (26.0-38.0) 03/30/19 16:11 VBG pH 7.35 (7.32-7.43) 03/30/19 17:48 VBG pCO2 42 mmHg (41-51) 03/30/19 17:48 VBG pO2 < 38.0 mmHg (35-45) 03/30/19 17:48 VBG HCO3 21.4 mmol/L (24-28) L 03/30/19 17:48 VBG O2 Saturation 36.5 % (70-80) L 03/30/19 17:48 VBG Base Excess -2.4 mmol/L (0.0-4.0) L 03/30/19 17:48 Sodium 136 mmol/L (135-145) 03/31/19 08:19 Potassium 4.1 mmol/L (3.5-5.0) 03/31/19 08:19 Chloride 106 mmol/L (101-111) 03/31/19 08:19 Carbon Dioxide 21 mmol/L (22-32) L 03/31/19 08:19 Anion Gap 9 mmol/L (2-11) 03/31/19 08:19 BUN 27 mg/dL (6-24) H 03/31/19 08:19 Creatinine 1.25 mg/dL (0.67-1.17) H 03/31/19 08:19 Est GFR ( Amer) 66.4 (>60) 03/31/19 08:19 Est GFR (Non-Af Amer) 54.9 (>60) 03/31/19 08:19 BUN/Creatinine Ratio 21.6 (8-20) H 03/31/19 08:19 Glucose 211 mg/dL (70-100) H 03/31/19 08:19 POC Glucose (mg/dL) 430 mg/dL (70-100) H* 03/31/19 17:10 Glucose Meter Confirm 440 mg/dL (70-100) H 03/31/19 15:29 Hemoglobin A1c 14.1 % (4.0-5.6) H 03/30/19 16:11 Lactic Acid 1.4 mmol/L (0.5-2.0) 03/30/19 16:11 Calcium 8.3 mg/dL (8.6-10.3) L 03/31/19 08:19 Total Bilirubin 1.50 mg/dL (0.2-1.0) H 03/30/19 16:11 AST 20 U/L (13-39) 03/30/19 16:11 ALT 25 U/L (7-52) 03/30/19 16:11 Alkaline Phosphatase 99 U/L (34-104) 03/30/19 16:11 Troponin I 0.03 ng/mL (<0.03) H* 03/30/19 22:15 Total Protein 7.0 g/dL (6.4-8.9) 03/30/19 16:11 Albumin 4.2 g/dL (3.2-5.2) 03/30/19 16:11 Globulin 2.8 g/dL (2-4) 03/30/19 16:11 Albumin/Globulin Ratio 1.5 (1-3) 03/30/19 16:11 TSH 3.82 mcIU/mL (0.34-5.60) 03/30/19 16:11 Urine Color Yellow 03/30/19 15:55 Urine Appearance Clear 03/30/19 15:55 Urine pH 5.0 (5-9) 03/30/19 15:55 Ur Specific [place] 1.026 (1.010-1.030) 03/30/19 15:55 Urine Protein Negative (Negative) 03/30/19 15:55 Urine Ketones 1+ (Negative) A 03/30/19 15:55 Urine Blood Negative (Negative) 03/30/19 15:55 Urine Nitrate Negative (Negative) 03/30/19 15:55 Urine Bilirubin Negative (Negative) 03/30/19 15:55 Urine Urobilinogen Negative (Negative) 03/30/19 15:55 Ur Leukocyte Esterase Negative (Negative) 03/30/19 15:55 Urine Glucose 3+(>=500 mg/dl) (Negative) A 03/30/19 15:55
[2019-03-31] MEDS ORDERED: Insulin LISPRO* 1 UNITS UNIT SUBCUT SCH (17:30)
[2019-03-31] MEDS: glipiZIDE TAB* 5 MG PO SCH (17:34)
[2019-03-31] MEDS ORDERED: LORazepam TAB(*) 0.5 MG PO ONE (19:30)
[2019-03-31] MEDS: Insulin GLARGINE(*) 1 UNITS UNIT SUBCUT SCH (21:59)
[2019-03-31] MEDS: Heparin VIAL(*) 5000 UNITS/ML VIAL (FIVE THOUSAND) SUBCUT SCH (21:59)
[2019-04-01] MEDS: Heparin VIAL(*) 5000 UNITS/ML VIAL (FIVE THOUSAND) SUBCUT SCH ×3 (05:26→20:16)
[2019-04-01] MEDS: Levothyroxine TAB* 50 MCG TAB PO SCH (05:26)
[2019-04-01] MEDS: Insulin LISPRO* 1 UNITS UNIT SUBCUT SCH ×3 (09:07→17:50)
[2019-04-01] MEDS ORDERED: LORazepam TAB(*) 0.5 MG PO ONE (10:30)
[2019-04-01] MEDS: Atorvastatin* 40 MG TAB PO SCH (11:02)
[2019-04-01] MEDS: Docusate CAP* 100 MG PO SCH ×2 (11:02→20:16)
[2019-04-01] MEDS: amLODIPine TAB* 5 MG PO SCH (11:03)
[2019-04-01] MEDS: glipiZIDE TAB* 5 MG PO SCH ×2 (11:04→17:50)
[2019-04-01] MEDS: Metoprolol Succinate XL TAB* 50 MG PO SCH (11:04)
[2019-04-01] MEDS: Clopidogrel TAB* 75 MG PO SCH (11:05)
[2019-04-01] MEDS: metFORMIN* 500 MG TAB PO SCH ×2 (11:05→20:15)
[2019-04-01] MEDS: Allopurinol TAB* 300 MG PO SCH (11:05)
[2019-04-01] MEDS: Aspirin EC TAB* 81 MG TAB.EC PO SCH (11:05)
[2019-04-01] MEDS: Lisinopril TAB* 5 MG PO SCH (11:05)
--- NOTE | 2019-04-01 12:35 | CONS ---
NEUROLOGY CONSULTATION NOTE: DATE OF CONSULT: 04/01/19 CONSULTING PROVIDER: Dr. Olmstead. REASON FOR CONSULT: Frequent falls and abnormal MRI. CHIEF COMPLAINT: "I am in the hospital to take a little break." HISTORY OF PRESENT ILLNESS: Mr. Macario Perdomo is an 84-year-old man who is a vasculopathy with a past medical history of diabetes mellitus, non-insulin dependent that's poorly controlled, hypertension, who presented to [facility] on 03/30/19 due to a 3-day history of frequent falls. The patient stated that he is in the hospital because he needed a break from his family. He lives with his . He is enjoying his time here. He stated his favorite part of this hospitalization is the services in the food that he is receiving. The patient denied any focal weakness or paresthesias. The patient denied any headaches, visual disturbance, swallowing difficulty, numbness or tingling sensation, or impairment in his bowel or bladder functions. According to the note, the patient apparently has been falling for the last 3 to 5 days. The patient apparently complains of dizziness when ambulating. He feels unsteady. The patient stated that he feels comfortable walking with a walker, but cannot ambulate without one. According to the records, the patient typically is able to ambulate without assistance, but the patient denied that. Again, he denied any acute weakness or ataxia. In the ED, the patient had current laboratory abnormalities, which include elevated BUN of 32, creatinine 1.37, BUN and creatinine ratio of 23, glucose of 511 on admission. Hemoglobin A1c of 14, calcium of 8.5, TSH of 3.82. Urinalysis was negative for pyuria, but positive for glucose and very mild blood. Vitamin B12 was not checked. CT of the head without contrast showed no evidence of acute intracranial abnormality. An MRI of the brain without contrast was done and showed a 5 mm focus of diffusion restriction involving the right pericallosal occipital lobe concerning for small acute ischemic infarction. There is loss of the right vertebral artery flow void likely secondary to occlusion or flow limiting stenosis. MRA of the head and neck was recommended. I personally reviewed the studies. The MRI also showed multiple areas of previous strokes, encephalomalacia in the left cerebellum as well as an area of T2 hyperintensity in the left frontal lobe, again suggestive of prior/previous infarction. There is also nonspecific T2 hyperintensities in the right cerebellum close to the cerebral peduncle. The sagittal T1 sequence of the MRI showed no evidence of higher cervical spinal stenosis. EKG reported a prolonged MO interval greater than 220 and ectopic atrial rhythm. NIH Stroke Scale of 0. The patient is supposed to be on dual-antiplatelet therapy, but he reports only taking aspirin. However, on his medication list, the patient is on clopidogrel. I am not sure if the patient is on the combination therapy, but he takes the medications himself. There is questionable compliance. He is not on any statin therapy. The lipid panel is also not checked in this case. Lipid profile has been ordered by Dr. Olmstead. 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 CURRENT MEDICATIONS: 1. Allopurinol 300 mg p.o. daily. 2. Amlodipine 5 mg p.o. daily. 3. Clopidogrel 75 mg p.o. daily. 4. Docusate 100 mg p.o. b.i.d. 5. Levothyroxine 50 mcg p.o. daily. 6. Lisinopril 5 mg p.o. daily. 7. Metformin 1000 mg p.o. b.i.d. 8. Metoprolol succinate 50 mg p.o. daily. DRUG ALLERGIES: CIPROFLOXACIN which has caused angioedema. FAMILY HISTORY: No family history of stroke or seizures. SOCIAL HISTORY: The patient smoked 2 pack per day for 18 years, he quit more than 50 years ago. He does not drink alcohol. He is and lives with his . REVIEW OF SYSTEMS: A 14-point review of systems was obtained and otherwise negative except for what was mentioned in the HPI. PHYSICAL EXAMINATION: Vitals: Temperature of 99.5, pulse of 64, respiratory rate of 20, oxygen saturation of 97%, blood pressure of 131/70. General: Well - appearing, frail man, in no acute distress. He has dentures on. Head: Atraumatic, normocephalic without any obvious abnormality. Neck is supple and symmetrical without any carotid bruit. Eyes: Conjunctivae/corneas are clear. Cardiovascular: Regular rate and rhythm with normal S1, S2. Chest: Clear to auscultation bilaterally. Extremities: Toe amputation on the right second toe as well as digits 2, 3 and 4 on the left hand. No cyanosis or hammertoes. Skin : No significant skin lesions or laceration. Psych: Affect is broad. Normal mood. Neurological Examination: Mental Status: Awake and alert to person, place, time, but not general circumstances. He did not know why he is in the hospital, but mostly he needed a break. However, he did not know who the president is, the month, what holidays coming up. He does seem to have mild psychomotor delay. He is impulsive as well when moving around in bed. Cranial Nerves: Pupils equal, round, reactive to light. Extraocular muscles are intact. Normal sensation of the face. There is no facial asymmetry. Tongue is symmetrical and midline with no atrophy or fasciculation. Motor Examination: He does have slight abnormal asymmetric chorea like movements of the left upper extremity. The patient is not aware or cognizant of his symptoms. He has no motor weakness on all 4 extremities for which they are all antigravity and he has got good effort with resistance bilaterally. Reflexes: 1+ throughout with 0 at the ankles bilaterally, downgoing plantar responses. Sensory: Normal sensation to light touch throughout. Distal to proximal sensory gradient up to the knees to light touch, temperature and pinprick sensation. Absent vibration at the toes and medial malleolus bilaterally. Coordination: Normal finger-to- nose bilaterally. Gait: Wide based gait required a walker, impulsive with fast movements. He literally threw himself back into bed with minimal cautions. ASSESSMENT AND RECOMMENDATION: Mr. Macario Perdomo is an 84-year-old right-handed man with poorly controlled diabetes with an A1c of 14, multifocal acute and chronic strokes, mostly the acute stroke involving the right splenium of the corpus callosum near the occipital lobe and remote strokes in the cerebellum and the left frontal lobe, peripheral vascular disease, who presented to [facility] yesterday after a 3-5 day history of frequent falls. There has been no reported loss of consciousness or significant head injury. The patient denied any falls, but he does notice that he has been requiring to use a walker lately. It is unclear if he is actually compliant to the antiplatelet therapy. He is clearly with poorly controlled diabetes. 1. Frequent falls and gait imbalance. This is multifactorial and most likely related to hyperglycemia, acute and remote cerebral infarctions, underlying diabetic neuropathy, and related to the chorea like movements involving the left upper and lower extremities. I discussed recommendations of fall precautions. Continue utilizing a walker. Consult PT as the patient may need physical therapy. Tight glucose control. Please check a vitamin B12 to rule out any subacute combined degeneration that could also be contributing to his gait imbalance. 2. Right tiny acute stroke in the splenium of the corpus callosum near the occipital lobe. This is most likely asymptomatic given the size of the infarct ; however, in combination with the prior strokes, he may have had some subtle visual disturbance or contralateral symptoms. The patient does not have any significant weakness on my examination. NIH Stroke Scale is 0. He was never a candidate for IV tPA or mechanical thrombectomy due to his low NIH stroke scale. Please consult PT/OT [facility]. Pending MRA head and MRA neck to evaluate the right vertebral artery occlusion. This may have been the cause of the stroke as an [id number] embolization from proximal disease, could potentially be a mechanism. The patient will need dual-antiplatelet therapy for his peripheral vascular disease. Please make sure the patient is taking his medications regularly. The patient will also need a statin therapy. I would recommend starting atorvastatin 40 mg nightly. He needs a lipid panel ordered as part of the stroke workup. Please also obtain a transthoracic echo with bubble study if not yet done so. Neuro checks every 4 hours. He can follow up with us as an outpatient. 3. Chorea like movements on the left upper and lower extremities. This is most likely related to hyperglycemia. The symptoms have subsided with well glucose control. I do not think these are seizures. However, if he develops any loss of consciousness or worsening of the chorea, please order an EEG to evaluate for any epileptiform abnormalities. 4. 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 An EMG/nerve conduction study as an outpatient could be done to evaluate the degree of neuropathy. No further workup is needed as an inpatient. I have ordered a vitamin B12 level to rule out any secondary reversible causes of neuropathy. 5. Suspect mild cognitive impairment. The patient is at risk of developing vascular dementia. Further outpatient workup with neurocognitive testing is recommended. Please practice delirium measures in case the patient becomes delirious during the day. I do not have any further neurological recommendations. Depending on the results for which I will follow up on, we will sign off. Please call us for any questions or concerns. [id number]/[facility] #: [id number] GARO
--- NOTE | 2019-04-01 16:26 | PN ---
Subjective Date of Service: 04/01/19 Interval History: HOSPITALIST PROGRESS NOTE Patient seen and examined at bedside. Care reviewed and d/w Ab Nur RN. He offers no complaints at this time. Left sided involuntary movements persist, but less intense than yesterday. Family History: Unchanged from Admission Social History: Unchanged from Admission Past Medical History: Unchanged from Admission Objective Active Medications: Acetaminophen (Tylenol Tab*) 650 mg PO Q4H PRN PRN Reason: mild to moderate pain Allopurinol (Zyloprim Tab*) 300 mg PO DAILY [facility] Last Admin: 04/01/19 11:05 Dose: 300 mg Amlodipine Besylate (Norvasc Tab*) 5 mg PO DAILY [facility] Last Admin: 04/01/19 11:03 Dose: 5 mg Aspirin (Aspirin Ec Tab*) 81 mg PO DAILY [facility] Last Admin: 04/01/19 11:05 Dose: 81 mg Atorvastatin Calcium (Lipitor*) 40 mg PO DAILY [facility] Last Admin: 04/01/19 11:02 Dose: 40 mg Clopidogrel Bisulfate (Plavix Tab*) 75 mg PO DAILY [facility] Last Admin: 04/01/19 11:05 Dose: 75 mg Docusate Sodium (Colace Cap*) 100 mg PO BID [facility] Last Admin: 04/01/19 11:02 Dose: 100 mg Glipizide (Glucotrol Tab*) 2.5 mg PO 0800,1700 [facility] Last Admin: 04/01/19 11:04 Dose: 2.5 mg Heparin Sodium (Porcine) (Heparin Vial(*)) 5,000 units SUBCUT Q8HR [facility] Last Admin: 04/01/19 13:04 Dose: 5,000 units Insulin Glargine (Lantus(*)) 12 units SUBCUT Q24H [facility] Last Admin: 03/31/19 21:59 Dose: 12 units Insulin Human Lispro (Humalog*) 0 units SUBCUT AC [facility]; Protocol Last Admin: 04/01/19 13:04 Dose: 4 unit Levothyroxine Sodium (Synthroid Tab*) 50 mcg PO DAILY@0600 [facility] Last Admin: 04/01/19 05:26 Dose: 50 mcg Lisinopril (Prinivil Tab*) 5 mg PO DAILY [facility] Last Admin: 04/01/19 11:05 Dose: 5 mg Metformin HCl (Glucophage*) 1,000 mg PO BID [facility] Last Admin: 04/01/19 11:05 Dose: 1,000 mg Metoprolol Succinate (Toprol Xl Tab*) 50 mg PO DAILY [facility] Last Admin: 04/01/19 11:04 Dose: 50 mg Vital Signs - 8 hr 04/01/19 04/01/19 04/01/19 11:04 12:12 13:04 Temperature 98.5 F Pulse Rate 63 Respiratory 18 20 18 Rate Blood Pressure 126/65 (mmHg) O2 Sat by Pulse 96 Oximetry 04/01/19 15:26 Temperature 98.4 F Pulse Rate 81 Respiratory 20 Rate Blood Pressure 139/66 (mmHg) O2 Sat by Pulse 94 Oximetry Oxygen Devices in Use Now: None Appearance: Pleasant elderly gentleman sitting up in bed in NAD. Eyes: No Scleral Icterus Ears/Nose/Mouth/Throat: Mucous Membranes Moist Neck: Trachea Midline Respiratory: Symmetrical Chest Expansion and Respiratory Effort, Clear to Auscultation Cardiovascular: RRR - Normal S1 and S2 Abdominal: NL Sounds; No Tenderness; No Distention Neurological: Alert and Oriented x 3 - but had to look at the date on his board , NL Muscle Strength and Tone, - - Involuntary movements left face, LUE and LLE during interview Result Diagrams: 03/30/19 16:11 03/31/19 08:19 Assess/Plan/Problems-Billing Assessment: Mr Perdomo is an 84yo M with PMH of type 2 DM, HTN, hypothyroidism, BPH, Gout, PE /IVC filter, who presented to ED with c/o dizziness, found to have uncontrolled DM. - Patient Problems (1) Uncontrolled diabetes mellitus Comment: - Hb A1c 14.1. - Patient was on Metformin as outpatient. It is unclear when Glipizide was discontinued. Patient states he manages his medications, but doesn't remember taking Glipizide. - Talked to PCP - under the impression glipizide was discontinued due to hypoglycemia. - Endocrinology consult appreciated - plan to continue Metformin, glipizide and Insulin. (2) Dizziness Comment: - MRI brain revealed small occipital CVA. - PT/OT evaluation appreciated. - Neurology consult requested. - Continue Aspirin, clopidogrel, add Atorvastatin. - His chorea like movements are likely secondary to his uncontrolled DM. (3) LOYDA (acute kidney injury) Comment: - Likely pre-renal - improving. (4) HTN (hypertension) Comment: - Controlled. - Continue metoprolol, amlodipine, lisinopril. (5) Hypothyroid Comment: - TSH 3.8. - Continue Levothyroxine. (6) Peripheral vascular disease Comment: - S/p right femoral artery stent December 2018 - recommendation for Plavix for 6 months and Aspirin for life. (7) DVT prophylaxis Comment: - SQ heparin. (8) Full code status Comment: Status and Disposition: Change to inpatient. Son updated - patient and will not be able to manage frequent FS and insulin injections at home. As he also has skilled needs, they' re agreeable with STR.
[2019-04-01] MEDS: Insulin GLARGINE(*) 1 UNITS UNIT SUBCUT SCH (20:16)
[2019-04-02] MEDS: Heparin VIAL(*) 5000 UNITS/ML VIAL (FIVE THOUSAND) SUBCUT SCH ×3 (05:48→21:29)
[2019-04-02] MEDS: Levothyroxine TAB* 50 MCG TAB PO SCH (05:48)
[2019-04-02 07:21] LABS: HDL Cholesterol 27.5 mg/dL
[2019-04-02] MEDS: Insulin LISPRO* 1 UNITS UNIT SUBCUT SCH ×3 (07:33→16:40)
[2019-04-02] MEDS: Clopidogrel TAB* 75 MG PO SCH (07:48)
[2019-04-02] MEDS: amLODIPine TAB* 5 MG PO SCH (07:48)
[2019-04-02] MEDS: Metoprolol Succinate XL TAB* 50 MG PO SCH (07:48)
[2019-04-02] MEDS: Lisinopril TAB* 5 MG PO SCH (07:48)
[2019-04-02] MEDS: Allopurinol TAB* 300 MG PO SCH (07:48)
[2019-04-02] MEDS: Atorvastatin* 40 MG TAB PO SCH (07:48)
[2019-04-02] MEDS: Aspirin EC TAB* 81 MG TAB.EC PO SCH (07:48)
[2019-04-02] MEDS: glipiZIDE TAB* 5 MG PO SCH ×2 (07:49→16:40)
[2019-04-02] MEDS: Docusate CAP* 100 MG PO SCH ×2 (07:49→20:19)
[2019-04-02] MEDS: metFORMIN* 500 MG TAB PO SCH ×2 (07:49→20:19)
--- NOTE | 2019-04-02 07:54 | PN ---
Subjective Date of Service: 04/02/19 Interval History: HOSPITALIST PROGRESS NOTE Patient seen and examined at bedside. Care reviewed and d/w Evelyne Johnston RN. He feels well today, in good spirits, offers no complaints. Family History: Unchanged from Admission Social History: Unchanged from Admission Past Medical History: Unchanged from Admission Objective Active Medications: Acetaminophen (Tylenol Tab*) 650 mg PO Q4H PRN PRN Reason: mild to moderate pain Allopurinol (Zyloprim Tab*) 300 mg PO DAILY [facility] Last Admin: 04/02/19 07:48 Dose: 300 mg Amlodipine Besylate (Norvasc Tab*) 5 mg PO DAILY [facility] Last Admin: 04/02/19 07:48 Dose: 5 mg Aspirin (Aspirin Ec Tab*) 81 mg PO DAILY [facility] Last Admin: 04/02/19 07:48 Dose: 81 mg Atorvastatin Calcium (Lipitor*) 40 mg PO DAILY [facility] Last Admin: 04/02/19 07:48 Dose: 40 mg Clopidogrel Bisulfate (Plavix Tab*) 75 mg PO DAILY [facility] Last Admin: 04/02/19 07:48 Dose: 75 mg Docusate Sodium (Colace Cap*) 100 mg PO BID [facility] Last Admin: 04/02/19 07:49 Dose: 100 mg Glipizide (Glucotrol Tab*) 2.5 mg PO 0800,1700 [facility] Last Admin: 04/02/19 07:49 Dose: 2.5 mg Heparin Sodium (Porcine) (Heparin Vial(*)) 5,000 units SUBCUT Q8HR [facility] Last Admin: 04/02/19 05:48 Dose: 5,000 units Insulin Glargine (Lantus(*)) 12 units SUBCUT Q24H [facility] Last Admin: 04/01/19 20:16 Dose: 12 units Insulin Human Lispro (Humalog*) 0 units SUBCUT AC [facility]; Protocol Last Admin: 04/02/19 07:33 Dose: Not Given Levothyroxine Sodium (Synthroid Tab*) 50 mcg PO DAILY@0600 [facility] Last Admin: 04/02/19 05:48 Dose: 50 mcg Lisinopril (Prinivil Tab*) 5 mg PO DAILY [facility] Last Admin: 04/02/19 07:48 Dose: 5 mg Metformin HCl (Glucophage*) 1,000 mg PO BID [facility] Last Admin: 04/02/19 07:49 Dose: 1,000 mg Metoprolol Succinate (Toprol Xl Tab*) 50 mg PO DAILY [facility] Last Admin: 04/02/19 07:48 Dose: 50 mg Vital Signs - 8 hr 04/02/19 04/02/19 04/02/19 00:04 03:23 07:13 Temperature 98.9 F 97.9 F Pulse Rate 69 71 Respiratory 22 18 18 Rate Blood Pressure 134/66 114/59 (mmHg) O2 Sat by Pulse 97 97 Oximetry 04/02/19 07:52 Temperature 97.3 F Pulse Rate 64 Respiratory 20 Rate Blood Pressure 128/72 (mmHg) O2 Sat by Pulse 96 Oximetry Oxygen Devices in Use Now: None Appearance: Pleasant elderly gentleman sitting up in recliner in NAD Eyes: No Scleral Icterus Ears/Nose/Mouth/Throat: Mucous Membranes Moist Neck: Trachea Midline Respiratory: Symmetrical Chest Expansion and Respiratory Effort, Clear to Auscultation Cardiovascular: RRR - Normal S1 and S2 Abdominal: NL Sounds; No Tenderness; No Distention Neurological: Alert and Oriented x 3, NL Muscle Strength and Tone, - - Chorea like movements are less intense and less frequent Result Diagrams: 03/30/19 16:11 03/31/19 08:19 Assess/Plan/Problems-Billing Assessment: Mr Perdomo is an 84yo M with PMH of type 2 DM, HTN, hypothyroidism, BPH, Gout, PE /IVC filter, who presented to ED with c/o dizziness, found to have uncontrolled DM. - Patient Problems (1) Uncontrolled diabetes mellitus Comment: - Hb A1c 14.1. - Patient was on Metformin as outpatient. It is unclear when Glipizide was discontinued. Patient states he manages his medications, but doesn't remember taking Glipizide. - Talked to PCP - under the impression glipizide was discontinued due to hypoglycemia. - Endocrinology consult appreciated - plan to continue Metformin, glipizide and Insulin. - D/w son - patient and will not be able to manage fingersticks and insulin injections. Plan is for STR and hopefully at that point he would not need such intensive regimen. (2) Dizziness Comment: - MRI brain revealed small occipital CVA. - PT/OT evaluation appreciated. - Neurology consult appreciated. - Continue Aspirin, Clopidogrel, Atorvastatin - LDL is 64. - His chorea like movements are likely secondary to his uncontrolled DM - much less pronounced today. (3) HTN (hypertension) Comment: - Controlled. - Continue metoprolol, amlodipine, lisinopril. (4) Hypothyroid Comment: - TSH 3.8. - Continue Levothyroxine. (5) Peripheral vascular disease Comment: - S/p right femoral artery stent December 2018 - recommendation for Plavix for 6 months and Aspirin for life. (6) DVT prophylaxis Comment: - SQ heparin. (7) Full code status Comment: Status and Disposition: Change to inpatient. Son updated - patient and will not be able to manage frequent FS and insulin injections at home. As he also has skilled needs, they' re agreeable with STR.
[2019-04-02] MEDS: Insulin GLARGINE(*) 1 UNITS UNIT SUBCUT SCH (20:20)
[2019-04-03 04:41] LABS: ABS Basophils 0.1 10^3/ul (0-0.2); ABS Eosinophils 0.3 10^3/ul (0-0.6); ABS Lymphocytes 1.7 10^3/ul (1.0-4.8); ABS Monocytes 0.6 10^3/ul (0-0.8); ABS Neutrophils 4.1 10^3/ul (1.5-7.7); Eosinophil % 4.3 %; Hematocrit 37 % (42-52); Hemoglobin 12.9 g/dL (14.0-18.0); Lymphocyte % 25.3 %; Mean Corpuscular HGB Conc 35 g/dL (31-36); Mean Corpuscular Hemoglobin 31 pg (27-31); Mean Corpuscular Volume 88 fL (80-94); Nucleated Red Blood Cells % 0.1; Platelet Count 189 10^3/uL (150-450); Red Blood Count 4.18 10^6 /uL (4.18-5.48); Red Cell Distribution Width 14 % (10-15); White Blood Count 6.7 10^3/uL (3.5-10.8)
[2019-04-03] MEDS: Levothyroxine TAB* 50 MCG TAB PO SCH (05:00)
[2019-04-03] MEDS: Heparin VIAL(*) 5000 UNITS/ML VIAL (FIVE THOUSAND) SUBCUT SCH ×3 (05:00→21:00)
--- NOTE | 2019-04-03 07:51 | PN ---
Subjective Date of Service: 04/03/19 Interval History: HOSPITALIST PROGRESS NOTE Patient seen and examined at bedside. Care reviewed and d/w Stefany Storm RN. He offers no new complaints today. He had some episodes of bradycardia while on Telemetry, but asymptomatic. Family History: Unchanged from Admission Social History: Unchanged from Admission Past Medical History: Unchanged from Admission Objective Active Medications: Acetaminophen (Tylenol Tab*) 650 mg PO Q4H PRN PRN Reason: mild to moderate pain Allopurinol (Zyloprim Tab*) 300 mg PO DAILY [facility] Last Admin: 04/02/19 07:48 Dose: 300 mg Amlodipine Besylate (Norvasc Tab*) 5 mg PO DAILY [facility] Last Admin: 04/02/19 07:48 Dose: 5 mg Aspirin (Aspirin Ec Tab*) 81 mg PO DAILY [facility] Last Admin: 04/02/19 07:48 Dose: 81 mg Atorvastatin Calcium (Lipitor*) 40 mg PO DAILY [facility] Last Admin: 04/02/19 07:48 Dose: 40 mg Clopidogrel Bisulfate (Plavix Tab*) 75 mg PO DAILY [facility] Last Admin: 04/02/19 07:48 Dose: 75 mg Docusate Sodium (Colace Cap*) 100 mg PO BID [facility] Last Admin: 04/02/19 20:19 Dose: 100 mg Glipizide (Glucotrol Tab*) 2.5 mg PO 0800,1700 [facility] Last Admin: 04/02/19 16:40 Dose: 2.5 mg Heparin Sodium (Porcine) (Heparin Vial(*)) 5,000 units SUBCUT Q8HR [facility] Last Admin: 04/03/19 05:00 Dose: 5,000 units Insulin Glargine (Lantus(*)) 12 units SUBCUT Q24H [facility] Last Admin: 04/02/19 20:20 Dose: 12 units Insulin Human Lispro (Humalog*) 0 units SUBCUT AC [facility]; Protocol Last Admin: 04/02/19 16:40 Dose: 1 unit Levothyroxine Sodium (Synthroid Tab*) 50 mcg PO DAILY@0600 [facility] Last Admin: 04/03/19 05:00 Dose: 50 mcg Lisinopril (Prinivil Tab*) 5 mg PO DAILY [facility] Last Admin: 04/02/19 07:48 Dose: 5 mg Metformin HCl (Glucophage*) 1,000 mg PO BID [facility] Last Admin: 04/02/19 20:19 Dose: 1,000 mg Vital Signs - 8 hr 04/03/19 03:30 Temperature 99.3 F Pulse Rate 69 Respiratory 20 Rate Blood Pressure 136/67 (mmHg) O2 Sat by Pulse 98 Oximetry Oxygen Devices in Use Now: None Appearance: Pleasant elderly gentleman lying in bed in NAD Eyes: No Scleral Icterus Ears/Nose/Mouth/Throat: Mucous Membranes Moist Neck: Trachea Midline Respiratory: Symmetrical Chest Expansion and Respiratory Effort, Clear to Auscultation Cardiovascular: RRR - Normal S1 and S2 Abdominal: NL Sounds; No Tenderness; No Distention Neurological: Alert and Oriented x 3, NL Muscle Strength and Tone, - - Chorea like movements appear to have resolved Result Diagrams: 04/03/19 04:33 03/31/19 08:19 Assess/Plan/Problems-Billing Assessment: Mr Perdomo is an 84yo M with PMH of type 2 DM, HTN, hypothyroidism, BPH, Gout, PE /IVC filter, who presented to ED with c/o dizziness, found to have uncontrolled DM. - Patient Problems (1) Uncontrolled diabetes mellitus Comment: - Hb A1c 14.1. - Patient was on Metformin as outpatient. It is unclear when Glipizide was discontinued. Patient states he manages his medications, but doesn't remember taking Glipizide. - Endocrinology consult appreciated - plan to continue Metformin, glipizide and Insulin. - D/w son - patient and will not be able to manage fingersticks and insulin injections. Plan is for STR and hopefully at that point he would not need such intensive regimen. (2) Dizziness Comment: - MRI brain revealed small occipital CVA. - PT/OT evaluation appreciated. - Neurology consult appreciated. - Continue Aspirin, Clopidogrel, Atorvastatin - LDL is 64. - His chorea like movements are likely secondary to his uncontrolled DM - much improved today. (3) HTN (hypertension) Comment: - Controlled. - Continue amlodipine and lisinopril. (4) Bradycardia Comment: - Episodes of bradycardia over the last 24h, with some dropped beats, question of second degree HB. - Beta dutch discontinued, Cardiology consult requested. (5) Hypothyroid Comment: - TSH 3.8. - Continue Levothyroxine. (6) Peripheral vascular disease Comment: - S/p right femoral artery stent December 2018 - recommendation for Plavix for 6 months and Aspirin for life. (7) DVT prophylaxis Comment: - SQ heparin. (8) Full code status Comment: Status and Disposition: Change to inpatient. Son updated - patient and will not be able to manage frequent FS and insulin injections at home. As he also has skilled needs, they' re agreeable with STR.
[2019-04-03] MEDS: Insulin LISPRO* 1 UNITS UNIT SUBCUT SCH ×3 (08:25→19:40)
[2019-04-03] MEDS: Atorvastatin* 40 MG TAB PO SCH (09:29)
[2019-04-03] MEDS: Aspirin EC TAB* 81 MG TAB.EC PO SCH (09:30)
[2019-04-03] MEDS: amLODIPine TAB* 5 MG PO SCH (09:30)
[2019-04-03] MEDS: glipiZIDE TAB* 5 MG PO SCH ×2 (09:30→19:40)
[2019-04-03] MEDS: metFORMIN* 500 MG TAB PO SCH ×2 (09:30→20:58)
[2019-04-03] MEDS: Clopidogrel TAB* 75 MG PO SCH (09:31)
[2019-04-03] MEDS: Lisinopril TAB* 5 MG PO SCH (09:31)
[2019-04-03] MEDS: Allopurinol TAB* 300 MG PO SCH (09:31)
[2019-04-03] MEDS: Docusate CAP* 100 MG PO SCH ×2 (09:31→20:58)
--- NOTE | 2019-04-03 12:51 | CONS ---
CC: Dr. Parker CARDIOLOGY CONSULTATION REPORT: DATE OF CONSULT: 04/03/19 REFERRAL PHYSICIAN: Dr. Amanda Olmstead. REASON FOR CARDIOLOGY CONSULTATION: Concern for heart block. HISTORY OF PRESENT ILLNESS: I was kindly asked by Dr. Olmstead to see this patient because there was a concern that the patient has Mobitz type 2 heart block noted on telemetry. The patient was admitted several days ago with a stroke, and on telemetry, while screening for atrial fibrillation, he was found to have several events of blocked APCs. There was no evidence of heart block on his monitor review. The patient himself denies cardiac complaints including he denies chest pain, shortness of breath, fainting. He does walk at home. The patient was admitted for stroke on 03/30/19, for which he is now being considered for rehabilitation facility discharge. He also has uncontrolled diabetes on admission, dizziness from small occipital CVA, hypertension, hypothyroidism, peripheral vascular disease, status post right femoral artery stent December 2018. ALLERGIES TO MEDICATIONS: Listed as CIPROFLOXACIN. The patient has been told not to eat shellfish because of his history of gout. FAMILY HISTORY: Negative for heart disease or stroke. SOCIAL HISTORY: He is and lives with his . 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 He is originally from [place]. REVIEW OF SYSTEMS: Negative for cardiac complaints. Other review of systems unable to obtain due to the patient being very hard of hearing and stating his hearing aid is not working well. PHYSICAL EXAMINATION: Height 5 feet 6 inches, weight 143 pounds. Temperature 98.6 degrees Fahrenheit, pulse 73, blood pressure 122/71, O2 saturation 97%. On general exam, he is a pleasant elderly gentleman in no acute distress. HEENT shows the cranium is normocephalic and atraumatic. He has moist mucosal membranes. Neck veins are not distended. There are no carotid bruits. Visible skin warm and perfused. Affect appropriate. He appears oriented. Back exam: Mild kyphoscoliosis. Lungs are clear to auscultation anteriorly. No wheezes, no rales. Cardiac Exam: S1, S2, regular rate. No significant murmurs, rubs, or gallops. PMI is nondisplaced. Abdomen: Soft and appears benign. Extremities without significant edema. Pulses appeared distally perfused. DIAGNOSTIC STUDIES/LAB DATA: Telemetry strip, which prompted the consultation for possible Mobitz 2 from 04/03/19 at 7:21, demonstrates sinus rhythm with 2 blocked APCs. No heart block noted. There is another strip also which shows 1 blocked APC in the patient's chart. Remainder of his telemetry is benign, demonstrating normal sinus rhythm with mild first-degree AV block. A 12-lead EKG on 04/02/19 shows sinus bradycardia, heart rate 59 beats per minute with first-degree AV block, right bundle-branch block, and left anterior fascicular block. White blood cell count 6.7, hematocrit 37, platelet count 189. INR 1.02. Sodium 136, potassium 4.1, bicarbonate 21, chloride 106, BUN 27 , creatinine 1.25. Troponin 0.03, followed by 0.04, followed by 0.03, not felt significant. IMPRESSION: Mr. Pedromo is a pleasant 84-year-old gentleman with a history of hypertension and peripheral vascular disease, admitted with stroke and uncontrolled diabetes. He has been found to have several rare blocked APCs on his telemetry, and no evidence of heart block. Cardiac-engle, the patient appears to be doing well. RECOMMENDATIONS: 1. At this time, no further cardiac intervention is required. Heart engle, it would be okay to restart his beta-dutch if needed for hypertension, but agree with not increasing significantly given his intrinsic cardiac conduction disease with first-degree AV block, right bundle-branch block, left anterior fascicular block. No evidence of ACS nor significant florentin nor tachyarrhythmia at this time. . 2. Further management as per the Hospitalist Medicine, Neurology, and Endocrine Services. Dear, Dr. Olmstead, many thanks for this kind cardiac consultation opportunity. Please do not hesitate to contact me if you have any questions. I have discussed the case with the patient who appears agreeable. I have also discussed the case with Dr. Olmstead. [id number]/[facility] #: [id number] [facility] HOSPITALLeandro
[2019-04-03] MEDS: Insulin GLARGINE(*) 1 UNITS UNIT SUBCUT SCH (21:00)
[2019-04-04] MEDS: Heparin VIAL(*) 5000 UNITS/ML VIAL (FIVE THOUSAND) SUBCUT SCH ×3 (05:33→21:55)
[2019-04-04] MEDS: Levothyroxine TAB* 50 MCG TAB PO SCH (05:33)
[2019-04-04] MEDS: Insulin LISPRO* 1 UNITS UNIT SUBCUT SCH ×3 (08:23→17:41)
[2019-04-04] MEDS: Aspirin EC TAB* 81 MG TAB.EC PO SCH (08:49)
[2019-04-04] MEDS: Allopurinol TAB* 300 MG PO SCH (08:49)
[2019-04-04] MEDS: Clopidogrel TAB* 75 MG PO SCH (08:49)
[2019-04-04] MEDS: metFORMIN* 500 MG TAB PO SCH ×2 (08:49→21:54)
[2019-04-04] MEDS: glipiZIDE TAB* 5 MG PO SCH ×2 (08:49→19:14)
[2019-04-04] MEDS: Lisinopril TAB* 5 MG PO SCH (08:49)
[2019-04-04] MEDS: amLODIPine TAB* 5 MG PO SCH (08:49)
[2019-04-04] MEDS: Atorvastatin* 40 MG TAB PO SCH (08:49)
[2019-04-04] MEDS: Docusate CAP* 100 MG PO SCH ×2 (08:50→21:54)
--- NOTE | 2019-04-04 12:10 | PN ---
Subjective Date of Service: 04/04/19 Interval History: HOSPITALIST PROGRESS NOTE Patient seen and examined at bedside. Care reviewed and d/w Stefany Storm RN. He is good spirits today, offers no complaints. Family History: Unchanged from Admission Social History: Unchanged from Admission Past Medical History: Unchanged from Admission Objective Active Medications: Acetaminophen (Tylenol Tab*) 650 mg PO Q4H PRN PRN Reason: mild to moderate pain Allopurinol (Zyloprim Tab*) 300 mg PO DAILY [facility] Last Admin: 04/04/19 08:49 Dose: 300 mg Amlodipine Besylate (Norvasc Tab*) 5 mg PO DAILY [facility] Last Admin: 04/04/19 08:49 Dose: 5 mg Aspirin (Aspirin Ec Tab*) 81 mg PO DAILY [facility] Last Admin: 04/04/19 08:49 Dose: 81 mg Atorvastatin Calcium (Lipitor*) 40 mg PO DAILY [facility] Last Admin: 04/04/19 08:49 Dose: 40 mg Clopidogrel Bisulfate (Plavix Tab*) 75 mg PO DAILY [facility] Last Admin: 04/04/19 08:49 Dose: 75 mg Docusate Sodium (Colace Cap*) 100 mg PO BID [facility] Last Admin: 04/04/19 08:50 Dose: 100 mg Glipizide (Glucotrol Tab*) 2.5 mg PO 0800,1700 [facility] Last Admin: 04/04/19 08:49 Dose: 2.5 mg Heparin Sodium (Porcine) (Heparin Vial(*)) 5,000 units SUBCUT Q8HR [facility] Last Admin: 04/04/19 05:33 Dose: 5,000 units Insulin Glargine (Lantus(*)) 10 units SUBCUT Q24H [facility] Last Admin: 04/03/19 21:00 Dose: 10 unit Insulin Human Lispro (Humalog*) 0 units SUBCUT AC [facility]; Protocol Last Admin: 04/04/19 08:23 Dose: Not Given Levothyroxine Sodium (Synthroid Tab*) 50 mcg PO DAILY@0600 [facility] Last Admin: 04/04/19 05:33 Dose: 50 mcg Lisinopril (Prinivil Tab*) 5 mg PO DAILY [facility] Last Admin: 04/04/19 08:49 Dose: 5 mg Metformin HCl (Glucophage*) 1,000 mg PO BID [facility] Last Admin: 04/04/19 08:49 Dose: 1,000 mg Vital Signs - 8 hr 04/04/19 07:15 Temperature 97.5 F Pulse Rate 77 Respiratory 20 Rate Blood Pressure 146/49 (mmHg) O2 Sat by Pulse 98 Oximetry Oxygen Devices in Use Now: None Appearance: Elderly gentleman lying in bed in NAD Eyes: No Scleral Icterus Ears/Nose/Mouth/Throat: Mucous Membranes Moist Neck: Trachea Midline Respiratory: Symmetrical Chest Expansion and Respiratory Effort, Clear to Auscultation Cardiovascular: RRR - Normal S1 and S2 Neurological: Alert and Oriented x 3, NL Muscle Strength and Tone Result Diagrams: 04/03/19 04:33 03/31/19 08:19 Assess/Plan/Problems-Billing Assessment: Mr Perdomo is an 84yo M with PMH of type 2 DM, HTN, hypothyroidism, BPH, Gout, PE /IVC filter, who presented to ED with c/o dizziness, found to have uncontrolled DM. - Patient Problems (1) Uncontrolled diabetes mellitus Comment: - Hb A1c 14.1. - Patient was on Metformin as outpatient. It is unclear when Glipizide was discontinued. Patient states he manages his medications, but doesn't remember taking Glipizide. - Endocrinology consult appreciated - plan to continue Metformin, glipizide and Insulin. - D/w son - patient and will not be able to manage fingersticks and insulin injections. Plan is for STR and hopefully at that point he would not need such intensive regimen. (2) Dizziness Comment: - MRI brain revealed small occipital CVA. - PT/OT evaluation appreciated. - Neurology consult appreciated. - Continue Aspirin, Clopidogrel, Atorvastatin - LDL is 64. - His chorea like movements are likely secondary to his uncontrolled DM - much improved today. (3) HTN (hypertension) Comment: - Controlled. - Continue amlodipine and lisinopril. (4) Bradycardia Comment: - Episodes of bradycardia over the last 24h, with some dropped beats, question of second degree HB. - Beta dutch discontinued, Cardiology consult appreciated - blocked APCs, NOT 2nd degree HB - d/c Telemetry. (5) Hypothyroid Comment: - TSH 3.8. - Continue Levothyroxine. (6) Peripheral vascular disease Comment: - S/p right femoral artery stent December 2018 - recommendation for Plavix for 6 months and Aspirin for life. (7) DVT prophylaxis Comment: - SQ heparin. (8) Full code status Comment: Status and Disposition: Inpatient. Awaiting STR.
[2019-04-04] MEDS: Insulin GLARGINE(*) 1 UNITS UNIT SUBCUT SCH (21:54)
[2019-04-05] MEDS: Levothyroxine TAB* 50 MCG TAB PO SCH (05:07)
[2019-04-05] MEDS: Heparin VIAL(*) 5000 UNITS/ML VIAL (FIVE THOUSAND) SUBCUT SCH ×3 (05:08→20:05)
[2019-04-05] MEDS: Insulin LISPRO* 1 UNITS UNIT SUBCUT SCH ×3 (08:06→16:42)
[2019-04-05] MEDS: amLODIPine TAB* 5 MG PO SCH (09:12)
[2019-04-05] MEDS: Allopurinol TAB* 300 MG PO SCH (09:12)
[2019-04-05] MEDS: Aspirin EC TAB* 81 MG TAB.EC PO SCH (09:12)
[2019-04-05] MEDS: glipiZIDE TAB* 5 MG PO SCH ×2 (09:13→16:50)
[2019-04-05] MEDS: Lisinopril TAB* 5 MG PO SCH (09:13)
[2019-04-05] MEDS: Docusate CAP* 100 MG PO SCH ×2 (09:13→20:05)
[2019-04-05] MEDS: Clopidogrel TAB* 75 MG PO SCH (09:13)
[2019-04-05] MEDS: metFORMIN* 500 MG TAB PO SCH ×2 (09:13→20:05)
[2019-04-05] MEDS: Atorvastatin* 40 MG TAB PO SCH (09:13)
--- NOTE | 2019-04-05 11:16 | PN ---
Subjective Date of Service: 04/05/19 Interval History: HOSPITALIST PROGRESS NOTE Patient seen and examined at bedside. Care reviewed and d/w Jacki Mccord RN. He offers no new complaints today. Family History: Unchanged from Admission Social History: Unchanged from Admission Past Medical History: Unchanged from Admission Objective Active Medications: Acetaminophen (Tylenol Tab*) 650 mg PO Q4H PRN PRN Reason: mild to moderate pain Allopurinol (Zyloprim Tab*) 300 mg PO DAILY [facility] Last Admin: 04/05/19 09:12 Dose: 300 mg Amlodipine Besylate (Norvasc Tab*) 5 mg PO DAILY [facility] Last Admin: 04/05/19 09:12 Dose: 5 mg Aspirin (Aspirin Ec Tab*) 81 mg PO DAILY [facility] Last Admin: 04/05/19 09:12 Dose: 81 mg Atorvastatin Calcium (Lipitor*) 40 mg PO DAILY [facility] Last Admin: 04/05/19 09:13 Dose: 40 mg Clopidogrel Bisulfate (Plavix Tab*) 75 mg PO DAILY [facility] Last Admin: 04/05/19 09:13 Dose: 75 mg Docusate Sodium (Colace Cap*) 100 mg PO BID [facility] Last Admin: 04/05/19 09:13 Dose: 100 mg Glipizide (Glucotrol Tab*) 2.5 mg PO 0800,1700 [facility] Last Admin: 04/05/19 09:13 Dose: 2.5 mg Heparin Sodium (Porcine) (Heparin Vial(*)) 5,000 units SUBCUT Q8HR [facility] Last Admin: 04/05/19 05:08 Dose: 5,000 units Insulin Glargine (Lantus(*)) 10 units SUBCUT Q24H [facility] Last Admin: 04/04/19 21:54 Dose: 10 unit Insulin Human Lispro (Humalog*) 0 units SUBCUT AC [facility]; Protocol Last Admin: 04/05/19 08:06 Dose: Not Given Levothyroxine Sodium (Synthroid Tab*) 50 mcg PO DAILY@0600 [facility] Last Admin: 04/05/19 05:07 Dose: 50 mcg Lisinopril (Prinivil Tab*) 5 mg PO DAILY [facility] Last Admin: 04/05/19 09:13 Dose: 5 mg Metformin HCl (Glucophage*) 1,000 mg PO BID [facility] Last Admin: 04/05/19 09:13 Dose: 1,000 mg Vital Signs - 8 hr 04/05/19 04/05/19 04/05/19 03:31 07:41 08:00 Temperature 97.9 F 97.8 F Pulse Rate 81 78 Respiratory 18 22 22 Rate Blood Pressure 124/63 127/70 (mmHg) O2 Sat by Pulse 96 97 Oximetry Oxygen Devices in Use Now: None Appearance: Pleasant elderly gentleman sitting up in bed in NAD Eyes: No Scleral Icterus Ears/Nose/Mouth/Throat: Mucous Membranes Moist Neck: Trachea Midline Respiratory: Symmetrical Chest Expansion and Respiratory Effort, Clear to Auscultation Cardiovascular: RRR - Normal S1 and S2 Abdominal: NL Sounds; No Tenderness; No Distention Neurological: Alert and Oriented x 3, NL Muscle Strength and Tone, - - Chorea is resolved Result Diagrams: 04/03/19 04:33 03/31/19 08:19 Assess/Plan/Problems-Billing Assessment: Mr Perdomo is an 84yo M with PMH of type 2 DM, HTN, hypothyroidism, BPH, Gout, PE /IVC filter, who presented to ED with c/o dizziness, found to have uncontrolled DM. - Patient Problems (1) Uncontrolled diabetes mellitus Comment: - Hb A1c 14.1. - Patient was on Metformin as outpatient. It is unclear when Glipizide was discontinued. Patient states he manages his medications, but doesn't remember taking Glipizide. - Endocrinology consult appreciated - plan to continue Metformin, glipizide and Insulin. - D/w son - patient and will not be able to manage fingersticks and insulin injections. Plan is for STR and hopefully at the point of d/c he would not need such intensive regimen. (2) Dizziness Comment: - MRI brain revealed small occipital CVA. - PT/OT evaluation appreciated. - Neurology consult appreciated. - Continue Aspirin, Clopidogrel, Atorvastatin - LDL is 64. - His chorea like movements are likely secondary to his uncontrolled DM - much improved today. (3) HTN (hypertension) Comment: - Controlled. - Continue amlodipine and lisinopril. (4) Bradycardia Comment: - Episodes of bradycardia over the last 24h, with some dropped beats, question of second degree HB. - Beta dutch discontinued, Cardiology consult appreciated - blocked APCs, NOT 2nd degree HB - d/c Telemetry. (5) Hypothyroid Comment: - TSH 3.8. - Continue Levothyroxine. (6) Peripheral vascular disease Comment: - S/p right femoral artery stent December 2018 - recommendation for Plavix for 6 months and Aspirin for life. (7) DVT prophylaxis Comment: - SQ heparin. (8) Full code status Comment: Status and Disposition: Inpatient. Awaiting STR.
[2019-04-05] MEDS: Insulin GLARGINE(*) 1 UNITS UNIT SUBCUT SCH (20:05)
[2019-04-06] MEDS: Levothyroxine TAB* 50 MCG TAB PO SCH (05:22)
[2019-04-06] MEDS: Heparin VIAL(*) 5000 UNITS/ML VIAL (FIVE THOUSAND) SUBCUT SCH ×3 (05:23→21:24)
[2019-04-06] MEDS: metFORMIN* 500 MG TAB PO SCH ×2 (08:59→21:22)
[2019-04-06] MEDS: Atorvastatin* 40 MG TAB PO SCH (09:00)
[2019-04-06] MEDS: Lisinopril TAB* 5 MG PO SCH (09:00)
[2019-04-06] MEDS: glipiZIDE TAB* 5 MG PO SCH ×2 (09:00→17:35)
[2019-04-06] MEDS: Allopurinol TAB* 300 MG PO SCH (09:00)
[2019-04-06] MEDS: amLODIPine TAB* 5 MG PO SCH (09:00)
[2019-04-06] MEDS: Aspirin EC TAB* 81 MG TAB.EC PO SCH (09:00)
[2019-04-06] MEDS: Docusate CAP* 100 MG PO SCH ×2 (09:00→21:22)
[2019-04-06] MEDS: Insulin LISPRO* 1 UNITS UNIT SUBCUT SCH ×3 (09:00→17:35)
[2019-04-06] MEDS: Clopidogrel TAB* 75 MG PO SCH (09:01)
--- NOTE | 2019-04-06 10:26 | PN ---
Subjective Date of Service: 04/06/19 Interval History: HOSPITALIST PROGRESS NOTE Patient seen and examined at bedside. Care reviewed and d/w Jacki Mccord RN. He is in good spirits today, watching snow falling outside through his room window. He offers no complaints at this time. Family History: Unchanged from Admission Social History: Unchanged from Admission Past Medical History: Unchanged from Admission Objective Active Medications: Acetaminophen (Tylenol Tab*) 650 mg PO Q4H PRN PRN Reason: mild to moderate pain Allopurinol (Zyloprim Tab*) 300 mg PO DAILY [facility] Last Admin: 04/06/19 09:00 Dose: 300 mg Amlodipine Besylate (Norvasc Tab*) 5 mg PO DAILY [facility] Last Admin: 04/06/19 09:00 Dose: 5 mg Aspirin (Aspirin Ec Tab*) 81 mg PO DAILY [facility] Last Admin: 04/06/19 09:00 Dose: 81 mg Atorvastatin Calcium (Lipitor*) 40 mg PO DAILY [facility] Last Admin: 04/06/19 09:00 Dose: 40 mg Clopidogrel Bisulfate (Plavix Tab*) 75 mg PO DAILY [facility] Last Admin: 04/06/19 09:01 Dose: 75 mg Docusate Sodium (Colace Cap*) 100 mg PO BID [facility] Last Admin: 04/06/19 09:00 Dose: 100 mg Glipizide (Glucotrol Tab*) 2.5 mg PO 0800,1700 [facility] Last Admin: 04/06/19 09:00 Dose: 2.5 mg Heparin Sodium (Porcine) (Heparin Vial(*)) 5,000 units SUBCUT Q8HR [facility] Last Admin: 04/06/19 05:23 Dose: 5,000 units Insulin Glargine (Lantus(*)) 10 units SUBCUT Q24H [facility] Last Admin: 04/05/19 20:05 Dose: 10 unit Insulin Human Lispro (Humalog*) 0 units SUBCUT AC [facility]; Protocol Last Admin: 04/06/19 09:00 Dose: 1 unit Levothyroxine Sodium (Synthroid Tab*) 50 mcg PO DAILY@0600 [facility] Last Admin: 04/06/19 05:22 Dose: 50 mcg Lisinopril (Prinivil Tab*) 5 mg PO DAILY [facility] Last Admin: 04/06/19 09:00 Dose: 5 mg Metformin HCl (Glucophage*) 1,000 mg PO BID [facility] Last Admin: 04/06/19 08:59 Dose: 1,000 mg Vital Signs - 8 hr 04/06/19 04/06/19 03:18 07:26 Temperature 98.6 F Pulse Rate 89 Respiratory 16 20 Rate Blood Pressure 129/72 (mmHg) O2 Sat by Pulse 98 Oximetry Oxygen Devices in Use Now: None Appearance: Pleasant elderly gentleman sitting up in a recliner in NAD Eyes: No Scleral Icterus Ears/Nose/Mouth/Throat: Mucous Membranes Moist Neck: Trachea Midline Respiratory: Symmetrical Chest Expansion and Respiratory Effort, Clear to Auscultation Cardiovascular: RRR - Normal S1 and S2 Extremities: No Edema Neurological: Alert and Oriented x 3, NL Muscle Strength and Tone Result Diagrams: 04/03/19 04:33 03/31/19 08:19 Assess/Plan/Problems-Billing Assessment: Mr Perdomo is an 84yo M with PMH of type 2 DM, HTN, hypothyroidism, BPH, Gout, PE /IVC filter, who presented to ED with c/o dizziness, found to have uncontrolled DM. - Patient Problems (1) Uncontrolled diabetes mellitus Comment: - Hb A1c 14.1. - Patient was on Metformin as outpatient. It is unclear when Glipizide was discontinued. Patient states he manages his medications, but doesn't remember taking Glipizide. - Endocrinology consult appreciated - plan to continue Metformin, glipizide and Insulin. - D/w son - patient and will not be able to manage fingersticks and insulin injections. 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 Plan is for STR and hopefully at the point of d/c from the shelter he would not need such intensive regimen. (2) Dizziness Comment: - MRI brain revealed small occipital CVA. - PT/OT evaluation appreciated. - Neurology consult appreciated. - Continue Aspirin, Clopidogrel, Atorvastatin - LDL is 64. - His chorea like movements were likely secondary to his uncontrolled DM - resolved. (3) HTN (hypertension) Comment: - Controlled. - Continue amlodipine and lisinopril. (4) Bradycardia Comment: - Episodes of bradycardia over the last 24h, with some dropped beats, there was some question of second degree HB. - Beta dutch discontinued, Cardiology consult appreciated - blocked APCs, NOT 2nd degree HB - d/c Telemetry. (5) Hypothyroid Comment: - TSH 3.8. - Continue Levothyroxine. (6) Peripheral vascular disease Comment: - S/p right femoral artery stent December 2018 - recommendation for Plavix for 6 months and Aspirin for life. (7) DVT prophylaxis Comment: - SQ heparin. (8) Full code status Comment: Status and Disposition: Inpatient. Awaiting STR.
[2019-04-06] MEDS: Insulin GLARGINE(*) 1 UNITS UNIT SUBCUT SCH (21:22)
[2019-04-07] MEDS ORDERED: Polyethylene Glycol 3350* 17 GM PACKET PO PRN (05:24)
[2019-04-07] MEDS: Levothyroxine TAB* 50 MCG TAB PO SCH (05:41)
[2019-04-07] MEDS: Heparin VIAL(*) 5000 UNITS/ML VIAL (FIVE THOUSAND) SUBCUT SCH ×2 (05:42→12:36)
[2019-04-07] MEDS: Atorvastatin* 40 MG TAB PO SCH (08:13)
[2019-04-07] MEDS: glipiZIDE TAB* 5 MG PO SCH ×2 (08:14→17:20)
[2019-04-07] MEDS: Aspirin EC TAB* 81 MG TAB.EC PO SCH (08:14)
[2019-04-07] MEDS: metFORMIN* 500 MG TAB PO SCH (08:14)
[2019-04-07] MEDS: Allopurinol TAB* 300 MG PO SCH (08:14)
[2019-04-07] MEDS: Clopidogrel TAB* 75 MG PO SCH (08:14)
[2019-04-07] MEDS: Lisinopril TAB* 5 MG PO SCH (08:15)
[2019-04-07] MEDS: Docusate CAP* 100 MG PO SCH (08:15)
[2019-04-07] MEDS: Insulin LISPRO* 1 UNITS UNIT SUBCUT SCH ×3 (08:16→17:19)
[2019-04-07] MEDS: amLODIPine TAB* 5 MG PO SCH (08:16)
--- NOTE | 2019-04-07 10:11 | DS ---
CC: Dr. Parker * DATE OF ADMISSION: 03/30/2019. DATE OF DISCHARGE: 04/07/2019. PRIMARY CARE PHYSICIAN: Dr. Parker. DISPOSITION ON DISCHARGE: Home. CONDITION ON DISCHARGE: Improved. PRIMARY DIAGNOSES: Hyperglycemia with ketosis, right splenium of the corpus callosum, acute CVA. SECONDARY DIAGNOSES: Bradycardia, dizziness, hypertension, hypothyroidism, peripheral vascular disease, history of DKA in 2012 and 2018, history of PE, osteomyelitis. DIET ON DISCHARGE: Diabetic. MEDICATIONS ON DISCHARGE: 1. Docusate 100 mg twice daily as needed for constipation. 2. Amlodipine 5 mg daily. 3. Clopidogrel 75 mg daily for 6 additional months. 4. Metformin 1,000 mg twice daily. 5. Lisinopril 5 mg daily. 6. Allopurinol 300 mg daily. 7. Levothyroxine 50 mcg daily. 8. Glipizide 2.5 mg at 8 in the morning and 5 in the evening. 9. MiraLax 17 gm daily as needed for constipation. 10. Insulin Glargine 12 units subcutaneous in the evening. 11. Atorvastatin 40 mg daily. 12. Aspirin 81 mg daily. 13. Acetaminophen 500 mg every 4 hours as needed for pain or fever. PERTINENT IMAGIN. Brain MRI: Impression: 5 mm focus of diffusion restriction involving the right pericallosal occipital lobe concerning for small acute/early subacute ischemic infarct. 2. MRA of the head: Limited exam. Only minimal flow evident at the right posterior cerebral artery concerning for high-grade stenosis. CONSULTATIONS: Patient seen in consultation with Endocrinology, Cardiology, and Neurology. HISTORY OF PRESENT ILLNESS/HOSPITAL COURSE: This is an 84-year-old gentleman who presented to the hospital with a fall and unsteady gait, as well as polydipsia with hyperglycemia on presentation, glucose of 511, and hyponatremia in the setting of hyperglycemia. He was treated with insulin with improvement. Because of his dizziness, he was seen by Dr. Apodaca from Neurology. MRI as indicated above found a 5 mm focus of diffusion restriction. MRI additionally shows multiple areas of previous strokes and encephalomalacia in the left cerebellum, as well as the left frontal lobe likely representing multifocal acute and chronic strokes. The current stroke was thought to be likely asymptomatic given the size of the infarct; however, because of the multiple strokes, the patient was recommended for dual antiplatelet therapy, aspirin indefinitely, and Plavix for six months, as well as the addition of a statin. The patient did develop bradycardia during the course of the hospital stay. It was originally concerning for type 2 heart block; however, seen in conjunction with Cardiology, it was not thought to be a heart block. Regardless, the patient 's Metoprolol was discontinued. The patient was seen in conjunction with Endocrinology. He was started on Lantus as well as a sliding scale during the course of his hospital stay. He used minimal sliding scale insulin and is discharged without it which was accordant with the recommendation for the patient from Endocrinology. The patient's blood glucose had been better controlled. Prior to his presentation, his Glipizide had been discontinued. His hemoglobin A1c on presentation was 14.1, but discharged on Glipizide, Metformin and Glargine. He is being discharged to a after many conversations with patient and family who would like to assist him at home with medication administration instead of placement in [facility]. A bed at [facility] was declined by patient and family. Also of note, there were Choreiform movements during the course of the hospital stay that improved with tighter glucose control. This was thought to be in the setting of his hyperglycemia. There were no other complications during the course of the patient's hospital stay. IN FOLLOW-UP, PLEASE: 1. Follow-up patient's blood sugars at least in the morning preprandial. Adjust Lantus as needed. 2. The patient will need follow-up with Endocrinology as well as primary care physician. 3. Physical therapy. 4. No other specific labs or vitals that need follow-up. REASONS TO RETURN TO THE HOSPITAL: Including, but not limited to recurrent or worsening symptoms, recurrent falls, asymmetric numbness, weakness, paresthesias , slurred speech, confusion, altered mental status, chest pain, shortness of breath, nausea, vomiting, lightheadedness, loss of consciousness, inability to obtain or tolerate medications were discussed with the patient. He acknowledged understanding. TIME SPENT: Greater than 60 minutes were spent on this discharge of this patient, greater than half was spent [id number] with the patient. [id number]/[facility] #: [id number] MTDD
[2019-04-07 16:30] VITALS: BP 99/52
[2019-04-07] MEDS: Insulin GLARGINE(*) 1 UNITS UNIT SUBCUT SCH (19:02)
== END 2019-04-07 19:00 | DRG 637 ==
LOC: ED 12:51 → MED 19:36 → MEDTELE 03-31 10:37 → OBSVTOIN 04-01 11:00
PROVIDERS: ADMIT Physician Assistant Medical; ATTEND Internal Medicine
DX: E11.10 Type 2 diabetes mellitus with ketoacidosis without coma (principal); I63.9 Cerebral infarction, unspecified; E87.1 Hypo-osmolality and hyponatremia; N17.9 Acute kidney failure, unspecified; I45.2 Bifascicular block; E86.1 Hypovolemia; E11.42 Type 2 diabetes mellitus with diabetic polyneuropathy; I10 Essential (primary) hypertension; E03.9 Hypothyroidism, unspecified; E11.65 Type 2 diabetes mellitus with hyperglycemia; I44.0 Atrioventricular block, first degree; N40.0 Benign prostatic hyperplasia without lower urinary tract symptoms; G31.84 Mild cognitive impairment of uncertain or unknown etiology; M10.9 Gout, unspecified; Z86.711 Personal history of pulmonary embolism; Z79.84 Long term (current) use of oral hypoglycemic drugs; Z79.899 Other long term (current) drug therapy; Z84.1 Family history of disorders of kidney and ureter; Z87.891 Personal history of nicotine dependence; Z91.81 History of falling
CPT/HCPCS: 36415; 70450; 70544; 70547; 70551; 80048; 80053; 80061; 81003; 82607; 82803; 82947; 83036; 83605; 84443; 84484; 85025; 85610; 85730; 93005; 99283; A9270-GY; G0378; G8978-GP-CJ; G8979-GP-CI; J1644; J1650

== ENCOUNTER 2023-03-26 15:03 | Inpatient (IN) ==
[2023-03-26] MEDS ORDERED: NS 0.9% 1000 ml BAG 1,000 ML IV ONE (16:44)
[2023-03-26 17:04] LABS: ABS Basophils 0.1 10^3/uL (0.0-0.1); ABS Lymphocytes 0.7 10^3/uL (1.0-4.8); ABS Monocytes 0.6 10^3/uL (0.0-1.1); ABS Neutrophils 11.4 10^3/uL (1.5-7.6); ABS Nucleated RBC 0.02 10^3/ul; Eosinophil % 0.2 %; Hemoglobin 11.4 g/dL (13.2-16.3); Lymphocyte % 5.8 %; Mean Corpuscular Hemoglobin 29.3 pg (27-33); Mean Corpuscular Hgb Conc 34.5 g/dL (31-36); Mean Corpuscular Volume 85.2 fL (80-97); Mean Platelet Volume 7.7 fL (7.5-11.2); Nucleated Red Blood Cells % 0.2 %/100WBC (0.0-0.8); Platelet Count 285 10^3/uL (150-450); Red Blood Count 3.88 10^6/uL (4.06-5.63); Red Cell Distribution Width 16.1 % (12-17); White Blood Count 12.8 10^3/uL (3.6-10.2)
[2023-03-26 17:21] LABS: Urine Appearance Clear; Urine Bilirubin Negative (Negative); Urine Blood 3+ (Negative); Urine Color Yellow; Urine Glucose 3+(>=500 mg/dL) (Negative); Urine Ketones Trace (Negative); Urine Nitrite Negative (Negative); Urine Protein 3+(>=500 mg/dL) (Negative); Urine Specific Gravity 1.017 (1.002-1.030); Urine Urobilinogen Negative (Negative)
[2023-03-26 17:33] LABS: Urine Bacteria Absent (Absent); Urine Red Blood Cell Trace(0-2/hpf) (Absent); Urine White Blood Cell Absent (Absent)
[2023-03-26 18:08] LABS: Albumin 4.1 g/dL (3.2-5.2); Albumin/Globulin Ratio 1.8 (1-3); Calcium 8.8 mg/dL (8.6-10.3); Creatinine, Serum 1.57 mg/dL (0.67-1.17); Globulin 2.3 g/dL (2-4); Potassium 4.7 mmol/L (3.5-5.0); Total Bilirubin 1.9 mg/dL (0.2-1.0); Total Protein 6.4 g/dL (6.4-8.9); eGFR CKD-EPI 41.9 (>60)
[2023-03-26 18:58] LABS: High Sensitivity Troponin 1 Hr 49 pg/mL (<20)
[2023-03-26] MEDS ORDERED: Iodixanol (CONTRAST) 320 MG/ML 100 ML SDV IV ONE (19:01)
[2023-03-26] MEDS ORDERED: Sodium Chloride 3% HYPERTONIC 120 ML IV ONE (20:30)
[2023-03-26] MEDS ORDERED: Dextrose 50% Syringe 50 ml 25 GM/50 ML SYRINGE IV PUSH PRN (20:54)
[2023-03-26 21:15] LABS: Creatinine, Serum 1.24 mg/dL (0.67-1.17); eGFR CKD-EPI 55.6 (>60)
[2023-03-27 00:32] LABS: Calcium 7.8 mg/dL (8.6-10.3); Creatinine, Serum 1.3 mg/dL (0.67-1.17); Potassium 4.3 mmol/L (3.5-5.0); eGFR CKD-EPI 52.5 (>60)
[2023-03-27] MEDS ORDERED: HYPERTONIC IV SCH ×2 (01:30→22:13)
[2023-03-27] MEDS ORDERED: SODIUM CHLORIDE 3% IV SCH ×2 (01:30→22:13)
[2023-03-27 05:55] LABS: ABS Lymphocytes 0.9 10^3/uL (1.0-4.8); ABS Monocytes 0.9 10^3/uL (0.0-1.1); ABS Neutrophils 9.3 10^3/uL (1.5-7.6); ABS Nucleated RBC 0.03 10^3/ul; Eosinophil % 0.1 %; Lymphocyte % 7.9 %; Mean Corpuscular Hemoglobin 29.2 pg (27-33); Mean Corpuscular Hgb Conc 34.4 g/dL (31-36); Mean Corpuscular Volume 84.9 fL (80-97); Mean Platelet Volume 7.7 fL (7.5-11.2); Nucleated Red Blood Cells % 0.3 %/100WBC (0.0-0.8); Platelet Count 258 10^3/uL (150-450); Red Blood Count 3.41 10^6/uL (4.06-5.63); Red Cell Distribution Width 15.7 % (12-17); White Blood Count 11.1 10^3/uL (3.6-10.2)
[2023-03-27 06:46] LABS: Calcium 7.8 mg/dL (8.6-10.3); Creatinine, Serum 1.29 mg/dL (0.67-1.17); Magnesium 1.2 mg/dL (1.9-2.7); Potassium 4.3 mmol/L (3.5-5.0)
[2023-03-27] MEDS ORDERED: Magnesium Sulf 4 GM/100 ML IV 4,000 MG/100 ML BAG IVPB ONE (07:10)
[2023-03-27] MEDS: HYPERTONIC IV SCH ×2 (08:53→11:10)
[2023-03-27] MEDS: SODIUM CHLORIDE 3% IV SCH ×2 (08:53→11:10)
[2023-03-27 09:41] LABS: Calcium 7.9 mg/dL (8.6-10.3); Creatinine, Serum 1.24 mg/dL (0.67-1.17); eGFR CKD-EPI 55.6 (>60)
[2023-03-27 11:17] LABS: Urine Osmo 436 mOsm/kg (150-1150)
[2023-03-27 11:17] LABS: Osmolality Serum 264 mOsm/kg (275-295)
[2023-03-27 12:45] LABS: Calcium 8.2 mg/dL (8.6-10.3); Creatinine, Serum 1.2 mg/dL (0.67-1.17); Potassium 3.9 mmol/L (3.5-5.0); eGFR CKD-EPI 57.8 (>60)
[2023-03-28] MEDS ORDERED: hydrALAZINE 20 mg/ml 1 ML Vial IV IV SLOW PU ONE (03:07)
[2023-03-28] MEDS ORDERED: Enalaprilat IV 1.25 mg/ml 1 ml VIAL (1.25 MG) IV ONE (04:04)
[2023-03-28 04:23] LABS: ABS Basophils 0.1 10^3/uL (0.0-0.1); ABS Eosinophils 0.1 10^3/uL (0.0-0.5); ABS Monocytes 0.8 10^3/uL (0.0-1.1); ABS Neutrophils 9.2 10^3/uL (1.5-7.6); ABS Nucleated RBC 0.04 10^3/ul; Hemoglobin 10.6 g/dL (13.2-16.3); Lymphocyte % 8.7 %; Mean Corpuscular Hemoglobin 29.8 pg (27-33); Mean Corpuscular Hgb Conc 35.5 g/dL (31-36); Mean Corpuscular Volume 84.2 fL (80-97); Mean Platelet Volume 7.4 fL (7.5-11.2); Nucleated Red Blood Cells % 0.4 %/100WBC (0.0-0.8); Platelet Count 284 10^3/uL (150-450); Red Blood Count 3.57 10^6/uL (4.06-5.63); White Blood Count 11.2 10^3/uL (3.6-10.2)
[2023-03-28 04:44] LABS: Calcium 8.1 mg/dL (8.6-10.3); Creatinine, Serum 1.13 mg/dL (0.67-1.17); Magnesium 1.9 mg/dL (1.9-2.7); Potassium 3.9 mmol/L (3.5-5.0); eGFR CKD-EPI 62.1 (>60)
[2023-03-28] MEDS ORDERED: Enalaprilat IV 1.25 mg/ml 1 ml VIAL (1.25 MG) ONE (05:00)
[2023-03-28] MEDS ORDERED: Aspirin EC 81 mg TAB.EC (enteric coated) PO SCH (09:00)
[2023-03-29 04:39] LABS: ABS Basophils 0.1 10^3/uL (0.0-0.1); ABS Eosinophils 0.3 10^3/uL (0.0-0.5); ABS Lymphocytes 1.2 10^3/uL (1.0-4.8); ABS Monocytes 1.1 10^3/uL (0.0-1.1); ABS Neutrophils 9.9 10^3/uL (1.5-7.6); ABS Nucleated RBC 0.04 10^3/ul; Hematocrit 31.5 % (38-53); Hemoglobin 10.6 g/dL (13.2-16.3); Lymphocyte % 9.5 %; Mean Corpuscular Hgb Conc 33.4 g/dL (31-36); Mean Corpuscular Volume 86.6 fL (80-97); Mean Platelet Volume 7.3 fL (7.5-11.2); Nucleated Red Blood Cells % 0.3 %/100WBC (0.0-0.8); Platelet Count 283 10^3/uL (150-450); Red Blood Count 3.64 10^6/uL (4.06-5.63); Red Cell Distribution Width 16.1 % (12-17); White Blood Count 12.5 10^3/uL (3.6-10.2)
[2023-03-29 04:57] LABS: Anion Gap 9 mmol/L (2-16); Blood Urea Nitrogen 24 mg/dL (6-24); CO2 Carbon Dioxide 16 mmol/L (22-32); Chloride 98 mmol/L (101-111); Creatinine, Serum 1.08 mg/dL (0.67-1.17); Glucose 201 mg/dL (70-100); Sodium 123 mmol/L (135-145); eGFR CKD-EPI 65.6 (>60)
[2023-03-29 06:56] LABS: Magnesium 1.7 mg/dL (1.9-2.7); Potassium Redraw 4.3 mmol/L (3.5-5.0)
[2023-03-29] MEDS ORDERED: Magnesium Sulfate 2 gm BAG 2 GM/50 ML BAG IVPB ONE (07:09)
[2023-03-30 05:16] LABS: ABS Basophils 0.1 10^3/uL (0.0-0.1); ABS Eosinophils 0.3 10^3/uL (0.0-0.5); ABS Lymphocytes 1.1 10^3/uL (1.0-4.8); ABS Nucleated RBC 0.02 10^3/ul; Hemoglobin 11.3 g/dL (13.2-16.3); Lymphocyte % 9.8 %; Mean Corpuscular Hemoglobin 29.1 pg (27-33); Mean Corpuscular Hgb Conc 34.2 g/dL (31-36); Mean Corpuscular Volume 85.1 fL (80-97); Mean Platelet Volume 7.2 fL (7.5-11.2); Nucleated Red Blood Cells % 0.2 %/100WBC (0.0-0.8); Platelet Count 293 10^3/uL (150-450); Red Blood Count 3.88 10^6/uL (4.06-5.63); Red Cell Distribution Width 16.8 % (12-17); White Blood Count 11.6 10^3/uL (3.6-10.2)
[2023-03-30 05:39] LABS: Calcium 8.5 mg/dL (8.6-10.3); Creatinine, Serum 1.11 mg/dL (0.67-1.17); Magnesium 1.8 mg/dL (1.9-2.7); Potassium 4.1 mmol/L (3.5-5.0); eGFR CKD-EPI 63.5 (>60)
[2023-03-31 06:56] LABS: ABS Basophils 0.1 10^3/uL (0.0-0.1); ABS Eosinophils 0.2 10^3/uL (0.0-0.5); ABS Lymphocytes 0.8 10^3/uL (1.0-4.8); ABS Monocytes 0.8 10^3/uL (0.0-1.1); ABS Neutrophils 9.9 10^3/uL (1.5-7.6); ABS Nucleated RBC 0.02 10^3/ul; Eosinophil % 1.3 %; Hematocrit 34.3 % (38-53); Hemoglobin 11.4 g/dL (13.2-16.3); Lymphocyte % 6.6 %; Mean Corpuscular Hemoglobin 28.9 pg (27-33); Mean Corpuscular Hgb Conc 33.3 g/dL (31-36); Mean Corpuscular Volume 86.9 fL (80-97); Mean Platelet Volume 7.5 fL (7.5-11.2); Nucleated Red Blood Cells % 0.1 %/100WBC (0.0-0.8); Platelet Count 278 10^3/uL (150-450); Red Blood Count 3.95 10^6/uL (4.06-5.63); Red Cell Distribution Width 16.5 % (12-17); White Blood Count 11.8 10^3/uL (3.6-10.2)
[2023-03-31 07:18] LABS: Calcium 8.7 mg/dL (8.6-10.3); Creatinine, Serum 1.07 mg/dL (0.67-1.17); Magnesium 1.6 mg/dL (1.9-2.7); Potassium 4.2 mmol/L (3.5-5.0); eGFR CKD-EPI 66.3 (>60)
[2023-03-31] MEDS: Aspirin EC 81 mg TAB.EC (enteric coated) PO SCH (08:17)
[2023-03-31] MEDS ORDERED: Magnesium Sulf 4 GM/100 ML IV 4,000 MG/100 ML BAG IVPB ONE (15:00)
[2023-03-31] MEDS: Dextran 70/Hypromellose Tears Eye Drops 15 ml BTL (for Artificials Tears) BOTH EYES SCH ×2 (18:07→20:54)
[2023-04-01] MEDS: Dextran 70/Hypromellose Tears Eye Drops 15 ml BTL (for Artificials Tears) BOTH EYES SCH ×6 (04:40→23:04)
[2023-04-01] MEDS: Aspirin EC 81 mg TAB.EC (enteric coated) PO SCH (08:41)
[2023-04-01 10:18] LABS: Calcium 8.3 mg/dL (8.6-10.3); Creatinine, Serum 1.33 mg/dL (0.67-1.17); Potassium 4.8 mmol/L (3.5-5.0); eGFR CKD-EPI 51.1 (>60)
[2023-04-01] MEDS ORDERED: guaiFENesin 100 mg/5 ml LIQ unit dose cup PO PRN (12:25)
[2023-04-02] MEDS: Dextran 70/Hypromellose Tears Eye Drops 15 ml BTL (for Artificials Tears) BOTH EYES SCH ×6 (02:48→23:30)
[2023-04-02 08:44] LABS: Calcium 8.6 mg/dL (8.6-10.3); Creatinine, Serum 1.39 mg/dL (0.67-1.17); Potassium 4.7 mmol/L (3.5-5.0); eGFR CKD-EPI 48.5 (>60)
[2023-04-02] MEDS: Aspirin EC 81 mg TAB.EC (enteric coated) PO SCH (09:08)
[2023-04-03] MEDS: Dextran 70/Hypromellose Tears Eye Drops 15 ml BTL (for Artificials Tears) BOTH EYES SCH ×4 (02:09→14:27)
[2023-04-03] MEDS: Aspirin EC 81 mg TAB.EC (enteric coated) PO SCH (08:41)
[2023-04-03] MEDS ORDERED: Magnesium Hydroxide LIQ 30 ML UDC PO ONE (09:10)
[2023-04-03] MEDS ORDERED: Polyethylene Glycol 3350 17 GM PACKET PO PRN (09:10)
[2023-04-03 10:57] LABS: Creatinine, Serum 1.31 mg/dL (0.67-1.17); Potassium 4.6 mmol/L (3.5-5.0)
[2023-04-03 14:30] VITALS: BP 139/50
== END 2023-04-03 15:45 | disposition home or self-care (01) | DRG 641 ==
LOC: ED 15:03 → SUATTDRO 19:23 → EDHOLD 19:23 → ICU 03-27 01:12 → MEDTELE 03-30 03:04
PROVIDERS: ADMIT Internal Medicine Critical Care Medicine; ATTEND Internal Medicine